=== PATIENT | male | born 1980 | race Two or more races ===

== ENCOUNTER 2023-10-31 14:11 | Outpatient (REF) | payer MEDICAID, SELFPAY ==
[2023-10-31 16:09] LABS: MANUAL DIFF FLAG NO
[2023-10-31 16:13] LABS: Basophils Percent Auto 0.5 % (0-2); Eosinophils Absolute Auto 0.1 X10*3/uL (0.0-0.4); Eosinophils Percent Auto 2.2 % (0-4); Hematocrit 44.3 % (42.0-52.0); Hemoglobin 15.1 g/dl (14.0-18.0); Imm Gran Abs Auto 0.02 X10*3/uL (0.00-0.03); Imm Gran Pct Auto 0.3 % (0.0-0.4); Lymphocytes Absolute Auto 2.4 X10*3/uL (1.2-4.9); Lymphocytes Percent Auto 36.7 % (20-40); Mean Corpuscular HGB Conc 34.1 g/dl (31.0-36.0); Mean Corpuscular Hemoglobin 31.7 pg (27.0-33.0); Mean Corpuscular Volume 92.9 fL (80.0-98.0); Mean Platelet Volume 10.8 fL (9.4-12.4); Monocytes Absolute Auto 0.4 X10*3/uL (0.1-1.2); Monocytes Percent Auto 6.4 % (2-11); Neutrophils Absolute Auto 3.5 x10*3/uL (2.0-8.3); Neutrophils Percent Auto 53.9 % (45-73); Platelet Count 203 X10*3/uL (160-400); Red Blood Count 4.77 X10*6/uL (4.60-5.80); Red Cell Distribution Width 12.2 % (11.0-16.0); White Blood Count 6.4 X10*3/uL (4.8-10.8)
[2023-10-31 16:49] LABS: Alanine Aminotransferase 18 U/L (0-40); Albumin Level 4.5 g/dL (3.5-5.0); Alkaline Phosphatase 64 U/L (39-117); Anion Gap 14 (12-20); Aspartate Amino Transferase 22 U/L (5-37); Bilirubin Total 1.3 mg/dL (0.0-1.0); Blood Urea Nitrogen 11 mg/dL (9-16); Calcium 9.9 mg/dL (8.4-10.2); Carbon Dioxide 24 mmol/L (22-29); Chloride 109 mmol/L (96-108); Estimated Glomerular Filt Rate > 60; Glucose Random 94 mg/dL (60-115); Potassium 4.3 mmol/L (3.3-5.1); Sodium 143 mmol/L (135-145); Total Protein 7.5 g/dL (6.5-8.0)
[2023-10-31 17:04] LABS: Vitamin D 25-OH Total 69.9 ng/mL (>30)
[2023-10-31 18:42] LABS: CT PCR NOT DETECTED (Not Detect.); NG PCR NOT DETECTED (Not Detect.)
[2023-11-01 04:22] LABS: Syphilis Screen Nonreactive (Nonreactive)
[2023-11-01 04:50] LABS: Hepatitis A Antibody IgG REACTIVE (Nonreactive); ~Hepatitis A Antibody IgG 4.16 S/CO (0.00-0.99)
[2023-11-01 04:58] LABS: HBS Num1 > 1000.00 mIU/mL (0-7.99); HBc Num1 0.15 S/CO (0.00-0.79); HBsAGNum1 0.44 S/CO (0.00-0.99); HIV AB/AG Nonreactive (Nonreactive); HIV Num 1 0.05 S/CO (0.00-0.99); Hepatitis B Core Antibody Nonreactive (Nonreactive); Hepatitis B Surface Antigen Negative (Negative); ~HepC Num1 0.09 S/CO (0.00-0.79); ~Hepatitis B Surface Antibody REACTIVE (Nonreactive); ~Hepatitis C Antibody Nonreactive (Nonreactive)
== END 2023-10-31 14:12 | disposition home or self-care (01) ==
LOC: HO.HHCL 14:11
PROVIDERS: Visit Provider Family Medicine
DX: Z11.3 Encounter for screening for infections with a predominantly sexual mode of transmission (principal); E55.9 Vitamin D deficiency, unspecified; T50.901A Poisoning by unspecified drugs, medicaments and biological substances, accidental (unintentional), initial encounter; Z01.84 Encounter for antibody response examination
CPT/HCPCS: 80053; 82306; 85025; 86704; 86706; 86708; 86780; 86803; 87340; 87389; 87491; 87591

== ENCOUNTER 2023-11-04 15:21 | Outpatient (REF) | payer MEDICAID, SELFPAY ==
[2023-11-04 17:00] LABS: Amphetamine Screen Urine NOT DETECTED (Not Detect); Barbiturates, Urine NOT DETECTED (Not Detect); Benzodiazepines Screen Urine Not Detected (Not Detect); Buprenorphine Scr Not Detected (Not Detect); Cannabinoid Screen Urine Not Detected (Not Detect); Cocaine Screen Urine Not Detected (Not Detect); Fentanyl, urine Not Detected (Not Detect); Methadone Screen, Urine Not Detected (Not Detect); Opiate Screen Urine NOT DETECTED (Not Detect); Oxycodone Screen Urine Not Detected (Not Detect); Phencyclidine Screen Urine NOT DETECTED (Not Detect)
== END 2023-11-04 15:22 | disposition home or self-care (01) ==
LOC: HO.HHCL 15:21
PROVIDERS: Visit Provider Family Medicine
DX: T50.901A Poisoning by unspecified drugs, medicaments and biological substances, accidental (unintentional), initial encounter (principal); X58.XXXA Exposure to other specified factors, initial encounter; Y93.9 Activity, unspecified; Y92.9 Unspecified place or not applicable; Y99.9 Unspecified external cause status
CPT/HCPCS: 80307

== ENCOUNTER 2023-12-02 11:47 | Outpatient (REF) | payer MEDICAID, SELFPAY ==
[2023-12-02 16:20] LABS: Amphetamine Screen Urine Not Detected (Not Detect); Barbiturates, Urine Not Detected (Not Detect); Benzodiazepines Screen Urine Not Detected (Not Detect); Buprenorphine Scr Not Detected (Not Detect); Cannabinoid Screen Urine Not Detected (Not Detect); Cocaine Screen Urine Not Detected (Not Detect); Fentanyl, urine Not Detected (Not Detect); Methadone Screen, Urine Not Detected (Not Detect); Opiate Screen Urine Not Detected (Not Detect); Oxycodone Screen Urine Not Detected (Not Detect); Phencyclidine Screen Urine Not Detected (Not Detect)
== END 2023-12-02 11:48 | disposition home or self-care (01) ==
LOC: HO.HHCL 11:47
PROVIDERS: Visit Provider Family Medicine
DX: F41.9 Anxiety disorder, unspecified (principal); M54.50 Low back pain, unspecified; G89.29 Other chronic pain
CPT/HCPCS: 80307

== ENCOUNTER 2023-12-13 14:44 | Outpatient (AMB) | payer MEDICAID, SELFPAY ==
--- NOTE | 2023-12-13 14:58 | A.OFFVIS_ITS ---
Intake Visit Reasons: erectile dysfunction Intake Note: New Patient presents for initial visit for erectile dysfunction Urology Medications: Tadalafil Blood Thinner: none Windows Software Developer Required: No Accompanied by: Self / Same As Patient Allergies No Known Allergies [No Known Allergies*] Allergy (Unverified 12/13/23 16:03) Medication List - Last Reconciled 12/13/23 by SU Champion albuterol sulfate 90 mcg/actuation (Ventolin HFA) 2 puffs inhalation Q4H PRN azelaic acid 15% topical DAILY benzoyl peroxide 10% topical cholecalciferol (vitamin D3) 25 mcg PO DAILY clindamycin phosphate 1% topical BID tadalafil 5 mg PO DAILY HPI Comments Details: Jay is a 43-year-old male patient of Dr. Almaguer. He has a past medical history of acne, bipolar disorder, depression, asthma, acid reflux, lumbar spinal stenosis, degenerative disc disease, and osteoporosis. He presents to the office today as a new patient for erectile dysfunction. In discussion with the patient today he reports noting issues obtaining and maintaining erections since initiation of Abilify that he has since stopped taking. He discusses his previous lumbar surgery with anterior approach. He reports having followed up with [facility] and has undergone scrotal ultrasound that noted microlithiasis otherwise was within normal limits. He reports having been started on low-dose Cialis and has not found this helpful. He does report being able to obtain an erection however does not feel as adequate for penetration however is not actively in a relationship. He denies any previous trauma in the area. He otherwise denies any bothersome urinary issues. We discussed at length potential causes of erectile dysfunction as well as further workup. He denies urinary urgency, urinary frequency, incontinence, nocturia, hematuria, dysuria, foul smelling urine, changes to urinary stream, flank pain, fever, and or chills. He is happy with his current voiding parameters. In office urinalysis results reviewed with the patient today. He otherwise offers no other issues or concerns at this time. [facility] Medical History Bipolar disorder Acne Depression Asthma Acid reflux Lumbar spinal stenosis Degenerative disc disease, lumbar Osteoporosis Review of Systems Const All systems reviewed & are unremarkable except as noted in HPI and below Reports as per HPI Eyes Reports no additional complaints ENT Reports no additional complaints Card Reports as per HPI Resp Reports no additional complaints GI Denies abdominal pain and Denies nausea Musc Denies no additional complaints Neuro Reports no additional complaints Physical Exam Const General: cooperative, healthy appearing, comfortable, no acute distress, well developed, alert and awake Nutritional Appearance: thin Orientation/consciousness: patient oriented x3 Limitations: no limitations HEENT Head: Yes normal to inspection, Yes normocephalic and Yes atraumatic Ears: hearing grossly normal bilaterally Eyes General: appearance normal, both eyes and all related structures Neck Neck: Yes normal visual inspection and Yes trachea midline Chest Chest palpation & inspection: normal inspection of the chest Resp Effort & Inspection: normal respiratory effort and able to speak in complete sentences Cardio Rate: regular rate GI Inspection: Yes normal to inspection General: Yes no CVA tenderness Back/Spine/Pelvis Back: no CVA tenderness Skin General skin exam: no rashes or lesions noted Neuro General: patient oriented x3 Extrem General: Yes normal to inspection Psych Appearance: grossly normal and well kempt Mental Status: mental status grossly normal Speech and movement: Normal speech and movement present and Clear speech present Affect: normal affect Attitude: cooperative Thought process: Normal thought process present Thought content: Normal thought content present Insight: Fair insight present (Psych) Judgement: Fair judgement present (Psych) Results AMB Urinalysis, Automated UA Leukoctes 0 Mushtaq/uL Last Edit by [employer] on 12/13/23 15:25 UA Nitrite Last Edit by [employer] on 12/13/23 15:25 UA Urobilinogen 0.2 mg/dL Last Edit by [employer] on 12/13/23 15:25 UA Protein 15 mg/dL Last Edit by [employer] on 12/13/23 15:25 UA pH 5.5 Last Edit by [employer] on 12/13/23 15:25 UA Blood 0 Arsh/uL Last Edit by [employer] on 12/13/23 15:25 UA Specific [place] 1.030 Last Edit by [employer] on 12/13/23 15:25 UA Ketone Last Edit by [employer] on 12/13/23 15:25 UA Bilirubin 0 mg/dL Last Edit by [employer] on 12/13/23 15:25 UA Glucose 0 mg/dL Last Edit by Raquel Ortega on 12/13/23 15:25 Results Reviewed Results Reviewed: Laboratory Last Values Urine pH (Auto) 5.5 12/13/23 15:21 Specific [place] (Auto) 1.030 12/13/23 15:21 Urine Protein (Auto) 15 mg/dL 12/13/23 15:21 Glucose (UA)(Auto) 0 mg/dL 12/13/23 15:21 Urine Blood (Auto) 0 Arsh/uL 12/13/23 15:21 Urine Bilirubin (Auto) 0 mg/dL 12/13/23 15:21 Urine Urobilinogen (Auto) 0.2 mg/dL 12/13/23 15:21 Leukocyte Esterase (Auto) 0 Mushtaq/uL 12/13/23 15:21 Assessment & Plan Assessment & Plan (1) Erectile dysfunction: Code(s): N52.9 - Male erectile dysfunction, unspecified Category: Medical Plan In office urinalysis results reviewed with the patient today; as noted above. Discussed at length potential causes as well as treatment options for erectile dysfunction. Will obtain testosterone free and total, LH, SHBG, FSH, estradiol, and prolactin for further assessment evaluation. Continue low-dose Cialis Patient otherwise denies any bothersome urinary issues or concerns. He reports be happy with current voiding parameters. Discussed possible near future penile Doppler for further assessment evaluation. Follow-up in 1-3 months with labs to be completed prior; or sooner with any issues, concerns, and or questions. Orders: Orders Follicle Stimulating Hormone Today N52.9 - Male erectile dysfunction, unspecified Testosterone, Free/Total Today N52.9 - Male erectile dysfunction, unspecified Lutenizing Hormone Today N52.9 - Male erectile dysfunction, unspecified Sex Hormone Binding Globulin Today E29.1 - Testicular hypofunction, N52.9 - Male erectile dysfunction, unspecified AMB Urinalysis Automated Today Z13.9 - Encounter for screening, unspecified Prolactin Today N52.9 - Male erectile dysfunction, unspecified Estradiol Ultra Sensitive Today E29.1 - Testicular hypofunction, N52.9 - Male erectile dysfunction, unspecified Patient Instructions: The patient had an opportunity to ask questions regarding the treatment plan. All questions were answered. Physical exam, labs, and imaging were discussed and reviewed in detail. As well as risks, benefits, and discussion of treatment choices. No major barriers to understanding were identified. The patient expressed understanding and agreement with the above treatment plan. The patient was made aware they should contact our office by phone for worsening of their current condition, the appearance of new symptoms, or with any q uestions or concerns. Compliance is encouraged with any medications and follow up testing that is ordered. It is a privilege to be allowed the opportunity to participate in? your urological care.? Again, if you have any questions or concerns If you have any questions or concerns please do not hesitate to contact me. The office is [phone]. This note is constructed using voice recognition software. While every effort has been made to ensure accuracy supervisor mirror fabrication errors may have been included. Yours sincerely, SU Champion Coding Level of Care Code New Pt Level 3 (30360) Diagnoses Erectile dysfunction N52.9
== END 2023-12-13 15:39 | disposition home or self-care (01) ==
PROVIDERS: PCP Family Medicine; Visit Provider Nurse Practitioner Family
DX: N52.9 Male erectile dysfunction, unspecified (principal); Z13.9 Encounter for screening, unspecified
CPT/HCPCS: 99203

== ENCOUNTER → 2023-12-13 14:44 | Outpatient (BNVA) | payer MEDICAID, SELFPAY | PROVIDERS: PCP Family Medicine; Visit Provider Nurse Practitioner Family | DX: N52.9 Male erectile dysfunction, unspecified (principal) | CPT/HCPCS: 81003; 99212 ==

== ENCOUNTER 2024-01-05 12:44 | Outpatient (AMB) | payer MEDICAID, SELFPAY ==
--- NOTE | 2024-01-05 12:53 | HO.SPINEOV ---
Intake Visit Reasons: chronic low back pain Intake Note: Mr. Spencer is here today c/o Low back pain. Injection Molding Machine Setter Required: No Allergies No Known Allergies [No Known Allergies*] Allergy (Verified 01/05/24 13:01) Assessment & Plan Assessment & Plan (1) Failed back syndrome: Code(s): M96.1 - Postlaminectomy syndrome, not elsewhere classified Category: Medical Plan Dear dr Almaguer Thank you for referring Mr Spencer to our office today. He is a 43-year-old gentleman presents to the office today for evaluation of back pain on the right side of his low back which radiates down his right leg. He had an anterior lumbar interbody fusion with Dr.Cowan bates in 2021, which unfortunately did not relieve the pain. He went through a series of postoperative workups and was told that all the imaging was okay but unfortunately despite all this he did not feel any better. He underwent an EMG nerve study which showed normal findings with no evidence of nerve damage. He came in today for 2nd opinion on the matter. PMH: He deals with some bipolar issues and other mental health issues but he is otherwise healthy Social hx: Patient is a nonsmoker Medications: Voltaren and a number of different vitamin complexes Allergies: None Physical exam: Awake alert oriented no acute distress, slow to stand up but his strength and reflexes are normal. Tenderness over the right SI joint. Imaging review: He is a lumbar MRI done at [facility] showing L5-S1 fusion with a construct that appears in appropriate position. There is no central or foraminal stenosis. There are some other very milder changes in the upper lumbar spine but nothing of any concern. Impression: 43-year-old male who underwent an L5-S1 anterior lumbar interbody fusion at [facility] with unfortunately unsuccessful results. In his well-known that spinal fusion success rates are approximately 60-70% even in the best of circumstances as the exact source of back pain can often be elusive and may not be discogenic. It looks like this is probably the case with this gentleman that the disc was not the source of his back pain. His EMG was normal, his neurological exam is normal. He reports erectile dysfunction because of the surgery, and this would be unusual to see in isolation without some other type of cauda equina syndrome associated with it which he does not have. That could be coming from another source and may require a workup. We do not have any surgery to offer him as the imaging looks like an appropriate surgery was done. We would be happy to see him back if something changes. Thank you for allowing us to care for your patient. The total time spent with this visit with this patient was 40 minutes reviewing history, physical exam, lumbar imaging review, and implementation of treatment plan or further diagnostic testing Alexy Downing MD,PhD [facility] Coding Level of Care Code New Pt Level 4 (05202) Diagnoses Failed back syndrome M96.1
== END 2024-01-05 13:26 | disposition home or self-care (01) ==
PROVIDERS: PCP Family Medicine; Referring Provider Family Medicine; Visit Provider Physician Assistant
DX: M96.1 Postlaminectomy syndrome, not elsewhere classified (principal)
CPT/HCPCS: 99204

== ENCOUNTER → 2024-01-05 12:44 | Outpatient (BNVA) | payer MEDICAID, SELFPAY | PROVIDERS: PCP Family Medicine; Visit Provider Physician Assistant | DX: M96.1 Postlaminectomy syndrome, not elsewhere classified (principal) | CPT/HCPCS: 99212 ==

== ENCOUNTER 2024-01-13 10:43 | Outpatient (REF) | payer MEDICAID, SELFPAY ==
[2024-01-14 09:48] LABS: Lutenizing Hormone 3.4 mIU/mL (1.5-9.3); Prolactin 9.6 ng/mL (2.0-18.0); Sex Hormone Binding Globulin 24 nmol/L (10-50)
[2024-01-18 19:27] LABS: Testosterone, Free 53.6 pg/mL (35.0-155.0); Testosterone, Total 288 ng/dL (250-1100)
[2024-01-21 23:43] LABS: Estradiol Ultra Sensitive 18 pg/mL (< OR = 29)
== END 2024-01-13 10:44 | disposition home or self-care (01) ==
LOC: HO.LAB 10:43
PROVIDERS: PCP Family Medicine; Visit Provider Nurse Practitioner Family
DX: N52.9 Male erectile dysfunction, unspecified (principal); E29.1 Testicular hypofunction
CPT/HCPCS: 36415; 82670; 83001; 83002; 84146; 84270; 84402; 84403

== ENCOUNTER 2024-01-23 13:44 | Outpatient (AMB) | payer MEDICAID, SELFPAY ==
--- NOTE | 2024-01-23 14:06 | A.OFFVIS_ITS ---
Intake Visit Reasons: 2m/labs Intake Note: Patient presents today for follow up visit on: erectile dysfunction Urology Medications: Tadalafil Blood Thinner: none Staffing Operations Manager Required: No Accompanied by: Self / Same As Patient Allergies No Known Allergies [No Known Allergies*] Allergy (Verified 01/23/24 17:52) Medication List - Last Reconciled 01/23/24 by SU Champion albuterol sulfate 90 mcg/actuation (Ventolin HFA) 2 puffs inhalation Q4H PRN azelaic acid 15% topical DAILY benzoyl peroxide 10% topical cholecalciferol (vitamin D3) 25 mcg PO DAILY clindamycin phosphate 1% topical BID clomiphene citrate 100 mg (2 x 50 mg) PO DAILY 7 days doxycycline hyclate 100 mg PO BID tadalafil 5 mg PO DAILY 90 days HPI Comments Details: Jay is a 43-year-old male patient of Dr. Almaguer. He has a past medical history of acne, bipolar disorder, depression, asthma, acid reflux, lumbar spinal stenosis, degenerative disc disease, and osteoporosis. He presents to the office today for follow-up of his erectile dysfunction. Of note, patient was seen approximately 6 weeks ago at which time labs were drawn for further assessment evaluation. These results were reviewed with the patient today. Estradiol: 01/09 18 FSH: 01/09 3.0 LH: 01/09 3.4 Prolactin: 01/09 9.6 Total testosterone: 01/09 288 Free testosterone: 01/09 53.6 SHB/24 24 He continues to discuss at length feeling a lot of his medical issues were initiated after taking Abilify. He reports feeling this has caused him his erectile dysfunction as well as acne he has been experiencing. He also feels his previous lumbar surgery with an anterior approach has also affected him with our medical issues. We discuss trial of clomiphene. He reports feeling low-dose Cialis has been helpful with obtaining erections. He discusses his longstanding history with his urological issues and following up with [facility] in the past however did not find this helpful. He otherwise denies any bothersome urinary issues or concerns. He denies urinary urgency, urinary frequency, incontinence, nocturia, hematuria, dysuria, foul smelling urine, changes to urinary stream, flank pain, fever, and or chills. He is happy with his current voiding parameters. In office urinalysis results reviewed with the patient today. He otherwise offers no other issues or concerns at this time. [facility] Medical History Bipolar disorder Acne Depression Asthma Acid reflux Lumbar spinal stenosis Degenerative disc disease, lumbar Osteoporosis Review of Systems Const All systems reviewed & are unremarkable except as noted in HPI and below Reports as per HPI Eyes Reports no additional complaints ENT Reports no additional complaints Card Reports as per HPI Resp Reports no additional complaints GI Denies abdominal pain and Denies nausea Musc Denies no additional complaints Neuro Reports no additional complaints Physical Exam Const General: cooperative, healthy appearing, comfortable, no acute distress, well developed, alert and awake Nutritional Appearance: thin Orientation/consciousness: patient oriented x3 Limitations: no limitations HEENT Head: Yes normal to inspection, Yes normocephalic and Yes atraumatic Ears: hearing grossly normal bilaterally Eyes General: appearance normal, both eyes and all related structures Neck Neck: Yes normal visual inspection and Yes trachea midline Chest Chest palpation & inspection: normal inspection of the chest Resp Effort & Inspection: normal respiratory effort and able to speak in complete sentences Cardio Rate: regular rate GI Inspection: Yes normal to inspection General: Yes no CVA tenderness Back/Spine/Pelvis Back: no CVA tenderness Skin General skin exam: no rashes or lesions noted Neuro General: patient oriented x3 Extrem General: Yes normal to inspection Psych Appearance: grossly normal and well kempt Mental Status: mental status grossly normal Speech and movement: Normal speech and movement present and Clear speech present Affect: normal affect Attitude: cooperative Thought process: Normal thought process present Thought content: Normal thought content present Insight: Fair insight present (Psych) Judgement: Fair judgement present (Psych) Results AMB Urinalysis, Automated UA Leukoctes 0 Mushtaq/uL Last Edit by Raquel Ortega on 01/23/24 14:38 UA Nitrite Last Edit by Raquel Ortega on 01/23/24 14:38 UA Urobilinogen 0.2 mg/dL Last Edit by Raquel Ortega on 01/23/24 14:38 UA Protein 0 mg/dL Last Edit by Raquel Ortega on 01/23/24 14:38 UA pH 6.0 Last Edit by Raquel Ortega on 01/23/24 14:38 UA Blood 0 Arsh/uL Last Edit by Raquel Ortega on 01/23/24 14:38 UA Specific [place] 1.010 Last Edit by Raquel Ortega on 01/23/24 14:38 UA Ketone Last Edit by Raquel Ortega on 01/23/24 14:38 UA Bilirubin 0 mg/dL Last Edit by Raquel Ortega on 01/23/24 14:38 UA Glucose 0 mg/dL Last Edit by Raquel Ortega on 01/23/24 14:38 Results Reviewed Results Reviewed: Laboratory Last Values Urine pH (Auto) 6.0 01/23/24 14:36 Specific [place] (Auto) 1.010 01/23/24 14:36 Urine Protein (Auto) 0 mg/dL 01/23/24 14:36 Glucose (UA)(Auto) 0 mg/dL 01/23/24 14:36 Urine Blood (Auto) 0 Arsh/uL 01/23/24 14:36 Urine Bilirubin (Auto) 0 mg/dL 01/23/24 14:36 Urine Urobilinogen (Auto) 0.2 mg/dL 01/23/24 14:36 Leukocyte Esterase (Auto) 0 Mushtaq/uL 01/23/24 14:36 Assessment & Plan Assessment & Plan (1) Erectile dysfunction: Code(s): N52.9 - Male erectile dysfunction, unspecified Category: Medical Plan In office urinalysis results reviewed with the patient today; as noted above. Previous urological labs reviewed with the patient today; as noted above. Discuss trial of clomiphene; we discussed risks and benefits of this i ntervention. Continue Cialis as discussed and prescribed. Start clomid 50 mg b.i.d. x7 days Will reassess LH, testosterone, and free testosterone 1 week status post completion of clomid. Follow-up in 1 month with labs to be completed prior; or sooner with any issues, concerns, and or questions. Orders: Orders Lutenizing Hormone 1 Week N52.9 - Male erectile dysfunction, unspecified Testosterone, Free/Total 1 Week N52.9 - Male erectile dysfunction, unspecified AMB Urinalysis Automated Today Z13.9 - Encounter for screening, unspecified Medications: New clomiphene citrate [facility] [address] [id number] 100 mg (2 x 50 mg) PO DAILY 7 days 14 tabs 0RF E29.1 - Testicular hypofunction, R79.89 - Other specified abnormal findings of blood chemistry Changed From tadalafil 5 mg PO DAILY To tadalafil BIN N Group [facility] [address] [id number] 5 mg PO DAILY 90 days 90 tabs 1RF Patient Instructions: The patient had an opportunity to ask questions regarding the treatment plan. All questions were answered. Physical exam, labs, and imaging were discussed and reviewed in detail. As well as risks, benefits, and discussion of treatment choices. No major barriers to understanding were identified. The patient expressed understanding and agreement with the above treatment plan. The patient was made aware they should contact our office by phone for worsening of their current condition, the appearance of new symptoms, or with any questions or concerns. Compliance is encouraged with any medications and follow up testing that is ordered. It is a privilege to be allowed the opportunity to participate in? your urological care.? Again, if you have any questions or concerns If you have any questions or concerns please do not hesitate to contact me. The office is [phone]. This note is constructed using voice recognition software. While every effort has been made to ensure accuracy childcare aide errors may have been included. Yours sincerely, SU Champion Coding Level of Care Code Est Pt Level 4 (46649) Diagnoses Erectile dysfunction N52.9
== END 2024-01-23 14:28 | disposition home or self-care (01) ==
PROVIDERS: PCP Family Medicine; Visit Provider Nurse Practitioner Family
DX: Z13.9 Encounter for screening, unspecified (principal); N52.9 Male erectile dysfunction, unspecified
CPT/HCPCS: 99214

== ENCOUNTER → 2024-01-23 13:44 | Outpatient (BNVA) | payer MEDICAID, SELFPAY | PROVIDERS: PCP Family Medicine; Visit Provider Nurse Practitioner Family | DX: N52.9 Male erectile dysfunction, unspecified (principal) | CPT/HCPCS: 81003; 99212 ==

== ENCOUNTER 2024-01-24 14:05 | Outpatient (REF) | payer MEDICAID, SELFPAY ==
[2024-01-24 16:19] LABS: MANUAL DIFF FLAG NO
[2024-01-24 16:30] LABS: Basophils Percent Auto 0.6 % (0-2); Eosinophils Absolute Auto 0.1 X10*3/uL (0.0-0.4); Eosinophils Percent Auto 1.7 % (0-4); Hemoglobin 15.8 g/dl (14.0-18.0); Imm Gran Abs Auto 0.02 X10*3/uL (0.00-0.03); Imm Gran Pct Auto 0.3 % (0.0-0.4); Lymphocytes Absolute Auto 2.3 X10*3/uL (1.2-4.9); Mean Corpuscular HGB Conc 34.3 g/dl (31.0-36.0); Mean Corpuscular Hemoglobin 32.1 pg (27.0-33.0); Mean Corpuscular Volume 93.5 fL (80.0-98.0); Mean Platelet Volume 10.7 fL (9.4-12.4); Monocytes Absolute Auto 0.4 X10*3/uL (0.1-1.2); Monocytes Percent Auto 5.9 % (2-11); Neutrophils Absolute Auto 4.1 x10*3/uL (2.0-8.3); Neutrophils Percent Auto 58.5 % (45-73); Platelet Count 212 X10*3/uL (160-400); Red Blood Count 4.92 X10*6/uL (4.60-5.80); Red Cell Distribution Width 11.9 % (11.0-16.0)
[2024-01-24 17:06] LABS: Alanine Aminotransferase 15 U/L (0-40); Albumin Level 4.5 g/dL (3.5-5.0); Alkaline Phosphatase 65 U/L (39-117); Anion Gap 10 (12-20); Aspartate Amino Transferase 19 U/L (5-37); Bilirubin Total 1.2 mg/dL (0.0-1.0); Blood Urea Nitrogen 11 mg/dL (9-16); Calcium 9.9 mg/dL (8.4-10.2); Carbon Dioxide 28 mmol/L (22-29); Chloride 107 mmol/L (96-108); Estimated Glomerular Filt Rate > 60; Glucose Random 88 mg/dL (60-115); Potassium 4.3 mmol/L (3.3-5.1); Sodium 141 mmol/L (135-145); Total Protein 7.9 g/dL (6.5-8.0)
[2024-01-24 17:31] LABS: Erythrocyte Sedimentation Rate 2 MM/HR (0-15)
[2024-01-30 13:49] LABS: Testosterone, Total 256 ng/dL (250-1100)
== END 2024-01-24 14:06 | disposition home or self-care (01) ==
LOC: HO.HHCL 14:05
PROVIDERS: Nurse Practitioner Family; Visit Provider Internal Medicine
DX: L70.0 Acne vulgaris (principal); N52.9 Male erectile dysfunction, unspecified
CPT/HCPCS: 36415; 80053; 83002; 84402; 84403; 85025; 85652

== ENCOUNTER 2024-02-01 08:56 | Outpatient (REF) | payer MEDICAID, SELFPAY ==
[2024-02-01 10:24] LABS: Alanine Aminotransferase 19 U/L (0-40); Albumin Level 4.4 g/dL (3.5-5.0); Alkaline Phosphatase 61 U/L (39-117); Anion Gap 9 (12-20); Aspartate Amino Transferase 27 U/L (5-37); Bilirubin Total 1.3 mg/dL (0.0-1.0); Blood Urea Nitrogen 10 mg/dL (9-16); Calcium 9.4 mg/dL (8.4-10.2); Carbon Dioxide 30 mmol/L (22-29); Chloride 108 mmol/L (96-108); Estimated Glomerular Filt Rate > 60; Glucose Random 89 mg/dL (60-115); Potassium 4.2 mmol/L (3.3-5.1); Sodium 143 mmol/L (135-145); Total Protein 7.5 g/dL (6.5-8.0)
[2024-02-02 20:03] LABS: Lutenizing Hormone 5.4 mIU/mL (1.5-9.3)
[2024-02-05 16:33] LABS: Testosterone, Free 137.4 pg/mL (35.0-155.0); Testosterone, Total 505 ng/dL (250-1100)
== END 2024-02-01 08:57 | disposition home or self-care (01) ==
LOC: HO.LAB 08:56
PROVIDERS: Absent Provider Nurse Practitioner Family; PCP Family Medicine; Visit Provider Family Medicine
DX: E87.8 Other disorders of electrolyte and fluid balance, not elsewhere classified (principal); N52.9 Male erectile dysfunction, unspecified
CPT/HCPCS: 36415; 80053; 83002; 84402; 84403

== ENCOUNTER 2024-02-23 10:02 | Outpatient (AMB) | payer MEDICAID, SELFPAY ==
--- NOTE | 2024-02-23 10:02 | A.OFFVIS_ITS ---
Intake Visit Reasons: 1m/labs(set) Intake Note: Patient presents today for tele visit follow up on: erectile dysfunction Testosterone: 505;Free testosterone: 137.4; LH: 5.4 Urology Medications: Tadalafil,Clomid Blood Thinner: none Managed Services Consultant Required: No Accompanied by: Self / Same As Patient Allergies No Known Allergies [No Known Allergies*] Allergy (Verified 02/23/24 10:11) Medication List - Last Reconciled 02/23/24 by SU Champion albuterol sulfate 90 mcg/actuation (Ventolin HFA) 2 puffs inhalation Q4H PRN benzoyl peroxide 10% topical cholecalciferol (vitamin D3) 25 mcg PO DAILY clindamycin phosphate 1% topical BID clomiphene citrate 50 mg PO .mon,wed,fri 90 days clomiphene citrate 100 mg (2 x 50 mg) PO DAILY 7 days diclofenac sodium 1% 1 g topical PRN fexofenadine 180 mg PO DAILY PRN gabapentin mg PO tadalafil 5 mg PO DAILY 90 days HPI Comments Details: Jay is a 43-year-old male patient of Dr. Almaguer. He has a past medical history of acne, bipolar disorder, depression, asthma, acid reflux, lumbar spinal stenosis, degenerative disc disease, and osteoporosis. He is being followed up on today via telehealth for his borderline hypogonadism as well as erectile dysfunction. Of note, patient was seen approximately 1 month ago at which time he was started on clomiphene. In discussion with the patient today reports to be doing and feeling well. Recent labs reviewed with the patient today as noted and trended below... Estradiol: 01/09 18 FSH: 01/09 3.0 LH: 01/09 3.4, 1024 5.4 Prolactin: 01/09 9.6 Total testosterone: 01/09 288, 02/08 505 Free testosterone: 01/09 53.6, 02/08 137.4 SHB01/10 24 He continues to discuss at length feeling a lot of his medical issues were initiated after taking Abilify. He reports feeling this has caused him his erectile dysfunction as well as acne he has been experiencing. He also feels his previous lumbar surgery with an anterior approach has also affected him with our medical issues. He reports feeling low-dose Cialis has been helpful with obtaining erections. He discusses his longstanding history with his urological issues and following up with [facility] in the past however did not find this helpful. He otherwise denies any bothersome urinary issues or concerns. He denies urinary urgency, urinary frequency, incontinence, nocturia, hematuria, dysuria, foul smelling urine, changes to urinary stream, flank pain, fever, and or chills. He is happy with his current voiding parameters. He otherwise offers no other issues or concerns at this time. [facility] Medical History Bipolar disorder Acne Depression Asthma Acid reflux Lumbar spinal stenosis Degenerative disc disease, lumbar Osteoporosis Review of Systems Const All systems reviewed & are unremarkable except as noted in HPI and below Reports as per HPI Eyes Reports no additional complaints ENT Reports no additional complaints Card Reports as per HPI Resp Reports no additional complaints GI Denies abdominal pain and Denies nausea Musc Denies no additional complaints Neuro Reports no additional complaints Physical Exam Const General: cooperative Orientation/consciousness: patient oriented x3 Resp Effort & Inspection: able to speak in complete sentences Neuro General: patient oriented x3 Psych Speech and movement: Clear speech present Attitude: cooperative Thought content: Normal thought content present Insight: Fair insight present (Psych) Judgement: Fair judgement present (Psych) Telehealth Telehealth Telehealth Platform: [facility] Location of provider rendering services: practice address Location of patient: address on file Patient Identification confirmed using: Name, : Yes Telehealth method: voice only Patient verbally consented to treatment: Yes Patient verbally consented to billing insurance company: Yes Patient informed of any privacy concerns related to visit: Yes Minutes spent on Phone/Video with Pt.: 15 Assessment & Plan Assessment & Plan (1) Erectile dysfunction: Code(s): N52.9 - Male erectile dysfunction, unspecified Category: Medical (2) Hypogonadism in male: Code(s): E29.1 - Testicular hypofunction Category: Medical Plan Recent testosterone, free testosterone, and LH results reviewed with the patient today; as noted above. 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 Will decrease clomiphene citrate to 50 mg every other day. He otherwise denies any bothersome urinary issues or concerns. He reports be happy with current voiding parameters. Will obtain testosterone, free testosterone, and LH in 3 months. Follow-up in 3 months with labs to be completed prior; or sooner with any issues, concerns, and or questions. Orders: Orders Testosterone, Free/Total Today E29.1 - Testicular hypofunction, N52.9 - Male erectile dysfunction, unspecified Lutenizing Hormone Today E29.1 - Testicular hypofunction, N52.9 - Male erectile dysfunction, unspecified Medications: New [facility] [id number] 50 mg PO .mon,wed,fri 40 tabs 0RF 90 days E29.1 - Testicular hypofunction Patient Instructions: The patient had an opportunity to ask questions regarding the treatment plan. All questions were answered. Physical exam, labs, and imaging were discussed and reviewed in detail. As well as risks, benefits, and discussion of treatment choices. No major barriers to understanding were identified. The patient expressed understanding and agreement with the above treatment plan. The patient was made aware they should contact our office by phone for worsening of their current condition, the appearance of new symptoms, or with any questions or concerns. Compliance is encouraged with any medications and follow up testing that is ordered. It is a privilege to be allowed the opportunity to participate in? your urological care.? Again, if you have any questions or concerns If you have any questions or concerns please do not hesitate to contact me. The office is [phone]. This note is constructed using voice recognition software. While every effort has been made to ensure accuracy paper cone drying machine operator errors may have been included. Yours sincerely, SU Champion Coding Level of Care Code Tele Est Pt Level 3 (06067) Diagnoses Erectile dysfunction N52.9 Hypogonadism in male E29.1
== END 2024-02-23 10:41 | disposition home or self-care (01) ==
LOC: HO.HUSH 10:02
PROVIDERS: PCP Family Medicine; Visit Provider Nurse Practitioner Family
DX: N52.9 Male erectile dysfunction, unspecified (principal); E29.1 Testicular hypofunction
CPT/HCPCS: 99213

== ENCOUNTER → 2024-02-23 10:02 | Outpatient (BNVA) | payer MEDICAID, SELFPAY | PROVIDERS: PCP Family Medicine; Visit Provider Nurse Practitioner Family ==

== ENCOUNTER 2024-04-02 12:10 | Outpatient (REF) | payer MEDICAID, SELFPAY ==
[2024-04-02 14:21] LABS: Alanine Aminotransferase 19 U/L (0-40); Albumin Level 4.3 g/dL (3.5-5.0); Alkaline Phosphatase 53 U/L (39-117); Anion Gap 8 (12-20); Aspartate Amino Transferase 24 U/L (5-37); Bilirubin Direct 0.2 mg/dL (0.0-0.5); Bilirubin Total 0.8 mg/dL (0.0-1.0); Blood Urea Nitrogen 11 mg/dL (9-16); Calcium 9.1 mg/dL (8.4-10.2); Carbon Dioxide 29 mmol/L (22-29); Chloride 108 mmol/L (96-108); Estimated Glomerular Filt Rate > 60; Glucose Random 83 mg/dL (60-115); Potassium 4.4 mmol/L (3.3-5.1); Sodium 141 mmol/L (135-145); Total Protein 7.6 g/dL (6.5-8.0)
[2024-04-03 10:28] LABS: Lutenizing Hormone 5.8 mIU/mL (1.5-9.3)
[2024-04-07 16:18] LABS: Testosterone, Free 113.2 pg/mL (35.0-155.0); Testosterone, Total 690 ng/dL (250-1100)
== END 2024-04-02 12:11 | disposition home or self-care (01) ==
LOC: HO.HHCL 12:10
PROVIDERS: Nurse Practitioner Family; Visit Provider Family Medicine
DX: N52.9 Male erectile dysfunction, unspecified (principal); R17 Unspecified jaundice; E87.8 Other disorders of electrolyte and fluid balance, not elsewhere classified; B35.1 Tinea unguium
CPT/HCPCS: 36415; 80048; 80076; 83002; 84402; 84403

== ENCOUNTER 2024-05-11 08:52 | Outpatient (REF) | payer MEDICAID, SELFPAY ==
[2024-05-11 10:39] LABS: Anion Gap 12 (12-20); Blood Urea Nitrogen 15 mg/dL (9-16); Calcium 9.3 mg/dL (8.4-10.2); Carbon Dioxide 25 mmol/L (22-29); Chloride 108 mmol/L (96-108); Estimated Glomerular Filt Rate > 60; Glucose Random 84 mg/dL (60-115); Sodium 141 mmol/L (135-145)
[2024-05-12 20:13] LABS: Lutenizing Hormone 8.1 mIU/mL (1.5-9.3)
[2024-05-17 17:08] LABS: Testosterone, Free 162.6 pg/mL (35.0-155.0); Testosterone, Total 821 ng/dL (250-1100)
== END 2024-05-11 08:53 | disposition home or self-care (01) ==
LOC: HO.LAB 08:52
PROVIDERS: PCP Family Medicine; Visit Provider Nurse Practitioner Family
DX: E29.1 Testicular hypofunction (principal); E87.8 Other disorders of electrolyte and fluid balance, not elsewhere classified
CPT/HCPCS: 36415; 80048; 83002; 84402; 84403

== ENCOUNTER 2024-05-22 14:26 | Outpatient (AMB) | payer MEDICAID, SELFPAY ==
--- OUTSIDE RECORDS SUMMARY | 2024-05-22 14:29 | XMS_ITS | Encounter Summary ---
Author Organization [employer] Address [address] [place] [address] Care Team Providers Care Interlocking Installer Name Role Phone Cyndi Almaguer MD Primary Care Provider [phone] Reason for Visit * Reason Comments Blister Encounter Details Date Type Department Care Team (Late st Contact Info) Description 05/21/2024 2:20 PM EST Office Visit [facility] [address] [place] [address] Meenakshi Lentz ANP [address] [place] [address] Herpes labialis (Primary Dx) Social History Tobacco Use Types Packs/Day Years Used Date Smoking Tobacco: Former Cigarettes Passive Smoke Exposure: Past Smokeless Tobacco: Never Comments:Pt quit cigarettes July 2018 Alcohol Answer Date Recorded Frequency of Alcohol Consumption Not on file 01/31/2024 Average Number of Drinks Not on file 024 Frequency of Binge Drinking Not on file 01/16 Score 0 01/31/2024 Depression Answer Date Recorded Patient Health Questionnaire-9 Score 2 01/31/2024 Patient Health Questionnaire-9 Score 2 01/31/2024 Last PHQ-9: Questionnaire Data Not on file 1 Housing Stability Answer Date Recorded What is your housing situation today? I have marilyn martinez 09/15/[address] you li ve. Do you have problems with any of the following? None of the above 09/15/2023 Food Insecurity Answer Date Recorded Within the past 12 months, y ou worried that your food would run out before you got money to buy more: Never True 09/15/2023 Within the past 12 months,th e food you bought just didn't last and you didn't have enough money to get more: Never True Transportation Answer Date Recorded In the past 12 months, has l ack of transportation kept you from medical appts, meetings, work or from getting things needed for daily living? No 09/15/2023 Utilities Answer Date Recorded In the past 12 months, has t he electric, gas, oil or water company threatened to shut off services in your home? No 09/15/2023 Depression Answer Date Recorded Patient Health Questionnaire-2 Score 0 01/31/2024 Sex and Gender Information Value Date Recorded Sex Assigned at Male 02/15/2022 10:17 AM EDT Legal Sex Male 10:17 AM EDT Gender Identity Male 08/29/2023 2:10 PM EDT Sexual Orientation Straight 08/29/2023 2: 20 PM EDT documented as of this encounter Last Filed Vital Signs Vital Sign Reading Time Taken Comments Blood Pressure 121/76 05/21/2024 3:00 PM EST Pulse 66 05/21/2024 3:00 PM EST Temperature 37 ??C (98.6 ??F) 05/21/2024 3:00 PM EST Respiratory Rate 18 05/21/2024 3:00 PM EST Oxygen Saturation 97% 05/21/2024 3:00 PM EST Inhaled Oxygen Concentration - - Weight 83.7 kg (184 lb 9.6 oz) 05/21/2024 3:00 P M EST Height - - Body Mass Index 25.75 04/13/2024 9:54 AM EST documented in this encounter Progress Notes * ZULLY Miranda - 05/21/2024 2:20 PM EST Jay Spencer is 44 y.o. patient here today for sick visit. HPI Here today for lesion on R lower lip for 2-3d. No h/o cold sore in past. No assoc sx. Started as a blister which poped spontaneously Tuesday AM while brushing teeth. Applying hydrogen peroxide to site which makes it turn white and foamy. Former smoker Review of Systems Constitutional: Negative for chills and fever. HENT: Negative for congestion, facial swelling, rhinorrhea, sneezing, sore throat and trouble swallowing. Eyes: Negative for visual disturbance. Neurological: Negative for numbness. Patient Active Problem List Diagnosis Asthma Bipolar disorder (CMS/HCC) Chronic low back pain GERD (gastroesophageal reflux disease) History of lumbosacral spine surgery Allergic rhinitis Housing insecurity Pustular acne Mood disorder (CMS/HCC) Postlaminectomy syndrome Onychomycosis Objective BP 121/76 (BP Location: Left arm, Patient Position: Sitting, BP Cuff Size: Adult) Pulse 66 Temp98.6 ??F (37 ??C) (Temporal) Resp 18 Wt 184 lb 9.6 oz (83.7 kg) SpO2 97% BMI 25.75 kg/m?? Physical Exam Vitals reviewed. Constitutional: Appearance: Normal appearance. HENT: Head: Normocephalic and atraumatic. Eyes: General: No scleral icterus. Extraocular Movements: Extraocular movements intact. Pupils: Pupils are equal, round, and reactive to light. Cardiovascular: Rate and Rhythm: Normal rate. Skin: Comments: Small healed lesion on R lower lip. Neurological: Mental Status: He is alert and oriented to person, place, and time. Psychiatric: Mood and Affect: Mood normal. Diagnoses and all orders for this visit: Herpes labialis Opted for topical over PO med d/t very mild severity w/ accompanying sx. No gingivostomatitis. Did not swab as lesion was almost entirely healed, likely would be low yield. Let us know if any new lesions occur. - acyclovir (Zovirax) 5 % cream; Apply topically 5 (five) times a day. For 4 days documented in this encounter Plan of Treatment Upcoming Encounters Date Type Department Care Team (Late st Contact Info) Description 06/12/2024 3:45 PM EST Office Visit [facility] [address] [place] [address] Cyndi Almaguer MD [address] [place] [address] documented as of this encounter Visit Diagnoses Diagnosis Herpes labialis- Primary Herpes simplex without mention of complication documented in this encounter Additional Health Concerns Assessment Noted Time PHQ-9 Depression Total Score: 2 01/31/20 24 9:13 AM EDT documented as of this encounter Care Teams Interlocking Installer Relationship Specialty Start Date End Date Cyndi Almaguer MD [address] [place] [address] PCP - General Family Medicine 09/23/23 Sherry Carranza Director Long Term CareNeon Glass Bender 07/28/23 documented as of this encounter
--- OUTSIDE RECORDS SUMMARY | 2024-05-22 14:29 | XMS_ITS | Encounter Summary ---
Author Organization [employer] Address [address] [place] [address] Care Team Providers Care Help Aid Name Role Phone Cyndi Almaguer MD Primary Care Provider [phone] Reason for Referral * Consultation (Routine) - Closed Specialty Diagnoses / Procedures Referred By Contac t Referred To Contact Physical Therapy Diagnoses Chronic back pain, unspecified back location, unspecified back pain laterality Cyndi Almaguer MD [address] [place] [address] Phone: tel: fax: [facility] [address] Phone: tel: fax: Referral ID Status Reason Start Date Expiration Date V isits Requested Visits Authorized [id number] Closed Specialty Services Required 09/30/2023 09/28/2024 20 20 * Consultation (Routine) - Closed Specialty Diagnoses / Procedures Referred By Contac t Referred To Contact Orthopaedic Surgery Diagnoses Chronic back pain, unspecified back location, unspecified back pain laterality Cyndi Almaguer MD [address] [place] [address] Phone: tel: fax: [facility] [address] [place] [address] [address] [place], [place] Phone: tel: fax: Referral ID Status Reason Start Date Expiration Date V isits Requested Visits Authorized [id number] Closed Specialty Services Required 08/08/2023 08/07/2024 12 12 Encounter Details Date Type Department Care Team (Late st Contact Info) Description 09/16/2023 Orders Only [facility] [address] [place], [place] [phone] Cyndi Almaguer MD [address] [place] [address] Chronic back pain, unspecified back location, unspecified back pain laterality (Primary Dx) Social History Tobacco Use Types Packs/Day Years Used Date Smoking Tobacco: Never Assessed Housing Stability Answer Date Recorded What is [...] off services in your home? No 09/15/2023 Sex and Gender Information Value Date Recorded Sex Assigned at Male 02/15/2022 10:17 AM EDT Legal Sex Male 10:17 AM EDT Gender Identity Male 08/29/2023 2:10 PM EDT Sexual Orientation Straight 08/29/2023 2: 20 PM EDT documented as of this encounter Plan of Treatment Upcoming Encounters Date Type Department Care Team (Late st Contact Info) Description 06/12/2024 3:45 PM EST Office Visit [facility] [address] [place] [address] Cyndi Almaguer MD [address] [place] [address] Scheduled Referrals Name Type Priority Associated Diagnoses Orde r Schedule Referral to Orthopaedic Surgery Outpatient Referral Routine Chronic back pain, unspecified back location, unspecified back pain laterality Expected: 09/16/2023 (Approximate), Expires: 09/15/2024 Referral to Physical Therapy Outpatient Referral Routine Chronic back pain, unspecified back location, unspecified back pain laterality Expected: 09/29/2023 (Approximate), Expires: 09/28/2024 documented as of this encounter Visit Diagnoses Diagnosis Chronic back pain, unspecified back location, unspecified back pain laterality- Primary documented in this encounter Care Teams Help Aid Relationship Specialty Start Date End Date Cyndi Almaguer MD [address] [place] [address] PCP - General Family Medicine 09/23/23 Sherry Carranza Suction RollerVideo Engineer 07/28/23 documented as of this encounter
--- OUTSIDE RECORDS SUMMARY | 2024-05-22 14:29 | XMS_ITS | Encounter Summary ---
Author Organization [employer] Address [address] [place] [address] Care Team Providers Care Consulting Practice Manager Name Role Phone Cyndi Almaguer MD Primary Care Provider [phone] Reason for Referral * Consultation (Routine) - Closed Specialty Diagnoses / Procedures Referred By Svetlana brewster Referred To Contact Urology Diagnoses Erectile dysfunction, unspecified erectile dysfunction type Cyndi Almaguer MD [address] [place] [address] Phone: tel: fax: [facility] [address] [place] [address] Drive [address] [place], [place] Phone: tel: fax: Referral ID Status Reason Start Date Expiration Date V isits Requested Visits Authorized [id number] Closed Specialty Services Required 10/10/2023 10/09/2024 6 6 Encounter Details Date Type Department Care Team (Late st Contact Info) Description 10/03/2023 Orders Only [facility] [address] [place] [address] Cyndi Almaguer MD [address] [place] [address] Erectile dysfunction, unspecified erectile dysfunction type (Primary Dx) Social History Tobacco Use Types Packs/Day Years Used Date Smoking Tobacco: Former Cigarettes Passive Smoke Exposure: Past Smokeless Tobacco: Never Comments:Pt quit cigarettes July 2018 Depression Answer Date Recorded Patient Health Questionnaire-9 Score 0 09/22/2023 Patient Health Questionnaire-9 Score 0 09/22/2023 Last PHQ-9: Questionnaire Data Not on file 0 09/22/2023 Housing Stability Answer Date Recorded What is [...] Date Recorded Patient Health Questionnaire-2 Score 0 09/22/2023 Sex and Gender Information Value Date Recorded Sex Assigned at Male 02/15/2022 10:17 AM EDT Legal Sex Male 10:17 AM EDT Gender Identity Male 08/29/2023 2:10 PM EDT Sexual Orientation Straight 08/29/2023 2: 20 PM EDT documented as of this encounter Plan of Treatment Upcoming Encounters Date Type Department Care Team (Late st Contact Info) Description 06/12/2024 3:45 PM EST Office Visit [facility] [address] [place] [address] Cyndi Almaguer MD [address] [place] [address] documented as of this encounter Procedures Procedure Name Priority Date/Time Associated Diagnosis Comments AMB REFERRAL TO UROLOGY Routine 10/12/2023 Erectile dysfunction, unspecified erectile dysfunction type documented in this encounter Results * Referral to Urology (10/12/2023) Cyndi Almaguer MD OUTPATIENT REFERRAL ORDERABLES F inal Result documented in this encounter Visit Diagnoses Diagnosis Erectile dysfunction, unspecified erectile dysfunction type- Primary documented in this encounter Additional Health Concerns Assessment Noted Time PHQ-9 Depression Total Score: 0 09/22/19 9:29 AM EDT documented as of this encounter Care Teams Consulting Practice Manager Relationship Specialty Start Date End Date Cyndi Almaguer MD [address] [place] [address] PCP - General Family Medicine 09/23/23 Sherry Carranza Band SplitterAgriculture Extension Specialist 07/28/23 documented as of this encounter
--- OUTSIDE RECORDS SUMMARY | 2024-05-22 14:29 | XMS_ITS | Encounter Summary ---
Author Organization [employer] Address [address] [place] [address] Care Team Providers Care Tapper Helper Name Role Phone Cyndi Almaguer MD Primary Care Provider [phone] Encounter Details Date Type Department Care Team (Late st Contact Info) Description 10/26/2023 Orders Only [facility] [address] [place] [address] Cyndi Almaguer MD [address] [place], [place] [phone] Immunity status testing (Primary Dx); Routine screening for STI (sexually transmitted infection); Vitamin D deficiency; Accidental poisoning by drug, initial encounter Social History Tobacco Use Types Packs/Day Years [...] Description 06/12/2024 3:45 PM EST Office Visit [facility] [address] [place] [phone] Cyndi Almaguer MD [address] [place] [address] Scheduled Orders Name Type Priority Associated Diagnoses Orde r Schedule Drug Monitoring, Panel 1, Screen, Urine Lab Routine Accidental poisoning by drug, initial encounter Expected: 10/26/2023 (Approximate), Expires: 10/25/2024 documented as of this encounter Procedures Procedure Name Priority Date/Time Associated Diagnosis Comments SYPHILIS SCREEN Routine 10/31/2023 2:14 PM EDT Routine screening for STI (sexually transmitted infection) VITAMIN D,25-OH,TOTAL,IA Routine 10/31/2023 2:14 PM EDT Vitamin D deficiency CBC WITH AUTO DIFFERENTIAL Routine 10/31/2023 2:14 PM EDT Accidental poisoning by drug, initial encounter HEPATITIS C AB W/REFL TO HCV RNA, QN, PCR Routine 10/31/2023 2:14 PM EDT Routine screening for STI (sexually transmitted infection) HEPATITIS A ANTIBODY, TOTAL Routine 10/31/2023 2:14 PM EDT Immunity status testing CHLAMYDIA/N. GONORRHOEAE RNA, TMA, UROGENITAL Routine 10/31/2023 2:14 PM EDT Routine screening for STI (sexually transmitted infection) HEPATITIS B SURFACE ANTIGEN, EIA Routine 10/31/2023 2:14 PM EDT Routine screening for STI (sexually transmitted infection) HEPATITIS B CORE AB TOTAL Routine 10/31/2023 2:14 PM EDT Routine screening for STI (sexually transmitted infection) HIV 1/2 ANTIGEN/ANTIBODY, FOURTH GENERATION W/RFL Routine 10/31/2023 2:14 PM EDT Routine screening for STI (sexually transmitted infection) HEPATITIS B SURFACE ANTIBODY, QUALITATIVE Routine 10/31/2023 2:14 PM EDT Routine screening for STI (sexually transmitted infection) COMPREHENSIVE METABOLIC PANEL Routine 10/31/2023 2:14 PM EDT Accidental poisoning by drug, initial encounter documented in this encounter Results * CBC auto differential (10/31/2023 2:14 PM EDT) White Blood Count 6.4 4.8 - 10.8 X10*3/uL [facility] Red Blood Count 4.77 4.60 - 5.80 X10*6/uL [facility] Hemoglobin 15.1 14.0 - 18.0 g/dl [facility] Hematocrit 44.3 42.0 - 52.0 % [facility] Mean Corpuscular Volume 92.9 80.0 - 98.0 fL [facility] Mean Corpuscular Hemoglobin 31.7 27.0 - 33.0 pg [facility] Mean Corpuscular HGB Conc 34.1 31.0 - 36.0 g/dl [facility] Red Cell Distribution Width 12.2 11.0 - 16.0 % [facility] Platelet Count 203 160 - 400 X10*3/uL [facility] Mean Platelet Volume 10.8 9.4 - 12.4 fL [facility] Neutrophils Percent Auto 53.9 45 - 73 % [facility] Imm Gran Pct Auto 0.3 0.0 - 0.4 % [facility] Lymphocytes Percent Auto 36.7 20 - 40 % [facility] Monocytes Percent Auto 6.4 2 - 11 % [facility] Eosinophils Percent Auto 2.2 0 - 4 % [facility] Basophils Percent Auto 0.5 0 - 2 % [facility] NRBC Pct Auto 0.0 0.0 - 0.2 /100WBC [facility] Neutrophils Absolute Auto 3.5 2.0 - 8.3 x10*3/uL [facility] Imm Gran Abs Auto 0.02 0.00 - 0.03 X10*3/uL [facility] Lymphocytes Absolute Auto 2.4 1.2 - 4.9 X10*3/uL [facility] Monocytes Absolute Auto 0.4 0.1 - 1.2 X10*3/uL [facility] Eosinophils Absolute Auto 0.1 0.0 - 0.4 X10*3/uL [facility] Basophils Absolute Auto 0.0 0.0 - 0.2 X10*3/uL [facility] NRBC Abs Auto 0.000 0.0 - 0.012 X10*3/uL [facility] Blood Venous blood specimen / Unknown 10/31/2023 2:14 PM EDT 10/31/2023 4:03 PM EDT us Cyndi Almaguer MD LAB BLOOD ORDERABLES Final Resul t [facility] [address] [place] [phone] * (ABNORMAL) Comprehensive Metabolic Panel (10/31/2023 2:14 PM EDT) Sodium 143 135 - 145 mmol/L [facility] Potassium 4.3 3.3 - 5.1 mmol/L [facility] Chloride 109(H) 96 - 108 mmol/L [facility] Carbon Dioxide 24 22 - 29 mmol/L [facility] Anion Gap 14 12 - 20 [facility] Urea Nitrogen (BUN) 11 9 - 16 mg/dL [facility] Creatinine, Serum 0.85 0.5 - 1.4 mg/dL [facility] Estimated Glomerular Filt Rate >60 [facility] Comment:NOTE: For -Am erican individuals, multiply the result by 1.210.Chronic Kidney Disease: Estimated GFR < 60 mL/min/1.00w3Uuwjvf Kidney Disease: Estimated GFR < 15 mL/min/1.73m2 Glucose 94 60 - 115 mg/dL [facility] Calcium 9.9 8.4 - 10.2 mg/dL [facility] Bilirubin, Total 1.3(H) 0.0 - 1.0 mg/dL [facility] Aspartate Amino Transferase 22 5 - 37 U/L [facility] Alanine Aminotransferase 18 0 - 40 U/L [facility] Total Protein 7.5 6.5 - 8.0 g/dL [facility] Albumin Level 4.5 3.5 - 5.0 g/dL [facility] Alkaline Phosphatase 64 39 - 117 U/L [facility] Blood Venous blood specimen / Unknown 10/31/2023 2:14 PM EDT 10/31/2023 4:14 PM EDT us Cyndi Almaguer MD LAB BLOOD ORDERABLES Final Resul t [facility] [address] [place] [phone] * Vitamin D, 25-Hydroxy, Total, Immunoassay (10/31/2023 2:14 PM EDT) Vitamin D 25-OH Total 69.9 >30 ng/mL [facility] Comment:Health Based Referen ce Values*< 20 ng/mL Ktjkndggr60-62 ng/mL Insufficient> 30 ng/mL Sufficient*Jackie LOMELI. N Engl J Med. 2007;357:266-280Care must be taken in interpreting Vitamin D results fromdifferent laboratories and methodologies. Published datademonstrated that results from patients undergoinghemodialysis may show a negative bias when tested withvarious automated 25-OH vitamin D assays when compared toLC-MS/MS.When testing samples from patients whose predominant form ofVitamin D is Vitamin D2, such as patients receiving VitaminD2 supplementation, results that are subtherapeutic shouldbe confirmed with another method such as LC-MS/MS. Blood Venous blood specimen / Unknown 10/31/2023 2:14 PM EDT 10/31/2023 4:14 PM EDT Cyndi Almaguer MD LAB BLOOD ORDERABLES Final Resul t Performing Organization Address [facility] Co de Phone Number [facility] [address] [place] [phone] * Hepatitis A Antibody, Total (10/31/2023 2:14 PM EDT) Hepatitis A Antibody IgG REACTIVE Nonreactive [facility] Comment:The presence of IgG anti-HAV implies past HAV infection(recent or distant) or vaccination against HAV. Blood Venous blood specimen / Unknown 10/31/2023 2:14 PM EDT 10/31/2023 4:14 PM EDT Cyndi Almaguer MD LAB BLOOD ORDERABLES Final Resul t Performing Organization Address [facility] Co de Phone Number [facility] [address] [place] [phone] * Hepatitis B surface antigen, EIA (10/31/2023 2:14 PM EDT) Hepatitis B Surface Ag Negative Negative [facility] Blood Venous blood specimen / Unknown 10/31/2023 2:14 PM EDT 10/31/2023 4:14 PM EDT Cyndi Almaguer MD LAB BLOOD ORDERABLES Final Resul t Performing Organization Address [facility] Co de Phone Number [facility] [address] [place] [phone] * HIV-1/2 Antigen and Antibodies, Fourth Generation, with Reflexes (10/31/2023 2:14 PM EDT) [facility] HIV AB/AG Nonreactive Nonreactive [facility] Comment:HIV-1 p24 Ag and/or HIV-1/HIV-2 Ab not detected.A test result that is nonreactive does not exclude thepossibility of exposure to or infection with HIV-1 and/orHIV-2. Nonreactive results in this assay for individualswith prior exposure to HIV-1 and/or HIV-2 may be due toantigen and antibody levels that are below the limit ofdetection of this assay.The [employer] HIV Ag/Ab Combo assay result andsupplemental assay results should be interpreted inconjunction with the patient's clinical presentation,history and other laboratory results. If the results areinconsistent with clinical evidence, additional testing issuggested to confirm the result. Blood Venous blood specimen / Unknown 10/31/2023 2:14 PM EDT 10/31/2023 4:14 PM EDT Cyndi Almaguer MD LAB BLOOD ORDERABLES Final Resul t Performing Organization Address City/[facility]/ZIP Co de Phone Number [facility] [address] [place] [phone] * Chlamydia/N. Gonorrhoeae RNA, TMA, Urogenitial (10/31/2023 2:14 PM EDT) [facility] CT PCR NOT DETECTED Not Detect. [facility] Comment:A not detected test result does not exclude the possibilityof infection because test results can be affected byimproper specimen collection, concurrent antibiotic therapy,or the number of organisms in the specimen which may bebelow the sensitivity of the test. As with many diagnostictests, results from the Xpert CT/NG assay should beinterpreted in conjunction with other laboratory andclinical data available to the clinician.Xpert CT/NG performance has not been evaluated in patientsless than 14 years of age. The assay should not be used forthe evaluationof suspected sexual abuse or for other medico-legalindications. Additional testing is recommended in anycircumstance when false positive or false negative resultscould lead to adverse medical, social or psychologicalconsequences. NG PCR NOT DETECTED Not Detect. [facility] Comment:A not detected test result does not exclude the possibilityof infection because test results can be affected byimproper specimen collection, concurrent antibiotic therapy,or the number of organisms in the specimen which may bebelow the sensitivity of the test. As with many diagnostictests, results from the Xpert CT/NG assay should beinterpreted in conjunction with other laboratory andclinical data available to the clinician.Xpert CT/NG performance has not been evaluated in patientsless than 14 years of age. The assay should not be used forthe evaluationof suspected sexual abuse or for other medico-legalindications. Additional testing is recommended in anycircumstance when false positive or false negative resultscould lead to adverse medical, social or psychologicalconsequences. Urine, Random 10/31/2023 2:1 4 PM EDT 10/31/2023 4:03 PM EDT Narrative [facility] - 10/31/2023 6:42 PM EDT Urine us Cyndi Almaguer MD LAB MICROBIOLOGY - GENERAL ORDER [place] Final Result [facility] [address] [place] [phone] * Hepatitis B Core Antibody, Total (10/31/2023 2:14 PM EDT) Hepatitis B Core Antibody Nonreactive Nonreactive [facility] Blood Venous blood specimen / Unknown 10/31/2023 2:14 PM EDT 10/31/2023 4:14 PM EDT Cyndi Almaguer MD LAB BLOOD ORDERABLES Final Resul t Performing Organization Address [facility] de Phone Number [facility] [address] [place] [phone] * Hepatitis B Surface Antibody, Qualitative (10/31/2023 2:14 PM EDT) ~Hepatitis B Surface Antibody REACTIVE Nonreactive [facility] Comment:REACTIVE: > 11.99 mI U/mL Blood Venous blood specimen / Unknown 10/31/2023 2:14 PM EDT 10/31/2023 4:14 PM EDT Cyndi Almaguer MD LAB BLOOD ORDERABLES Final Resul t Performing Organization Address [facility] Number [facility] [address] [place] [phone] * Hepatitis C Antibody with Reflex to HCV, RNA, Quantitative, Real-Time PCR (10/31/2023 2:14 PM EDT) Hepatitis C Antibody Nonreactive Nonreactive [facility] Comment:Antibodies to HCV no t detected; does not exclude early acuteHCV infection. Blood Venous blood specimen / Unknown 10/31/2023 2:14 PM EDT 10/31/2023 4:14 PM EDT Cyndi Almaguer MD LAB BLOOD ORDERABLES Final Resul t Performing Organization Address [facility] Co de Phone Number [facility] [address] [place] [phone] * Syphilis Screen (10/31/2023 2:14 PM EDT) Syphilis Screen Nonreactive Nonreactive [facility] Blood 10/31/2023 2:14 PM EDT 10/31/2023 4:14 PM EDT us Cyndi Almaguer MD LAB BLOOD ORDERABLES Final Resul t [facility] [address] [place] [phone] documented in this encounter Visit Diagnoses Diagnosis Immunity status testing- Primary Antibody response examination Routine screening for STI (sexually transmitted infection) Screening examination for venereal disease Vitamin D deficiency Accidental poisoning by drug, initial encounter documented in this encounter Additional Health Concerns Assessment Noted Time PHQ-9 Depression Total Score: 0 09/22/19 24 9:29 AM EDT documented as of this encounter Care Teams Tapper Helper Relationship Specialty Start Date End Date Cyndi Almaguer MD [address] [place] [phone] PCP - General Family Medicine 09/23/23 Sherry Carranza Risk Control OfficerPhosphatic Fertilizer Supervisor 07/28/23 documented as of this encounter
--- OUTSIDE RECORDS SUMMARY | 2024-05-22 14:29 | XMS_ITS | Encounter Summary ---
Author Organization [employer] Address [address] [place] [address] Care Team Providers Care Checkering Machine Operator Name Role Phone Cyndi Almaguer MD Primary Care Provider [phone] Encounter Details Date Type Department Care Team (Latest Contact Info) Description 05/16/2018 Abstract [facility] CONVERSIONS Dental, Provider, DDS Social History Tobacco Use Types Packs/Day Years Used Date Smoking Tobacco: Never Assessed Sex and Gender Information Value Date Recorded Sex Assigned at Male 02/15/2022 10:17 AM EDT Legal Sex Male 10:17 AM EDT Gender Identity Male 08/29/2023 2:10 PM EDT Sexual Orientation Straight 08/29/2023 2: 20 PM EDT documented as of this encounter Plan of Treatment Upcoming Encounters Date Type Department Care Team (Late st Contact Info) Description 06/12/2024 3:45 PM EST Office Visit [facility] [address] [place] [address] Cyndi Almaguer MD [address] [place], [place] [phone] documented as of this encounter Visit Diagnoses Not on filedocumented in this encounter Care Teams Checkering Machine Operator Relationship Specialty Start Date End Date Cyndi Almaguer MD [address] [place], [place] [phone] PCP - General Family Medicine 09/23/23 Sherry Carranza Skoog Patching Machine OperatorElectrical Maintenance Worker 07/28/23 documented as of this encounter
--- OUTSIDE RECORDS SUMMARY | 2024-05-22 14:29 | XMS_ITS | Encounter Summary ---
Author Organization [employer] Address [address] [place] [address] Care Team Providers Care Marker Delivery Name Role Phone Cyndi Almaguer MD Primary Care Provider [phone] Encounter Details Date Type Department Care Team ([facility] st Contact Info) Description 10/01/2023 Orders Only [facility] MEDICINE [address] [place] [address] Cyndi Almaguer MD [address] [place], [place] [phone] Social History Tobacco Use Types Packs/Day Years [...] Description 06/12/2024 3:45 PM EST Office Visit [facility] MEDICINE [address] [place] [phone] Cyndi Almaguer MD [address] [place] [phone] documented as of this encounter Visit Diagnoses Not on filedocumented in this encounter Additional Health Concerns Assessment Noted Time PHQ-9 Depression Total Score: 0 09/22/19 9:29 AM EDT documented as of this encounter Care Teams Marker Delivery Relationship Specialty Start Date End Date Cyndi Almaguer MD [address] [place] [phone] PCP - General Family Medicine 09/23/23 Sherry Carranza Applications Programmer AnalystPlant Scientist 07/28/23 documented as of this encounter
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
--- OUTSIDE RECORDS SUMMARY | 2024-05-22 14:29 | XMS_ITS | Encounter Summary ---
Author Organization [employer] Address [address] [place] [address] Care Team Providers Care Turnstile Attendant Name Role Phone Cyndi Almaguer MD Primary Care Provider Encounter Details Date Type Department Care Team (Late st Contact Info) Description 02/03/2024 Orders Only [facility] [address] [place] [address] Cyndi Almaguer MD [address] [place], [place] [phone] Narrow anion gap (Primary Dx); Serum total bilirubin elevated Social History Tobacco Use Types Packs/Day Years [...] Description 06/12/2024 3:45 PM EST Office Visit [facility] [address] [place] [address] Cyndi Almaguer MD [address] [place] [address] documented as of this encounter Procedures Procedure Name Priority Date/Time Associated Diagnosis Comments BASIC METABOLIC PANEL Routine 2024 9:08 AM EST Narrow anion gap HEPATIC FUNCTION PANEL Routine 04/02/2024 12:12 PM EST Serum total bilirubin elevated documented in this encounter Results * Basic Metabolic Panel (2024 9:08 AM EST) Sodium 141 135 - 145 mmol/L [facility] Potassium 4.0 3.3 - 5.1 mmol/L [facility] Chloride 108 96 - 108 mmol/L [facility] Carbon Dioxide 25 22 - 29 mmol/L [facility] Anion Gap 12 12 - 20 [facility] Urea Nitrogen (BUN) 15 9 - 16 mg/dL [facility] Creatinine, Serum 0.78 0.5 - 1.4 mg/dL [facility] Estimated Glomerular Filt Rate >60 [facility] Comment:Chronic Kidney Disea se: Estimated GFR < 60 mL/min/1.76f2Tqipad Kidney Disease: Estimated GFR < 15 mL/min/1.73m2 Glucose 84 60 - 115 mg/dL [facility] Calcium 9.3 8.4 - 10.2 mg/dL [facility] Blood Venous blood specimen / Unknown 2024 9:08 AM EST 2024 9:08 AM EST us Cyndi Almaguer MD LAB BLOOD ORDERABLES Final Resul t Performing Organization Address [facility] de Phone Number [facility] [address] [place] [phone] * Hepatic Function Panel (04/02/2024 12:12 PM EST) Bilirubin, Total 0.8 0.0 - 1.0 mg/dL [facility] Bilirubin, Direct 0.2 0.0 - 0.5 mg/dL [facility] Aspartate Amino Transferase 24 5 - 37 U/L [facility] Alanine Aminotransferase 19 0 - 40 U/L [facility] Total Protein 7.6 6.5 - 8.0 g/dL [facility] Albumin Level 4.3 3.5 - 5.0 g/dL [facility] Alkaline Phosphatase 53 39 - 117 U/L [facility] Blood Venous blood specimen / Unknown 04/02/2024 12:12 PM EST 04/02/2024 1:23 PM EST us Cyndi Almaguer MD LAB BLOOD ORDERABLES Final Resul t Performing Organization Address [facility] Co de Phone Number [facility] [address] [place] [phone] documented in this encounter Visit Diagnoses Diagnosis Narrow anion gap- Primary Serum total bilirubin elevated Disorders of bilirubin excretion documented in this encounter Additional Health Concerns Assessment Noted Time PHQ-9 Depression Total Score: 2 01/31/20 24 9:13 AM EDT documented as of this encounter Care Teams Turnstile Attendant Relationship Specialty Start Date End Date Cyndi Almaguer MD [address] [place] [address] PCP - General Family Medicine 09/23/23 Sherry Carranza Vascular Ultrasound TechnicianDispatcher Maintenance 07/28/23 documented as of this encounter
--- OUTSIDE RECORDS SUMMARY | 2024-05-22 14:29 | XMS_ITS | Encounter Summary ---
Author Organization [employer] Address [address] [place] [address] Care Team Providers Care Technical Support Technician Name Role Phone Cyndi Almaguer MD Primary Care Provider [phone] Encounter Details Date Type Department Care Team (Latest Contact Info) Description 05/21/2024 Travel Social History Tobacco Use Types Packs/Day Years [...] Description 06/12/2024 3:45 PM EST Office Visit [facility] [address] [place] [phone] Cyndi Almaguer MD [address] [place] [address] documented as of this encounter Visit Diagnoses Not on filedocumented in this encounter Additional Health Concerns Assessment Noted Time PHQ-9 Depression Total Score: 2 01/31/20 9:13 AM EDT documented as of this encounter Care Teams Technical Support Technician Relationship Specialty Start Date End Date Cyndi Almaguer MD [address] [place] [phone] PCP - General Family Medicine 09/23/23 Sherry Carranza Executive Officer Special Warfare TeamTear Down Man 07/28/23 documented as of this encounter
--- OUTSIDE RECORDS SUMMARY | 2024-05-22 14:29 | XMS_ITS | Encounter Summary ---
Author Organization [employer] Address [address] [place] [address] Care Team Providers Care Cold Storage Supervisor Name Role Phone Cyndi Almaguer MD Primary Care Provider [phone] Reason for Visit * Reason Onset Date Comments Lab Orders 10/26/2023 Encounter Details Date Type Department Care Team ([facility] st Contact Info) Description 10/26/2023 Telephone [facility] [address] [place], [place] [phone] Cyndi Almaguer MD [address] [place] [address] Lab Orders Social History Tobacco Use Types Packs/Day Years [...] PM EDT documented as of this encounter Miscellaneous Notes * Telephone Encounter - Rc Valenzuela - 10/26/2023 9:59 AM EDT Tc from patient requesting lab orders just to make sure everything is fine documented in this encounter Plan of Treatment Upcoming Encounters Date Type Department Care Team (Late st Contact Info) Description 06/12/2024 3:45 PM EST Office Visit [facility] [address] [place] [phone] Cyndi Almaguer MD [address] [place] [address] documented as of this encounter Visit Diagnoses Not on filedocumented in this encounter Additional Health Concerns Assessment Noted Time PHQ-9 Depression Total Score: 0 09/22/19 9:29 AM EDT documented as of this encounter Care Teams Cold Storage Supervisor Relationship Specialty Start Date End Date Cyndi Almaguer MD [address] [place] [phone] PCP - General Family Medicine 09/23/23 Sherry Carranza Neurological PhysiotherapistEngine Mechanic 07/28/23 documented as of this encounter
--- OUTSIDE RECORDS SUMMARY | 2024-05-22 14:29 | XMS_ITS | Clinical Summary ---
Author Organization [facility], Address [address] [place] [address] Phone Care Team Providers Care Equipment Operation Instructor Name Role Phone Cyndi Almaguer MD Primary Care Provider [phone] Allergies Active Allergy Reactions Criticality Noted Date Comments Dust Mite Extract Itching,Other (see comments) 04/18/2019 Medications pantoprazole (PROTONIX) 40 MG EC tablet Take 40 mg by mouth 1 (one) time each day before breakfast Do not crush, chew, or split. Active albuterol (2.5 MG/3ML) 0.083% nebulizer solution Take 2.5 mg by nebulization every 6 (six) hours if needed for wheezing Active D-1000 Extra Strength 25 MCG (1000 UT) tablet Take 1,000 Units by mouth 1 (one) time each day 2 Active Diclofenac Sodium 1 % gel 2 Active Nutritional Supplements (ENSURE COMPLETE PO) Take by mouth 2 Active naproxen (NAPROSYN) 500 MG tablet Take 1 tablet by mouth if needed 3 Active Cholecalciferol (Vitamin D3) 1000 units capsule Take 25 mcg by mouth 2 Active clindamycin (CLINDAGEL) 1 % gel APPLY TO TRUNK AND SHOULDERS TWICE A DAY 3 Active BENZAC AC WASH 10 % external wash APPLY TO TRUNK AND EXTREMITIES 1 TO 2 TIMES DAILY 3 Active fexofenadine (Mei Allergy) 180 MG tablet 1 tablet, By Mouth, Daily, # 30 tablet, 0 Refills, Maintenance, 01/14/22 17:17:00 EDT, Tablet, Partial fill upon patient request if the prescription is for a schedule II opioid drug. 2 Active Naloxone HCl (Narcan) 4 MG/0.1ML liquid Administer 4 mg into affected nostril(s) 3 Active tadalafil (CIALIS) 5 MG tablet Take 5 mg by mouth 1 (one) time each day 4 Active Active Problems Problem Noted Date Diagnosed Date Acne 11/26/2021 Pain of bilateral knee regions 11/26/2021 Bipolar disorder 11/26/2021 Chronic low back pain 11/26/2021 Insomnia 11/26/2021 Obese class I 11/26/2021 Social History Tobacco Use Types Packs/Day Years Used Date Smoking Tobacco: Former Cigarettes Q uit: 2019 Smokeless Tobacco: Never Tobacco Cessation:Counseling Given: Not Answered Alcohol Use Standard Drinks/Week Comments Yes 0 (1 standard drink = 0.6 oz pur e alcohol) occas Sex and Gender Information Value Date Recorded Sex Assigned at Male 04/29/2023 2:54 PM EST Legal Sex Male 10:47 AM EDT Gender Identity Male 04/29/2023 2:54 PM EST Sexual Orientation Straight 04/29/2023 2: 54 PM EST Last Filed Vital Signs Vital Sign Reading Time Taken Comments Blood Pressure 127/63 10/28/2023 11:20 AM EDT Pulse 65 10/28/2023 11:20 AM EDT Temperature 36.7 ??C (98.1 ??F) 10/28/2023 11:20 AM E DT Respiratory Rate 16 03/01/2023 10:42 AM EST Oxygen Saturation 98% 10/28/2023 11:20 AM EDT Inhaled Oxygen Concentration - - Weight 74.4 kg (164 lb) 10/28/2023 11:20 AM EDT Height 182.9 cm (6') 10/28/2023 11:20 AM EDT Body Mass Index 22.24 10/28/2023 11:20 AM EDT Plan of Treatment Health Maintenance Due Date Last Done Comments Hepatitis B Vaccine (1 of 3 - 19+ 3-dose series) 2001 Pneumococcal Vaccine: Pediat rics (0 to 5 Years) and At-Risk Patients (6 to 64 Years) Completed 09/22/2023 Influenza Vaccine Completed 01/13/2024, , 02/22/2018 Insurance [place]ICAID [place] Care Teams Equipment Operation Instructor Relationship Specialty Start Date End Date Cyndi Almaguer MD [address] [place] [phone] PCP - General Family Medicine 10/31/23
--- OUTSIDE RECORDS SUMMARY | 2024-05-22 14:29 | XMS_ITS | Encounter Summary ---
Author Organization [email or web address] Address [address] [place] [address] Care Team Providers Care Junior Loan Processor Name Role Phone Cyndi Almaguer MD Primary Care Provider Encounter Details Date Type Department Care Team ([facility] st Contact Info) Description 2024 Orders Only GENERIC EXTERNAL DATA DEPARTMENT Provider, Generic External Data Social History Tobacco Use Types Packs/Day Years [...] Description 06/12/2024 3:45 PM EST Office Visit [facility] [address] [place], [place] [phone] Cyndi Almaguer MD [address] [place] [address] documented as of this encounter Procedures Procedure Name Priority Date/Time Associated Diagnosis Comments TESTOSTERONE, FREE (DIALYSIS) AND TOTAL,MS Routine 2024 9:08 AM EST LH Routine 2024 9:08 AM EST documented in this encounter Results * (ABNORMAL) Testosterone, Free (Dialysis) And Total, MS (2024 9:08 AM EST) Testosterone, Total 821 250 - 1100 ng/dL [facility] Comment:For additional infor saad, please refer [email or web address]/faq/[email or web address](This link is being provided for informational/educational purposes only.)This test was developed and its analytical performancecharacteristics have been determined by [employer] [place], [place]. It hasnot been cleared or approved by the U.S. Food and DrugAdministration. This assay has been validated pursuantto the CLIA regulations and is used for clinicalpurposes. Testosterone, Free 162.6(A ) 35.0 - 155.0 pg/mL [facility] Comment:This test was develo ped and its analytical performancecharacteristics have been determined by [employer] [place], [place]. It hasnot been cleared or approved by the U.S. Food and DrugAdministration. This assay has been validated pursuantto the CLIA regulations and is used for clinicalpurposes.THIS TEST WAS PERFORMED AT:[facility] [place] [address]FSXEXCCISABELLE MADDOX MD,PHD 2024 9:08 AM EST 2024 9:08 AM EST Generic External Data Provider LAB BLOOD ORDERAB LES Final Result Performing Organization Address [facility] Co de Phone Number [facility] [address] [place] [phone] * LH (2024 9:08 AM EST) Lutenizing Hormone 8.1 1.5 - 9.3 mIU/mL [facility] Comment:THIS TEST WAS PERFOR MED AT:[facility] [address] [id number] CHRISTENSEN MD 2024 9:08 AM EST 2024 9:08 AM EST Generic External Data Provider LAB BLOOD ORDERAB LES Final Result Performing Organization Address [facility] Co de Phone Number [facility] [address] [place] [phone] documented in this encounter Visit Diagnoses Not on filedocumented in this encounter Additional Health Concerns Assessment Noted Time PHQ-9 Depression Total Score: 2 01/31/20 24 9:13 AM EDT documented as of this encounter Care Teams Junior Loan Processor Relationship Specialty Start Date End Date Cyndi Almaguer MD [address] [place] [address] PCP - General Family Medicine 09/23/23 Sherry Carranza Sleeve Bottom FellerGas Distribution Supervisor 07/28/23 documented as of this encounter
--- NOTE | 2024-05-22 14:30 | A.OFFVIS_ITS ---
Intake Visit Reasons: 3m/labs(pending) Intake Note: Patient presents today for follow up on: erectile dysfunction, hypogonadism, and lab results Testosterone: 821;Free testosterone: 162.6; LH:8.1 Urology Medications: Tadalafil Blood Thinner: none Lead Man Over All [employer] In [employer] Required: No Accompanied by: Self / Same As Patient Allergies No Known Allergies [No Known Allergies*] Allergy (Verified 05/22/24 17:37) Medication List - Last Reconciled 05/22/24 by SU Champion albuterol sulfate 90 mcg/actuation (Ventolin HFA) 2 puffs inhalation Q4H PRN benzoyl peroxide 10% topical cholecalciferol (vitamin D3) 25 mcg PO DAILY clindamycin phosphate 1% topical BID diclofenac sodium 1% 1 g topical PRN fexofenadine 180 mg PO DAILY PRN gabapentin mg PO tadalafil 5 mg PO DAILY 90 days HPI Comments Details: Jay is a 44-year-old male patient of Dr. Almaguer. He has a past medical history of acne, bipolar disorder, depression, asthma, acid reflux, lumbar spinal stenosis, degenerative disc disease, and osteoporosis. He presents to the office today for follow-up of his hypogonadism. Of note patient has underwent stimulation testing with Clomid. He has recently completed treatment as prescribed. In discussion with the patient today he reports to be doing and feeling well. He denies having had any bothersome urinary issues or concerns since his last office visit. Recent labs were reviewed with the patient today as noted and trended below... Estradiol: 01/09 18 FSH: 01/09 3.0 LH: 01/09 3.4, 02/08 5.4, 05/12 8.1 Prolactin: 01/09 9.6 Total testosterone: 01/09 288, 02/08 505, 05/12 821 Free testosterone: 01/09 53.6, 02/08 137.4, 05/12 162.6 SHB01/10 24 He does report feeling issues he had been experiencing with libido, erections, and overall well-being have significantly improved. He does continue with low- dose Cialis and feels this has been helpful with maintaining his erections. He does discuss feeling a lot of his medical issues were initiated after taking Abilify. He also feels his previous lumbar surgery with an anterior approach has also affected him with other medical issues. He discusses his longstanding history with his urological issues and following up with [facility] in the past however did not find this helpful. He otherwise denies any bothersome urinary issues or concerns. He denies urinary urgency, urinary frequency, incontinence, nocturia, hematuria, dysuria, foul smelling urine, changes to urinary stream, flank pain, fever, and or chills. He is happy with his current voiding parameters. He otherwise offers no other issues or concerns at this time. [facility] Medical History Bipolar disorder Acne Depression Asthma Acid reflux Lumbar spinal stenosis Degenerative disc disease, lumbar Osteoporosis Review of Systems Const All systems reviewed & are unremarkable except as noted in HPI and below Reports as per HPI Eyes Reports no additional complaints ENT Reports no additional complaints Card Reports as per HPI Resp Reports no additional complaints GI Denies abdominal pain and Denies nausea Musc Denies no additional complaints Neuro Reports no additional complaints Physical Exam Const General: cooperative, healthy appearing, comfortable, no acute distress, well developed, alert and awake Nutritional Appearance: thin Orientation/consciousness: patient oriented x3 Limitations: no limitations HEENT Head: Yes normal to inspection, Yes normocephalic and Yes atraumatic Ears: hearing grossly normal bilaterally Eyes General: appearance normal, both eyes and all related structures Neck Neck: Yes normal visual inspection and Yes trachea midline Chest Chest palpation & inspection: normal inspection of the chest Resp Effort & Inspection: normal respiratory effort and able to speak in complete sentences Cardio Rate: regular rate GI Inspection: Yes normal to inspection General: Yes no CVA tenderness Back/Spine/Pelvis Back: no CVA tenderness Skin General skin exam: no rashes or lesions noted Neuro General: patient oriented x3 Extrem General: Yes normal to inspection Psych Appearance: grossly normal and well kempt Mental Status: mental status grossly normal Speech and movement: Normal speech and movement present and Clear speech present Affect: normal affect Attitude: cooperative Thought process: Normal thought process present Thought content: Normal thought content present Insight: Fair insight present (Psych) Judgement: Fair judgement present (Psych) Results AMB Urinalysis, Automated UA Leukoctes 0 Mushtaq/uL Last Edit by Raquel Ortega on 05/22/24 15:30 UA Nitrite Last Edit by Raquel Ortega on 05/22/24 15:30 UA Urobilinogen 0.2 mg/dL Last Edit by Raquel Ortega on 05/22/24 15:30 UA Protein 15 mg/dL Last Edit by Raquel Ortega on 05/22/24 15:30 UA pH 6.0 Last Edit by NutraMedmanuel Ortega on 05/22/24 15:30 UA Blood 0 Arsh/uL Last Edit by Raquel Ortega on 05/22/24 15:30 UA Specific Eccles 1.020 Last Edit by Raquel Ortega on 05/22/24 15:30 UA Ketone Last Edit by Raquel Ortega on 05/22/24 15:30 UA Bilirubin 0 mg/dL Last Edit by Raquel Ortega on 05/22/24 15:30 UA Glucose 0 mg/dL Last Edit by NutraMedmanuel Ortega on 05/22/24 15:30 Results Reviewed Results Reviewed: Laboratory Last Values Urine pH (Auto) 6.0 05/22/24 15:29 Specific Eccles (Auto) 1.020 05/22/24 15:29 Urine Protein (Auto) 15 mg/dL 05/22/24 15:29 Glucose (UA)(Auto) 0 mg/dL 05/22/24 15:29 Urine Blood (Auto) 0 Arsh/uL 05/22/24 15:29 Urine Bilirubin (Auto) 0 mg/dL 05/22/24 15:29 Urine Urobilinogen (Auto) 0.2 mg/dL 05/22/24 15:29 Leukocyte Esterase (Auto) 0 Mushtaq/uL 05/22/24 15:29 Assessment & Plan Assessment & Plan (1) Erectile dysfunction: Code(s): N52.9 - Male erectile dysfunction, unspecified Category: Medical (2) Hypogonadism in male: Code(s): E29.1 - Testicular hypofunction Category: Medical Plan In office urinalysis results reviewed with the patient today; as noted above. Recent testosterone, free testosterone, and LH results reviewed with the patient today; as noted above. Continue 5 mg of Cialis daily as discussed and prescribed. Currently denies any bothersome urinary issues or concerns. He reports be happy with current voiding parameters. Will obtain testosterone, free testosterone, and LH in 3 months for further assessment evaluation. Follow-up in 3 months with labs to be completed prior; or sooner with any issues, concerns, and or questions. Orders: Orders Testosterone, Free/Total 3 Months E29.1 - Testicular hypofunction, N52.9 - Male erectile dysfunction, unspecified AMB Urinalysis Automated Today Z13.9 - Encounter for screening, unspecified Lutenizing Hormone 3 Months E29.1 - Testicular hypofunction, N52.9 - Male erectile dysfunction, unspecified Medications: Discontinued clomiphene citrate [facility] [id number] Discontinued Reason: Doctor's Order 50 mg PO .mon,wed,fri 90 days 40 tabs 0RF E29.1 - Testicular hypofunction clomiphene citrate [facility]IN [facility] DR33 [id number] Discontinued Reason: Doctor's Order 100 mg (2 x 50 mg) PO DAILY 7 days 14 tabs 0RF E29.1 - Testicular hypofunction, R79.89 - Other specified abnormal findings of blood chemistry Patient Instructions: The patient had an opportunity to ask questions regarding the treatment plan. All questions were answered. Physical exam, labs, and imaging were discussed and reviewed in detail. As well as risks, benefits, and discussion of treatment choices. No major barriers to understanding were identified. The patient expressed understanding and agreement with the above treatment plan. The patient was made aware they should contact our office by phone for worsening of their current condition, the appearance of new symptoms, or with any questions or concerns. Compliance is encouraged with any medications and follow up testing that is ordered. It is a privilege to be allowed the opportunity to participate in? your urological care.? Again, if you have any questions or concerns If you have any questions or concerns please do not hesitate to contact me. The office is [phone]. This note is constructed using voice recognition software. While every effort has been made to ensure accuracy field care manager errors may have been included. Yours sincerely, Catie Argueta, UNIT TENDER-BC Coding Level of Care Code Est Pt Level 3 (52710) Diagnoses Erectile dysfunction N52.9 Hypogonadism in male E29.1
--- OUTSIDE RECORDS SUMMARY | 2024-05-22 14:30 | XMS_ITS | Encounter Summary ---
Author Organization [employer] Address [address] [place] [address] Care Team Providers Care Outsole Skiver Name Role Phone Cyndi Almaguer MD Primary Care Provider [phone] Reason for Visit * Reason Onset Date Comments Med Refill 01/01/2024 Encounter Details Date Type Department Care Team (Late st Contact Info) Description 01/01/2024 Refill [facility] [address] [place], [place] [phone] Cyndi Almaguer MD [address] [place] [address] Social History Tobacco Use Types Packs/Day Years [...] Description 06/12/2024 3:45 PM EST Office Visit [facility] [address] [place] [address] Cyndi Almaguer MD [address] [place] [address] documented as of this encounter Visit Diagnoses Not on filedocumented in this encounter Additional Health Concerns Assessment Noted Time PHQ-9 Depression Total Score: 0 09/22/19 9:29 AM EDT documented as of this encounter Care Teams Outsole Skiver Relationship Specialty Start Date End Date Cyndi Almaguer MD [address] [place] [address] PCP - General Family Medicine 09/23/23 Sherry Carranza Java Enterprise ArchitectPin Drafter Operator 07/28/23 documented as of this encounter
--- OUTSIDE RECORDS SUMMARY | 2024-05-22 14:30 | XMS_ITS | Encounter Summary ---
Author Organization [email or web address] Address [address] [place] [address] Care Team Providers Care Predictive Maintenance Specialist Name Role Phone Cyndi Almaguer MD Primary Care Provider [phone] Encounter Details Date Type Department Care Team (Late st Contact Info) Description 11/30/2023 Orders Only [facility] [address] [place], [place] [phone] Cyndi Almaguer MD [address] [place], [place] [phone] Anxiety (Primary Dx); Chronic low back pain, unspecified back pain laterality, unspecified whether sciatica present Social History Tobacco Use Types Packs/Day Years [...] Description 06/12/2024 3:45 PM EST Office Visit [facility] [address] [place] [address] Cyndi Almaguer MD [address] [place] [address] documented as of this encounter Procedures Procedure Name Priority Date/Time Associated Diagnosis Comments DRUG MONITOR, PANEL 1, SCREEN, URINE Routine 12/02/2023 12:00 AM EDT Anxiety Chronic low back pain, unspecified back pain laterality, unspecified whether sciatica present documented in this encounter Results * Drug Monitoring, Panel 1, Screen, Urine (12/02/2023 12:00 AM EDT) Opiate Screen Urine Not Detected Not Detect [facility] Comment:Opiate cut-off is 30 0 ng/mL.Positive results are unconfirmed and should not be used fornon-medical purposes. Barbiturates, Urine Not Detected Not Detect [facility] Comment:Barbiturate cut-off is 200 ng/mL.Positive results are unconfirmed and should not be used fornon-medical purposes. Phencyclidine Screen Urine Not Detected Not Detect [facility] Comment:Phencyclidine cut-of f is 25 ng/mL.Positive results are unconfirmed and should not be used fornon-medical purposes. Amphetamine Screen Urine Not Detected Not Detect [facility] Comment:Amphetamine cut-off is 1000 ng/mL.Positive results are unconfirmed and should not be used fornon-medical purposes. Benzodiazepines Screen Urine Not Detected Not Detect [facility] Comment:Benzodiazepine cut-o ff is 200 ng/mL.Positive results are unconfirmed and should not be used fornon-medical purposes. Cocaine Screen Urine Not Detected Not Detect [facility] Comment:Cocaine cut-off is 3 00 ng/mL.Positive results are unconfirmed and should not be used fornon-medical purposes. Cannabinoid Screen Urine Not Detected Not Detect [facility] Comment:Cannabinoid cut-off is 50 ng/mL.Positive results are unconfirmed and should not be used fornon-medical purposes. Methadone Screen, Urine Not Detected Not Detect ng/mL [facility] Comment:Methadone cut-off is 300 ng/mL.Positive results are unconfirmed and should not be used fornon-medical purposes. FENTANYL URINE Not Detected Not Detect [facility] Comment:Fentanyl cut-off is 1 ng/mL.Positive results are unconfirmed and should not be used fornon-medical purposes. Oxycodone Urine Screen Not Detected Not Detect ng/mL [facility] Comment:Oxycodone cut-off is 100 ng/mL.Positive results are unconfirmed and should not be used fornon-medical purposes. Buprenorphine Screen Not Detected Not Detect ng/mL [facility] Comment:Buprenorphine cut-of f is 5 ng/mL.Positive results are unconfirmed and should not be used fornon-medical purposes. Urine (Urine, Random) 12/02/2023 12/02/2023 us Cyndi Almaguer MD LAB URINE ORDERABLES Final Resul t [facility] [address] [place] [address] [phone] documented in this encounter Visit Diagnoses Diagnosis Anxiety- Primary Anxiety state, unspecified Chronic low back pain, unspecified back pain laterality, unspecified whether sciatica present documented in this encounter Additional Health Concerns Assessment Noted Time PHQ-9 Depression Total Score: 0 09/22/19 24 9:29 AM EDT documented as of this encounter Care Teams Predictive Maintenance Specialist Relationship Specialty Start Date End Date Cyndi Almaguer MD [address] [place] [phone] PCP - General Family Medicine 09/23/23 Sherry Carranza Garnett MechanicTunnel Form Placing Supervisor 07/28/23 documented as of this encounter
--- OUTSIDE RECORDS SUMMARY | 2024-05-22 14:30 | XMS_ITS | Encounter Summary ---
Author Organization [id number] Address [address] [place] [address] Care Team Providers Care Port Traffic Manager Name Role Phone Cyndi Almaguer MD Primary Care Provider [phone] Encounter Details Date Type Department Care Team ([facility] st Contact Info) Description 01/19/2024 Orders Only [facility] [address] [place] [address] Cyndi Almaguer MD [address] [place], [place] [phone] Social History Tobacco Use Types Packs/Day Years [...] Description 06/12/2024 3:45 PM EST Office Visit [facility] [address] [place] [address] Cyndi Almaguer MD [address] [place] [address] documented as of this encounter Visit Diagnoses Not on filedocumented in this encounter Additional Health Concerns Assessment Noted Time PHQ-9 Depression Total Score: 0 09/22/19 9:29 AM EDT documented as of this encounter Care Teams Port Traffic Manager Relationship Specialty Start Date End Date Cyndi Almaguer MD [address] [place] [id number] PCP - General Family Medicine 09/23/23 Sherry Carranza ChefBrace Maker 07/28/23 documented as of this encounter
--- OUTSIDE RECORDS SUMMARY | 2024-05-22 14:30 | XMS_ITS | Encounter Summary ---
Author Organization [employer] Address [address] [place] [address] [address] [place] [address] Care Team Providers Care Home Teaching Grades 7 And 8 Teacher Name Role Phone Cyndi Almaguer MD Primary Care Provider [phone] Reason for Referral * Consultation (Routine) - Closed Specialty Diagnoses / Procedures Referred By Svetlana brewster Referred To Contact Orthopaedic Surgery Diagnoses History of lumbosacral spine surgery Chronic low back pain, unspecified back pain laterality, unspecified whether sciatica present Cyndi Almaguer MD [address] [place] [address] Phone: tel: fax: [facility] [address] [place] [address] Phone: tel: fax: Referral ID Status Reason Start Date Expiration Date V isits Requested Visits Authorized [id number] Closed Specialty Services Required 12/20/2023 12/19/2024 6 6 Encounter Details Date Type Department Care Team (Late st Contact Info) Description 12/15/2023 Orders Only [facility] [address] [place] [address] Cyndi Almaguer MD [address] [place], [place] [phone] History of lumbosacral spine surgery (Primary Dx); Chronic low back pain, unspecified [...] Description 06/12/2024 3:45 PM EST Office Visit [facility] [address] [place] [address] Cyndi Almaguer MD [address] [place] [address] Scheduled Referrals Name Type Priority Associated Diagnoses Orde r Schedule Referral to Orthopaedic Surgery Outpatient Referral Routine History of lumbosacral spine surgery Chronic low back pain, unspecified back pain laterality, unspecified whether sciatica present Expected: 12/15/2023 (Approximate), Expires: 12/14/2024 documented as of this encounter Visit Diagnoses Diagnosis History of lumbosacral spine surgery- Primary Chronic low back pain, unspecified back pain laterality, unspecified whether sciatica present documented in this encounter Additional Health Concerns Assessment Noted Time PHQ-9 Depression Total Score: 0 09/22/19 24 9:29 AM EDT documented as of this encounter Care Teams Home Teaching Grades 7 And 8 Teacher Relationship Specialty Start Date End Date Cyndi Almaguer MD [address] [place] [id number] PCP - General Family Medicine 09/23/23 Sherry Carranza Carpet InspectorLease Out Worker 07/28/23 documented as of this encounter
== END 2024-05-22 14:52 | disposition home or self-care (01) ==
PROVIDERS: PCP Family Medicine; Visit Provider Nurse Practitioner Family
DX: N52.9 Male erectile dysfunction, unspecified (principal); E29.1 Testicular hypofunction; Z13.9 Encounter for screening, unspecified
CPT/HCPCS: 99213

== ENCOUNTER → 2024-05-22 14:26 | Outpatient (BNVA) | payer MEDICAID, SELFPAY | PROVIDERS: PCP Family Medicine; Visit Provider Nurse Practitioner Family | DX: N52.9 Male erectile dysfunction, unspecified (principal); E29.1 Testicular hypofunction | CPT/HCPCS: 81003; 99212 ==

== ENCOUNTER 2024-06-12 16:38 | Outpatient (REF) | payer MEDICAID, SELFPAY ==
[2024-06-12 18:25] LABS: Alanine Aminotransferase 21 U/L (0-40); Albumin Level 4.2 g/dL (3.5-5.0); Alkaline Phosphatase 62 U/L (39-117); Aspartate Amino Transferase 30 U/L (5-37); Bilirubin Direct 0.2 mg/dL (0.0-0.5); Bilirubin Total 0.5 mg/dL (0.0-1.0); Total Protein 7.8 g/dL (6.5-8.0)
--- OUTSIDE RECORDS SUMMARY | 2024-06-12 19:49 | XMS_ITS | Encounter Summary ---
Author Organization [employer] Address [address] [place] [address] Care Team Providers Care Discotheque Dancer Name Role Phone Cyndi Almaguer MD Primary Care Provider [phone] Encounter Details Date Type Department Care Team (Latest Contact Info) Description 06/05/2024 Travel Social History Tobacco Use Types Packs/Day [...] as of this encounter Plan of Treatment Not on file documented as of this encounter Visit Diagnoses Not on filedocumented in this encounter Additional Health Concerns Assessment Noted Time PHQ-9 Depression Total Score: 2 01/31/20 9:13 AM EDT documented as of this encounter Care Teams Discotheque Dancer Relationship Specialty Start Date End Date Cyndi Almaguer MD [address] [place] [id number] PCP - General Family Medicine 09/23/23 Sherry Carranza [place] Machine OperatorHead Of Art 07/28/23 documented as of this encounter
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
--- OUTSIDE RECORDS SUMMARY | 2024-06-12 19:49 | XMS_ITS | Encounter Summary ---
Author Organization [employer] Address [address] [facility] [facility] [place] [address] Care Team Providers Care Home Health Occupational Therapist Name Role Phone Cyndi Almaguer MD Primary Care Provider [phone] Encounter Details Date Type Department Care Team (Latest Contact Info) Description 05/16/2018 Abstract [facility] CONVERSION[facility] Dental, Provider, DDS Social History Tobacco [...] on filedocumented in this encounter Care Teams Home Health Occupational Therapist Relationship Specialty Start Date End Date Cyndi Almaguer MD [address] [place] [address] PCP - General Family Medicine 09/23/23 Sherry Carranza Personal Lines Insurance AgentShip'S Electronic Warfare Officer 07/28/23 documented as of this encounter
--- OUTSIDE RECORDS SUMMARY | 2024-06-12 19:49 | XMS_ITS | Encounter Summary ---
Author Organization [employer] Address [address] [place] [address] Care Team Providers Care Weight Reducing Technician Name Role Phone Cyndi Almaguer MD Primary Care Provider [phone] Encounter Details Date Type Department Care Team (Late st Contact Info) Description 11/30/2023 Orders Only [facility] [address] [place], [place] [phone] Cyndi Almaguer MD [address] [place], [place] [phone] Anxiety (Primary Dx); Chronic low back pain, [...] on file documented as of this encounter Procedures Procedure Name Priority Date/Time Associated Diagnosis Comments DRUG MONITOR, PANEL 1, SCREEN, URINE Routine 12/02/2023 12:00 AM EDT Anxiety Chronic low back pain, unspecified back pain laterality, unspecified whether sciatica present documented in this encounter Results * Drug Monitoring, Panel 1, Screen, Urine (12/02/2023 12:00 AM EDT) Opiate Screen Urine Not Detected Not Detect [facility] Comment:Opiate cut-off is 30 0 ng/mL.Positive results are unconfirmed and should not be used fornon-medical purposes. Barbiturates, Urine Not Detected Not Detect [facility] Comment:Barbiturate cut-off is 200 ng/mL.Positive results are unconfirmed and should not be used fornon-medical purposes. Phencyclidine Screen Urine Not Detected Not Detect [facility] Comment:Phencyclidine cut-of f is 25 ng/mL.Positive results are unconfirmed and should not be used fornon-medical purposes. Amphetamine Screen Urine Not Detected Not Detect [facility] Comment:Amphetamine cut-off is 1000 ng/mL.Positive results are unconfirmed and should not be used fornon-medical purposes. Benzodiazepines Screen Urine Not Detected Not Detect [facility] Comment:Benzodiazepine cut-o ff is 200 ng/mL.Positive results are unconfirmed and should not be used fornon-medical purposes. Cocaine Screen Urine Not Detected Not Detect [facility] Comment:Cocaine cut-off is 3 00 ng/mL.Positive results are unconfirmed and should not be used fornon-medical purposes. Cannabinoid Screen Urine Not Detected Not Detect [facility] Comment:Cannabinoid cut-off is 50 ng/mL.Positive results are unconfirmed and should not be used fornon-medical purposes. Methadone Screen, Urine Not Detected Not Detect ng/mL [facility] Comment:Methadone cut-off is 300 ng/mL.Positive results are unconfirmed and should not be used fornon-medical purposes. FENTANYL URINE Not Detected Not Detect [facility] Comment:Fentanyl cut-off is 1 ng/mL.Positive results are unconfirmed and should not be used fornon-medical purposes. Oxycodone Urine Screen Not Detected Not Detect ng/mL [facility] Comment:Oxycodone cut-off is 100 ng/mL.Positive results are unconfirmed and should not be used fornon-medical purposes. Buprenorphine Screen Not Detected Not Detect ng/mL [facility] Comment:Buprenorphine cut-of f is 5 ng/mL.Positive results are unconfirmed and should not be used fornon-medical purposes. Urine (Urine, Random) 12/02/2023 12/02/2023 Cyndi Almaguer MD LAB URINE ORDERABLES Final Resul t [facility] [address] [place] [address] [phone] documented in this encounter Visit Diagnoses Diagnosis Anxiety- Primary Anxiety state, unspecified Chronic low back pain, unspecified back pain laterality, unspecified whether sciatica present documented in this encounter Additional Health Concerns Assessment Noted Time PHQ-9 Depression Total Score: 0 09/22/19 24 9:29 AM EDT documented as of this encounter Care Teams Weight Reducing Technician Relationship Specialty Start Date End Date Cyndi Almaguer MD [address] [place] [address] [place] [address] PCP - General Family Medicine 09/23/23 Sherry Carranza Health And Safety SpecialistCo Teacher 07/28/23 documented as of this encounter
--- OUTSIDE RECORDS SUMMARY | 2024-06-12 19:49 | XMS_ITS | Encounter Summary ---
Author Organization [employer] Address [address] [place] [address] Care Team Providers Care Privacy Manager Name Role Phone Cyndi Almaguer MD Primary Care Provider [phone] Reason for Visit * Reason Comments Blister Encounter Details Date Type Department Care Team (Late st Contact Info) Description 05/21/2024 2:20 PM EST Office Visit [facility] [address] [place] [address] Meenakshi Lentz ANP [address] [place] [address] Herpes labialis (Primary Dx) Social History Tobacco [...] Active Problem List Diagnosis Asthma Bipolar disorder ([facility]) Chronic low back pain GERD (gastroesophageal reflux disease) History of lumbosacral spine surgery Allergic rhinitis Housing insecurity Pustular acne Mood disorder ([facility]) Postlaminectomy syndrome Onychomycosis Objective BP 121/76 (BP [...] documented in this encounter Plan of Treatment Not on file documented as of this encounter Visit Diagnoses Diagnosis Herpes labialis- Primary Herpes simplex without mention of complication documented in this encounter Additional Health Concerns Assessment Noted Time PHQ-9 Depression Total Score: 2 01/31/20 24 9:13 AM EDT documented as of this encounter Care Teams Privacy Manager Relationship Specialty Start Date End Date Cyndi Almaguer MD [address] [place] [address] PCP - General Family Medicine 09/23/23 Sherry Carranza Brusher OperatorAfrican History Professor 07/28/23 documented as of this encounter
--- OUTSIDE RECORDS SUMMARY | 2024-06-12 19:49 | XMS_ITS | Encounter Summary ---
Author Organization [employer] Address [address] [facility] [address] [place] [address] Care Team Providers Care Supervising Broker Name Role Phone Cyndi Almaguer MD Primary Care Provider [phone] Reason for Referral * Consultation (Routine) - Closed Specialty Diagnoses / Procedures Referred By Svetlana brewster Referred To Contact Urology Diagnoses Erectile dysfunction, unspecified erectile dysfunction type Cyndi Almaguer MD [address] [place] [address] Phone: tel: fax: [facility] [address] [place] [address] Drive [address] [place], [place] Phone: tel: fax: Referral ID Status Reason Start Date Expiration Date V isits Requested Visits Authorized [id number] Closed Specialty Services Required 10/10/2023 10/09/2024 6 6 Encounter Details Date Type Department Care Team (Late st Contact Info) Description 10/03/2023 Orders Only [facility] [address] [place] [address] Cyndi Almaguer MD [address] [place] [address] Erectile dysfunction, unspecified erectile dysfunction type (Primary [...] encounter Results * Referral to Urology (10/12/2023) us Cyndi Almaguer MD OUTPATIENT REFERRAL ORDERABLES F inal Result documented in this encounter Visit Diagnoses Diagnosis Erectile dysfunction, unspecified erectile dysfunction type- Primary documented in this encounter Additional Health Concerns Assessment Noted Time PHQ-9 Depression Total Score: 0 09/22/19 9:29 AM EDT documented as of this encounter Care Teams Supervising Broker Relationship Specialty Start Date End Date Cyndi Almaguer MD [address] [place] [address] PCP - General Family Medicine 09/23/23 Sherry Carranza Public Aid Eligibility AssistantTeam Physician 07/28/23 documented as of this encounter
--- OUTSIDE RECORDS SUMMARY | 2024-06-12 19:49 | XMS_ITS | Encounter Summary ---
Author Organization [employer] Address [address] [facility] [address] [place] [address] Care Team Providers Care Director Of Development And Marketing Name Role Phone Cyndi Almaguer MD Primary Care Provider [phone] Reason for Visit * Reason Onset Date Comments Med Refill 01/01/2024 Encounter Details Date Type Department Care Team (Late st Contact Info) Description 01/01/2024 Refill [facility] [address] [place], [place] [phone] Cyndi lAmaguer MD [address] [place] [address] Social History Tobacco Use Types Packs/Day Years [...] documented as of this encounter Care Teams Director Of Development And Marketing Relationship Specialty Start Date End Date Cyndi Almaguer MD [address] [place] [phone] PCP - General Family Medicine 09/23/23 Sherry Carranza Air Force PilotThread Reeler 07/28/23 documented as of this encounter
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
--- OUTSIDE RECORDS SUMMARY | 2024-06-12 19:49 | XMS_ITS | Encounter Summary ---
Author Organization [email or web address] Address [address] [address] [facility] [address] [place] [address] Care Team Providers Care Manager Valuation Name Role Phone Cyndi Almaguer MD Primary Care Provider [phone] Encounter Details Date Type Department Care Team (Late st Contact Info) Description 02/03/2024 Orders Only [facility] [address] [place] [address] Cyndi Almaguer MD [address] [place], [place] [phone] Narrow anion gap (Primary Dx); Serum total [...] EST) Sodium 141 135 - 145 mmol/L [facility] Potassium 4.0 3.3 - 5.1 mmol/L [facility] Chloride 108 96 - 108 mmol/L [facility] Carbon Dioxide 25 22 - 29 mmol/L [facility] Anion Gap 12 12 - 20 [facility] Urea Nitrogen (BUN) 15 9 - 16 mg/dL [facility] Creatinine, Serum 0.78 0.5 - 1.4 mg/dL [facility] Estimated Glomerular Filt Rate >60 [facility] Comment:Chronic Kidney Disea se: Estimated GFR < 60 mL/min/1.97i9Gddjmn Kidney Disease: Estimated GFR < 15 mL/min/1.73m2 Glucose 84 60 - 115 mg/dL [facility] Calcium 9.3 8.4 - 10.2 mg/dL [facility] Blood Venous blood specimen / Unknown 2024 9:08 AM EST 2024 9:08 AM EST us Cyndi Almaguer MD LAB BLOOD ORDERABLES Final Resul t Performing Organization Address City/[facility] Co de Phone Number [facility] [address] [place] [phone] * Hepatic Function Panel (04/02/2024 12:12 PM EST) Bilirubin, Total 0.8 0.0 - 1.0 mg/dL [facility] Bilirubin, Direct 0.2 0.0 - 0.5 mg/dL [facility] Aspartate Amino Transferase 24 5 - 37 U/L [facility] Alanine Aminotransferase 19 0 - 40 U/L [facility] Total Protein 7.6 6.5 - 8.0 g/dL [facility] Albumin Level 4.3 3.5 - 5.0 g/dL [facility] Alkaline Phosphatase 53 39 - 117 U/L [facility] Blood Venous blood specimen / Unknown 04/02/2024 12:12 PM EST 04/02/2024 1:23 PM EST us Cyndi Almaguer MD LAB BLOOD ORDERABLES Final Resul t Performing Organization Address [facility] Co de Phone Number [facility] [address] [place] [phone] documented in this encounter Visit Diagnoses Diagnosis Narrow anion gap- Primary Serum total bilirubin elevated Disorders of bilirubin excretion documented in this encounter Additional Health Concerns Assessment Noted Time PHQ-9 Depression Total Score: 2 01/31/20 24 9:13 AM EDT documented as of this encounter Care Teams Manager Valuation Relationship Specialty Start Date End Date Cyndi Almaguer MD [address] [place] [address] PCP - General Family Medicine 09/23/23 Sherry Carranza Reach Lift Truck DriverParker 07/28/23 documented as of this encounter
--- OUTSIDE RECORDS SUMMARY | 2024-06-12 19:49 | XMS_ITS | Encounter Summary ---
Author Organization [employer] Address [address] [place] [address] Care Team Providers Care Consulting Sme Name Role Phone Cyndi Almaguer MD Primary Care Provider [phone] Encounter Details Date Type Department Care Team ([facility] st Contact Info) Description 2024 Orders Only [...] Testosterone, Total 821 250 - 1100 ng/dL [facility] Comment:For additional infor saad, please refer [email or web address](This link is being provided for informational/educational purposes only.)This test was developed and its analytical performancecharacteristics have been determined by [employer] [place], [place]. It hasnot been cleared or approved by the U.S. Food and DrugAdministration. This assay has been validated pursuantto the CLIA regulations and is used for clinicalpurposes. Testosterone, Free 162.6(A ) 35.0 - 155.0 pg/mL [facility] Comment:This test was develo ped and its analytical performancecharacteristics have been determined by [employer] [place], [place]. It hasnot been cleared or approved by the U.S. Food and DrugAdministration. This assay has been validated pursuantto the CLIA regulations and is used for clinicalpurposes.THIS TEST WAS PERFORMED AT:[employer]/[facility] [place] [address]RAMWBHSISABELLE MADDOX MD,PHD 2024 9:08 AM EST 2024 9:08 AM EST us Generic External Data Provider LAB BLOOD ORDERAB LES Final Result Performing Organization Address [facility]/ZIP Co de Phone Number [facility] [address] [place] [phone] * LH (2024 9:08 AM EST) Lutenizing Hormone 8.1 1.5 - 9.3 mIU/mL [facility] Comment:THIS TEST WAS PERFOR MED AT:[employer] [address] [address]TCUHUARNALDO CHRISTENSEN MD 2024 9:08 AM EST 2024 9:08 AM EST Generic External Data Provider LAB BLOOD ORDERAB LES Final Result Performing Organization Address City/[facility] Co de Phone Number [facility] [address] [place] [phone] documented in this encounter Visit Diagnoses Not on filedocumented in this encounter Additional Health Concerns Assessment Noted Time PHQ-9 Depression Total Score: 2 01/31/20 24 9:13 AM EDT documented as of this encounter Care Teams Consulting Sme Relationship Specialty Start Date End Date Cyndi Almaguer MD [address] [place] [address] PCP - General Family Medicine 09/23/23 Sherry Carranza Softball PlayerHearing Aid Mechanic 07/28/23 documented as of this encounter
--- OUTSIDE RECORDS SUMMARY | 2024-06-12 19:49 | XMS_ITS | Encounter Summary ---
Author Organization [employer] Address [address] [facility] 7t [place] [address] Care Team Providers Care Infantry Indirect Fire Crewmember Name Role Phone Cyndi Almaguer MD Primary Care Provider [phone] Reason for Referral * Consultation (Routine) - Closed Specialty Diagnoses / Procedures Referred By Contac t Referred To Contact Physical Therapy Diagnoses Chronic back pain, unspecified back location, unspecified back pain laterality Cyndi Almaguer MD [address] [place] [address] Phone: tel: fax: [facility] [address] Phone: tel: fax: Referral ID Status Reason Start Date Expiration Date V isits Requested Visits Authorized [id number] Closed Specialty Services Required 09/30/2023 09/28/2024 20 20 * Consultation (Routine) - Closed Specialty Diagnoses / Procedures Referred By Contac t Referred To Contact Orthopaedic Surgery Diagnoses Chronic back pain, unspecified back location, unspecified back pain laterality Cyndi Almaguer MD [address] [place] [address] Phone: tel: fax: [facility] [address] [place] [address] [address] [place], [place] Phone: tel: fax: Referral ID Status Reason Start Date Expiration Date V isits Requested Visits Authorized [id number] Closed Specialty Services Required 08/08/2023 08/07/2024 12 12 Encounter Details Date Type Department Care Team (Late st Contact Info) Description 09/16/2023 Orders Only [facility] [address] [place], [place] [phone] Cyndi Almaguer MD [address] [place] [address] Chronic back pain, unspecified back [...] as of this encounter Plan of Treatment Scheduled Referrals Name Type Priority Associated Diagnoses [...] Primary documented in this encounter Care Teams Infantry Indirect Fire Crewmember Relationship Specialty Start Date End Date Cyndi Almaguer MD [address] [place] [phone] PCP - General Family Medicine 09/23/23 Sherry Carranza StonehandPremium Service Representative 07/28/23 documented as of this encounter
--- OUTSIDE RECORDS SUMMARY | 2024-06-12 19:49 | XMS_ITS | Clinical Summary ---
Author Organization [facility], Address [address] [place] [address] Phone Care Team Providers Care Electroplating Technician Name Role Phone Cyndi Almaguer MD Primary Care Provider [phone] Allergies Active Allergy Reactions Criticality Noted Date [...] Vaccine Completed 01/13/2024, , 02/22/2018 Insurance MEDICAID [place] Care Teams Electroplating Technician Relationship Specialty Start Date End Date Cyndi Almaguer MD [address] [place] [phone] PCP - General Family Medicine 10/31/23
--- OUTSIDE RECORDS SUMMARY | 2024-06-12 19:49 | XMS_ITS | Encounter Summary ---
Author Organization [employer] Address [address] [place] [address] Care Team Providers Care Operations And Intelligence Assistant Name Role Phone Cyndi Almaguer MD Primary Care Provider [phone] Reason for Visit * Reason Onset Date Comments Lab Orders 10/26/2023 Encounter Details Date Type Department Care Team ([facility] st Contact Info) Description 10/26/2023 Telephone [facility] [address] [place], [place] [phone] Cyndi Almaguer MD [address] [place] [address] Lab Orders Social History Tobacco Use Types [...] documented as of this encounter Care Teams Operations And Intelligence Assistant Relationship Specialty Start Date End Date Cyndi Almaguer MD [address] [place] [phone] PCP - General Family Medicine 09/23/23 Sherry Carranza Expanded Duty Dental AssistantQa Software Tester 07/28/23 documented as of this encounter
--- OUTSIDE RECORDS SUMMARY | 2024-06-12 19:49 | XMS_ITS | Encounter Summary ---
Author Organization [employer] Address [address] [place] [address] 7t [place] [address] Care Team Providers Care Director Of Corporate Real Estate Name Role Phone Cyndi Almaguer MD Primary Care Provider [phone] Reason for Referral * Consultation (Routine) - Closed Specialty Diagnoses / Procedures Referred By Svetlana brewster Referred To Contact Orthopaedic Surgery Diagnoses History of lumbosacral spine surgery Chronic low back pain, unspecified back pain laterality, unspecified whether sciatica present Cyndi Almaguer MD [address] [place] [address] Phone: tel: fax: [facility] [address] [place] [address] Phone: tel: fax: Referral ID Status Reason Start Date Expiration Date V isits Requested Visits Authorized [id number] Closed Specialty Services Required 12/20/2023 12/19/2024 6 6 Encounter Details Date Type Department Care Team (Late st Contact Info) Description 12/15/2023 Orders Only [facility] [address] [place] [address] Cyndi Almaguer MD [address] [place], [place] [phone] History of lumbosacral spine surgery (Primary Dx); [...] of this encounter Care Teams Director Of Corporate Real Estate Relationship Specialty Start Date End Date Cyndi Almaguer MD [address] [place] [address] PCP - General Family Medicine 09/23/23 Sherry Carranza Audio Recording EngineerCertified Scrub Tech 07/28/23 documented as of this encounter
--- OUTSIDE RECORDS SUMMARY | 2024-06-12 19:49 | XMS_ITS | Encounter Summary ---
Author Organization [employer] Address [address] [place] [address] Care Team Providers Care Shoulder Boner Name Role Phone Cyndi Almaguer MD Primary Care Provider [phone] Encounter Details Date Type Department Care Team (Latest Contact Info) Description 06/12/2024 Travel Social History Tobacco Use Types Packs/Day [...] documented as of this encounter Care Teams Shoulder Boner Relationship Specialty Start Date End Date Cyndi Almaguer MD [address] [place] [address] PCP - General Family Medicine 09/23/23 Sherry Carranza Papeterie Table AssemblerPrecision Aircraft Structure Assembler 07/28/23 documented as of this encounter
--- OUTSIDE RECORDS SUMMARY | 2024-06-12 19:49 | XMS_ITS | Encounter Summary ---
Author Organization [employer] Address [address] [facility] [address] [place] [address] Care Team Providers Care Manager Forensic Name Role Phone Cyndi Almaguer MD Primary Care Provider [phone] Encounter Details Date Type Department Care Team [...] as of this encounter Care Teams Manager Forensic Relationship Specialty Start Date End Date Cyndi Almaguer MD [address] [place] [phone] PCP - General Family Medicine 09/23/23 Sherry Carranza Cotton FeederLitigation Support Analyst 07/28/23 documented as of this encounter
--- OUTSIDE RECORDS SUMMARY | 2024-06-12 19:49 | XMS_ITS | Encounter Summary ---
Author Organization [employer] Address [address] [place] [address] Care Team Providers Care Retail Service Technician Name Role Phone Cyndi Almaguer MD Primary Care Provider [phone] Encounter Details Date Type Department Care Team ([facility] st Contact Info) Description 10/01/2023 Orders Only [facility] [address] [place] [address] Cyndi Almaguer MD [address] [place], [place] [phone] Social History Tobacco Use Types Packs/Day Years [...] documented as of this encounter Care Teams Retail Service Technician Relationship Specialty Start Date End Date Cyndi Almaguer MD [address] [place] [address] PCP - General Family Medicine 09/23/23 Sherry Carranza Financial Aid CoordinatorPattern Stamper 07/28/23 documented as of this encounter
--- OUTSIDE RECORDS SUMMARY | 2024-06-12 19:49 | XMS_ITS | Encounter Summary ---
Author Organization [employer] Address [address] [facility] [address]t [place] [address] Care Team Providers Care Chief Fundraising Officer Name Role Phone Cyndi Almaguer MD Primary Care Provider [phone] Reason for Visit * Reason Onset Date Comments Chart Prep 06/06/2024 Encounter Details Date Type Department Care Team ([facility] st Contact Info) Description 06/06/2024 Telephone [facility] [address] [place], [place] [phone] Cyndi Almaguer MD [address] [place] [address] Chart Prep Social History Tobacco Use Types Packs/Day Years [...] encounter Miscellaneous Notes * Telephone Encounter - Marylou Pugh MA - 06/06/2024 2:12 PM EST Chart Prep Labs: not applicable Images: not applicable Vaccines due: Updated Referrals: Not Applicable Screenings: Not Applicable Overdue care gaps: Oral Health documented in this encounter Plan of Treatment Not on file documented as of this encounter Visit Diagnoses Not on filedocumented in this encounter Additional Health Concerns Assessment Noted Time PHQ-9 Depression Total Score: 2 01/31/20 9:13 AM EDT documented as of this encounter Care Teams Chief Fundraising Officer Relationship Specialty Start Date End Date Cyndi Almaguer MD [address] [place] [address] PCP - General Family Medicine 09/23/23 Sherry Carranza Bone GrinderSprinkler Fitter Helper 07/28/23 documented as of this encounter
--- OUTSIDE RECORDS SUMMARY | 2024-06-12 19:49 | XMS_ITS | Encounter Summary ---
Author Organization [employer] Address [address] [facility] [facility] [address] [place] [address] Care Team Providers Care Slate Cutter Name Role Phone Cyndi Almaguer MD Primary Care Provider [phone] Encounter Details Date Type Department Care Team ([facility] st Contact Info) Description 01/19/2024 Orders Only [facility] [address] [place] [address] Cyndi Almaguer MD [address] [place], [place] [phone] Social History Tobacco Use Types Packs/Day Years [...] documented as of this encounter Care Teams Slate Cutter Relationship Specialty Start Date End Date Cyndi Almaguer MD [address] [place] [address] PCP - General Family Medicine 09/23/23 Sherry Carranza Lean Manufacturing CoordinatorRoentgenology Teacher 07/28/23 documented as of this encounter
--- OUTSIDE RECORDS SUMMARY | 2024-06-12 19:49 | XMS_ITS | Encounter Summary ---
Author Organization [employer] Address [address] [facility] [address] [place] [address] Care Team Providers Care Spooler Operator Name Role Phone Cyndi Almaguer MD Primary Care Provider [phone] Encounter Details Date Type Department Care Team (Late st Contact Info) Description 10/26/2023 Orders Only [facility] [address] [place] [address] Cyndi Almaguer MD [address] [place], [place] [phone] Immunity status testing (Primary Dx); Routine screening [...] of this encounter Plan of Treatment Scheduled Orders Name Type Priority Associated Diagnoses [...] Blood Count 6.4 4.8 - 10.8 X10*3/uL [facility] Red Blood Count 4.77 4.60 - 5.80 X10*6/uL [facility] Hemoglobin 15.1 14.0 - 18.0 g/dl [facility] Hematocrit 44.3 42.0 - 52.0 % [facility] Mean Corpuscular Volume 92.9 80.0 - 98.0 fL [facility] Mean Corpuscular Hemoglobin 31.7 27.0 - 33.0 pg [facility] Mean Corpuscular HGB Conc 34.1 31.0 - 36.0 g/dl [facility] Red Cell Distribution Width 12.2 11.0 - 16.0 % [facility] Platelet Count 203 160 - 400 X10*3/uL [facility] Mean Platelet Volume 10.8 9.4 - 12.4 fL [facility] Neutrophils Percent Auto 53.9 45 - 73 % [facility] Imm Gran Pct Auto 0.3 0.0 - 0.4 % [facility] Lymphocytes Percent Auto 36.7 20 - 40 % [facility] Monocytes Percent Auto 6.4 2 - 11 % [facility] Eosinophils Percent Auto 2.2 0 - 4 % [facility] Basophils Percent Auto 0.5 0 - 2 % [facility] NRBC Pct Auto 0.0 0.0 - 0.2 /100WBC [facility] Neutrophils Absolute Auto 3.5 2.0 - 8.3 x10*3/uL [facility] Imm Gran Abs Auto 0.02 0.00 - 0.03 X10*3/uL [facility] Lymphocytes Absolute Auto 2.4 1.2 - 4.9 X10*3/uL [facility] Monocytes Absolute Auto 0.4 0.1 - 1.2 X10*3/uL [facility] Eosinophils Absolute Auto 0.1 0.0 - 0.4 X10*3/uL [facility] Basophils Absolute Auto 0.0 0.0 - 0.2 X10*3/uL [facility] NRBC Abs Auto 0.000 0.0 - 0.012 X10*3/uL [facility] Blood Venous blood specimen / Unknown 10/31/2023 2:14 PM EDT 10/31/2023 4:03 PM EDT us Cyndi Almaguer MD LAB BLOOD ORDERABLES Final Resul t [facility] [address] [place] [phone] * (ABNORMAL) Comprehensive Metabolic Panel (10/31/2023 2:14 PM EDT) Sodium 143 135 - 145 mmol/L [facility] Potassium 4.3 3.3 - 5.1 mmol/L [facility] Chloride 109(H) 96 - 108 mmol/L [facility] Carbon Dioxide 24 22 - 29 mmol/L [facility] Anion Gap 14 12 - 20 [facility] Urea Nitrogen (BUN) 11 9 - 16 mg/dL [facility] Creatinine, Serum 0.85 0.5 - 1.4 mg/dL [facility] Estimated Glomerular Filt Rate >60 [facility] Comment:NOTE: For -Am erican individuals, multiply the result by 1.210.Chronic Kidney Disease: Estimated GFR < 60 mL/min/1.49k0Smbutg Kidney Disease: Estimated GFR < 15 mL/min/1.73m2 Glucose 94 60 - 115 mg/dL [facility] Calcium 9.9 8.4 - 10.2 mg/dL [facility] Bilirubin, Total 1.3(H) 0.0 - 1.0 mg/dL [facility] Aspartate Amino Transferase 22 5 - 37 U/L [facility] Alanine Aminotransferase 18 0 - 40 U/L [facility] Total Protein 7.5 6.5 - 8.0 g/dL [facility] Albumin Level 4.5 3.5 - 5.0 g/dL [facility] Alkaline Phosphatase 64 39 - 117 U/L [facility] Blood Venous blood specimen / Unknown 10/31/2023 2:14 PM EDT 10/31/2023 4:14 PM EDT us Cyndi Almaguer MD LAB BLOOD ORDERABLES Final Resul t [facility] [address] [place] [phone] * Vitamin D, 25-Hydroxy, Total, Immunoassay (10/31/2023 2:14 PM EDT) Vitamin D 25-OH Total 69.9 >30 ng/mL [facility] Comment:Health Based Referen ce Values*< 20 ng/mL Ucicpttks04-15 ng/mL Insufficient> 30 ng/mL Sufficient*Jackie LOMELI. N [...] ORDERABLES Final Resul t Performing Organization Address [facility]/ZIP Co de Phone Number [facility] [address] [place] [phone] * Hepatitis A Antibody, Total (10/31/2023 2:14 PM EDT) Hepatitis A Antibody IgG REACTIVE Nonreactive [facility] Comment:The presence of IgG anti-HAV implies past HAV infection(recent or distant) or vaccination against HAV. Blood Venous blood specimen / Unknown 10/31/2023 2:14 PM EDT 10/31/2023 4:14 PM EDT Cyndi Almaguer MD LAB BLOOD ORDERABLES Final Resul t Performing Organization Address [facility] Co de Phone Number [facility] [address] [place] [phone] * Hepatitis B surface antigen, EIA (10/31/2023 2:14 PM EDT) Hepatitis B Surface Ag Negative Negative [facility] Blood Venous blood specimen / Unknown 10/31/2023 2:14 PM EDT 10/31/2023 4:14 PM EDT Cyndi Almaguer MD LAB BLOOD ORDERABLES Final Resul t Performing Organization Address [facility] Co de Phone Number [facility] [address] [place] [phone] * HIV-1/2 Antigen and Antibodies, Fourth Generation, with Reflexes (10/31/2023 2:14 PM EDT) Pathologist [facility] HIV AB/AG Nonreactive Nonreactive [facility] Comment:HIV-1 p24 Ag and/or HIV-1/HIV-2 Ab not detected.A test result that is nonreactive does not exclude thepossibility of exposure to or infection with HIV-1 and/orHIV-2. Nonreactive results in this assay for individualswith prior exposure to HIV-1 and/or HIV-2 may be due toantigen and antibody levels that are below the limit ofdetection of this assay.The UB Access HIV Ag/Ab Combo assay result andsupplemental assay results should be interpreted inconjunction with the patient's clinical presentation,history and other laboratory results. If the results areinconsistent with clinical evidence, additional testing issuggested to confirm the result. Blood Venous blood specimen / Unknown 10/31/2023 2:14 PM EDT 10/31/2023 4:14 PM EDT us Cyndi Almaguer MD LAB BLOOD ORDERABLES Final Resul t [facility] [address] [place] [phone] * Chlamydia/N. Gonorrhoeae RNA, TMA, Urogenitial (10/31/2023 2:14 PM EDT) [facility] CT PCR NOT DETECTED Not Detect. [facility] Comment:A not detected test result does [...] psychologicalconsequences. NG PCR NOT DETECTED Not Detect. [facility] Comment:A not detected test result does [...] PM EDT 10/31/2023 4:03 PM EDT Narrative [facility] - 10/31/2023 6:42 PM EDT Urine Cyndi Almaguer MD LAB MICROBIOLOGY - GENERAL ORDER KAROLINA Final Result Performing Organization Address City/[facility]/ZIP Co de Phone Number [facility] [address] [place] [phone] * Hepatitis B Core Antibody, Total (10/31/2023 2:14 PM EDT) Hepatitis B Core Antibody Nonreactive Nonreactive [facility] Blood Venous blood specimen / Unknown 10/31/2023 2:14 PM EDT 10/31/2023 4:14 PM EDT Cyndi Almaguer MD LAB BLOOD ORDERABLES Final Resul t Performing Organization Address City/[facility]/ZIP Co de Phone Number [facility] [address] [place] [phone] * Hepatitis B Surface Antibody, Qualitative (10/31/2023 2:14 PM EDT) ~Hepatitis B Surface Antibody REACTIVE Nonreactive [facility] Comment:REACTIVE: > 11.99 mI U/mL Blood Venous blood specimen / Unknown 10/31/2023 2:14 PM EDT 10/31/2023 4:14 PM EDT us Cyndi Almaguer MD LAB BLOOD ORDERABLES Final Resul t Performing Organization Address [facility] Co de Phone Number [facility] [address] [place] [phone] * Hepatitis C Antibody with Reflex to HCV, RNA, Quantitative, Real-Time PCR (10/31/2023 2:14 PM EDT) [facility] Hepatitis C Antibody Nonreactive Nonreactive [facility] Comment:Antibodies to HCV no t detected; does not exclude early acuteHCV infection. Blood Venous blood specimen / Unknown 10/31/2023 2:14 PM EDT 10/31/2023 4:14 PM EDT us Cyndi Almaguer MD LAB BLOOD ORDERABLES Final Resul t Performing Organization Address [facility] Co de Phone Number [facility] [address] [place] [phone] * Syphilis Screen (10/31/2023 2:14 PM EDT) [facility] Syphilis Screen Nonreactive Nonreactive [facility] Blood 10/31/2023 2:14 PM EDT 10/31/2023 4:14 PM EDT Cyndi Almaguer MD LAB BLOOD ORDERABLES Final Resul t Performing Organization Address [facility] de Phone Number [facility] [address] [place] [phone] documented in this encounter Visit Diagnoses Diagnosis Immunity status testing- Primary Antibody response examination Routine screening for STI (sexually transmitted infection) Screening examination for venereal disease Vitamin D deficiency Accidental poisoning by drug, initial encounter documented in this encounter Additional Health Concerns Assessment Noted Time PHQ-9 Depression Total Score: 0 09/22/19 24 9:29 AM EDT documented as of this encounter Care Teams Spooler Operator Relationship Specialty Start Date End Date Cyndi Almaguer MD [address] [place] [address] PCP - General Family Medicine 09/23/23 Sherry Carranza [employer] PerformerUnix Systems Administrator 07/28/23 documented as of this encounter
== END 2024-06-12 16:39 | disposition home or self-care (01) ==
LOC: HO.HHCL 16:38
PROVIDERS: Visit Provider Family Medicine
DX: J45.20 Mild intermittent asthma, uncomplicated (principal)
CPT/HCPCS: 36415; 80076

== ENCOUNTER 2024-08-07 07:38 | Outpatient (REF) | payer MEDICAID, SELFPAY ==
--- OUTSIDE RECORDS SUMMARY | 2024-08-07 07:41 | XMS_ITS | Clinical Summary ---
Author Organization [facility] Address [address] [place] [phone] Phone Care Team Providers Care Mental Health Therapist Name Role Phone Shay Carranza MD Primary Care Provider [phone] Allergies No known active allergies Medications zolpidem (AMBIEN) 10 mg tablet Take 1 Tab by mouth at bedtime as needed for Insomnia. 03/23/2013 Active Active Problems Problem Noted Date Diagnosed Date Depression 04/13/2024 Immunizations Name Administration Dates Next Due Tdap Tetanus diptheria acell ular pertussis (Boostrix; Adacel) 7yo and older 03/23/2013 Surgical History Surgery Date Site/Laterality Comments HAND SURGERY PROCEDURE: HISTORICAL HAND SURGERY; COMMENT: right index tendon repair after punching a window Medical History Medical History Date Comments Depression DX:Depression Family History Medical History Relation Name Comments Bipolar disorder Brother 1 Heart attack Father x 2, age 40s wi th first Breast cancer Maternal Grandmother Diabetes Maternal Grandmother dialysi s Hypertension Mother Heart attack Paternal Grandfather d 70s Bipolar disorder Sister 1 Relation Name Status Comments Brother 1 Brother 2 Father Maternal Grandmother Mother Paternal Grandfather Sister 1 Sister 2 Social History Tobacco Use Types Packs/Day Years Used Date Smoking Tobacco: Every Day Cigarettes Alcohol Use Standard Drinks/Week Comments Yes 0 (1 standard drink = 0.6 oz pur e alcohol) Sex and Gender Information Value Date Recorded Sex Assigned at Not on file Legal Sex Male 11:24 PM EST Gender Identity Not on file Sexual Orientation Not on file Obstetrics History Plan of Treatment Upcoming Encounters Date Type Department Care Team ([facility] st Contact Info) Description 09/24/2024 9:15 AM EDT Consult Orthopedic Surgery - [place] [address] [phone] Rafael Mcnally, DPM [address] [place] [address] Health Maintenance Due Date Last Done Comments Hepatitis B Vaccines (1 of 3 - 19+ 3-dose series) 2001 Pneumococcal Vaccine: Pediat rics (0 to 5 Years) and At-Risk Patients (6 to 64 Years) (1 of 2 - PCV) 2001 DTaP,Tdap,and Td Vaccines (2 - Td or Tdap) 03/23/2023 03/23/2013 COVID-19 Vaccine (1 - 2023-2 5 season) 2023 Cholesterol Screening (Lipid Panel) 04/14/2024 03/23/2013 Depression Screening 04/14/2024 Social Influencers of Health Screening 04/14/2024 Influenza Vaccine (Season Ended) 2024 HIV Screening Completed 08/31/2013 Hepatitis C Screening Completed 08/31/2013 HIB Vaccines Aged Out No longer eligi ble based on patient's age to complete this topic HPV Vaccines Aged Out No longer eligi ble based on patient's age to complete this topic Hepatitis A Vaccines Aged Out No long er eligible based on patient's age to complete this topic IPV Vaccines Aged Out No longer eligi ble based on patient's age to complete this topic MMR Vaccines Aged Out No longer eligi ble based on patient's age to complete this topic Meningococcal ACWY Vaccine Aged Out N o longer eligible based on patient's age to complete this topic Meningococcal B Vaccine Aged Out No l onger eligible based on patient's age to complete this topic RSV Immunization Patients Un asha 20 months Aged Out No longer eligible b ased on patient's age to complete this topic Varicella Vaccines Aged Out No longer eligible based on patient's age to complete this topic Procedures Procedure Name Priority Date/Time Associated Diagnosis Comments HEPATITIS C SCREENING Routine 08/31/2013 HIV SCREENING Routine 08/31/2013 LIPID PANEL Routine 03/23/2013 from Last 3 Months or Most Recently Relevant to Health Maintenance Results * HIV Screening (08/31/2013) Pathologist [facility] HIV Screening abstracted us Historical Provider HEALTH MAINTENANCE Final Result * Hepatitis C Screening (08/31/2013) Hepatitis C Screening abstracted Historical Provider HEALTH MAINTENANCE Final Result * Lipid panel (03/23/2013) LDL/HDL Ratio 2 0 - 4 Triglycerides 54 0 - 150 mg/dL Cholesterol 151 0 - 200 mg/dL HDL 72 >=40 mg/dL LDL Cholesterol 69 0 - 100 mg/dL Blood Venous blood specimen / Unknown Historical Provider LAB BLOOD ORDERABLES Sayra l Result from Last 3 Months or Most Recently Relevant to Health Maintenance Insurance MEDICAID - [place] Care Teams Mental Health Therapist Relationship Specialty Start Date End Date Shay Carranza MD PCP - General 06/26/10
--- OUTSIDE RECORDS SUMMARY | 2024-08-07 07:41 | XMS_ITS | Encounter Summary ---
Author Organization [employer] Address [address] [facility] 7t [place] [address] Care Team Providers Care Jet Inspector Name Role Phone Cyndi Almaguer MD Primary Care Provider Encounter Details Date Type Department Care Team (Latest Contact Info) Description 05/16/2018 Abstract [facility] CONVERSIONS Dental, Provider, DDS Social History [...] on filedocumented in this encounter Care Teams Jet Inspector Relationship Specialty Start Date End Date Cyndi Almaguer MD [address] [place] [address] PCP - General Family Medicine 09/23/23 Sherry Carranza [employer] Sales AdvisorFleet Driver 07/28/23 documented as of this encounter
--- OUTSIDE RECORDS SUMMARY | 2024-08-07 07:41 | XMS_ITS | Clinical Summary ---
Author Organization [facility], Address [address] [place] [address] Phone Care Team Providers Care Emergency Room Physician Name Role Phone Cyndi Almaguer MD Primary Care Provider [phone] Allergies Active Allergy Reactions Criticality Noted Date [...] - 19+ 3-dose series) 2001 Pneumococcal Vaccine: Peds ( 0 to 5 Years) and At-Risk Patients (6 to 49 Years) Completed 09/22/2023 Influenza Vaccine Completed 01/13/2024, , 02/22/2018 [place] Care Teams Emergency Room Physician Relationship Specialty Start Date End Date Cyndi Almaguer MD [address] [place] [phone] PCP - General Family Medicine 10/31/23
--- OUTSIDE RECORDS SUMMARY | 2024-08-07 07:42 | XMS_ITS | Encounter Summary ---
Author Organization [employer] Address [address] [place] [address] 7[address] [place] [address] Care Team Providers Care Biomedical Equipment Technician Name Role Phone Cyndi Almaguer MD Primary Care Provider Reason for Referral * Consultation (Routine) - Closed Specialty Diagnoses / Procedures Referred By Svetlana brewster Referred To Contact Orthopaedic Surgery Diagnoses History of lumbosacral spine surgery Chronic low back pain, unspecified back pain laterality, unspecified whether sciatica present Cyndi Almaguer MD [address] [place] [address] Phone: tel: fax: [facility] [address] [place] [address] Phone: tel: fax: Referral ID Status Reason Start Date Expiration Date V isits Requested Visits Authorized [id number] Closed Specialty Services Required 12/20/2023 12/19/2024 6 6 Encounter Details Date Type Department Care Team (Late st Contact Info) Description 12/15/2023 Orders Only [facility] MEDICINE [address] [place] [address] Cyndi Almaguer MD [address] [place], [place] [phone] History of lumbosacral spine surgery (Primary Dx); [...] documented as of this encounter Care Teams Biomedical Equipment Technician Relationship Specialty Start Date End Date Cyndi Almaguer MD [address] [place] [address] PCP - General Family Medicine 09/23/23 Sherry Carranza Motor WinderManager Drilling 07/28/23 documented as of this encounter
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
--- OUTSIDE RECORDS SUMMARY | 2024-08-07 07:42 | XMS_ITS | Encounter Summary ---
Author Organization [employer] Address [address] [place] [address] Care Team Providers Care Mixing House Operator Name Role Phone Cyndi Almaguer MD Primary Care Provider [phone] Reason for Referral * Consultation (Routine) - Closed Specialty Diagnoses / Procedures Referred By Svetlana brewster Referred To Contact Urology Diagnoses Erectile dysfunction, unspecified erectile dysfunction type Cyndi Almaguer MD [address] [place] [address] Phone: tel: fax: [facility] [address] [place] [address] Drive [address] [place], [place] Phone: tel: fax: Referral ID Status Reason Start Date Expiration Date V isits Requested Visits Authorized [id number] Closed Specialty Services Required 10/10/2023 10/09/2024 6 6 Encounter Details Date Type Department Care Team (Late st Contact Info) Description 10/03/2023 Orders Only [facility] MED[facility] [address] [place] [address] Cyndi Almaguer MD [address] [place] [address] Erectile dysfunction, unspecified erectile dysfunction type (Primary [...] documented as of this encounter Care Teams Mixing House Operator Relationship Specialty Start Date End Date Cyndi Almaguer MD [address] [place] [address] PCP - General Family Medicine 09/23/23 Sherry Carranza Director Strategic Account ManagementCorporate Physical Security Supervisor 07/28/23 documented as of this encounter
--- OUTSIDE RECORDS SUMMARY | 2024-08-07 07:42 | XMS_ITS | Encounter Summary ---
Author Organization [employer] Address [address] [place] [address] Care Team Providers Care Document Control Assistant Name Role Phone Cyndi Almaguer MD Primary Care Provider [phone] Encounter Details Date Type Department Care Team ([facility] st Contact Info) Description 10/01/2023 Orders Only [facility] MEDIC[facility] [address] [place] [address] Cyndi Almaguer MD [address] [place], [place] [phone] Social History Tobacco Use Types Packs/Day Years [...] documented as of this encounter Care Teams Document Control Assistant Relationship Specialty Start Date End Date Cyndi Almaguer MD [address] [place] [address] PCP - General Family Medicine 09/23/23 Sherry Carranza High Pressure FirerIc Design Engineer 07/28/23 documented as of this encounter
--- OUTSIDE RECORDS SUMMARY | 2024-08-07 07:42 | XMS_ITS | Encounter Summary ---
Author Organization [employer] Address [address] [place] [address] Care Team Providers Care Investigation Division Captain Name Role Phone Cyndi Almaguer MD Primary Care Provider [phone] Reason for Visit * Reason Comments Med Refill Encounter Details Date Type Department Care Team (Late st Contact Info) Description 07/29/2024 Refill [facility] MED[facility]INE [address] [place] [address] Cindy Denney MD [address] [place] [address] Folliculitis Social History Tobacco Use Types Packs/Day Years [...] your housing situation today? I have marilyn maritnez 09/15/[address] you li [...] as of this encounter Visit Diagnoses Diagnosis Folliculitis Other specified disease of hair and hair follicles documented in this encounter Additional Health Concerns Assessment Noted Time PHQ-9 Depression Total Score: 2 01/31/20 9:13 AM EDT documented as of this encounter Care Teams Investigation Division Captain Relationship Specialty Start Date End Date Cyndi Almaguer MD [address] [place] [address] PCP - General Family Medicine 09/23/23 Sherry Carranza Project Control ManagerWafer Polishing Worker 07/28/23 documented as of this encounter
--- OUTSIDE RECORDS SUMMARY | 2024-08-07 07:42 | XMS_ITS | Encounter Summary ---
Author Organization [employer] Address [address] [facility] 7[address] [place] [address] Care Team Providers Care Plastic Shaper Name Role Phone Cyndi Almaguer MD Primary Care Provider [phone] Encounter Details Date Type Department Care Team (Late st Contact Info) Description 10/26/2023 Orders Only [facility] MEDICINE [address] [place] [address] Cyndi Almaguer MD [address], [place] [phone] Immunity status testing (Primary Dx); Routine screening [...] Blood Count 6.4 4.8 - 10.8 X10*3/uL [facility] Red Blood Count 4.77 4.60 - 5.80 X10*6/uL [facility] Hemoglobin 15.1 14.0 - 18.0 g/dl [facility] Hematocrit 44.3 42.0 - 52.0 % [facility] Mean Corpuscular Volume 92.9 80.0 - 98.0 fL [facility] Mean Corpuscular Hemoglobin 31.7 27.0 - 33.0 pg [facility] Mean Corpuscular HGB Conc 34.1 31.0 - 36.0 g/dl [facility] Red Cell Distribution Width 12.2 11.0 - 16.0 % [facility] Platelet Count 203 160 - 400 X10*3/uL [facility] Mean Platelet Volume 10.8 9.4 - 12.4 fL [facility] Neutrophils Percent Auto 53.9 45 - 73 % [facility] Imm Gran Pct Auto 0.3 0.0 - 0.4 % [facility] Lymphocytes Percent Auto 36.7 20 - 40 % [facility] Monocytes Percent Auto 6.4 2 - 11 % [facility] Eosinophils Percent Auto 2.2 0 - 4 % [facility] Basophils Percent Auto 0.5 0 - 2 % [facility] NRBC Pct Auto 0.0 0.0 - 0.2 /100WBC [facility] Neutrophils Absolute Auto 3.5 2.0 - 8.3 x10*3/uL [facility] Imm Gran Abs Auto 0.02 0.00 - 0.03 X10*3/uL [facility] Lymphocytes Absolute Auto 2.4 1.2 - 4.9 X10*3/uL [facility] Monocytes Absolute Auto 0.4 0.1 - 1.2 X10*3/uL [facility] Eosinophils Absolute Auto 0.1 0.0 - 0.4 X10*3/uL [facility] Basophils Absolute Auto 0.0 0.0 - 0.2 X10*3/uL [facility] NRBC Abs Auto 0.000 0.0 - 0.012 X10*3/uL [facility] Blood Venous blood specimen / Unknown 10/31/2023 2:14 PM EDT 10/31/2023 4:03 PM EDT us Cyndi Almaguer MD LAB BLOOD ORDERABLES Final Resul t [facility] [address] [place] [phone] * (ABNORMAL) Comprehensive Metabolic Panel (10/31/2023 2:14 PM EDT) Sodium 143 135 - 145 mmol/L [facility] Potassium 4.3 3.3 - 5.1 mmol/L [facility] Chloride 109(H) 96 - 108 mmol/L [facility] Carbon Dioxide 24 22 - 29 mmol/L [facility] Anion Gap 14 12 - 20 [facility] Urea Nitrogen (BUN) 11 9 - 16 mg/dL [facility] Creatinine, Serum 0.85 0.5 - 1.4 mg/dL [facility] Estimated Glomerular Filt Rate >60 [facility] Comment:NOTE: For -Am erican individuals, multiply the result by 1.210.Chronic Kidney Disease: Estimated GFR < 60 mL/min/1.71w5Ojzyrp Kidney Disease: Estimated GFR < 15 mL/min/1.73m2 Glucose 94 60 - 115 mg/dL [facility] Calcium 9.9 8.4 - 10.2 mg/dL [facility] Bilirubin, Total 1.3(H) 0.0 - 1.0 mg/dL [facility] Aspartate Amino Transferase 22 5 - 37 U/L [facility] Alanine Aminotransferase 18 0 - 40 U/L [facility] Total Protein 7.5 6.5 - 8.0 g/dL [facility] Albumin Level 4.5 3.5 - 5.0 g/dL [facility] Alkaline Phosphatase 64 39 - 117 U/L [facility] Blood Venous blood specimen / Unknown 10/31/2023 2:14 PM EDT 10/31/2023 4:14 PM EDT us Cyndi Almaguer MD LAB BLOOD ORDERABLES Final Resul t [facility] [address] [place] [phone] * Vitamin D, 25-Hydroxy, Total, Immunoassay (10/31/2023 2:14 PM EDT) Vitamin D 25-OH Total 69.9 >30 ng/mL [facility] Comment:Health Based Referen ce Values*< 20 ng/mL Bbehpavor81-31 ng/mL Insufficient> 30 ng/mL Sufficient*Jackie LOMELI. N [...] ORDERABLES Final Resul t Performing Organization Address [facility]/ZIP Co de Phone Number [facility] [address] [place] [phone] * Hepatitis A Antibody, Total (10/31/2023 2:14 PM EDT) Hepatitis A Antibody IgG REACTIVE Nonreactive [facility] Comment:The presence of IgG anti-HAV implies past HAV infection(recent or distant) or vaccination against HAV. Blood Venous blood specimen / Unknown 10/31/2023 2:14 PM EDT 10/31/2023 4:14 PM EDT Cyndi Almaguer MD LAB BLOOD ORDERABLES Final Resul t Performing Organization Address [facility] Co de Phone Number [facility] [address] [place] [phone] * Hepatitis B surface antigen, EIA (10/31/2023 2:14 PM EDT) Hepatitis B Surface Ag Negative Negative [facility] Blood Venous blood specimen / Unknown 10/31/2023 2:14 PM EDT 10/31/2023 4:14 PM EDT Cyndi Almaguer MD LAB BLOOD ORDERABLES Final Resul t Performing Organization Address [facility] Co de Phone Number [facility] [address] [place] [phone] * HIV-1/2 Antigen and Antibodies, Fourth Generation, with Reflexes (10/31/2023 2:14 PM EDT) Pathologist [facility] HIV AB/AG Nonreactive Nonreactive [facility] Comment:HIV-1 p24 Ag and/or HIV-1/HIV-2 Ab not detected.A test result that is nonreactive does not exclude thepossibility of exposure to or infection with HIV-1 and/orHIV-2. Nonreactive results in this assay for individualswith prior exposure to HIV-1 and/or HIV-2 may be due toantigen and antibody levels that are below the limit ofdetection of this assay.The [employer] HIV Ag/Ab Combo assay result andsupplemental assay results should be interpreted inconjunction with the patient's clinical presentation,history and other laboratory results. If the results areinconsistent with clinical evidence, additional testing issuggested to confirm the result. Blood Venous blood specimen / Unknown 10/31/2023 2:14 PM EDT 10/31/2023 4:14 PM EDT us Cyndi Almaguer MD LAB BLOOD ORDERABLES Final Resul t [facility] [address] [place] [phone] * Chlamydia/N. Gonorrhoeae RNA, TMA, Urogenitial (10/31/2023 2:14 PM EDT) [facility] CT PCR NOT DETECTED Not Detect. [facility] Comment:A not detected test result [...] psychologicalconsequences. NG PCR NOT DETECTED Not Detect. [facility] Comment:A not detected test result [...] PM EDT 10/31/2023 4:03 PM EDT Narrative [facility] - 10/31/2023 6:42 PM EDT Urine Cyndi Almaguer MD LAB MICROBIOLOGY - GENERAL ORDER [place] Final Result Performing Organization Address City/[facility]/ZIP Co de Phone Number [facility] [address] [place] [phone] * Hepatitis B Core Antibody, Total (10/31/2023 2:14 PM EDT) Hepatitis B Core Antibody Nonreactive Nonreactive [facility] Blood Venous blood specimen / Unknown 10/31/2023 2:14 PM EDT 10/31/2023 4:14 PM EDT Cyndi Almaguer MD LAB BLOOD ORDERABLES Final Resul t Performing Organization Address City/[facility]/ZIP Co de Phone Number [facility] [address] [place] [phone] * Hepatitis B Surface Antibody, Qualitative (10/31/2023 2:14 PM EDT) ~Hepatitis B Surface Antibody REACTIVE Nonreactive [facility] Comment:REACTIVE: > 11.99 mI U/mL Blood Venous blood specimen / Unknown 10/31/2023 2:14 PM EDT 10/31/2023 4:14 PM EDT us Cyndi Almaguer MD LAB BLOOD ORDERABLES Final Resul t Performing Organization Address [facility] Co de Phone Number [facility] [address] [place] [address] [phone] * Hepatitis C Antibody with Reflex to HCV, RNA, Quantitative, Real-Time PCR (10/31/2023 2:14 PM EDT) [facility] Hepatitis C Antibody Nonreactive Nonreactive [facility] Comment:Antibodies to HCV no t detected; does not exclude early acuteHCV infection. Blood Venous blood specimen / Unknown 10/31/2023 2:14 PM EDT 10/31/2023 4:14 PM EDT us Cyndi Almaguer MD LAB BLOOD ORDERABLES Final Resul t Performing Organization Address [facility] Co de Phone Number [facility] [address] [place] [phone] * Syphilis Screen (10/31/2023 2:14 PM EDT) [facility] Syphilis Screen Nonreactive Nonreactive [facility] Blood 10/31/2023 2:14 PM EDT 10/31/2023 4:14 PM EDT Cyndi Almaguer MD LAB BLOOD ORDERABLES Final Resul t Performing Organization Address [facility] de Phone Number [facility] [address] [place] [address] [phone] documented in this encounter Visit Diagnoses Diagnosis Immunity status testing- Primary Antibody response examination Routine screening for STI (sexually transmitted infection) Screening examination for venereal disease Vitamin D deficiency Accidental poisoning by drug, initial encounter documented in this encounter Additional Health Concerns Assessment Noted Time PHQ-9 Depression Total Score: 0 09/22/19 24 9:29 AM EDT documented as of this encounter Care Teams Plastic Shaper Relationship Specialty Start Date End Date Cyndi Almaguer MD [address] [place] [address] PCP - General Family Medicine 09/23/23 Sherry Carranza Registered NursesMotion Picture Projectionist Apprentice 07/28/23 documented as of this encounter
--- OUTSIDE RECORDS SUMMARY | 2024-08-07 07:42 | XMS_ITS | Encounter Summary ---
Author Organization [employer] Address [address] [place] [address] Care Team Providers Care Revenue Cycle Analyst Name Role Phone Cyndi Almaguer MD Primary Care Provider [phone] Reason for Visit * Reason Onset Date Comments Med Refill 01/01/2024 Encounter Details Date Type Department Care Team (Late st Contact Info) Description 01/01/2024 Refill [facility] MEDICINE [address] [place], [place] [phone] Cyndi Almaguer MD [address] [place] [address] Social History Tobacco Use Types Packs/Day Years [...] documented as of this encounter Care Teams Revenue Cycle Analyst Relationship Specialty Start Date End Date Cyndi Almaguer MD [address] [place] [phone] PCP - General Family Medicine 09/23/23 Sherry Carranza Senior Quality EngineerMixing Technician 07/28/23 documented as of this encounter
--- OUTSIDE RECORDS SUMMARY | 2024-08-07 07:42 | XMS_ITS | Encounter Summary ---
Author Organization [employer] Address [address] [facility] 7t [place] [address] Care Team Providers Care Marine Water Tender Name Role Phone Cyndi Almaguer MD Primary Care Provider [phone] Reason for Referral * Consultation (Routine) - Closed Specialty Diagnoses / Procedures Referred By Contac t Referred To Contact Physical Therapy Diagnoses Chronic back pain, unspecified back location, unspecified back pain laterality Cyndi Almaguer MD [address] [place] [address] Phone: tel: fax: [facility] [address] Phone: tel: fax: Referral ID Status Reason Start Date Expiration Date V isits Requested Visits Authorized [id number] Closed Specialty Services Required 09/30/2023 09/28/2024 20 20 * Consultation (Routine) - Closed Specialty Diagnoses / Procedures Referred By Contac t Referred To Contact Orthopaedic Surgery Diagnoses Chronic back pain, unspecified back location, unspecified back pain laterality Cyndi Amlaguer MD [address] [place] [address] Phone: tel: fax: [facility] [address] [place] [address] [address] [place], [place] Phone: tel: fax: Referral ID Status Reason Start Date Expiration Date V isits Requested Visits Authorized [id number] Closed Specialty Services Required 08/08/2023 08/07/2024 12 12 Encounter Details Date Type Department Care Team (Late st Contact Info) Description 09/16/2023 Orders Only [facility] MEDICINE [address] [place], [place] [phone] Cyndi Almaguer MD [address] [place] [address] Chronic back pain, unspecified back [...] Primary documented in this encounter Care Teams Marine Water Tender Relationship Specialty Start Date End Date Cyndi Almaguer MD [address] [place] [phone] PCP - General Family Medicine 09/23/23 Sherry Carranza Supervising Airplane PilotService Bar Cashier 07/28/23 documented as of this encounter
--- OUTSIDE RECORDS SUMMARY | 2024-08-07 07:42 | XMS_ITS | Encounter Summary ---
Author Organization [employer] Address [address] 7[address] [place] [address] Care Team Providers Care Fbi Investigator Name Role Phone Cyndi Almaguer MD Primary Care Provider [phone] Encounter Details Date Type Department Care Team (Late st Contact Info) Description 02/03/2024 Orders Only [facility] MEDICINE [address] [place] [address] Cyndi Almaguer MD [address] [place], [place] [phone] Narrow anion gap (Primary Dx); Serum total [...] EST) Sodium 141 135 - 145 mmol/L [facility] Potassium 4.0 3.3 - 5.1 mmol/L [facility] Chloride 108 96 - 108 mmol/L [facility] Carbon Dioxide 25 22 - 29 mmol/L [facility] Anion Gap 12 12 - 20 [facility] Urea Nitrogen (BUN) 15 9 - 16 mg/dL [facility] Creatinine, Serum 0.78 0.5 - 1.4 mg/dL [facility] Estimated Glomerular Filt Rate >60 [facility] Comment:Chronic Kidney Disea se: Estimated GFR < 60 mL/min/1.77l6Mhjtnf Kidney Disease: Estimated GFR < 15 mL/min/1.73m2 Glucose 84 60 - 115 mg/dL [facility] Calcium 9.3 8.4 - 10.2 mg/dL [facility] Blood Venous blood specimen / Unknown 2024 9:08 AM EST 2024 9:08 AM EST us Cyndi Almaguer MD LAB BLOOD ORDERABLES Final Resul t Performing Organization Address City/[facility] Co de Phone Number [facility] [address] [place] [phone] * Hepatic Function Panel (04/02/2024 12:12 PM EST) Bilirubin, Total 0.8 0.0 - 1.0 mg/dL [facility] Bilirubin, Direct 0.2 0.0 - 0.5 mg/dL [facility] Aspartate Amino Transferase 24 5 - 37 U/L [facility] Alanine Aminotransferase 19 0 - 40 U/L [facility] Total Protein 7.6 6.5 - 8.0 g/dL [facility] Albumin Level 4.3 3.5 - 5.0 g/dL [facility] Alkaline Phosphatase 53 39 - 117 U/L [facility] Blood Venous blood specimen / Unknown 04/02/2024 12:12 PM EST 04/02/2024 1:23 PM EST us Cyndi Almaguer MD LAB BLOOD ORDERABLES Final Resul t Performing Organization Address [facility] Co de Phone Number [facility] [address] [place] [phone] documented in this encounter Visit Diagnoses Diagnosis Narrow anion gap- Primary Serum total bilirubin elevated Disorders of bilirubin excretion documented in this encounter Additional Health Concerns Assessment Noted Time PHQ-9 Depression Total Score: 2 01/31/20 24 9:13 AM EDT documented as of this encounter Care Teams Fbi Investigator Relationship Specialty Start Date End Date Cyndi Almaguer MD [address] [place] [address] PCP - General Family Medicine 09/23/23 Sherry Carranza Dress CutterProduct Promoter Retail Pet 07/28/23 documented as of this encounter
--- OUTSIDE RECORDS SUMMARY | 2024-08-07 07:42 | XMS_ITS | Encounter Summary ---
Author Organization [employer] Address [address] [facility] [facility] [address] [address] [place] [address] Care Team Providers Care Belting Inspector Name Role Phone Cyndi Almaguer MD Primary Care Provider [phone] Reason for Visit * Reason Onset Date Comments Lab Orders 10/26/2023 Encounter Details Date Type Department Care Team ([facility] st Contact Info) Description 10/26/2023 Telephone [facility] MEDICINE [address] [place], [place] [phone] Cyndi Almaguer MD [address] [place] [address] Lab Orders Social History Tobacco Use Types [...] documented as of this encounter Care Teams Belting Inspector Relationship Specialty Start Date End Date Cyndi Almaguer MD [address] [place] [phone] PCP - General Family Medicine 09/23/23 Sherry Carranza Legal Document AssistantEndocrinology Physician 07/28/23 documented as of this encounter
--- OUTSIDE RECORDS SUMMARY | 2024-08-07 07:42 | XMS_ITS | Encounter Summary ---
Author Organization [employer] Address [address] [facility] [place] [address] Care Team Providers Care Business Info Consultant Name Role Phone Cyndi Almaguer MD Primary Care Provider [phone] Encounter Details Date Type Department Care Team ([facility] st Contact Info) Description 01/19/2024 Orders Only [facility] MEDICINE [address] [place] [address] Cyndi Almaguer MD [address] [place], [place] [phone] Social History Tobacco Use Types Packs/Day Years [...] documented as of this encounter Care Teams Business Info Consultant Relationship Specialty Start Date End Date Cyndi Almaguer MD [address] [place] [address] PCP - General Family Medicine 09/23/23 Sherry Carranza International Guest CoordinatorRobotic Toy Inventor 07/28/23 documented as of this encounter
--- OUTSIDE RECORDS SUMMARY | 2024-08-07 07:42 | XMS_ITS | Encounter Summary ---
Author Organization [employer] Address [address] [place] [address] Care Team Providers Care Oral And Maxillofacial Surgery Name Role Phone Cyndi Almaguer MD Primary Care Provider [phone] Encounter Details Date Type Department Care Team (Late st Contact Info) Description 11/30/2023 Orders Only [facility] MEDICINE [address] [place], [place] [phone] Cyndi Almaguer MD [address] [place], [place] [phone] Anxiety (Primary Dx); Chronic low back pain, [...] Opiate Screen Urine Not Detected Not Detect [facility] Comment:Opiate cut-off is 30 0 ng/mL.Positive results are unconfirmed and should not be used fornon-medical purposes. Barbiturates, Urine Not Detected Not Detect [facility] Comment:Barbiturate cut-off is 200 ng/mL.Positive results are unconfirmed and should not be used fornon-medical purposes. Phencyclidine Screen Urine Not Detected Not Detect [facility] Comment:Phencyclidine cut-of f is 25 ng/mL.Positive results are unconfirmed and should not be used fornon-medical purposes. Amphetamine Screen Urine Not Detected Not Detect [facility] Comment:Amphetamine cut-off is 1000 ng/mL.Positive results are unconfirmed and should not be used fornon-medical purposes. Benzodiazepines Screen Urine Not Detected Not Detect [facility] Comment:Benzodiazepine cut-o ff is 200 ng/mL.Positive results are unconfirmed and should not be used fornon-medical purposes. Cocaine Screen Urine Not Detected Not Detect [facility] Comment:Cocaine cut-off is 3 00 ng/mL.Positive results are unconfirmed and should not be used fornon-medical purposes. Cannabinoid Screen Urine Not Detected Not Detect [facility] Comment:Cannabinoid cut-off is 50 ng/mL.Positive results are unconfirmed and should not be used fornon-medical purposes. Methadone Screen, Urine Not Detected Not Detect ng/mL [facility] Comment:Methadone cut-off is 300 ng/mL.Positive results are unconfirmed and should not be used fornon-medical purposes. FENTANYL URINE Not Detected Not Detect [facility] Comment:Fentanyl cut-off is 1 ng/mL.Positive results are unconfirmed and should not be used fornon-medical purposes. Oxycodone Urine Screen Not Detected Not Detect ng/mL [facility] Comment:Oxycodone cut-off is 100 ng/mL.Positive results are unconfirmed and should not be used fornon-medical purposes. Buprenorphine Screen Not Detected Not Detect ng/mL [facility] Comment:Buprenorphine cut-of f is 5 ng/mL.Positive results are unconfirmed and should not be used fornon-medical purposes. Urine (Urine, Random) 12/02/2023 12/02/2023 Cyndi Almaguer MD LAB URINE ORDERABLES Final Resul t [facility] [address] [place] [address] [phone] documented in this encounter Visit Diagnoses Diagnosis Anxiety- Primary Anxiety state, unspecified Chronic low back pain, unspecified back pain laterality, unspecified whether sciatica present documented in this encounter Additional Health Concerns Assessment Noted Time PHQ-9 Depression Total Score: 0 09/22/19 24 9:29 AM EDT documented as of this encounter Care Teams Oral And Maxillofacial Surgery Relationship Specialty Start Date End Date Cyndi Almaguer MD [address] [place] [address] [place] [address] PCP - General Family Medicine 09/23/23 Sherry Carranza Scouring Pads SupervisorStereoptic Projection Topographer 07/28/23 documented as of this encounter
[2024-08-08 04:29] LABS: Lutenizing Hormone 2.6 mIU/mL (1.5-9.3)
[2024-08-15 13:04] LABS: Testosterone, Free 67.6 pg/mL (35.0-155.0); Testosterone, Total 364 ng/dL (250-1100)
== END 2024-08-07 07:39 | disposition home or self-care (01) ==
LOC: HO.LAB 07:38
PROVIDERS: PCP Family Medicine; Visit Provider Nurse Practitioner Family
DX: E29.1 Testicular hypofunction (principal); N52.9 Male erectile dysfunction, unspecified
CPT/HCPCS: 36415; 83002; 84402; 84403

== ENCOUNTER 2024-08-22 14:41 | Outpatient (AMB) | payer MEDICAID, SELFPAY ==
--- NOTE | 2024-08-22 14:46 | A.OFFVIS_ITS ---
Intake Visit Reasons: 3m/labs(set) Intake Note: Patient presents today for follow up on: erectile dysfunction, hypogonadism, and lab results Testosterone: 364;Free testosterone: 67.6; LH: 2.6 Urology Medications: Tadalafil Blood Thinner: none Blast Hole Driller Required: No Accompanied by: Self / Same As Patient Allergies No Known Allergies [No Known Allergies*] Allergy (Verified 08/22/24 15:27) Medication List - Last Reconciled 08/22/24 by SU Champion albuterol sulfate 90 mcg/actuation (Ventolin HFA) 2 puffs inhalation Q4H PRN cholecalciferol (vitamin D3) 25 mcg PO DAILY clomiphene citrate 25 mg (1/2 x 50 mg) PO .mon,wed,tue 90 days diclofenac sodium 1% 1 g topical PRN fexofenadine 180 mg PO DAILY PRN isotretinoin 40 mg PO DAILY tadalafil 5 mg PO DAILY 90 days HPI Comments Details: Jay is a 44-year-old male patient of Dr. Almaguer. He has a past medical history of acne, bipolar disorder, depression, asthma, acid reflux, lumbar spinal stenosis, degenerative disc disease, and osteoporosis. He presents to the office today for follow-up of his hypogonadism. Of note patient has underwent stimulation testing with Clomid followed by a short course every other day for 3 months. During last office visit approximately 3 months ago we had discontinued low-dose Clomid and labs were ordered for further assessment evaluation. These labs were reviewed in detail with the patient today as noted and trended below... Estradiol: 01/09 18 FSH: 01/09 3.0 LH: 01/09 3.4, 02/08 5.4, 05/12 8.1, 08/09 2.6 Prolactin: 01/09 9.6 Total testosterone: 01/09 288, 02/08 505, 05/12 821, 08/10 364 Free testosterone: 01/09 53.6, 02/08 137.4, 05/12 162.6, 08/10 67.6 SHB01/10 24 He does report noting decrease in energy and overall mildly fatigued. We discussed decrease in testosterone over the last 3 months however still remains on the low end of normal. We discussed further treatment options and risks and benefits of these treatment options. All questions were answered. He does continue with low-dose Cialis daily. He would like to restart Clomid at low- dose. He does discuss feeling a lot of his medical issues were initiated after taking Abilify. He also feels his previous lumbar surgery with an anterior approach has also affected him with other medical issues. He discusses his longstanding history with his urological issues and following up with [facility] in the past however did not find this helpful. He otherwise denies any bothersome urinary issues or concerns. He denies urinary urgency, urinary frequency, incontinence, nocturia, hematuria, dysuria, foul smelling urine, changes to urinary stream, flank pain, fever, and or chills. He is happy with his current voiding parameters. In office urinalysis results reviewed with the patient today. He otherwise offers no other issues or concerns at this time. ON LICENSE OF [facility] Medical History Bipolar disorder Acne Depression Asthma Acid reflux Lumbar spinal stenosis Degenerative disc disease, lumbar Osteoporosis Review of Systems Const All systems reviewed & are unremarkable except as noted in HPI and below Reports as per HPI Eyes Reports no additional complaints ENT Reports no additional complaints Card Reports as per HPI Resp Reports no additional complaints GI Denies abdominal pain and Denies nausea Musc Denies no additional complaints Neuro Reports no additional complaints Physical Exam Const General: cooperative, healthy appearing, comfortable, no acute distress, well developed, alert and awake Nutritional Appearance: thin Orientation/consciousness: patient oriented x3 Limitations: no limitations HEENT Head: Yes normal to inspection, Yes normocephalic and Yes atraumatic Ears: hearing grossly normal bilaterally Eyes General: appearance normal, both eyes and all related structures Neck Neck: Yes normal visual inspection and Yes trachea midline Chest Chest palpation & inspection: normal inspection of the chest Resp Effort & Inspection: normal respiratory effort and able to speak in complete sentences Cardio Rate: regular rate GI Inspection: Yes normal to inspection General: Yes no CVA tenderness Back/Spine/Pelvis Back: no CVA tenderness Skin General skin exam: no rashes or lesions noted Neuro General: patient oriented x3 Extrem General: Yes normal to inspection Psych Appearance: grossly normal and well kempt Mental Status: mental status grossly normal Speech and movement: Normal speech and movement present and Clear speech present Affect: normal affect Attitude: cooperative Thought process: Normal thought process present Thought content: Normal thought content present Insight: Fair insight present (Psych) Judgement: Fair judgement present (Psych) Results AMB Urinalysis, Automated UA Leukoctes 0 Mushtaq/uL Last Edit by [facility] on 08/22/24 15:12 UA Nitrite Last Edit by [facility] on 08/22/24 15:12 UA Urobilinogen 0.2 mg/dL Last Edit by [facility] on 08/22/24 15:12 UA Protein 0 mg/dL Last Edit by [facility] on 08/22/24 15:12 UA pH 6.0 Last Edit by [facility] on 08/22/24 15:12 UA Blood 0 Arsh/uL Last Edit by [facility] on 08/22/24 15:12 UA Specific [place] 1.020 Last Edit by [facility] on 08/22/24 15:12 UA Ketone Last Edit by [facility] on 08/22/24 15:12 UA Bilirubin 0 mg/dL Last Edit by [facility] on 08/22/24 15:12 UA Glucose 0 mg/dL Last Edit by [facility] on 08/22/24 15:12 Results Reviewed Results Reviewed: Laboratory Last Values Urine pH (Auto) 6.0 08/22/24 14:59 Specific [place] (Auto) 1.020 08/22/24 14:59 Urine Protein (Auto) 0 mg/dL 08/22/24 14:59 Glucose (UA)(Auto) 0 mg/dL 08/22/24 14:59 Urine Blood (Auto) 0 Arsh/uL 08/22/24 14:59 Urine Bilirubin (Auto) 0 mg/dL 08/22/24 14:59 Urine Urobilinogen (Auto) 0.2 mg/dL 08/22/24 14:59 Leukocyte Esterase (Auto) 0 Mushtaq/uL 08/22/24 14:59 Assessment & Plan Assessment & Plan (1) Hypogonadism in male: Code(s): E29.1 - Testicular hypofunction Category: Medical (2) Erectile dysfunction: Code(s): N52.9 - Male erectile dysfunction, unspecified Category: Medical Plan In office urinalysis results reviewed with the patient today; as noted above. Recent testosterone, free testosterone, and LH results reviewed with the patient today; as noted above. Continue 5 mg of Cialis daily as discussed and prescribed. Currently denies any bothersome urinary issues or concerns. He reports be happy with current voiding parameters. Restart Clomid 25 mg every other day Will obtain testosterone, free testosterone, and LH in 6 months for further assessment evaluation. Follow-up in 6 months with labs to be completed prior; or sooner with any issues, concerns, and or questions. Orders: Orders AMB Urinalysis Automated Today Z13.9 - Encounter for screening, unspecified Testosterone, Free/Total 6 Months E29.1 - Testicular hypofunction Lutenizing Hormone 6 Months E29.1 - Testicular hypofunction Medications: New clomiphene citrate 25 mg (1/2 x 50 mg) PO .mon,wed,fri 36 tabs 2RF 90 days E29.1 - Testicular hypofunction Patient Instructions: The patient had an opportunity to ask questions regarding the treatment plan. All questions were answered. Physical exam, labs, and imaging were discussed and reviewed in detail. As well as risks, benefits, and discussion of treatment choices. No major barriers to understanding were identified. The patient expressed understanding and agreement with the above treatment plan. The patient was made aware they should contact our office by phone for worsening of their current condition, the appearance of new symptoms, or with any questions or concerns. Compliance is encouraged with any medications and follow up testing that is ordered. It is a privilege to be allowed the opportunity to participate in? your urological care.? Again, if you have any questions or concerns If you have any questions or concerns please do not hesitate to contact me. The office is [phone]. This note is constructed using voice recognition software. While every effort has been made to ensure accuracy compression molding machine operator errors may have been included. Yours sincerely, SU Champion Coding Level of Care Code Est Pt Level 3 (70858) Diagnoses Hypogonadism in male E29.1 Erectile dysfunction N52.9
--- OUTSIDE RECORDS SUMMARY | 2024-08-22 15:48 | XMS_ITS | Encounter Summary ---
Author Organization [employer] Address [address] [place] [address] [address] [place] [address] Care Team Providers Care Weight Loss Consultant Name Role Phone Cyndi Almaguer MD Primary Care Provider [phone] Reason for Referral * Consultation (Routine) - Closed Specialty Diagnoses / Procedures Referred By Svetlana brewster Referred To Contact Urology Diagnoses Erectile dysfunction, unspecified erectile dysfunction type Cyndi Almaguer MD [address] [place] [address] Phone: tel: fax: [facility] [address] [place], [place] Phone: tel: fax: Referral ID Status Reason Start Date Expiration Date V isits Requested Visits Authorized [id number] Closed Specialty Services Required 10/10/2023 10/09/2024 6 6 Encounter Details Date Type Department Care Team (Late st Contact Info) Description 10/03/2023 Orders Only [facility] [address] [place] [address] Cyndi Almaguer MD [address] [place] [address] Erectile dysfunction, unspecified erectile dysfunction type (Primary [...] as of this encounter Care Teams Weight Loss Consultant Relationship Specialty Start Date End Date Cyndi Almaguer MD [address] [place] [address] PCP - General Family Medicine 09/23/23 Sherry Carranza Unit Control WorkerMechanical Energy Engineer 07/28/23 documented as of this encounter
--- OUTSIDE RECORDS SUMMARY | 2024-08-22 15:48 | XMS_ITS | Encounter Summary ---
Author Organization [employer] Address [address] [facility] [address]t [place] [address] Care Team Providers Care Information Services Consultant Name Role Phone Cyndi Almaguer MD Primary Care Provider [phone] Encounter Details Date Type Department Care Team (Late st Contact Info) Description 01/19/2024 Orders Only [facility] [address] [place] [address] Cyndi Almaguer MD [address] [place] [address] Social History Tobacco Use Types Packs/Day Years [...] documented as of this encounter Care Teams Information Services Consultant Relationship Specialty Start Date End Date Cyndi Almaguer MD [address] [place] [address] PCP - General Family Medicine 09/23/23 Sherry Carranza Ladle WatcherPhysiology Teacher 07/28/23 documented as of this encounter
--- OUTSIDE RECORDS SUMMARY | 2024-08-22 15:48 | XMS_ITS | Encounter Summary ---
Author Organization [employer] Address [address] [facility] [address]t [place] [address] Care Team Providers Care Coppersmith Apprentice Name Role Phone Cyndi Almaguer MD Primary Care Provider [phone] Encounter Details Date Type Department Care Team (Late st Contact Info) Description 11/30/2023 Orders Only [facility] [address] [place] [address] Cyndi Almaguer MD [address] [place], [place] [phone] Anxiety (Primary Dx); Chronic low back pain, [...] Opiate Screen Urine Not Detected Not Detect [facility] Comment:Opiate cut-off is 30 0 ng/mL.Positive results are unconfirmed and should not be used fornon-medical purposes. Barbiturates, Urine Not Detected Not Detect [facility] Comment:Barbiturate cut-off is 200 ng/mL.Positive results are unconfirmed and should not be used fornon-medical purposes. Phencyclidine Screen Urine Not Detected Not Detect [facility] Comment:Phencyclidine cut-of f is 25 ng/mL.Positive results are unconfirmed and should not be used fornon-medical purposes. Amphetamine Screen Urine Not Detected Not Detect [facility] Comment:Amphetamine cut-off is 1000 ng/mL.Positive results are unconfirmed and should not be used fornon-medical purposes. Benzodiazepines Screen Urine Not Detected Not Detect [facility] Comment:Benzodiazepine cut-o ff is 200 ng/mL.Positive results are unconfirmed and should not be used fornon-medical purposes. Cocaine Screen Urine Not Detected Not Detect [facility] Comment:Cocaine cut-off is 3 00 ng/mL.Positive results are unconfirmed and should not be used fornon-medical purposes. Cannabinoid Screen Urine Not Detected Not Detect [facility] Comment:Cannabinoid cut-off is 50 ng/mL.Positive results are unconfirmed and should not be used fornon-medical purposes. Methadone Screen, Urine Not Detected Not Detect ng/mL [facility] Comment:Methadone cut-off is 300 ng/mL.Positive results are unconfirmed and should not be used fornon-medical purposes. FENTANYL URINE Not Detected Not Detect [facility] Comment:Fentanyl cut-off is 1 ng/mL.Positive results are unconfirmed and should not be used fornon-medical purposes. Oxycodone Urine Screen Not Detected Not Detect ng/mL [facility] Comment:Oxycodone cut-off is 100 ng/mL.Positive results are unconfirmed and should not be used fornon-medical purposes. Buprenorphine Screen Not Detected Not Detect ng/mL [facility] Comment:Buprenorphine cut-of f is 5 ng/mL.Positive results are unconfirmed and should not be used fornon-medical purposes. Urine (Urine, Random) 12/02/2023 12/02/2023 Cyndi Almaguer MD LAB URINE ORDERABLES Final Resul t [facility] [address] [place] [address] [phone] documented in this encounter Visit Diagnoses Diagnosis Anxiety- Primary Anxiety state, unspecified Chronic low back pain, unspecified back pain laterality, unspecified whether sciatica present documented in this encounter Additional Health Concerns Assessment Noted Time PHQ-9 Depression Total Score: 0 09/22/19 24 9:29 AM EDT documented as of this encounter Care Teams Coppersmith Apprentice Relationship Specialty Start Date End Date Cyndi Almaguer MD [address] [place] [id number] PCP - General Family Medicine 09/23/23 Sherry Carranza Power Saw OperatorCook Dessert 07/28/23 documented as of this encounter
--- OUTSIDE RECORDS SUMMARY | 2024-08-22 15:48 | XMS_ITS | Encounter Summary ---
Author Organization [email or web address] Address [address] [place] [address] [address] [place] [address] Care Team Providers Care Mobile Practice Lead Name Role Phone Cyndi Almaguer MD Primary Care Provider [phone] Reason for Referral * Consultation (Routine) - Closed Specialty Diagnoses / Procedures Referred By Svetlana brewster Referred To Contact Orthopaedic Surgery Diagnoses History of lumbosacral spine surgery Chronic low back pain, unspecified back pain laterality, unspecified whether sciatica present Cyndi Almaguer MD [address] [place] [address] Phone: tel: fax: [facility] [address] [place] [address] Phone: tel: fax: Referral ID Status Reason Start Date Expiration Date V isits Requested Visits Authorized [id number] Closed Specialty Services Required 12/20/2023 12/19/2024 6 6 Encounter Details Date Type Department Care Team (Late st Contact Info) Description 12/15/[address] [facility] [address] [place] [address] Cyndi Almaguer MD [address] [place], [place] [phone] History of lumbosacral spine surgery (Primary Dx); [...] documented as of this encounter Care Teams Mobile Practice Lead Relationship Specialty Start Date End Date Cyndi Almaguer MD [address] [place] [address] PCP - General Family Medicine 09/23/23 Sherry Carranza Traveling ElectricianOperator Automated Process 07/28/23 documented as of this encounter
--- OUTSIDE RECORDS SUMMARY | 2024-08-22 15:48 | XMS_ITS | Encounter Summary ---
Author Organization [employer] Address [address] [facility] [address]t [place] [address] Care Team Providers Care Hoof And Shoe Inspector Name Role Phone Cyndi Almaguer MD Primary Care Provider [phone] Encounter Details Date Type Department Care Team (Late st Contact Info) Description 10/01/2023 Orders Only [facility] [address] [place] [address] Cyndi Almaguer MD [address] [place], [place] [phone] Social History Tobacco Use Types Packs/Day Years [...] documented as of this encounter Care Teams Hoof And Shoe Inspector Relationship Specialty Start Date End Date Cyndi Almaguer MD [address] [place] [address] PCP - General Family Medicine 09/23/23 Sherry Carranza Power Shear OperatorBroadcast Operations Director 07/28/23 documented as of this encounter
--- OUTSIDE RECORDS SUMMARY | 2024-08-22 15:48 | XMS_ITS | Encounter Summary ---
Author Organization [employer] Address [address] [facility] [address] [place] [address] Care Team Providers Care Animal Therapist Name Role Phone Cyndi Almaguer MD Primary Care Provider [phone] Reason for Visit * Reason Onset Date Comments Med Refill 01/01/2024 Encounter Details Date Type Department Care Team (Late st Contact Info) Description 01/01/2024 Refill [facility] [address] [place], [place] [phone] Cyndi Almaguer MD [address] [place] [address] Social History Tobacco Use Types Packs/Day Years [...] documented as of this encounter Care Teams Animal Therapist Relationship Specialty Start Date End Date Cyndi Almaguer MD [address] [place] [address] PCP - General Family Medicine 09/23/23 Sherry Carranza Air Brake OperatorPowder Compounder 07/28/23 documented as of this encounter
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
--- OUTSIDE RECORDS SUMMARY | 2024-08-22 15:48 | XMS_ITS | Encounter Summary ---
Author Organization [employer] Address [address] [facility] [address] [address] Care Team Providers Care Computer Installer Name Role Phone Cyndi Almaguer MD Primary Care Provider [phone] Reason for Referral * Consultation (Routine) - Closed Specialty Diagnoses / Procedures Referred By Contac t Referred To Contact Physical Therapy Diagnoses Chronic back pain, unspecified back location, unspecified back pain laterality Cyndi Almaguer MD [address] [place] [address] Phone: tel: fax: [facility] [address] Phone: tel: fax: Referral ID Status Reason Start Date Expiration Date V isits Requested Visits Authorized [id number] Closed Specialty Services Required 09/30/2023 09/28/2024 20 20 * Consultation (Routine) - Closed Specialty Diagnoses / Procedures Referred By Contac t Referred To Contact Orthopaedic Surgery Diagnoses Chronic back pain, unspecified back location, unspecified back pain laterality Cyndi Almaguer MD [address] [place] [address] Phone: tel: fax: [facility] [address] [place] [address] [address] [place], [place] Phone: tel: fax: Referral ID Status Reason Start Date Expiration Date V isits Requested Visits Authorized [id number] Closed Specialty Services Required 08/08/2023 08/07/2024 12 12 Encounter Details Date Type Department Care Team (Late st Contact Info) Description 09/16/2023 Orders Only [facility] MEDICINE [address] [place], [place] [phone] Cyndi Almaguer MD [address] [place], [place] [phone] Chronic back pain, unspecified back location, unspecified [...] Primary documented in this encounter Care Teams Computer Installer Relationship Specialty Start Date End Date Cyndi Almaguer MD [address] [place] [phone] PCP - General Family Medicine 09/23/23 Sherry Carranza Awning AssemblerRecord Clerk Salesperson 07/28/23 documented as of this encounter
--- OUTSIDE RECORDS SUMMARY | 2024-08-22 15:48 | XMS_ITS | Clinical Summary ---
Author Organization [facility], Address [address] [place] [address] Phone Care Team Providers Care Water Quality Control Engineer Name Role Phone Cyndi Almaguer MD Primary Care Provider [phone] Allergies Active Allergy Reactions Criticality Noted Date [...] Vaccine Completed 01/13/2024, , 02/22/2018 Insurance Medicaid [place] Care Teams Water Quality Control Engineer Relationship Specialty Start Date End Date Cyndi Almaguer MD [address] [place] [phone] PCP - General Family Medicine 10/31/23
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
--- OUTSIDE RECORDS SUMMARY | 2024-08-22 15:48 | XMS_ITS | Clinical Summary ---
Author Organization [facility] Address [address] [place] [phone] Phone Care Team Providers Care Revenue Settlements Administrator Name Role Phone Shay Carranza MD Primary Care Provider [phone] Allergies No known active allergies Medications zolpidem [...] Upcoming Encounters Date Type Department Care Team ([facility] st Contact Info) Description 09/24/2024 9:15 AM EDT Consult Orthopedic Surgery - [place] [address] [phone] Rafael Mcnally, DPM [address] [place] [address] Health Maintenance Due Date Last Done Comments [...] Maintenance Results * HIV Screening (08/31/2013) Pathologist [facility] HIV Screening abstracted us Historical Provider HEALTH [...] Maintenance Insurance MEDICAID - [place] Care Teams Revenue Settlements Administrator Relationship Specialty Start Date End Date Shay Carranza MD PCP - General 06/26/10
--- OUTSIDE RECORDS SUMMARY | 2024-08-22 15:48 | XMS_ITS | Encounter Summary ---
Author Organization [employer] Address [address] [facility] [address]t [place] [address] Care Team Providers Care Grinding Wheel Operator Name Role Phone Cyndi Almaguer MD Primary Care Provider [phone] Reason for Visit * Reason Comments Med Refill Encounter Details Date Type Department Care Team (Late st Contact Info) Description 07/29/2024 Refill [facility] MEDICINE [address] [place] [address] Cindy Denney MD [address] [place] [address] Folliculitis Social History Tobacco Use Types Packs/Day [...] documented as of this encounter Care Teams Grinding Wheel Operator Relationship Specialty Start Date End Date Cyndi Almaguer MD [address] [place] [phone] PCP - General Family Medicine 09/23/23 Sherry Carranza Acetone Recovery WorkerBelt Machine Operator 07/28/23 documented as of this encounter
--- OUTSIDE RECORDS SUMMARY | 2024-08-22 15:48 | XMS_ITS | Encounter Summary ---
Author Organization [employer] Address [address] [facility] [address] [place] [address] Care Team Providers Care General Accountant Name Role Phone Cyndi Almaguer MD Primary Care Provider [phone] Encounter Details Date Type Department Care Team (Late st Contact Info) Description 02/03/2024 Orders Only [facility] MEDICINE [address] [place] [address] Cyndi Almaguer MD [address] [place] [address] Narrow anion gap (Primary Dx); Serum total [...] EST) Sodium 141 135 - 145 mmol/L [facility] Potassium 4.0 3.3 - 5.1 mmol/L [facility] Chloride 108 96 - 108 mmol/L [facility] Carbon Dioxide 25 22 - 29 mmol/L [facility] Anion Gap 12 12 - 20 [facility] Urea Nitrogen (BUN) 15 9 - 16 mg/dL [facility] Creatinine, Serum 0.78 0.5 - 1.4 mg/dL [facility] Estimated Glomerular Filt Rate >60 [facility] Comment:Chronic Kidney Disea se: Estimated GFR < 60 mL/min/1.29y3Hwsbas Kidney Disease: Estimated GFR < 15 mL/min/1.73m2 Glucose 84 60 - 115 mg/dL [facility] Calcium 9.3 8.4 - 10.2 mg/dL [facility] Blood Venous blood specimen / Unknown 2024 9:08 AM EST 2024 9:08 AM EST Cyndi Almaguer MD LAB BLOOD ORDERABLES Final Resul t Performing Organization Address [facility] Co de Phone Number [facility] [address] [place] [phone] * Hepatic Function Panel (04/02/2024 12:12 PM EST) Bilirubin, Total 0.8 0.0 - 1.0 mg/dL [facility] Bilirubin, Direct 0.2 0.0 - 0.5 mg/dL [facility] Aspartate Amino Transferase 24 5 - 37 U/L [facility] Alanine Aminotransferase 19 0 - 40 U/L [facility] Total Protein 7.6 6.5 - 8.0 g/dL [facility] Albumin Level 4.3 3.5 - 5.0 g/dL [facility] Alkaline Phosphatase 53 39 - 117 U/L [facility] Blood Venous blood specimen / Unknown 04/02/2024 12:12 PM EST 04/02/2024 1:23 PM EST us Cyndi Almaguer MD LAB BLOOD ORDERABLES Final Resul t Performing Organization Address [facility] Co de Phone Number [facility] [address] [place] [phone] documented in this encounter Visit Diagnoses Diagnosis Narrow anion gap- Primary Serum total bilirubin elevated Disorders of bilirubin excretion documented in this encounter Additional Health Concerns Assessment Noted Time PHQ-9 Depression Total Score: 2 01/31/20 24 9:13 AM EDT documented as of this encounter Care Teams General Accountant Relationship Specialty Start Date End Date Cyndi Almaguer MD [address] [place] [address] PCP - General Family Medicine 09/23/23 Sherry Carranza Cotton DispatcherInventory Worker 07/28/23 documented as of this encounter
--- OUTSIDE RECORDS SUMMARY | 2024-08-22 15:48 | XMS_ITS | Encounter Summary ---
Author Organization [employer] Address 75 [facility] 7t [place] [address] Care Team Providers Care Buncher Hand Name Role Phone Cyndi Almaguer MD Primary Care Provider [phone] Encounter Details Date Type Department Care Team (Latest Contact Info) Description 05/16/2018 Abstract [facility] CONVERSIONS Dental, Provider, DDS Social History [...] on filedocumented in this encounter Care Teams Buncher Hand Relationship Specialty Start Date End Date Cyndi Almaguer MD [address] [place] [address] PCP - General Family Medicine 09/23/23 Sherry Carranza Adhesive Bandage Machine OperatorWarehouse Stock Clerk 07/28/23 documented as of this encounter
--- OUTSIDE RECORDS SUMMARY | 2024-08-22 15:48 | XMS_ITS | Encounter Summary ---
Author Organization [employer] Address [address] [facility] [address]t [place] [address] Care Team Providers Care Knitting Inspector Name Role Phone Cyndi Almaguer MD Primary Care Provider [phone] Reason for Visit * Reason Onset Date Comments Lab Orders 10/26/2023 Encounter Details Date Type Department Care Team (Late st Contact Info) Description 10/26/2023 Telephone [facility] MEDICINE [address] [place] [address] Cyndi Almaguer MD [address] [place] [address] Lab Orders Social History Tobacco Use Types [...] documented as of this encounter Care Teams Knitting Inspector Relationship Specialty Start Date End Date Cyndi Almaguer MD [address] [place] [phone] PCP - General Family Medicine 09/23/23 Sherry Carranza Drop Hammer Setter UpDigital Data Analyst 07/28/23 documented as of this encounter
== END 2024-08-22 15:29 | disposition home or self-care (01) ==
LOC: HO.HUSH 14:42
PROVIDERS: PCP Family Medicine; Visit Provider Nurse Practitioner Family
DX: E29.1 Testicular hypofunction (principal); N52.9 Male erectile dysfunction, unspecified; Z13.9 Encounter for screening, unspecified
CPT/HCPCS: 99213

== ENCOUNTER → 2024-08-22 14:41 | Outpatient (BNVA) | payer MEDICAID, SELFPAY | PROVIDERS: PCP Family Medicine; Visit Provider Nurse Practitioner Family | DX: E29.1 Testicular hypofunction (principal); N52.9 Male erectile dysfunction, unspecified | CPT/HCPCS: 81003; 99212 ==

== ENCOUNTER 2024-09-21 15:39 | Outpatient (REF) | payer MEDICAID, SELFPAY ==
--- OUTSIDE RECORDS SUMMARY | 2024-09-21 15:41 | XMS_ITS | Encounter Summary ---
Author Organization [employer] Address [address] [facility] [address]t [place] [address] Care Team Providers Care Icing Mixer Name Role Phone Cyndi Almaguer MD Primary Care Provider [phone] Encounter Details Date Type Department Care Team (Latest Contact Info) Description 05/16/2018 Abstract [facility] CONVERSIONS Dental, Provider, DDS Social History [...] on filedocumented in this encounter Care Teams Icing Mixer Relationship Specialty Start Date End Date Cyndi Almaguer MD [address] [facility] [place] [address] PCP - General Family Medicine 09/23/23 Sherry Carranza Deckhand Fishing VesselCigarette Stamper 07/28/23 documented as of this encounter
== END 2024-09-21 15:40 | disposition home or self-care (01) ==
LOC: HO.HHCL 15:39
PROVIDERS: Visit Provider Family Medicine
DX: Z13.89 Encounter for screening for other disorder (principal)

== ENCOUNTER 2024-09-21 16:21 | Outpatient (REF) | payer MEDICAID, SELFPAY ==
[2024-09-21 16:41] LABS: MANUAL DIFF FLAG NO
[2024-09-21 17:11] LABS: Basophils Percent Auto 0.4 % (0-2); Eosinophils Absolute Auto 0.1 X10*3/uL (0.0-0.4); Eosinophils Percent Auto 1.6 % (0-4); Hematocrit 41.5 % (42.0-52.0); Hemoglobin 14.1 g/dl (14.0-18.0); Imm Gran Abs Auto 0.03 X10*3/uL (0.00-0.03); Imm Gran Pct Auto 0.4 % (0.0-0.4); Lymphocytes Absolute Auto 2.6 X10*3/uL (1.2-4.9); Lymphocytes Percent Auto 34.8 % (20-40); Mean Corpuscular Hemoglobin 31.5 pg (27.0-33.0); Mean Corpuscular Volume 92.6 fL (80.0-98.0); Mean Platelet Volume 10.3 fL (9.4-12.4); Monocytes Absolute Auto 0.6 X10*3/uL (0.1-1.2); Monocytes Percent Auto 8.5 % (2-11); Neutrophils Absolute Auto 4.1 x10*3/uL (2.0-8.3); Neutrophils Percent Auto 54.3 % (45-73); Platelet Count 188 X10*3/uL (160-400); Red Blood Count 4.48 X10*6/uL (4.60-5.80); Red Cell Distribution Width 12.3 % (11.0-16.0); White Blood Count 7.5 X10*3/uL (4.8-10.8)
[2024-09-21 17:26] LABS: Amphetamine Screen Urine Not Detected (Not Detect); Barbiturates, Urine Not Detected (Not Detect); Benzodiazepines Screen Urine Not Detected (Not Detect); Buprenorphine Scr Not Detected (Not Detect); Cannabinoid Screen Urine Not Detected (Not Detect); Cocaine Screen Urine Not Detected (Not Detect); Fentanyl, urine Not Detected (Not Detect); Methadone Screen, Urine Not Detected (Not Detect); Opiate Screen Urine Not Detected (Not Detect); Oxycodone Screen Urine Not Detected (Not Detect); Phencyclidine Screen Urine Not Detected (Not Detect)
[2024-09-21 17:48] LABS: Erythrocyte Sedimentation Rate 2 MM/HR (0-15)
[2024-09-21 18:06] LABS: Folate 13.6 ng/mL (> or = 4.0); Vitamin B12 796 pg/mL (200-900)
[2024-09-21 19:10] LABS: Alkaline Phosphatase 59 U/L (39-117)
[2024-09-21 19:55] LABS: Anion Gap 10 (12-20)
[2024-09-21 19:59] LABS: Alanine Aminotransferase 23 U/L (0-40); Albumin Level 4.1 g/dL (3.5-5.0); Aspartate Amino Transferase 28 U/L (5-37); Bilirubin Total 0.7 mg/dL (0.0-1.0); Blood Urea Nitrogen 13 mg/dL (9-16); Calcium 9.2 mg/dL (8.4-10.2); Carbon Dioxide 24 mmol/L (22-29); Chloride 109 mmol/L (96-108); Estimated Glomerular Filt Rate > 60; Glucose Random 99 mg/dL (60-115); Potassium 3.9 mmol/L (3.3-5.1); Sodium 139 mmol/L (135-145); Total Protein 7.1 g/dL (6.5-8.0)
[2024-09-21 20:20] LABS: TSH reflex Free T4 1.01 uIU/mL (0.32-4.0); Vitamin D 25-OH Total 46.4 ng/mL (>30)
[2024-09-22 03:58] LABS: Syphilis Screen Nonreactive (Nonreactive)
[2024-09-22 04:20] LABS: HBsAGNum1 0.34 S/CO (0.00-0.99); HIV AB/AG Nonreactive (Nonreactive); HIV Num 1 0.08 S/CO (0.00-0.99); Hepatitis B Surface Antigen Negative (Negative); ~HepC Num1 0.12 S/CO (0.00-0.79); ~Hepatitis C Antibody Nonreactive (Nonreactive)
[2024-09-22 07:02] LABS: CT PCR NOT DETECTED (Not Detect.); NG PCR NOT DETECTED (Not Detect.)
[2024-09-24 10:04] LABS: Trichomonas vag. RNA Ur Male NOT DETECTED (NOT DETECTED)
[2024-09-25 13:03] LABS: Zinc 48 mcg/dL (60-130)
[2024-09-27 08:33] LABS: Antibody to SS-A Antigen <1.0 NEG AI (<1.0 NEG); Antibody to SS-B Antigen <1.0 NEG AI (<1.0 NEG)
[2024-10-01 10:39] LABS: Anti Nuclear Antibody Screen NEGATIVE (NEGATIVE)
== END 2024-09-21 16:22 | disposition home or self-care (01) ==
LOC: HO.LAB 16:21
PROVIDERS: PCP Family Medicine; Visit Provider Family Medicine
DX: R43.2 Parageusia (principal); E56.9 Vitamin deficiency, unspecified; Z11.3 Encounter for screening for infections with a predominantly sexual mode of transmission; M25.50 Pain in unspecified joint; M79.10 Myalgia, unspecified site
CPT/HCPCS: 80053; 80307; 82306; 82607; 82746; 84443; 84630; 85025; 85652; 86038; 86140; 86235; 86780; 86803; 87340; 87389; 87491; 87591; 87661

== ENCOUNTER 2024-12-04 15:57 | Outpatient (REF) | payer MEDICAID, SELFPAY | END 2024-12-04 15:58 | disposition home or self-care (01) | LOC: HO.HHCL 15:57 | PROVIDERS: PCP Family Medicine; Visit Provider Family Medicine | DX: Z13.89 Encounter for screening for other disorder (principal) ==

== ENCOUNTER 2024-12-04 16:51 | Outpatient (REF) | payer MEDICAID, SELFPAY ==
[2024-12-04 17:23] LABS: MANUAL DIFF FLAG NO
[2024-12-04 17:36] LABS: Hematocrit 44.2 % (42.0-52.0); Hemoglobin 15.1 g/dl (14.0-18.0); Imm Gran Abs Auto 0.03 X10*3/uL (0.00-0.03); Imm Gran Pct Auto 0.3 % (0.0-0.4); Lymphocytes Absolute Auto 2.7 X10*3/uL (1.2-4.9); Mean Corpuscular HGB Conc 34.2 g/dl (31.0-36.0); Mean Corpuscular Hemoglobin 31.8 pg (27.0-33.0); Mean Corpuscular Volume 93.1 fL (80.0-98.0); NRBC Abs Auto 0.000 X10*3/uL (0.0-0.012); NRBC Pct Auto 0.0 /100WBC (0.0-0.2); Platelet Count 181 X10*3/uL (160-400); Red Blood Count 4.75 X10*6/uL (4.60-5.80); White Blood Count 9.1 X10*3/uL (4.8-10.8)
--- OUTSIDE RECORDS SUMMARY | 2024-12-04 17:51 | XMS_ITS | Clinical Summary ---
Author Organization [facility], Address [address] [place] [address] Phone Care Team Providers Care Railroad Inspector Name Role Phone Cyndi Almaguer MD Primary Care Provider [phone] Allergies Active Allergy Reactions Criticality Noted Date [...] 65 10/28/2023 11:20 AM EDT Temperature 36.7 C (98.1 F) 10/28/2023 11:20 AM EDT Respiratory Rate 16 03/01/2023 10:42 AM EST [...] of 3 - 19+ 3-dose series) 2001 Influenza Vaccine (#1) 2024 4, 02/11/2019, 02/22/2018 Pneumococcal Vaccine: Peds ( 0 to 5 Years) and At-Risk Patients (6 to 49 Years) Completed 09/22/2023 Insurance Medicaid [place] Care Teams Railroad Inspector Relationship Specialty Start Date End Date Cyndi Almaguer MD [address] [place] [phone] PCP - General Family Medicine 10/31/23
--- OUTSIDE RECORDS SUMMARY | 2024-12-04 17:51 | XMS_ITS | Clinical Summary ---
Author Organization [facility] Address [address] [place] [phone] Phone Care Team Providers Care Marine Superintendent Name Role Phone Shay Carranza MD Primary Care Provider [phone] Allergies Active Allergy Reactions Criticality Noted Date Comments Mite Extract Itching,Runny nose 04/18/2019 Pollen Extracts 09/24/2024 Medications zolpidem (AMBIEN) 10 mg tablet Take 1 Tab by mouth at bedtime as needed for Insomnia. 3 Active Ventolin HFA 90 mcg/actuation inhaler INHALE 2 PUFFS BY MOUTH EVERY 4 HOURS NEEDED FOR WHEEZING OR SHORTNESS OF BREATH. max 8 PUFFS EVERY DAY 5 Active betamethasone dipropionate (DIPROSONE) 0.05 % cream APPLY TO ARMS TWICE DAILY taper OFF as symptoms improve 5 Active cholecalciferol (VITAMIN D-3) 25 mcg (1,000 unit) tablet Take 1 tablet (1,000 Units total) by mouth daily. 5 Active clindamycin (CLEOCIN T) 1 % gel Apply 1 Application topically 2 (two) times a day. 5 Active fexofenadine (DEVYN) 180 mg tablet Take 1 tablet (180 mg total) by mouth. 4 Active lidocaine (LIDODERM) 5 % patch Apply 1 patch topically daily. 5 Active tadalafiL (CIALIS) 5 mg tablet Take 1 tablet (5 mg total) by mouth 1 (one) time each day. Active UNABLE TO FIND Med Name: Acutane Active Active Problems Problem Noted Date Diagnosed Date Depression 04/13/2024 Encounters Date Type Department Care Team Description 11/05/2024 1:00 PM EDT Office Visit Orthopedic Surgery [place] [phone] [phone] Rafael Mcnally DPM Tinea unguium (Primary Dx); Nevus 09/24/2024 9:15 AM EDT Consult Orthopedic [facility] [address] [phone] Rafael Mcnally DPM Nevus (Primary Dx); Tinea unguium from Last 3 Months Immunizations Name Administration Dates Next Due Tdap [...] Upcoming Encounters Date Type Department Care Team ([facility] Contact Info) Description 05/08/2025 1:00 PM EST Office Visit Orthopedic Surgery [facility] [address] [phone] Rafael Mcnally DPM [address] [address] Health Maintenance Due Date Last Done Comments Hepatitis B Vaccines (1 of 3 - 19+ 3-dose series) 2001 Cholesterol Screening (Lipid Panel) 04/14/2024 03/23/2013 Social Influencers of Health Screening 04/14/2024 Depression Screening 04/18/2024 Influenza Vaccine (#1) 2024 , 01/10/2023, 02/10/2022, Additional history exists DTaP,Tdap,and Td Vaccines (3 - Td or Tdap) 01/26/2026 01/27/2016, 03/23/2013 MMR Vaccines Aged Out 04/29/2023 No longer eligi ble based on patient's age to complete this topic Pneumococcal Vaccine: Pediatrics (0 to 5 Years) and At-Risk Patients (6 to 49 Years) Completed 09/22/2023 COVID-19 Vaccine Completed 01/13/2024, 09/2023, 04/02/2021, Additional history exists HIV Screening Completed 09/21/2024, 08/31/2013 Hepatitis C Screening Completed 09/21/2024, 014 HIB Vaccines Aged Out No longer eligi [...] to complete this topic RSV Immunization Patients Under 20 months Aged Out No longer eligible based on [...] Maintenance Results * HIV Screening (08/31/2013) Pathologist [facility] HIV Screening abstracted us Historical Provider MD HEALTH MAINTENANCE Final Result * Hepatitis C Screening (08/31/2013) Pathologist [facility] Hepatitis C Screening abstracted Historical Provider HEALTH [...] Maintenance Insurance MEDICAID - [place] Care Teams Marine Superintendent Relationship Specialty Start Date End Date Shay Carranza MD [address] [place] [phone] PCP - General 06/26/10
--- OUTSIDE RECORDS SUMMARY | 2024-12-04 17:51 | XMS_ITS | Encounter Summary ---
Author Organization [employer] [facility] Address [address] [place] [address] [place] [address] Care Team Providers Care Repair Cameraman Name Role Phone Cyndi Almaguer MD Primary Care Provider [phone] Encounter Details Date Type Department Care Team (Latest Contact Info) Description 05/16/2018 Abstract [facility] CONVERSIONS Dental, Provider, DDS Social History [...] on filedocumented in this encounter Care Teams Repair Cameraman Relationship Specialty Start Date End Date Cyndi Almaguer MD [address] [place] [phone] PCP - General Family Medicine 09/23/23 Sherry Carranza Gravel Machine OperatorAuditing Specialist 07/28/23 documented as of this encounter
[2024-12-04 18:11] LABS: Appearance Urine Clear; Glucose Urine UA Negative (Negative); PH 5.0 (5.0-9.0); Specific Gravity - Urine 1.015 (1.005-1.025); UMIC TRIGGER UACC YES
[2024-12-04 18:20] LABS: Alanine Aminotransferase 34 U/L (0-40); Albumin Level 4.6 g/dL (3.5-5.0); Alkaline Phosphatase 74 U/L (39-117); Anion Gap 12 (12-20); Aspartate Amino Transferase 41 U/L (5-37); Blood Urea Nitrogen 11 mg/dL (9-16); Calcium 9.4 mg/dL (8.4-10.2); Carbon Dioxide 26 mmol/L (22-29); Chloride 106 mmol/L (96-108); Cholesterol 194 mg/dL (<200); Estimated Glomerular Filt Rate > 60; HDL Cholesterol 53 mg/dL (>40); Potassium 4.3 mmol/L (3.3-5.1); Sodium 140 mmol/L (135-145); Total Protein 7.6 g/dL (6.5-8.0); Triglycerides 60 mg/dL (<150)
[2024-12-04 18:53] LABS: Reflex LDLD? No
[2024-12-05 15:08] LABS: Antibody to SS-A Antigen <1.0 NEG AI (<1.0 NEG); Antibody to SS-B Antigen <1.0 NEG AI (<1.0 NEG)
== END 2024-12-04 16:52 | disposition home or self-care (01) ==
LOC: HO.LAB 16:51
PROVIDERS: PCP Family Medicine; Visit Provider Family Medicine
DX: R43.2 Parageusia (principal); E56.9 Vitamin deficiency, unspecified; E78.5 Hyperlipidemia, unspecified; M25.50 Pain in unspecified joint; M79.10 Myalgia, unspecified site; E60 Dietary zinc deficiency; R30.0 Dysuria
CPT/HCPCS: 36415; 80053; 80061; 81001; 82306; 84630; 85025; 86235

== ENCOUNTER 2024-12-19 12:54 | Outpatient (REF) | payer MEDICAID, SELFPAY ==
--- OUTSIDE RECORDS SUMMARY | 2024-12-19 15:17 | XMS_ITS | Encounter Summary ---
Author Organization [employer] Address [address] [place] [address] [place] [address] Care Team Providers Care Scouring Machine Tender Name Role Phone Cyndi Almaguer MD Primary Care Provider [phone] Reason for Referral * Consultation (Routine) - Closed Specialty Diagnoses / Procedures Referred By Svetlana brewster Referred To Contact Physical Therapy Diagnoses Chronic back pain, unspecified back location, unspecified back pain laterality Cyndi Almaguer MD [address] [place] [address] Phone: tel: fax: [facility] [address] Phone: tel: fax: Referral ID Status Reason Start Date Expiration Date V isits Requested Visits Authorized [id number] Closed Specialty Services Required 09/30/2023 09/28/2024 20 20 * Consultation (Routine) - Closed Specialty Diagnoses / Procedures Referred By Svetlana t Referred To Contact Orthopaedic Surgery Diagnoses Chronic back pain, unspecified back location, unspecified back pain laterality Cyndi Almaguer MD [address] [place] [address] Phone: tel: fax: [facility] [address] [place] [address] Phone: tel: fax: Referral ID Status Reason Start Date Expiration Date V isits Requested Visits Authorized [id number] Closed Specialty Services Required 08/08/2023 08/07/2024 12 12 Encounter Details Date Type Department Care Team (Late Contact Info) Description 09/16/2023 Orders Only [facility] [address] [place] [phone] Cyndi Almaguer MD [address] [place] [phone] Chronic back pain, unspecified back location, unspecified back pain laterality (Primary Dx) Social History Tobacco Use Types Packs/Day Years Used Date Smoking Tobacco: Never Assessed Housing Stability Answer Date Recorded What is your housing situation today? I have marilynluis martinez 09/15/[address] you [...] Encounters Date Type Department Care Team (Late Contact Info) Description 12/31/2024 11:00 AM EDT Office Visit [facility] [address] [place] [phone] Scheduled Referrals Name Type Priority Associated Diagnoses [...] Primary documented in this encounter Care Teams Scouring Machine Tender Relationship Specialty Start Date End Date Cyndi Almaguer MD [address] [place] [phone] PCP - General Family Medicine 09/23/23 Sherry Carranza Upper Extremity SurgeonManager Roofing 07/28/23 documented as of this encounter
--- OUTSIDE RECORDS SUMMARY | 2024-12-19 15:17 | XMS_ITS | Encounter Summary ---
Author Organization [employer] Address [address] [facility] 7 [place] [address] Care Team Providers Care Aerodynamics Teacher Name Role Phone Cyndi Almaguer MD Primary Care Provider [phone] Encounter Details Date Type Department Care Team ([facility] st Contact Info) Description 10/26/2023 Orders Only [facility] [address] [place], [place] [phone] Cyndi Almaguer MD 230 [place], [place] [phone] Immunity status testing (Primary Dx); Routine screening [...] Care Team (Late st Contact Info) Description 12/31/2024 11:00 AM EDT Office Visit [facility] [address] [place] [phone] documented as of this encounter Procedures Procedure [...] Blood Count 6.4 4.8 - 10.8 X10*3/uL [facility] Red Blood Count 4.77 4.60 - 5.80 X10*6/uL [facility] Hemoglobin 15.1 14.0 - 18.0 g/dl [facility] Hematocrit 44.3 42.0 - 52.0 % [facility] Mean Corpuscular Volume 92.9 80.0 - 98.0 fL [facility] Mean Corpuscular Hemoglobin 31.7 27.0 - 33.0 pg [facility] Mean Corpuscular HGB Conc 34.1 31.0 - 36.0 g/dl [facility] Red Cell Distribution Width 12.2 11.0 - 16.0 % [facility] Platelet Count 203 160 - 400 X10*3/uL [facility] Mean Platelet Volume 10.8 9.4 - 12.4 fL [facility] Neutrophils Percent Auto 53.9 45 - 73 % [facility] Imm Gran Pct Auto 0.3 0.0 - 0.4 % [facility] Lymphocytes Percent Auto 36.7 20 - 40 % [facility] Monocytes Percent Auto 6.4 2 - 11 % [facility] Eosinophils Percent Auto 2.2 0 - 4 % [facility] Basophils Percent Auto 0.5 0 - 2 % [facility] NRBC Pct Auto 0.0 0.0 - 0.2 /100WBC [facility] Neutrophils Absolute Auto 3.5 2.0 - 8.3 x10*3/uL [facility] Imm Gran Abs Auto 0.02 0.00 - 0.03 X10*3/uL [facility] Lymphocytes Absolute Auto 2.4 1.2 - 4.9 X10*3/uL [facility] Monocytes Absolute Auto 0.4 0.1 - 1.2 X10*3/uL [facility] Eosinophils Absolute Auto 0.1 0.0 - 0.4 X10*3/uL [facility] Basophils Absolute Auto 0.0 0.0 - 0.2 X10*3/uL [facility] NRBC Abs Auto 0.000 0.0 - 0.012 X10*3/uL [facility] Blood Venous blood specimen / Unknown 10/31/2023 2:14 PM EDT 10/31/2023 4:03 PM EDT us Cyndi Almaguer MD LAB BLOOD ORDERABLES Final Resul t [facility] [address] [place] [phone] * (ABNORMAL) Comprehensive Metabolic Panel (10/31/2023 2:14 PM EDT) Sodium 143 135 - 145 mmol/L [facility] Potassium 4.3 3.3 - 5.1 mmol/L [facility] Chloride 109(H) 96 - 108 mmol/L [facility] Carbon Dioxide 24 22 - 29 mmol/L [facility] Anion Gap 14 12 - 20 [facility] Urea Nitrogen (BUN) 11 9 - 16 mg/dL [facility] Creatinine, Serum 0.85 0.5 - 1.4 mg/dL [facility] Estimated Glomerular Filt Rate >60 [facility] Comment:NOTE: For -Am erican individuals, multiply the result by 1.210.Chronic Kidney Disease: Estimated GFR < 60 mL/min/1.20l7Wovzro Kidney Disease: Estimated GFR < 15 mL/min/1.73m2 Glucose 94 60 - 115 mg/dL [facility] Calcium 9.9 8.4 - 10.2 mg/dL [facility] Bilirubin, Total 1.3(H) 0.0 - 1.0 mg/dL [facility] Aspartate Amino Transferase 22 5 - 37 U/L [facility] Alanine Aminotransferase 18 0 - 40 U/L [facility] Total Protein 7.5 6.5 - 8.0 g/dL [facility] Albumin Level 4.5 3.5 - 5.0 g/dL [facility] Alkaline Phosphatase 64 39 - 117 U/L [facility] Blood Venous blood specimen / Unknown 10/31/2023 2:14 PM EDT 10/31/2023 4:14 PM EDT us Cyndi Almaguer MD LAB BLOOD ORDERABLES Final Resul t [facility] [address] [place] [phone] * Vitamin D, 25-Hydroxy, Total, Immunoassay (10/31/2023 2:14 PM EDT) Vitamin D 25-OH Total 69.9 >30 ng/mL [facility] Comment:Health Based Referen ce Values*< 20 ng/mL Flefhcutc17-23 ng/mL Insufficient> 30 ng/mL Sufficient*Jackie LOMELI. N [...] ORDERABLES Final Resul t Performing Organization Address [facility] Co de Phone Number [facility] [address] [place] [phone] * Hepatitis A Antibody, Total (10/31/2023 2:14 PM EDT) Hepatitis A Antibody IgG REACTIVE Nonreactive [facility] Comment:The presence of IgG anti-HAV implies past HAV infection(recent or distant) or vaccination against HAV. Blood Venous blood specimen / Unknown 10/31/2023 2:14 PM EDT 10/31/2023 4:14 PM EDT Cyndi Almaguer MD LAB BLOOD ORDERABLES Final Resul t Performing Organization Address [facility] Co de Phone Number [facility] [address] [place] [phone] * Hepatitis B surface antigen, EIA (10/31/2023 2:14 PM EDT) Hepatitis B Surface Ag Negative Negative [facility] Blood Venous blood specimen / Unknown 10/31/2023 2:14 PM EDT 10/31/2023 4:14 PM EDT Cyndi Almaguer MD LAB BLOOD ORDERABLES Final Resul t Performing Organization Address [facility] Co de Phone Number [facility] [address] [place] [phone] * HIV-1/2 Antigen and Antibodies, Fourth Generation, with Reflexes (10/31/2023 2:14 PM EDT) HIV AB/AG Nonreactive Nonreactive [facility] Comment:HIV-1 p24 Ag and/or HIV-1/HIV-2 Ab not detected.A test result that is nonreactive does not exclude thepossibility of exposure to or infection with HIV-1 and/orHIV-2. Nonreactive results in this assay for individualswith prior exposure to HIV-1 and/or HIV-2 may be due toantigen and antibody levels that are below the limit ofdetection of this assay.The [employer] HIV Ag/Ab Combo assay result andsupplemental assay results should be interpreted inconjunction with the patient's clinical presentation,history and other laboratory results. If the results areinconsistent with clinical evidence, additional testing issuggested to confirm the result. Blood Venous blood specimen / Unknown 10/31/2023 2:14 PM EDT 10/31/2023 4:14 PM EDT us Cyndi Almaguer MD LAB BLOOD ORDERABLES Final Resul t [facility] [address] [place] [phone] * Chlamydia/N. Gonorrhoeae RNA, TMA, Urogenitial (10/31/2023 2:14 PM EDT) [facility] CT PCR NOT DETECTED Not Detect. [facility] Comment:A not detected test result [...] psychologicalconsequences. NG PCR NOT DETECTED Not Detect. [facility] Comment:A not detected test result [...] PM EDT 10/31/2023 4:03 PM EDT Narrative [facility] - 10/31/2023 6:42 PM EDT Urine Cyndi Almaguer MD LAB MICROBIOLOGY - GENERAL ORDER KAROLINA Final Result Performing Organization Address [facility] Co de Phone Number [facility] [address] [place] [phone] * Hepatitis B Core Antibody, Total (10/31/2023 2:14 PM EDT) Pathologist [facility] Hepatitis B Core Antibody Nonreactive Nonreactive [facility] Blood Venous blood specimen / Unknown 10/31/2023 2:14 PM EDT 10/31/2023 4:14 PM EDT Cyndi Almaguer MD LAB BLOOD ORDERABLES Final Resul t Performing Organization Address [facility] Co de Phone Number [facility] [address] [place] [phone] * Hepatitis B Surface Antibody, Qualitative (10/31/2023 2:14 PM EDT) ~Hepatitis B Surface Antibody REACTIVE Nonreactive [facility] Comment:REACTIVE: > 11.99 mI U/mL Blood Venous blood specimen / Unknown 10/31/2023 2:14 PM EDT 10/31/2023 4:14 PM EDT Cyndi Almaguer MD LAB BLOOD ORDERABLES Final Resul t Performing Organization Address [facility] de Phone Number [facility] [address] [place] [phone] * Hepatitis C Antibody with Reflex to HCV, RNA, Quantitative, Real-Time PCR (10/31/2023 2:14 PM EDT) Hepatitis C Antibody Nonreactive Nonreactive [facility] Comment:Antibodies to HCV no t detected; does not exclude early acuteHCV infection. Blood Venous blood specimen / Unknown 10/31/2023 2:14 PM EDT 10/31/2023 4:14 PM EDT Cyndi Almaguer MD LAB BLOOD ORDERABLES Final Resul t Performing Organization Address [facility] de Phone Number [facility] [address] [place] [phone] * Syphilis Screen (10/31/2023 2:14 PM EDT) Syphilis Screen Nonreactive Nonreactive [facility] Blood 10/31/2023 2:14 PM EDT 10/31/2023 4:14 PM EDT Cyndi Almaguer MD LAB BLOOD ORDERABLES Final Resul t Performing Organization Address [facility] de Phone Number [facility] [address] [place] [phone] documented in this encounter Visit Diagnoses Diagnosis Immunity status testing- Primary Antibody response examination Routine screening for STI (sexually transmitted infection) Screening examination for venereal disease Vitamin D deficiency Accidental poisoning by drug, initial encounter documented in this encounter Additional Health Concerns Assessment Noted Time PHQ-9 Depression Total Score: 0 09/22/19 24 9:29 AM EDT documented as of this encounter Care Teams Aerodynamics Teacher Relationship Specialty Start Date End Date Cyndi Almaguer MD [address] [facility] [place] [address] PCP - General Family Medicine 09/23/23 Sherry Carranza Keno DealerTransportation Consultant 07/28/23 documented as of this encounter
--- OUTSIDE RECORDS SUMMARY | 2024-12-19 15:17 | XMS_ITS | Encounter Summary ---
Author Organization [employer] Address [address] [facility] 7 [place] [address] Care Team Providers Care Managing Manager Name Role Phone Cyndi Almaguer MD Primary Care Provider [phone] Encounter Details Date Type Department Care Team ([facility] st Contact Info) Description 01/19/2024 Orders Only [facility] [address] [place], [place] [phone] Cyndi Almaguer MD [address] [place], [place] [phone] Social History Tobacco Use Types Packs/Day Years [...] Description 12/31/2024 11:00 AM EDT Office Visit [facility] [address] [place] [address] documented as of this encounter Visit Diagnoses Not on filedocumented in this encounter Additional Health Concerns Assessment Noted Time PHQ-9 Depression Total Score: 0 09/22/19 24 9:29 AM EDT documented as of this encounter Care Teams Managing Manager Relationship Specialty Start Date End Date Cyndi Almaguer MD [address] [place] [address] PCP - General Family Medicine 09/23/23 Sherry Carranza Manager TransferInternational Controller 07/28/23 documented as of this encounter
--- OUTSIDE RECORDS SUMMARY | 2024-12-19 15:17 | XMS_ITS | Encounter Summary ---
Author Organization [employer] Address [address] [facility] 7 [place] [address] Care Team Providers Care Roustabout Name Role Phone Cyndi Almaguer MD Primary Care Provider [phone] Encounter Details Date Type Department Care Team ([facility] st Contact Info) Description 02/03/2024 Orders Only [facility] [address] [place], [place] [phone] Cyndi Amlaguer MD [address] [place], [place] [phone] Narrow anion gap (Primary Dx); Serum total [...] Description 12/31/2024 11:00 AM EDT Office Visit [facility] [address] [place] [phone] documented as of this encounter Procedures Procedure Name Priority Date/Time Associated Diagnosis Comments BASIC METABOLIC PANEL Routine 2024 9:08 AM EST Narrow anion gap HEPATIC FUNCTION PANEL Routine 04/02/2024 12:12 PM EST Serum total bilirubin elevated documented in this encounter Results * Basic Metabolic Panel (2024 9:08 AM EST) Sodium 141 135 - 145 mmol/L [facility] Potassium 4.0 3.3 - 5.1 mmol/L [facility] Chloride 108 96 - 108 mmol/L [facility] Carbon Dioxide 25 22 - 29 mmol/L [facility] Anion Gap 12 12 - 20 [facility] Urea Nitrogen (BUN) 15 9 - 16 mg/dL [facility] Creatinine, Serum 0.78 0.5 - 1.4 mg/dL [facility] Estimated Glomerular Filt Rate >60 [facility] Comment:Chronic Kidney Disea se: Estimated GFR < 60 mL/min/1.28u1Tyrjar Kidney Disease: Estimated GFR < 15 mL/min/1.73m2 Glucose 84 60 - 115 mg/dL [facility] Calcium 9.3 8.4 - 10.2 mg/dL [facility] Blood Venous blood specimen / Unknown 2024 9:08 AM EST 2024 9:08 AM EST us Cyndi Almaguer MD LAB BLOOD ORDERABLES Final Resul t Performing Organization Address [facility] Co de Phone Number [facility] [address] [place] [phone] * Hepatic Function Panel (04/02/2024 12:12 PM EST) Bilirubin, Total 0.8 0.0 - 1.0 mg/dL [facility] Bilirubin, Direct 0.2 0.0 - 0.5 mg/dL [facility] Aspartate Amino Transferase 24 5 - 37 U/L [facility] Alanine Aminotransferase 19 0 - 40 U/L [facility] Total Protein 7.6 6.5 - 8.0 g/dL [facility] Albumin Level 4.3 3.5 - 5.0 g/dL [facility] Alkaline Phosphatase 53 39 - 117 U/L [facility] Blood Venous blood specimen / Unknown 04/02/2024 12:12 PM EST 04/02/2024 1:23 PM EST us Cyndi Almaguer MD LAB BLOOD ORDERABLES Final Resul t Performing Organization Address [facility] Co de Phone Number [facility] [address] [place] [phone] documented in this encounter Visit Diagnoses Diagnosis Narrow anion gap- Primary Serum total bilirubin elevated Disorders of bilirubin excretion documented in this encounter Additional Health Concerns Assessment Noted Time PHQ-9 Depression Total Score: 2 01/31/20 24 9:13 AM EDT documented as of this encounter Care Teams Roustabout Relationship Specialty Start Date End Date Cyndi Almaguer MD [address] [place] [phone] PCP - General Family Medicine 09/23/23 Sherry Carranza Elevator PilotSkip Hoist Operator 07/28/23 documented as of this encounter
--- OUTSIDE RECORDS SUMMARY | 2024-12-19 15:17 | XMS_ITS | Encounter Summary ---
Author Organization [employer] Address [address] [place] [address] [address], [place] [address] Care Team Providers Care Dough Puncher Name Role Phone Cyndi Almaguer MD Primary Care Provider [phone] Reason for Visit * Reason Onset Date Comments Lab Orders 10/26/2023 Encounter Details Date Type Department Care Team ([facility] st Contact Info) Description 10/26/2023 Telephone [facility] [address] [place] [address] Cyndi Almaguer MD [address] [place], [place] [phone] Lab Orders Social History Tobacco Use Types [...] Description 12/31/2024 11:00 AM EDT Office Visit [facility] [address] [place] [address] documented as of this encounter Visit Diagnoses Not on filedocumented in this encounter Additional Health Concerns Assessment Noted Time PHQ-9 Depression Total Score: 0 09/22/19 9:29 AM EDT documented as of this encounter Care Teams Dough Puncher Relationship Specialty Start Date End Date Cyndi Almaguer MD [address] [place] [address] PCP - General Family Medicine 09/23/23 Sherry Carranza Bridge Club ManagerLibrary Clerical Assistant 07/28/23 documented as of this encounter
--- OUTSIDE RECORDS SUMMARY | 2024-12-19 15:17 | XMS_ITS | Encounter Summary ---
Author Organization [employer] Address [address] [facility] 7 [place] [address] Care Team Providers Care Clinical Massage Therapist Name Role Phone Cyndi Almaguer MD Primary Care Provider [phone] Encounter Details Date Type Department Care Team ([facility] st Contact Info) Description 10/01/2023 Orders Only [facility] [address] [place], [place] [phone] Cyndi Almaguer MD [address] [place], [place] [phone] Social History Tobacco Use Types Packs/Day Years [...] Description 12/31/2024 11:00 AM EDT Office Visit [facility] [address] [place] [address] documented as of this encounter Visit Diagnoses Not on filedocumented in this encounter Additional Health Concerns Assessment Noted Time PHQ-9 Depression Total Score: 0 09/22/19 24 9:29 AM EDT documented as of this encounter Care Teams Clinical Massage Therapist Relationship Specialty Start Date End Date Cyndi Almaguer MD [address] [place] [address] PCP - General Family Medicine 09/23/23 Sherry Carranza Social Media Marketing AnalystStraddle Buggy Operator 07/28/23 documented as of this encounter
--- OUTSIDE RECORDS SUMMARY | 2024-12-19 15:17 | XMS_ITS | Encounter Summary ---
Author Organization [employer] Address [address] [place] [address] Care Team Providers Care Research Methodologist Name Role Phone Cyndi Almaguer MD Primary Care Provider [phone] Reason for Referral * Consultation (Routine) - Closed Specialty Diagnoses / Procedures Referred By Contkaylin t Referred To Contact Urology Diagnoses Erectile dysfunction, unspecified erectile dysfunction type Cyndi Almaguer MD [address] [place] [address] Phone: tel: fax: [facility] [address] [place], [place] Phone: tel: fax: Referral ID Status Reason Start Date Expiration Date V isits Requested Visits Authorized [id number] Closed Specialty Services Required 10/10/2023 10/09/2024 6 6 Encounter Details Date Type Department Care Team (Late st Contact Info) Description 10/03/2023 Orders Only [facility] [address] [place], [place] [phone] Cyndi Almaguer MD [address] [place], [place] [phone] Erectile dysfunction, unspecified erectile dysfunction type (Primary [...] Description 12/31/2024 11:00 AM EDT Office Visit [facility] [address] [place] [address] documented as of this encounter Procedures Procedure [...] documented as of this encounter Care Teams Research Methodologist Relationship Specialty Start Date End Date Cyndi Almaguer MD [address] [place] [address] PCP - General Family Medicine 09/23/23 Sherry Carranza GeologistDishwasher 07/28/23 documented as of this encounter
--- OUTSIDE RECORDS SUMMARY | 2024-12-19 15:17 | XMS_ITS | Encounter Summary ---
Author Organization [employer] [facility] Address [address] [place] [address], [place] [address] Care Team Providers Care Underwriting Operations Manager Name Role Phone Cyndi Almaguer MD Primary Care Provider [phone] Encounter Details Date Type Department Care Team (Latest Contact Info) Description 05/16/2018 Abstract [facility] CONVERSIONS Dental, Provider, DDS Social History [...] Upcoming Encounters Date Type Department Care Team ( st Contact Info) Description 12/31/2024 11:00 AM EDT Office Visit [facility]INE [address] [place] [address] documented as of this encounter Visit Diagnoses Not on filedocumented in this encounter Care Teams Underwriting Operations Manager Relationship Specialty Start Date End Date Cyndi Almaguer MD [address] [place] [address] PCP - General Family Medicine 09/23/23 Sherry Carranza Edge SawyerAutomation Controls Engineer 07/28/23 documented as of this encounter
--- OUTSIDE RECORDS SUMMARY | 2024-12-19 15:17 | XMS_ITS | Encounter Summary ---
Author Organization [employer] Address [address] [facility] 7 [place] [address] Care Team Providers Care Double End Trimmer Name Role Phone Cyndi Almaguer MD Primary Care Provider [phone] Encounter Details Date Type Department Care Team ([facility] st Contact Info) Description 09/26/2024 Orders Only [facility] [address] [place], [place] [phone] Cyndi Almaguer MD [address] [place], [place] [phone] Zinc deficiency (Primary Dx) Social History Tobacco Use Types [...] as of this encounter Miscellaneous Notes * Assessment & Plan Note - Cyndi Almaguer MD - 09/26/2024 3:44 PM EDTAssociated Problem(s): Zinc deficiency - mild - will start supplement (09/26/24) documented in this encounter Plan of Treatment Upcoming Encounters Date Type Department Care Team (Late st Contact Info) Description 12/31/2024 11:00 AM EDT Office Visit [facility] [address] [place] [address] documented as of this encounter Visit Diagnoses Diagnosis Zinc deficiency- Primary Mineral deficiency, not elsewhere classified documented in this encounter Additional Health Concerns Assessment Noted Time PHQ-9 Depression Total Score: 2 01/31/20 9:13 AM EDT documented as of this encounter Care Teams Double End Trimmer Relationship Specialty Start Date End Date Cyndi Almaguer MD [address] [place] [address] PCP - General Family Medicine 09/23/23 Sherry Carranza Door HangerSewage Disposal Engineer 07/28/23 documented as of this encounter
--- OUTSIDE RECORDS SUMMARY | 2024-12-19 15:18 | XMS_ITS | Encounter Summary ---
Author Organization [employer] Address [address] [place] [address] [place] [address] Care Team Providers Care Printer Apprentice Name Role Phone Cyndi Almaguer MD Primary Care Provider [phone] Reason for Visit * Reason Onset Date Comments Med Refill 01/01/2024 Encounter Details Date Type Department Care Team (Late st Contact Info) Description 01/01/2024 Refill [facility] [address] [place], [place] [phone] Cyndi Almaguer MD [address] [place], [place] [phone] Social History Tobacco Use Types Packs/Day Years [...] Description 12/31/2024 11:00 AM EDT Office Visit [facility] [address] [place] [address] documented as of this encounter Visit Diagnoses Not on filedocumented in this encounter Additional Health Concerns Assessment Noted Time PHQ-9 Depression Total Score: 0 09/22/19 9:29 AM EDT documented as of this encounter Care Teams Printer Apprentice Relationship Specialty Start Date End Date Cyndi Almaguer MD [address] [place] [address] PCP - General Family Medicine 09/23/23 Sherry Carranza Locomotive Repairer DieselEngineering Production Worker 07/28/23 documented as of this encounter
--- OUTSIDE RECORDS SUMMARY | 2024-12-19 15:18 | XMS_ITS | Clinical Summary ---
Author Organization [facility], Address [address] [place] [address] Phone Care Team Providers Care Pulp Screen Operator Name Role Phone Cyndi Almaguer MD Primary Care Provider [phone] Allergies Active Allergy Reactions Criticality Noted Date [...] to 49 Years) Completed 09/22/2023 Insurance Medicaid [place] Care Teams Pulp Screen Operator Relationship Specialty Start Date End Date Cyndi Almaguer MD [address] [place] [address] PCP - General Family Medicine 10/31/23
--- OUTSIDE RECORDS SUMMARY | 2024-12-19 15:18 | XMS_ITS | Encounter Summary ---
Author Organization [employer] Address [address] [place] [address] [address] [place] [address] Care Team Providers Care Pipe Organ Technician Name Role Phone Cyndi Almaguer MD Primary Care Provider [phone] Reason for Visit * Reason Comments Med Refill Encounter Details Date Type Department Care Team ([facility] st Contact Info) Description 07/29/2024 Refill [facility] MED[facility]INE [address] [place] [address] Cindy Denney MD [address] [place] [address] Folliculitis Social History Tobacco Use Types Packs/Day [...] Description 12/31/2024 11:00 AM EDT Office Visit [facility] [address] [place] [address] documented as of this encounter Visit Diagnoses Diagnosis Folliculitis Other specified disease of hair and hair follicles documented in this encounter Additional Health Concerns Assessment Noted Time PHQ-9 Depression Total Score: 2 01/31/20 9:13 AM EDT documented as of this encounter Care Teams Pipe Organ Technician Relationship Specialty Start Date End Date Cyndi Almaguer MD [address] [place] [address] PCP - General Family Medicine 09/23/23 Sherry Carranza Pouncing Machine OperatorMiddle School Resource Teacher 07/28/23 documented as of this encounter
--- OUTSIDE RECORDS SUMMARY | 2024-12-19 15:18 | XMS_ITS | Clinical Summary ---
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 34 0 - 40 U/L [facility] Total Protein 7.6 6.5 - 8.0 g/dL [facility] Albumin Level 4.6 3.5 - 5.0 g/dL [facility] Alkaline Phosphatase 74 39 - 117 U/L [facility] Blood Venous blood specimen / Unknown 12/04/2024 5:20 PM EDT 12/04/2024 5:20 PM EDT us Cyndi Almaguer MD LAB BLOOD ORDERABLES Final Resul t [facility] [address] [place] [address] [phone] * (ABNORMAL) Urinalysis, Complete, with Reflex to Culture (12/04/2024 5:15 PM EDT) Color Urine Yellow [facility] Appearance Urine Clear [facility] PH 5.0 5.0 - 9.0 [facility] Glucose Urine UA Negative Negative mg/dL [facility] Urine Blood Negative Negative [facility] Specific Draper - Urine 1.015 1.005 - 1.025 [facility] Urine Protein Negative Neg-Trace mg/dL [facility] Urine Ketones Negative Negative mg/dL [facility] Nitrite Urine Negative Negative [facility] Leukocyte Esterase Urine Trace(A) Negative [facility] RBC Urine 0-2 0 - 2 /HPF [facility] Urine WBC 0-5 0 - 5 /HPF [facility] Urine Squamous Epithelial Cell 0-2 0 - 2 /HPF [facility] Urine Bacteria None Seen None Seen [facility] Hyaline Casts, Urine 0-2 0 - 2 /LPF [facility] Urine 12/04/2024 5:15 PM EDT 12/04/2024 5:33 PM EDT Narrative [facility] - 12/04/2024 6:20 PM EDT [id number], Clean Catch Cyndi Almaguer MD LAB URINE ORDERABLES Final Resul t Performing Organization Address [facility] de Phone Number [facility] [address] [place] [phone] * Syphilis Screen (09/21/2024 4:38 PM EDT) Syphilis Screen Nonreactive Nonreactive [facility] Blood 09/21/2024 4:38 PM EDT 09/21/2024 4:38 PM EDT Cyndi Almaguer MD LAB BLOOD ORDERABLES Final Resul t Performing Organization Address [facility] de Phone Number [facility] [address] [place] [phone] * Vitamin B12 (Cobalamin) and Folate Panel, Serum (09/21/2024 4:38 PM EDT) Vitamin B12 796 200 - 900 pg/mL [facility] Comment:NORMAL 200-900 PG/ML INDETERMINATE 160-199 PG/ML DEFICIENT < 160 PG/ML Folate 13.6 > or = 4.0 ng/mL [facility] Comment:Reference Values:> o r = 4.0 ng/mL< 4.0 ng/mL suggests folate deficiency Methotrexate, aminopterin and folinic acid(leucovorin) are chemotherapeutic agents whose molecularstructures are similar to folate; therefore, the Architectfolate assay cannot be used for patients using these drugs. Blood 09/21/2024 4:38 PM EDT 09/21/2024 4:38 PM EDT Cyndi Almaguer MD LAB BLOOD ORDERABLES Final Resul t Performing Organization Address [facility] de Phone Number [facility] [address] [place] [phone] * TSH with Reflex to Free T4 (09/21/2024 4:38 PM EDT) TSH reflex Free T4 1.01 0.32 - 4.0 uIU/mL [facility] Blood 09/21/2024 4:38 PM EDT 09/21/2024 4:38 PM EDT us Cyndi Almaguer MD LAB BLOOD ORDERABLES Final Resul t Performing Organization Address [facility] Number [facility] [address] [place] [phone] * Hepatitis C Antibody with Reflex to HCV, RNA, Quantitative, Real-Time PCR (09/21/2024 4:38 PM EDT) Hepatitis C Antibody Nonreactive Nonreactive [facility] Comment:Antibodies to HCV no t detected; does not exclude early acuteHCV infection. Blood Venous blood specimen / Unknown 09/21/2024 4:38 PM EDT 09/21/2024 4:38 PM EDT us Cyndi Almaguer MD LAB BLOOD ORDERABLES Final Resul t Performing Organization Address [facility] Phone Number [facility] [address] [place] [phone] * Hepatitis B surface antigen, EIA (09/21/2024 4:38 PM EDT) Hepatitis B Surface Ag Negative Negative [facility] Blood Venous blood specimen / Unknown 09/21/2024 4:38 PM EDT 09/21/2024 4:38 PM EDT us Cyndi Almaguer MD LAB BLOOD ORDERABLES Final Resul t Performing Organization Address [facility]/ZIP Co de Phone Number [facility] [address] [place] [phone] [phone] * HIV-1/2 Antigen and Antibodies, Fourth Generation, with Reflexes (09/21/2024 4:38 PM EDT) HIV AB/AG Nonreactive Nonreactive [facility] Comment:HIV-1 p24 Ag and/or HIV-1/HIV-2 Ab not detected.A test result that is nonreactive does not exclude thepossibility of exposure to or infection with HIV-1 and/orHIV-2. Nonreactive results in this assay for individualswith prior exposure to HIV-1 and/or HIV-2 may be due toantigen and antibody levels that are below the limit ofdetection of this assay.The [employer] HIV Ag/Ab Combo assay result andsupplemental assay results should be interpreted inconjunction with the patient's clinical presentation,history and other laboratory results. If the results areinconsistent with clinical evidence, additional testing issuggested to confirm the result. Blood Venous blood specimen / Unknown 09/21/2024 4:38 PM EDT 09/21/2024 4:38 PM EDT Cyndi Almaguer MD LAB BLOOD ORDERABLES Final Resul t Performing Organization Address City/[facility] Co de Phone Number [facility] [address] [place] [phone] * Sed Rate by Modified Westergren (09/21/2024 4:38 PM EDT) Erythrocyte Sedimentation Rate 2 0 - 15 MM/HR [facility] Comment:Patients with polycy themia and many hemoglobin abnormalitiesmay have depressed sed rates whereas patients with anemiamay have elevated sed rates. Blood Venous blood specimen / Unknown 09/21/2024 4:38 PM EDT 09/21/2024 4:38 PM EDT Cyndi Almaguer MD LAB BLOOD ORDERABLES Final Resul t Performing Organization Address City/[facility]/ZIP Co de Phone Number [facility] [address] [place] [phone] * C-reactive Protein (09/21/2024 4:38 PM EDT) C Reactive Protein 0.10 < or = 0.50 mg/dL [facility] Blood Venous blood specimen / Unknown 09/21/2024 4:38 PM EDT 09/21/2024 4:38 PM EDT us Cyndi Almaguer MD LAB BLOOD ORDERABLES Final Resul t Performing Organization Address [facility] Co de Phone Number [facility] [address] [place] [phone] * GA Screen,IFA, with Reflex to Titer and Pattern (09/21/2024 4:38 PM EDT) Pathologist [facility] Anti Nuclear Antibody Screen NEGATIVE NEGATIVE [facility] Comment:GA IFA is a first l ine screen for detecting thepresence of up to approximately 150 autoantibodies invarious autoimmune diseases. A negative GA IFA resultsuggests an GA-associated autoimmune disease is notpresent at this time, but is not definitive. If thereis high clinical suspicion for Sjogren's syndrome,testing for anti-SS-A/Ro antibody should be considered.Anti-Cathie-1 antibody should be considered for clinicallysuspected inflammatory myopathies.AC-0: NegativeInternational Consensus on GA Patterns(https://doi.org/10.1515/kaff-5095-5234)For additional information, please refer tohttp://education.[employer]/faq/QEN184(This link is being provided for informational/educational purposes only.)THIS TEST WAS PERFORMED AT:[facility] [place] [id number] CHRISTENSEN MD GA Titer TNP [facility] GA Pattern TNP [facility] GA TITER 2 (REF LAB) TNP [facility] GA Pattern [facility] TITER 3 TNP [facility] GA PATTERN 3 TNP [facility] Blood Venous blood specimen / Unknown 09/21/2024 4:38 PM EDT 09/21/2024 4:38 PM EDT Cyndi Almaguer MD LAB BLOOD ORDERABLES Final Resul t Performing Organization Address [facility] Co de Phone Number [facility] [address] [place] [phone] * Trichomonas vaginalis RNA, Qualitative, TMA, Males (09/21/2024 4:32 PM EDT) Trichomonas vaginalis RNA Qualitative TMA, Males NOT DETECTED NOT DETECTED [facility] Comment:The analytical perfo rmance characteristics of thisassay have been determined by [employer]. Themodifications have not been cleared or approved bythe FDA. This assay has been validated pursuant to theIA regulations and is used for clinical purposes.For additional information, please refer tohttp://education.[employer]/faq/Trichomonastma(This link is being provided for informational/educational purposes only.)THIS TEST WAS PERFORMED AT:[facility] [place] [id number] CHRISTENSEN MD 09/21/2024 4:32 PM EDT 09/21/2024 5:07 PM EDT Cyndi Almaguer MD LAB URINE ORDERABLES Final Resul t Performing Organization Address [facility] Co de Phone Number [facility] [address] [place] [phone] * Drug Monitoring, Panel 1, Screen, Urine (09/21/2024 4:32 PM EDT) Opiate Screen Urine Not Detected Not Detect [facility] Comment:Opiate cut-off is 30 0 ng/mL.Positive results are unconfirmed and should not be used fornon-medical purposes. Barbiturates, Urine Not Detected Not Detect [facility] Comment:Barbiturate cut-off is 200 ng/mL.Positive results are unconfirmed and should not be used fornon-medical purposes. Phencyclidine Screen Urine Not Detected Not Detect [facility] Comment:Phencyclidine cut-of f is 25 ng/mL.Positive results are unconfirmed and should not be used fornon-medical purposes. Amphetamine Screen Urine Not Detected Not Detect [facility] Comment:Amphetamine cut-off is 1000 ng/mL.Positive results are unconfirmed and should not be used fornon-medical purposes. Benzodiazepines Screen Urine Not Detected Not Detect [facility] Comment:Benzodiazepine cut-o ff is 200 ng/mL.Positive results are unconfirmed and should not be used fornon-medical purposes. Cocaine Screen Urine Not Detected Not Detect [facility] Comment:Cocaine cut-off is 3 00 ng/mL.Positive results are unconfirmed and should not be used fornon-medical purposes. Cannabinoid Screen Urine Not Detected Not Detect [facility] Comment:Cannabinoid cut-off is 50 ng/mL.Positive results are unconfirmed and should not be used fornon-medical purposes. Methadone Screen, Urine Not Detected Not Detect ng/mL [facility] Comment:Methadone cut-off is 300 ng/mL.Positive results are unconfirmed and should not be used fornon-medical purposes. FENTANYL URINE Not Detected Not Detect [facility] Comment:Fentanyl cut-off is 1 ng/mL.Positive results are unconfirmed and should not be used fornon-medical purposes. Oxycodone Urine Screen Not Detected Not Detect ng/mL [facility] Comment:Oxycodone cut-off is 100 ng/mL.Positive results are unconfirmed and should not be used fornon-medical purposes. Buprenorphine Screen Not Detected Not Detect ng/mL [facility] Comment:Buprenorphine cut-of f is 5 ng/mL.Positive results are unconfirmed and should not be used fornon-medical purposes. Urine (Urine, Random) 09/21/2024 4:32 PM EDT 09/21/2024 5:07 PM EDT us Cyndi Almaguer MD LAB URINE ORDERABLES Final Resul t [facility] [address] [place] [phone] * Chlamydia/N. Gonorrhoeae RNA, TMA, Urogenitial (09/21/2024 4:32 PM EDT) CT PCR NOT DETECTED Not Detect. [facility] Comment:A not detected test [...] psychologicalconsequences. NG PCR NOT DETECTED Not Detect. [facility] Comment:A not detected test [...] lead to adverse medical, social or psychologicalconsequences. Urine (Urine, Random) 09/21/2024 4:32 PM EDT 09/21/2024 5:07 PM EDT Narrative [facility] - 09/22/2024 7:02 AM EDT Urine Cyndi Almaguer MD LAB MICROBIOLOGY - GENERAL ORDER KAROLINA Final Result [facility] [address] [place] [phone] from Last 3 Months Insurance [facility] C3 Care Teams Roller Inspector And Mender Relationship Specialty Start Date End Date Cyndi Almaguer MD [address] [place] [phone] PCP - General Family Medicine 09/23/23 Sherry Carranza Backend Python DeveloperBrushing Machine Operator 07/28/23
--- OUTSIDE RECORDS SUMMARY | 2024-12-19 15:18 | XMS_ITS | Clinical Summary ---
Author Organization [facility] Address [address] [place] [phone] Phone Care Team Providers Care Electric Screw Driver Operator Name Role Phone Shay Carranza MD Primary Care Provider [phone] Allergies Active Allergy Reactions Criticality Noted Date [...] 1:00 PM EDT Office Visit Orthopedic Surgery [place] [address] [phone] Rafael Mcnally DPM Tinea unguium (Primary Dx); Nevus 09/24/2024 9:15 AM EDT Consult Orthopedic [facility] [address] [phone] Rafael Mcnally DPM Nevus (Primary Dx); Tinea [...] 1:00 PM EST Office Visit Orthopedic Surgery [facility] [address] [phone] Rafael Mcnally DPM [address] [phone] Health Maintenance Due Date Last Done Comments Hepatitis B Vaccines (1 of 3 - 19+ 3-dose series) 2001 Cholesterol Screening (Lipid Panel) 04/14/2024 03/23/2013 Social Influencers of Health Screening 04/14/2024 Depression Screening 04/18/2024 Influenza Vaccine (#1) 2024 4, 01/10/2023, 02/10/2022, Additional history exists DTaP,Tdap,and Td [...] Health Maintenance Results * HIV Screening (08/31/2013) HIV Screening abstracted us Historical Provider HEALTH [...] Maintenance Insurance MEDICAID - [place] Care Teams Electric Screw Driver Operator Relationship Specialty Start Date End Date Shay Carranza MD [address] [place] [phone] PCP - General 06/26/10
--- OUTSIDE RECORDS SUMMARY | 2024-12-19 15:18 | XMS_ITS | Encounter Summary ---
Author Organization [email or web address] Address [address] [place] [address] Care Team Providers Care Bird Sitter Name Role Phone Cyndi Almaguer MD Primary Care Provider [phone] Reason for Referral * Consultation (Routine) - Closed Specialty Diagnoses / Procedures Referred By Svetlana brewster Referred To Contact Orthopaedic Surgery Diagnoses History of lumbosacral spine surgery Chronic low back pain, unspecified back pain laterality, unspecified whether sciatica present Cyndi Almaguer MD [address] [place] [address] Phone: tel: fax: [address] Phone: tel: fax: Referral ID Status Reason Start Date Expiration Date V isits Requested Visits Authorized [id number] Closed Specialty Services Required 12/20/2023 12/19/2024 6 6 Encounter Details Date Type Department Care Team (Late st Contact Info) Description 12/15/2023 Orders Only [facility] [address] [place] [address] Cyndi Almaguer MD [address] [place], [place] [phone] History of lumbosacral spine surgery (Primary Dx); [...] Description 12/31/2024 11:00 AM EDT Office Visit [facility] [address] [place] [phone] Scheduled Referrals Name Type Priority Associated Diagnoses [...] documented as of this encounter Care Teams Bird Sitter Relationship Specialty Start Date End Date Cyndi Almaguer MD [address] [place] [phone] PCP - General Family Medicine 09/23/23 Sherry Carranza Marzipan MolderLoading Inspector 07/28/23 documented as of this encounter
--- OUTSIDE RECORDS SUMMARY | 2024-12-19 15:18 | XMS_ITS | Encounter Summary ---
Author Organization [employer] Address [address] [place] [address] [address] [place] [address] Care Team Providers Care Deputy Bailiff Name Role Phone Cyndi Almaguer MD Primary Care Provider [phone] Encounter Details Date Type Department Care Team ([facility] st Contact Info) Description 11/30/2023 Orders Only [facility] [address] [place], [place] [phone] Cyndi Almaguer MD [address] [place], [place] [phone] Anxiety (Primary Dx); Chronic low back pain, [...] 12/31/2024 11:00 AM EDT Office Visit [facility] [address] [place] [address] documented as of this encounter Procedures Procedure Name Priority Date/Time Associated Diagnosis Comments DRUG MONITOR, PANEL 1, SCREEN, URINE Routine 12/02/2023 12:00 AM EDT Anxiety Chronic low back pain, unspecified back pain laterality, unspecified whether sciatica present documented in this encounter Results * Drug Monitoring, Panel 1, Screen, Urine (12/02/2023 12:00 AM EDT) Opiate Screen Urine Not Detected Not Detect [facility] Comment:Opiate cut-off is 30 0 ng/mL.Positive results are unconfirmed and should not be used fornon-medical purposes. Barbiturates, Urine Not Detected Not Detect [facility] Comment:Barbiturate cut-off is 200 ng/mL.Positive results are unconfirmed and should not be used fornon-medical purposes. Phencyclidine Screen Urine Not Detected Not Detect [facility] Comment:Phencyclidine cut-of f is 25 ng/mL.Positive results are unconfirmed and should not be used fornon-medical purposes. Amphetamine Screen Urine Not Detected Not Detect [facility] Comment:Amphetamine cut-off is 1000 ng/mL.Positive results are unconfirmed and should not be used fornon-medical purposes. Benzodiazepines Screen Urine Not Detected Not Detect [facility] Comment:Benzodiazepine cut-o ff is 200 ng/mL.Positive results are unconfirmed and should not be used fornon-medical purposes. Cocaine Screen Urine Not Detected Not Detect [facility] Comment:Cocaine cut-off is 3 00 ng/mL.Positive results are unconfirmed and should not be used fornon-medical purposes. Cannabinoid Screen Urine Not Detected Not Detect [facility] Comment:Cannabinoid cut-off is 50 ng/mL.Positive results are unconfirmed and should not be used fornon-medical purposes. Methadone Screen, Urine Not Detected Not Detect ng/mL [facility] Comment:Methadone cut-off is 300 ng/mL.Positive results are unconfirmed and should not be used fornon-medical purposes. FENTANYL URINE Not Detected Not Detect [facility] Comment:Fentanyl cut-off is 1 ng/mL.Positive results are unconfirmed and should not be used fornon-medical purposes. Oxycodone Urine Screen Not Detected Not Detect ng/mL [facility] Comment:Oxycodone cut-off is 100 ng/mL.Positive results are unconfirmed and should not be used fornon-medical purposes. Buprenorphine Screen Not Detected Not Detect ng/mL [facility] Comment:Buprenorphine cut-of f is 5 ng/mL.Positive results are unconfirmed and should not be used fornon-medical purposes. Urine (Urine, Random) 12/02/2023 12/02/2023 Cyndi Almaguer MD LAB URINE ORDERABLES Final Resul t [facility] [address] [place] [phone] [phone] documented in this encounter Visit Diagnoses Diagnosis Anxiety- Primary Anxiety state, unspecified Chronic low back pain, unspecified back pain laterality, unspecified whether sciatica present documented in this encounter Additional Health Concerns Assessment Noted Time PHQ-9 Depression Total Score: 0 09/22/19 24 9:29 AM EDT documented as of this encounter Care Teams Deputy Bailiff Relationship Specialty Start Date End Date Cyndi Almaguer MD [address] [place] [phone] PCP - General Family Medicine 09/23/23 Sherry Carranza Import/Export ClerkEnterprise Cloud Architect 07/28/23 documented as of this encounter
== END 2024-12-19 12:55 | disposition home or self-care (01) ==
LOC: HO.HHCLNP 12:54
PROVIDERS: Visit Provider Family Medicine
DX: R12 Heartburn (principal)
CPT/HCPCS: 87338

== ENCOUNTER 2024-12-26 10:19 | Outpatient (AMB) | payer MEDICAID, SELFPAY ==
--- NOTE | 2024-12-26 10:21 | A.OFFVIS_ITS ---
Vital Signs 12/26/24 10:28 Height 6 ft Weight 184 lb BMI 25.0 BP 110/60 Blood Pressure Location Rt brachial Position Sitting Pulse 62 Pulse Source Pulse Oximeter Pulse Oximetry (%) 98 Oxygen Delivery Method Room Air Intake Visit Reasons: GERD mgmt. Prev PPI therapy Intake Note: New pt for initial eval of chronic GERD mgmt. Prev PPI therapy trialed CC: C.O. epigastric pain, GERD, increased mucus production + gagging. Pt states that he has had sx for years but has not taken PPI for a few years. Pt denies any difficulties with BMs at this time. Pt denies any colo screening previously but has had EGD ~4 years ago. Wheelage Clerk Required: No Accompanied by: Self / Same As Patient Allergies No Known Allergies (No Known Allergies*) Allergy (Verified 08/22/24 15:27) HPI HPI GERD mgmt. Prev PPI therapy: Details: 44-year-old male with past medical history of GERD, depression, bipolar disorder, spinal stenosisis here today for initial consultation. Patient was seen in the past by GI at [facility]. Patient last seen in May of 2020. Patient was sent for CT scan that showed no acute intra- abdominal or intrapelvic abnormality. CBC and CMP was normal. Patient had normal EGD in August of 2020. In the past few months patient has started suffering with epigastric pain postprandially. Patient reports that he has dyspepsia without dysphagia or odynophagia patient also reports significant reflux at night time. PCP send patient for stool H pylori that came back negative. Currently patient is not on any PPIs or H2 blockers. Patient denies melena, hematochezia, unintentional weight loss or ribbon like stools. [facility] Medical History (Updated 12/26/24 @ 10:55 by Katja Godfrey [facility]) Normal esophagogastroduodenoscopy (EGD) Bipolar disorder Acne Depression Asthma Acid reflux Lumbar spinal stenosis Degenerative disc disease, lumbar Osteoporosis Surgical History (Updated 12/26/24 @ 10:26 by CHEMA Hadley) Hx of hand surgery H/O Spinal surgery Family History (Updated 12/26/24 @ 10:27 by CHEMA Hadley) Father Colon cancer Social History (Updated 12/26/24 @ 10:27 by CHEMA Hadley) Alcohol intake: never Patient Tobacco Use Status: Former Tobacco user Review of Systems Const Denies weight gain and Denies weight loss ENT Reports no additional complaints, Denies dysphagia and Denies odynophagia Card Reports no additional complaints Resp Reports no additional complaints GI Reports abdominal pain (Epigastric), Denies belching, Denies melena, Denies bloating, Denies change in bowel habits, Denies dysphagia, Denies excessive flatus, Reports dyspepsia, Reports heartburn, Denies diarrhea, Denies loose stools, Denies nausea, Denies odynophagia and Denies vomiting Reports no additional complaints Musc Reports no additional complaints Neuro Reports no additional complaints Psych Reports no additional complaints Endo Reports no additional complaints Physical Exam Vital Signs: Last Vital Signs Pulse 62 12/26/24 10:28 BP 110/60 12/26/24 10:28 Pulse Ox 98 12/26/24 10:28 Oxygen Delivery Method Room Air 12/26/24 10:28 BMI result Body Mass Index 25.0 Const General: healthy appearing, no acute distress and well developed Nutritional Appearance: well nourished Orientation/consciousness: patient oriented x3 Resp Effort & Inspection: normal respiratory effort, able to speak in complete sentences, no tracheal deviation and symmetric chest movement Auscultation: clear to auscultation bilaterally Cardio Rate: regular rate GI Inspection: Yes normal to inspection and No distended Palpation (GI): Soft to palpation, not firm, nontender and No hepatosplenomegaly present Auscultation: normal bowel sounds General: Yes no CVA tenderness Back/Spine/Pelvis Back: no CVA tenderness Skin General skin exam: elasticity normal, turgor normal and dry skin Neuro General: patient oriented x3 Psych Appearance: grossly normal Mental Status: mental status grossly normal Assessment & Plan Assessment & Plan (1) Postprandial epigastric pain: Code(s): R10.13 - Epigastric pain (2) Dyspepsia: Code(s): R10.13 - Epigastric pain (3) Acid reflux: Code(s): K21.9 - Gastro-esophageal reflux disease without esophagitis Category: Medical Qualifiers: Esophagitis presence: esophagitis presence not specified Qualified Code(s): K21.9 - Gastro-esophageal reflux disease without esophagitis Plan Will repeat H pylori breath test. Check transglutaminase, lipase, vitamin B12, folate, vitamin-D and thyroid study. Patient will be sent for upper GI series with barium swallow. He will start omeprazole after his H pylori breath test that was scheduled for tomorrow. Continue avoiding dietary triggers and late night snacking. Staying upright for minimum 3 hours after meals discussed with patient. Patient will follow-up in 3 months. Patient was encouraged to call the office if he will have worsening GI symptoms. Patient is agreeable to current plan of care and verbalizes understanding of instructions. He was given the opportunity to ask questions and all questions answered. Thank you for allowing me to participate in his care Orders: Orders H Pylori Breath Test Today K21.9 - Gastro-esophageal reflux disease without esophagitis Transglutaminase IgA Today R10.9 - Unspecified abdominal pain TSH reflex Free T4 Today K59.00 - Constipation, unspecified Vitamin B12 and Folate Today R19.7 - Diarrhea, unspecified Lipase Today R10.9 - Unspecified abdominal pain Vitamin D 25-OH (D2 and D3) Today E55.9 - Vitamin D deficiency, unspecified [place] upper GI w air w Ba Swallow Today K21.9 - Gastro-esophageal reflux disease without esophagitis Medications: New omeprazole 20 mg PO DAILY 30 caps 3RF K21.9 - Gastro-esophageal reflux disease without esophagitis Coding Level of Care Code New Pt Level 4 (50478) Diagnoses Postprandial epigastric pain R10.13 Dyspepsia R10.13 Gastroesophageal reflux disease, unspecified whether esophagitis present K21.9 Esophagitis presence: esophagitis presence not specified Time Spent (min) 45 Comment 35 minutes spent with patient and additional 10 minutes spent reviewing his records
[2024-12-26 10:28] VITALS: BP 110/60; PULSE 62; O2SAT 98; BMI 25.0
--- OUTSIDE RECORDS SUMMARY | 2024-12-26 12:32 | XMS_ITS | Encounter Summary ---
Author Organization [employer] Address [address] [facility] 7 [place] [address] Care Team Providers Care Malter Operator Name Role Phone Cyndi Almaguer MD Primary Care Provider [phone] Encounter Details Date Type Department Care Team ([facility] st Contact Info) Description 10/26/2023 Orders Only [facility] [address] [place], [place] [phone] Cyndi Almaguer MD [address] [place], [place] [phone] Immunity status testing (Primary Dx); Routine screening [...] Description 12/31/2024 11:00 AM EDT Office Visit [facility] [address] [place] [phone] documented as of this encounter Procedures Procedure [...] Blood Count 6.4 4.8 - 10.8 X10*3/uL [facility] Red Blood Count 4.77 4.60 - 5.80 X10*6/uL [facility] Hemoglobin 15.1 14.0 - 18.0 g/dl [facility] Hematocrit 44.3 42.0 - 52.0 % [facility] Mean Corpuscular Volume 92.9 80.0 - 98.0 fL [facility] Mean Corpuscular Hemoglobin 31.7 27.0 - 33.0 pg [facility] Mean Corpuscular HGB Conc 34.1 31.0 - 36.0 g/dl [facility] Red Cell Distribution Width 12.2 11.0 - 16.0 % [facility] Platelet Count 203 160 - 400 X10*3/uL [facility] Mean Platelet Volume 10.8 9.4 - 12.4 fL [facility] Neutrophils Percent Auto 53.9 45 - 73 % [facility] Imm Gran Pct Auto 0.3 0.0 - 0.4 % [facility] Lymphocytes Percent Auto 36.7 20 - 40 % [facility] Monocytes Percent Auto 6.4 2 - 11 % [facility] Eosinophils Percent Auto 2.2 0 - 4 % [facility] Basophils Percent Auto 0.5 0 - 2 % [facility] NRBC Pct Auto 0.0 0.0 - 0.2 /100WBC [facility] Neutrophils Absolute Auto 3.5 2.0 - 8.3 x10*3/uL [facility] Imm Gran Abs Auto 0.02 0.00 - 0.03 X10*3/uL [facility] Lymphocytes Absolute Auto 2.4 1.2 - 4.9 X10*3/uL [facility] Monocytes Absolute Auto 0.4 0.1 - 1.2 X10*3/uL [facility] Eosinophils Absolute Auto 0.1 0.0 - 0.4 X10*3/uL [facility] Basophils Absolute Auto 0.0 0.0 - 0.2 X10*3/uL [facility] NRBC Abs Auto 0.000 0.0 - 0.012 X10*3/uL [facility] Blood Venous blood specimen / Unknown 10/31/2023 2:14 PM EDT 10/31/2023 4:03 PM EDT us Cyndi Almaguer MD LAB BLOOD ORDERABLES Final Resul t [facility] [address] [place] [phone] * (ABNORMAL) Comprehensive Metabolic Panel (10/31/2023 2:14 PM EDT) Sodium 143 135 - 145 mmol/L [facility] Potassium 4.3 3.3 - 5.1 mmol/L [facility] Chloride 109(H) 96 - 108 mmol/L [facility] Carbon Dioxide 24 22 - 29 mmol/L [facility] Anion Gap 14 12 - 20 [facility] Urea Nitrogen (BUN) 11 9 - 16 mg/dL [facility] Creatinine, Serum 0.85 0.5 - 1.4 mg/dL [facility] Estimated Glomerular Filt Rate >60 [facility] Comment:NOTE: For -Am erican individuals, multiply the result by 1.210.Chronic Kidney Disease: Estimated GFR < 60 mL/min/1.04e3Dlrvwh Kidney Disease: Estimated GFR < 15 mL/min/1.73m2 Glucose 94 60 - 115 mg/dL [facility] Calcium 9.9 8.4 - 10.2 mg/dL [facility] Bilirubin, Total 1.3(H) 0.0 - 1.0 mg/dL [facility] Aspartate Amino Transferase 22 5 - 37 U/L [facility] Alanine Aminotransferase 18 0 - 40 U/L [facility] Total Protein 7.5 6.5 - 8.0 g/dL [facility] Albumin Level 4.5 3.5 - 5.0 g/dL [facility] Alkaline Phosphatase 64 39 - 117 U/L [facility] Blood Venous blood specimen / Unknown 10/31/2023 2:14 PM EDT 10/31/2023 4:14 PM EDT us Cyndi Almaguer MD LAB BLOOD ORDERABLES Final Resul t [facility] [address] [place] [phone] * Vitamin D, 25-Hydroxy, Total, Immunoassay (10/31/2023 2:14 PM EDT) Vitamin D 25-OH Total 69.9 >30 ng/mL [facility] Comment:Health Based Referen ce Values*< 20 ng/mL [id number] ng/mL Insufficient> 30 ng/mL Sufficient*Jackie LOMELI. N [...] ORDERABLES Final Resul t Performing Organization Address [facility] Co de Phone Number [facility] [address] [place] [phone] * Hepatitis A Antibody, Total (10/31/2023 2:14 PM EDT) Hepatitis A Antibody IgG REACTIVE Nonreactive [facility] Comment:The presence of IgG anti-HAV implies past HAV infection(recent or distant) or vaccination against HAV. Blood Venous blood specimen / Unknown 10/31/2023 2:14 PM EDT 10/31/2023 4:14 PM EDT Cyndi Almaguer MD LAB BLOOD ORDERABLES Final Resul t Performing Organization Address [facility] Co de Phone Number [facility] [address] [place] [phone] * Hepatitis B surface antigen, EIA (10/31/2023 2:14 PM EDT) Hepatitis B Surface Ag Negative Negative [facility] Blood Venous blood specimen / Unknown 10/31/2023 2:14 PM EDT 10/31/2023 4:14 PM EDT Cyndi Almaguer MD LAB BLOOD ORDERABLES Final Resul t Performing Organization Address [facility] Co de Phone Number [facility] [address] [place] [phone] * HIV-1/2 Antigen and Antibodies, Fourth Generation, with Reflexes (10/31/2023 2:14 PM EDT) HIV AB/AG Nonreactive Nonreactive [facility] Comment:HIV-1 p24 Ag and/or HIV-1/HIV-2 Ab not detected.A test result that is nonreactive does not exclude thepossibility of exposure to or infection with HIV-1 and/orHIV-2. Nonreactive results in this assay for individualswith prior exposure to HIV-1 and/or HIV-2 may be due toantigen and antibody levels that are below the limit ofdetection of this assay.The [employer] HIV Ag/Ab Combo assay result andsupplemental assay results should be interpreted inconjunction with the patient's clinical presentation,history and other laboratory results. If the results areinconsistent with clinical evidence, additional testing issuggested to confirm the result. Blood Venous blood specimen / Unknown 10/31/2023 2:14 PM EDT 10/31/2023 4:14 PM EDT us Cyndi Almaguer MD LAB BLOOD ORDERABLES Final Resul t [facility] [address] [place] [phone] * Chlamydia/N. Gonorrhoeae RNA, TMA, Urogenitial (10/31/2023 2:14 PM EDT) [facility] CT PCR NOT DETECTED Not Detect. [facility] Comment:A not detected test result does [...] psychologicalconsequences. NG PCR NOT DETECTED Not Detect. [facility] Comment:A not detected test result does [...] PM EDT 10/31/2023 4:03 PM EDT Narrative [facility] - 10/31/2023 6:42 PM EDT Urine Cyndi Almaguer MD LAB MICROBIOLOGY - GENERAL ORDER [place] Final Result Performing Organization Address [facility] Co de Phone Number [facility] [address] [place] [phone] * Hepatitis B Core Antibody, Total (10/31/2023 2:14 PM EDT) Pathologist [facility] Hepatitis B Core Antibody Nonreactive Nonreactive [facility] Blood Venous blood specimen / Unknown 10/31/2023 2:14 PM EDT 10/31/2023 4:14 PM EDT Cyndi Almaguer MD LAB BLOOD ORDERABLES Final Resul t Performing Organization Address [facility] Co de Phone Number [facility] [address] [place] [phone] * Hepatitis B Surface Antibody, Qualitative (10/31/2023 2:14 PM EDT) ~Hepatitis B Surface Antibody REACTIVE Nonreactive [facility] Comment:REACTIVE: > 11.99 mI U/mL Blood Venous blood specimen / Unknown 10/31/2023 2:14 PM EDT 10/31/2023 4:14 PM EDT Cyndi Almaguer MD LAB BLOOD ORDERABLES Final Resul t Performing Organization Address [facility] de Phone Number [facility] [address] [place] [phone] * Hepatitis C Antibody with Reflex to HCV, RNA, Quantitative, Real-Time PCR (10/31/2023 2:14 PM EDT) Hepatitis C Antibody Nonreactive Nonreactive [facility] Comment:Antibodies to HCV no t detected; does not exclude early acuteHCV infection. Blood Venous blood specimen / Unknown 10/31/2023 2:14 PM EDT 10/31/2023 4:14 PM EDT Cyndi Almaguer MD LAB BLOOD ORDERABLES Final Resul t Performing Organization Address [facility] de Phone Number [facility] [address] [place] [phone] * Syphilis Screen (10/31/2023 2:14 PM EDT) Syphilis Screen Nonreactive Nonreactive [facility] Blood 10/31/2023 2:14 PM EDT 10/31/2023 4:14 PM EDT Cyndi Almaguer MD LAB BLOOD ORDERABLES Final Resul t Performing Organization Address [facility] de Phone Number [facility] [address] [place] [phone] documented in this encounter Visit Diagnoses Diagnosis Immunity status testing- Primary Antibody response examination Routine screening for STI (sexually transmitted infection) Screening examination for venereal disease Vitamin D deficiency Accidental poisoning by drug, initial encounter documented in this encounter Additional Health Concerns Assessment Noted Time PHQ-9 Depression Total Score: 0 09/22/19 24 9:29 AM EDT documented as of this encounter Care Teams Malter Operator Relationship Specialty Start Date End Date Cyndi Almaguer MD [address] [facility] [place] [address] PCP - General Family Medicine 09/23/23 Sherry Carranza Office EmployeeBurial Vault Setter 07/28/23 documented as of this encounter
--- OUTSIDE RECORDS SUMMARY | 2024-12-26 12:32 | XMS_ITS | Encounter Summary ---
Author Organization [employer] [facility] Address [address] [place] [address] [address] [address] Care Team Providers Care Asphalt Roller Person Name Role Phone Cyndi Almaguer MD Primary Care Provider [phone] Encounter Details Date Type Department Care Team (Latest Contact Info) Description 05/16/2018 Abstract [facility] CONVERSIONS Dental, Provider, DDS Social [...] Description 12/31/2024 11:00 AM EDT Office Visit [facility] [address] [place] [address] documented as of this encounter Visit Diagnoses Not on filedocumented in this encounter Care Teams Asphalt Roller Person Relationship Specialty Start Date End Date Cyndi Almaguer MD [address] [place] [address] PCP - General Family Medicine 09/23/23 Sherry Carranza Crew PersonSales Data Analyst 07/28/23 documented as of this encounter
--- OUTSIDE RECORDS SUMMARY | 2024-12-26 12:32 | XMS_ITS | Encounter Summary ---
Author Organization [employer] Address [address] [facility] 7 [place] [address] Care Team Providers Care Commercial Light Fixture Assembler Name Role Phone Cyndi Almaguer MD Primary Care Provider [phone] Encounter Details Date Type Department Care Team ([facility] st Contact Info) Description 09/26/[address] [facility] [address] [place], [place] [phone] Cyndi Almaguer MD [address] [place], [place] [phone] Zinc deficiency (Primary Dx) Social History Tobacco [...] Description 12/31/2024 11:00 AM EDT Office Visit [facility] [address] [place] [address] documented as of this encounter Visit Diagnoses Diagnosis Zinc deficiency- Primary Mineral deficiency, not elsewhere classified documented in this encounter Additional Health Concerns Assessment Noted Time PHQ-9 Depression Total Score: 2 01/31/20 9:13 AM EDT documented as of this encounter Care Teams Commercial Light Fixture Assembler Relationship Specialty Start Date End Date Cyndi Almaguer MD [address] [place] [address] PCP - General Family Medicine 09/23/23 Sherry Carranza ArchaeologistGlass Washer And Carrier 07/28/23 documented as of this encounter
--- OUTSIDE RECORDS SUMMARY | 2024-12-26 12:33 | XMS_ITS | Encounter Summary ---
Author Organization [employer] Address [address] [facility] 7t [place] [address] Care Team Providers Care Prompt Care Rn Name Role Phone Cyndi Almaguer MD Primary Care Provider [phone] Encounter Details Date Type Department Care Team ([facility] st Contact Info) Description 02/03/2024 Orders Only [facility] [address] [place], [place] [phone] Cyndi Almaguer MD [address] [place], [place] [phone] Narrow anion gap (Primary Dx); Serum total [...] Description 12/31/2024 11:00 AM EDT Office Visit [facility] [address] [place] [phone] documented as of this encounter Procedures Procedure Name Priority Date/Time Associated Diagnosis Comments BASIC METABOLIC PANEL Routine 2024 9:08 AM EST Narrow anion gap HEPATIC FUNCTION PANEL Routine 04/02/2024 12:12 PM EST Serum total bilirubin elevated documented in this encounter Results * Basic Metabolic Panel (2024 9:08 AM EST) Sodium 141 135 - 145 mmol/L [facility] Potassium 4.0 3.3 - 5.1 mmol/L [facility] Chloride 108 96 - 108 mmol/L [facility] Carbon Dioxide 25 22 - 29 mmol/L [facility] Anion Gap 12 12 - 20 [facility] Urea Nitrogen (BUN) 15 9 - 16 mg/dL [facility] Creatinine, Serum 0.78 0.5 - 1.4 mg/dL [facility] Estimated Glomerular Filt Rate >60 [facility] Comment:Chronic Kidney Disea se: Estimated GFR < 60 mL/min/[id number] Kidney Disease: Estimated GFR < 15 mL/min/1.73m2 Glucose 84 60 - 115 mg/dL [facility] Calcium 9.3 8.4 - 10.2 mg/dL [facility] Blood Venous blood specimen / Unknown 2024 9:08 AM EST 2024 9:08 AM EST us Cyndi Almaguer MD LAB BLOOD ORDERABLES Final Resul t Performing Organization Address [facility] Co de Phone Number [facility] [address] [place] [phone] * Hepatic Function Panel (04/02/2024 12:12 PM EST) Bilirubin, Total 0.8 0.0 - 1.0 mg/dL [facility] Bilirubin, Direct 0.2 0.0 - 0.5 mg/dL [facility] Aspartate Amino Transferase 24 5 - 37 U/L [facility] Alanine Aminotransferase 19 0 - 40 U/L [facility] Total Protein 7.6 6.5 - 8.0 g/dL [facility] Albumin Level 4.3 3.5 - 5.0 g/dL [facility] Alkaline Phosphatase 53 39 - 117 U/L [facility] Blood Venous blood specimen / Unknown 04/02/2024 12:12 PM EST 04/02/2024 1:23 PM EST us Cyndi Almaguer MD LAB BLOOD ORDERABLES Final Resul t Performing Organization Address [facility] Co de Phone Number [facility] [address] [place] [phone] documented in this encounter Visit Diagnoses Diagnosis Narrow anion gap- Primary Serum total bilirubin elevated Disorders of bilirubin excretion documented in this encounter Additional Health Concerns Assessment Noted Time PHQ-9 Depression Total Score: 2 01/31/20 24 9:13 AM EDT documented as of this encounter Care Teams Prompt Care Rn Relationship Specialty Start Date End Date Cyndi Almaguer MD [address] [place] [phone] PCP - General Family Medicine 09/23/23 Sherry Carranza Support StaffToolmaker Helper 07/28/23 documented as of this encounter
--- OUTSIDE RECORDS SUMMARY | 2024-12-26 12:33 | XMS_ITS | Encounter Summary ---
Author Organization [employer] Address [address] [place] [address] Care Team Providers Care Water Mechanic Name Role Phone Cyndi Almaguer MD Primary Care Provider [phone] Reason for Referral * Consultation (Routine) - Closed Specialty Diagnoses / Procedures Referred By Contkaylin t Referred To Contact Urology Diagnoses Erectile dysfunction, unspecified erectile dysfunction type Cyndi Almaguer MD [address] [place] [address] Phone: tel: fax: [facility] [address] [place], [place] Phone: tel: fax: Referral ID Status Reason Start Date Expiration Date V isits Requested Visits Authorized [id number] Closed Specialty Services Required 10/10/2023 10/09/2024 6 6 Encounter Details Date Type Department Care Team (Late st Contact Info) Description 10/03/2023 Orders Only [facility] [address] [place], [place] [phone] Cyndi Almaguer MD [address] [place], [place] [phone] Erectile dysfunction, unspecified erectile dysfunction type (Primary [...] Office Visit [facility] [address] [place] [phone] documented as of this encounter Procedures Procedure [...] documented as of this encounter Care Teams Water Mechanic Relationship Specialty Start Date End Date Cyndi Almaguer MD [address] [place] [address] PCP - General Family Medicine 09/23/23 Sherry Carranza Plastic Frame InserterElectric Meter Tester Helper 07/28/23 documented as of this encounter
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
--- OUTSIDE RECORDS SUMMARY | 2024-12-26 12:33 | XMS_ITS | Encounter Summary ---
Author Organization [employer] Address [address] [place] [address] [address] [address] Care Team Providers Care Commissary Helper Name Role Phone Cyndi Almaguer MD Primary Care Provider [phone] Reason for Referral * Consultation (Routine) - Closed Specialty Diagnoses / Procedures Referred By Svetlana brewster Referred To Contact Physical Therapy Diagnoses Chronic back pain, unspecified back location, unspecified back pain laterality Cyndi Almaguer MD [address] [place] [address] Phone: tel: fax: [facility] [address] Phone: tel: fax: Referral ID Status Reason Start Date Expiration Date V isits Requested Visits Authorized [id number] Closed Specialty Services Required 09/30/2023 09/28/2024 20 20 * Consultation (Routine) - Closed Specialty Diagnoses / Procedures Referred By Svetlana t Referred To Contact Orthopaedic Surgery Diagnoses Chronic back pain, unspecified back location, unspecified back pain laterality Cyndi Almaguer MD [address] [place] [address] Phone: tel: fax: [facility] [address] [place] [address] Phone: tel: fax: Referral ID Status Reason Start Date Expiration Date V isits Requested Visits Authorized [id number] Closed Specialty Services Required 08/08/2023 08/07/2024 12 12 Encounter Details Date Type Department Care Team (Late Contact Info) Description 09/16/2023 Orders Only [facility] MEDICINE [address] [place] [phone] Cyndi Almaguer MD [address] [place] [phone] Chronic back pain, unspecified back location, unspecified [...] 11:00 AM EDT Office Visit [facility] MEDICINE [address] [place] [phone] Scheduled Referrals Name Type Priority Associated Diagnoses [...] Primary documented in this encounter Care Teams Commissary Helper Relationship Specialty Start Date End Date Cyndi Almaguer MD [address] [place] [address] PCP - General Family Medicine 09/23/23 Sherry Carranza Textile ConverterField Artillery Radar Operator 07/28/23 documented as of this encounter
--- OUTSIDE RECORDS SUMMARY | 2024-12-26 12:33 | XMS_ITS | Encounter Summary ---
Author Organization [employer] Address [address] [place] [address] [facility] [place] [address] Care Team Providers Care Graphics Coordinator Name Role Phone Cyndi Almaguer MD Primary Care Provider [phone] Reason for Visit * Reason Onset Date Comments Med Refill 01/01/2024 Encounter Details Date Type Department Care Team (Late st Contact Info) Description 01/01/[address] [facility] MEDICINE [address] [place], [place] [phone] Cyndi Almaguer MD [address] [place], [place] [phone] Social History Tobacco Use Types Packs/Day Years [...] Description 12/31/2024 11:00 AM EDT Office Visit [facility] MEDICINE [address] [place] [address] documented as of this encounter Visit Diagnoses Not on filedocumented in this encounter Additional Health Concerns Assessment Noted Time PHQ-9 Depression Total Score: 0 09/22/19 9:29 AM EDT documented as of this encounter Care Teams Graphics Coordinator Relationship Specialty Start Date End Date Cyndi Almaguer MD [address] [place] [address] PCP - General Family Medicine 09/23/23 Sherry Carranza Senior Game DeveloperFill Manager 07/28/23 documented as of this encounter
--- OUTSIDE RECORDS SUMMARY | 2024-12-26 12:33 | XMS_ITS | Encounter Summary ---
Author Organization [employer] Address [address] [place] [address] Care Team Providers Care Cake Froster Name Role Phone Cyndi Almaguer MD Primary Care Provider [phone] Reason for Referral * Consultation (Routine) - Closed Specialty Diagnoses / Procedures Referred By Svetlana brewster Referred To Contact Orthopaedic Surgery Diagnoses History of lumbosacral spine surgery Chronic low back pain, unspecified back pain laterality, unspecified whether sciatica present Cyndi Almaguer MD [address] [place] [address] Phone: tel: fax: [address] Phone: tel: fax: Referral ID Status Reason Start Date Expiration Date V isits Requested Visits Authorized [id number] Closed Specialty Services Required 12/20/2023 12/19/2024 6 6 Encounter Details Date Type Department Care Team (Late st Contact Info) Description 12/15/2023 Orders Only [facility] MEDICINE [address] [place] [address] Cyndi Almaguer MD [address] [place], [place] [phone] History of lumbosacral spine surgery (Primary Dx); [...] Description 12/31/2024 11:00 AM EDT Office Visit [facility] MEDICINE [address] [place] [address] Scheduled Referrals Name Type Priority Associated Diagnoses [...] documented as of this encounter Care Teams Cake Froster Relationship Specialty Start Date End Date Cyndi Almaguer MD [address] [place] [address] PCP - General Family Medicine 09/23/23 Sherry Carranza Roller Structural MillBuilding Performance Consultant 07/28/23 documented as of this encounter
--- OUTSIDE RECORDS SUMMARY | 2024-12-26 12:33 | XMS_ITS | Encounter Summary ---
Author Organization [employer] Address [address] [facility] 7 [place] [address] Care Team Providers Care Cutter Machine Tender Name Role Phone Cyndi Almaguer MD Primary Care Provider [phone] Encounter Details Date Type Department Care Team ([facility] st Contact Info) Description 10/01/2023 Orders Only [facility] MEDICINE [address] [place], [place] [phone] Cyndi Almaguer MD [address] [place], [place] [phone] Social History Tobacco Use Types Packs/Day Years [...] Description 12/31/2024 11:00 AM EDT Office Visit [facility] MEDICINE 230 [place] [address] documented as of this encounter Visit Diagnoses Not on filedocumented in this encounter Additional Health Concerns Assessment Noted Time PHQ-9 Depression Total Score: 0 09/22/19 24 9:29 AM EDT documented as of this encounter Care Teams Cutter Machine Tender Relationship Specialty Start Date End Date Cyndi Almaguer MD [address] [place] [address] PCP - General Family Medicine 09/23/23 Sherry Carranza Ice Bag AssemblerEarly Childhood Services Coordinator 07/28/23 documented as of this encounter
--- OUTSIDE RECORDS SUMMARY | 2024-12-26 12:33 | XMS_ITS | Encounter Summary ---
Author Organization [employer] Address [address] [place] [address] 7 [place] [address] Care Team Providers Care Imaging Account Manager Name Role Phone Cyndi Almaguer MD Primary Care Provider [phone] Reason for Visit * Reason Comments Med Refill Encounter Details Date Type Department Care Team ([facility] st Contact Info) Description 07/29/2024 Refill [facility] MEDICINE [address] [place] [address] Cindy Denney MD [address] [place] [address] Folliculitis Social History Tobacco Use Types Packs/Day [...] 2:10 PM EDT Sexual Orientation Straight 08/29/2023 2 :20 PM EDT documented as of this encounter Plan of Treatment Upcoming Encounters Date Type Department Care Team (Late st Contact Info) Description 12/31/2024 11:00 AM EDT Office Visit [facility] MEDICINE [address] [place] [address] documented as of this encounter Visit Diagnoses Diagnosis Folliculitis Other specified disease of hair and hair follicles documented in this encounter Additional Health Concerns Assessment Noted Time PHQ-9 Depression Total Score: 2 01/31/20 9:13 AM EDT documented as of this encounter Care Teams Imaging Account Manager Relationship Specialty Start Date End Date Cyndi Almaguer MD [address] [place] [address] PCP - General Family Medicine 09/23/23 Sherry Carranza Rougher Machine OperatorEngineering Technical Analyst 07/28/23 documented as of this encounter
--- OUTSIDE RECORDS SUMMARY | 2024-12-26 12:33 | XMS_ITS | Encounter Summary ---
Author Organization [employer] Address [address] [place] [address] 7 [place] [address] Care Team Providers Care Administration Manager Name Role Phone Cyndi Almaguer MD Primary Care Provider [phone] Encounter Details Date Type Department Care Team ([facility] st Contact Info) Description 11/30/2023 Orders Only [facility] MEDICINE [address] [place], [place] [phone] Cyndi Almaguer MD [address] [place], [place] [phone] Anxiety (Primary Dx); Chronic low back pain, [...] Description 12/31/2024 11:00 AM EDT Office Visit [facility] MEDICINE [address] [place] [address] documented as of this encounter Procedures Procedure Name Priority Date/Time Associated Diagnosis Comments DRUG MONITOR, PANEL 1, SCREEN, URINE Routine 12/02/2023 12:00 AM EDT Anxiety Chronic low back pain, unspecified back pain laterality, unspecified whether sciatica present documented in this encounter Results * Drug Monitoring, Panel 1, Screen, Urine (12/02/2023 12:00 AM EDT) Opiate Screen Urine Not Detected Not Detect [facility] Comment:Opiate cut-off is 30 0 ng/mL.Positive results are unconfirmed and should not be used fornon-medical purposes. Barbiturates, Urine Not Detected Not Detect [facility] Comment:Barbiturate cut-off is 200 ng/mL.Positive results are unconfirmed and should not be used fornon-medical purposes. Phencyclidine Screen Urine Not Detected Not Detect [facility] Comment:Phencyclidine cut-of f is 25 ng/mL.Positive results are unconfirmed and should not be used fornon-medical purposes. Amphetamine Screen Urine Not Detected Not Detect [facility] Comment:Amphetamine cut-off is 1000 ng/mL.Positive results are unconfirmed and should not be used fornon-medical purposes. Benzodiazepines Screen Urine Not Detected Not Detect [facility] Comment:Benzodiazepine cut-o ff is 200 ng/mL.Positive results are unconfirmed and should not be used fornon-medical purposes. Cocaine Screen Urine Not Detected Not Detect [facility] Comment:Cocaine cut-off is 3 00 ng/mL.Positive results are unconfirmed and should not be used fornon-medical purposes. Cannabinoid Screen Urine Not Detected Not Detect [facility] Comment:Cannabinoid cut-off is 50 ng/mL.Positive results are unconfirmed and should not be used fornon-medical purposes. Methadone Screen, Urine Not Detected Not Detect ng/mL [facility] Comment:Methadone cut-off is 300 ng/mL.Positive results are unconfirmed and should not be used fornon-medical purposes. FENTANYL URINE Not Detected Not Detect [facility] Comment:Fentanyl cut-off is 1 ng/mL.Positive results are unconfirmed and should not be used fornon-medical purposes. Oxycodone Urine Screen Not Detected Not Detect ng/mL [facility] Comment:Oxycodone cut-off is 100 ng/mL.Positive results are unconfirmed and should not be used fornon-medical purposes. Buprenorphine Screen Not Detected Not Detect ng/mL [facility] Comment:Buprenorphine cut-of f is 5 ng/mL.Positive results are unconfirmed and should not be used fornon-medical purposes. Urine (Urine, Random) 12/02/2023 12/02/2023 Cyndi Almaguer MD LAB URINE ORDERABLES Final Resul t [facility] [address] [place] [address] [phone] documented in this encounter Visit Diagnoses Diagnosis Anxiety- Primary Anxiety state, unspecified Chronic low back pain, unspecified back pain laterality, unspecified whether sciatica present documented in this encounter Additional Health Concerns Assessment Noted Time PHQ-9 Depression Total Score: 0 09/22/19 24 9:29 AM EDT documented as of this encounter Care Teams Administration Manager Relationship Specialty Start Date End Date Cyndi Almaguer MD [address] [place] [address] PCP - General Family Medicine 09/23/23 Sherry Carranza Chief Wheelage ClerkDry Folder Cloth 07/28/23 documented as of this encounter
--- OUTSIDE RECORDS SUMMARY | 2024-12-26 12:33 | XMS_ITS | Encounter Summary ---
Author Organization [employer] Address [address] [facility] 7 [place] [address] Care Team Providers Care Ct Scan Technologist Name Role Phone Cyndi Almaguer MD Primary Care Provider [phone] Encounter Details Date Type Department Care Team ([facility] st Contact Info) Description 01/19/2024 Orders Only [facility] MEDICINE [address] [place], [place] [phone] Cyndi Almaguer MD [address] [place], [place] [phone] Social History Tobacco Use Types Packs/Day Years [...] 11:00 AM EDT Office Visit [facility] MEDICINE [address] [place] [address] documented as of this encounter Visit Diagnoses Not on filedocumented in this encounter Additional Health Concerns Assessment Noted Time PHQ-9 Depression Total Score: 0 09/22/19 24 9:29 AM EDT documented as of this encounter Care Teams Ct Scan Technologist Relationship Specialty Start Date End Date Cyndi Almaguer MD [address] [place] [address] PCP - General Family Medicine 09/23/23 Sherry Carranza Motion Picture CriticBuckle Stringer 07/28/23 documented as of this encounter
--- OUTSIDE RECORDS SUMMARY | 2024-12-26 12:33 | XMS_ITS | Encounter Summary ---
Author Organization [employer] Address [address] [place] [address] 7[place] [address] Care Team Providers Care Small Business Banking Officer Name Role Phone Cyndi Almaguer MD Primary Care Provider [phone] Reason for Visit * Reason Onset Date Comments Lab Orders 10/26/2023 Encounter Details Date Type Department Care Team ([facility] st Contact Info) Description 10/26/2023 Telephone [facility] MEDICINE [address] [place] [address] Cyndi Almaguer MD [address] [place], [place] [phone] Lab Orders Social History Tobacco Use Types [...] Description 12/31/2024 11:00 AM EDT Office Visit [facility] MEDICINE [address] [place] [address] documented as of this encounter Visit Diagnoses Not on filedocumented in this encounter Additional Health Concerns Assessment Noted Time PHQ-9 Depression Total Score: 0 09/22/19 9:29 AM EDT documented as of this encounter Care Teams Small Business Banking Officer Relationship Specialty Start Date End Date Cyndi Almaguer MD [address] [place] [address] PCP - General Family Medicine 09/23/23 Sherry Carranza Bankruptcy Legal AssistantPig Farmer 07/28/23 documented as of this encounter
--- OUTSIDE RECORDS SUMMARY | 2024-12-26 12:33 | XMS_ITS | Clinical Summary ---
Author Organization [facility] Address [address] [place] [address] Phone Care Team Providers Care Snapper On Name Role Phone Cyndi Almaguer MD Primary Care Provider [phone] Allergies Active Allergy Reactions Criticality Noted [...] to 49 Years) Completed 09/22/2023 Insurance Medicaid [place] Care Teams Snapper On Relationship Specialty Start Date End Date Cyndi Almaguer MD [address] [place] [phone] PCP - General Family Medicine 10/31/23
--- OUTSIDE RECORDS SUMMARY | 2024-12-26 12:33 | XMS_ITS | Encounter Summary ---
Author Organization [employer] Address [address] [facility] 7 [place] [address] Care Team Providers Care [place] Actor Name Role Phone Cyndi Almaguer MD Primary Care Provider [phone] Encounter Details Date Type Department Care Team (Latest Contact Info) Description 12/24/2024 Travel Social History Tobacco Use Types Packs/Day [...] Description 12/31/2024 11:00 AM EDT Office Visit [facility] MEDICINE 230 [place] [address] documented as of this encounter Visit Diagnoses Not on filedocumented in this encounter Additional Health Concerns Assessment Noted Time PHQ-9 Depression Total Score: 2 01/31/20 9:13 AM EDT documented as of this encounter Care Teams [place] Actor Relationship Specialty Start Date End Date Cyndi Almaguer MD [address] [place] [address] PCP - General Family Medicine 09/23/23 Sherry Carranza Casino ManagerDirector Of Physical Security 07/28/23 documented as of this encounter
== END 2024-12-26 10:46 | disposition home or self-care (01) ==
LOC: HO.HGI 10:20
PROVIDERS: PCP Family Medicine; Visit Provider Nurse Practitioner Family
DX: R10.13 Epigastric pain (principal); K21.9 Gastro-esophageal reflux disease without esophagitis
CPT/HCPCS: 99204

== ENCOUNTER 2024-12-26 10:19 | Outpatient (REF) | payer MEDICAID, SELFPAY ==
[2024-12-26 13:09] LABS: Lipase 22 U/L (8-78)
[2024-12-26 13:36] LABS: Folate 11.7 ng/mL (> or = 4.0); Vitamin B12 673 pg/mL (200-900)
[2024-12-30 15:08] LABS: Vitamin D 25-OH, D2 <4 ng/mL; Vitamin D 25-OH, D3 40 ng/mL; Vitamin D 25-OH, Total 40 ng/mL (30-100)
== END 2024-12-26 10:20 | disposition home or self-care (01) ==
LOC: HO.LAB 10:19
PROVIDERS: PCP Family Medicine; Visit Provider Nurse Practitioner Family
DX: K21.9 Gastro-esophageal reflux disease without esophagitis (principal); R19.7 Diarrhea, unspecified; K59.00 Constipation, unspecified; E55.9 Vitamin D deficiency, unspecified
CPT/HCPCS: 36415; 82306; 82607; 82746; 83690; 84443; 86364; 99212

== ENCOUNTER 2024-12-27 10:22 | Outpatient (AMB) | payer MEDICAID, SELFPAY ==
--- NOTE | 2024-12-27 11:16 | AM.OFFVISNUR ---
Intake Visit Reasons: h pylori Intake Note: Patient presents for collection of?H Pylori?breath test. Patient has been fasting for 1 hour (nothing to eat, drink, no chewing gum or smoking) has not taken any antacid medication for at least 2 weeks and has no allergies to artificial sweeteners.?? Allergies No Known Allergies (No Known Allergies*) Allergy (Verified 08/22/24 15:27) Assessment & Plan Assessment & Plan (1) Acid reflux: Code(s): K21.9 - Gastro-esophageal reflux disease without esophagitis Category: Medical Qualifiers: Esophagitis presence: esophagitis presence not specified Qualified Code(s): K21.9 - Gastro-esophageal reflux disease without esophagitis Plan Patient presents for collection of?H Pylori?breath test. Patient has been fasting for 1 hour (nothing to eat, drink, no chewing gum or smoking) has not taken any antacid medication for at least 2 weeks and has no allergies to artificial sweeteners.???This test checks for an overgrowth of bacteria in your stomach. We all have bacteria but some may have more than others. It is treatable. if the test comes back negative there is nothing else to do. If the test result is positive we will treat you with 2 antibiotics and a medication to decrease the acid in your stomach (PPI) for 2 weeks. Two weeks after you have completed the treatment we will retest you to make sure the overgrowth has resolved. Patient Instructions: Process for specimen collection and reason for testing was explained to the patient. Specimen collection. Patient instructed to take a deep breath and then exhale into the blue bag, filling it up as much as possible. Patient instructed to drink a mixture of water and the artificial sweetener with a straw. A 15 minute wait period was observed. Patient instructed to take a deep breath and then exhale into the pink bag, filling it up as much as possible.?? Coding Level of Care Code Est Pt Level 1 (03654) Diagnoses Gastroesophageal reflux disease, unspecified whether esophagitis present K21.9 Esophagitis presence: esophagitis presence not specified
--- OUTSIDE RECORDS SUMMARY | 2024-12-27 13:10 | XMS_ITS | Clinical Summary ---
Author Organization [facility] Address [address] [place] [phone] Phone Care Team Providers Care Fruit Culler Name Role Phone Shay Carranza MD Primary Care Provider [phone] Allergies Active Allergy Reactions Criticality Noted Date [...] 1:00 PM EDT Office Visit [facility] [place] [address] [phone] Rafael Mcnally DPM Tinea unguium (Primary Dx); Nevus from Last 3 Months Immunizations Name Administration [...] Upcoming Encounters Date Type Department Care Team ([facility] Contact Info) Description 05/08/2025 1:00 PM EST Office Visit Orthopedic [facility] [address] [phone] Rafael Mcnally DPM [address] [phone] Health Maintenance Due Date Last Done Comments [...] Hepatitis C Screening (08/31/2013) Pathologist [facility] Hepatitis C Screening abstracted us Historical Provider HEALTH MAINTENANCE Final Result * Lipid panel (03/23/2013) Pathologist [facility] LDL/HDL Ratio 2 0 - 4 Triglycerides 54 0 - 150 mg/dL Cholesterol 151 0 - 200 mg/dL HDL 72 >=40 mg/dL LDL Cholesterol 69 0 - 100 mg/dL Blood Venous blood specimen / Unknown us Historical Provider LAB BLOOD ORDERABLES Sayra l Result from Last 3 Months or Most Recently Relevant to Health Maintenance Insurance MEDICAID - [place] Care Teams Fruit Culler Relationship Specialty Start Date End Date Shay Carranza MD [address] [place] [phone] PCP - General 06/26/10
--- OUTSIDE RECORDS SUMMARY | 2024-12-27 13:10 | XMS_ITS | Clinical Summary ---
Author Organization [facility], Address [address] [place] [address] Phone Care Team Providers Care Office Clerk Routine Name Role Phone Cyndi Almaguer MD Primary Care Provider [phone] Allergies Active Allergy Reactions Criticality Noted Date [...] to 49 Years) Completed 09/22/2023 Insurance Medicaid [place] Care Teams Office Clerk Routine Relationship Specialty Start Date End Date Cyndi Almaguer MD [address] [place] [address] PCP - General Family Medicine 10/31/23
== END 2024-12-27 11:16 | disposition home or self-care (01) ==
LOC: HO.HGI 10:23
PROVIDERS: PCP Family Medicine; Visit Provider Nurse Practitioner Family
DX: K21.9 Gastro-esophageal reflux disease without esophagitis (principal)

== ENCOUNTER 2024-12-27 10:22 | Outpatient (REF) | payer MEDICAID, SELFPAY ==
--- OUTSIDE RECORDS SUMMARY | 2024-12-28 18:00 | XMS_ITS | Encounter Summary ---
Author Organization [employer] Address [address] [place] [address] 7 [place] [address] Care Team Providers Care Claims Director Name Role Phone Cyndi Almaguer MD Primary Care Provider [phone] Encounter Details Date Type Department Care Team (Late st Contact Info) Description 12/26/2024 Orders Only GENERIC EXTERNAL DATA DEPARTMENT Provider, [...] [facility]ALTH [facility] MEDICINE [address] [place] [address] documented as of this encounter Procedures Procedure Name Priority Date/Time Associated Diagnosis Comments VITAMIN B12/FOLATE, SERUM PANEL Routine 12/26/2024 11:18 AM EDT TSH W/REFLEX TO FT4 Routine 12/26/2024 1 1:18 AM EDT TISSUE TRANSGLUTAMINASE AB, IGA Routine 12/26/2024 11:18 AM EDT LIPASE Routine 12/26/2024 11:18 AM EDT documented in this encounter Results * Tissue Transglutaminase Antibody, IgA (12/26/2024 11:18 AM EDT) Transglutaminase IgA <1.0 U/mL [facility] Comment:Value Interpretation ----- <15.0 Antibody not detected> or = 15.0 Antibody detectedTHIS TEST WAS PERFORMED AT:[email or web address] [place] [phone] CHRISTENSEN MD 12/26/2024 11:1 8 AM EDT 12/26/2024 11:18 AM EDT us Generic External Data Provider LAB BLOOD ORDERAB LES Final Result Performing Organization Address City/[facility]/ZIP Co de Phone Number [facility] [address] [place] [phone] * Vitamin B12 (Cobalamin) and Folate Panel, Serum (12/26/2024 11:18 AM EDT) Vitamin B12 673 200 - 900 pg/mL [facility] Comment:NORMAL 200-900 PG/ML INDETERMINATE 160-199 PG/ML DEFICIENT < 160 PG/ML Folate 11.7 > or = 4.0 ng/mL [facility] Comment:Reference Values:> o r = 4.0 ng/mL< 4.0 ng/mL suggests folate deficiency Methotrexate, aminopterin and folinic acid(leucovorin) are chemotherapeutic agents whose molecularstructures are similar to folate; therefore, the Architectfolate assay cannot be used for patients using these drugs. 12/26/2024 11:1 8 AM EDT 12/26/2024 11:18 AM EDT us Generic External Data Provider LAB BLOOD ORDERAB LES Final Result Performing Organization Address [facility] Co de Phone Number [facility] [address] [place] [phone] * TSH with Reflex to Free T4 (12/26/2024 11:18 AM EDT) TSH reflex Free T4 0.88 0.32 - 4.0 uIU/mL [facility] 12/26/2024 11:1 8 AM EDT 12/26/2024 11:18 AM EDT us Generic External Data Provider LAB BLOOD ORDERAB LES Final Result Performing Organization Address City/[facility]/ZIP Co de Phone Number [facility] [address] [place] [phone] * Lipase (12/26/2024 11:18 AM EDT) Lipase 22 8 - 78 U/L [facility] 12/26/2024 11:1 8 AM EDT 12/26/2024 11:18 AM EDT us Generic External Data Provider LAB BLOOD ORDERAB LES Final Result [facility] [address] [place] [address] [phone] documented in this encounter Visit Diagnoses Not on filedocumented in this encounter Additional Health Concerns Assessment Noted Time PHQ-9 Depression Total Score: 2 01/31/20 24 9:13 AM EDT documented as of this encounter Care Teams Claims Director Relationship Specialty Start Date End Date Cyndi Almaguer MD [address] [place] [phone] PCP - General Family Medicine 09/23/23 Sherry Carranza Sheet Metal HelperFreight Conductor 07/28/23 documented as of this encounter
--- OUTSIDE RECORDS SUMMARY | 2024-12-28 18:00 | XMS_ITS | Encounter Summary ---
Author Organization [employer] [facility] Address [address] [place] [address] [address] Care Team Providers Care Pump House Operator Name Role Phone Cyndi Almaguer MD Primary Care Provider [phone] Encounter Details Date Type Department Care Team (Latest Contact Info) Description 05/16/2018 Abstract [facility] CONVERSIONS Dental, Provider, DDS Social History Tobacco [...] 11:00 AM EDT Office Visit [facility] MEDICINE [address] [place] [address] documented as of this encounter Visit Diagnoses Not on filedocumented in this encounter Care Teams Pump House Operator Relationship Specialty Start Date End Date Cyndi Almaguer MD [address] [place] [address] PCP - General Family Medicine 09/23/23 Sherry Carranza Cargo Operations AgentRoll Sheeting Cutter 07/28/23 documented as of this encounter
--- OUTSIDE RECORDS SUMMARY | 2024-12-28 18:00 | XMS_ITS | Encounter Summary ---
Author Organization [employer] Address [address] [place] [address] 7[place] [address] Care Team Providers Care Cnc Maintenance Technician Name Role Phone Cyndi Almaguer MD Primary Care Provider [phone] Reason for Visit * Reason Onset Date Comments Lab Orders 10/26/2023 Encounter Details Date Type Department Care Team ([facility] st Contact Info) Description 10/26/2023 Telephone [facility] MEDICINE [address] [place] [address] Cyndi Almaguer MD [address] [place], [place] [phone] Lab Orders Social History Tobacco Use Types [...] Description 12/31/2024 11:00 AM EDT Office Visit [facility] MEDICINE [address] [place] [address] documented as of this encounter Visit Diagnoses Not on filedocumented in this encounter Additional Health Concerns Assessment Noted Time PHQ-9 Depression Total Score: 0 09/22/19 9:29 AM EDT documented as of this encounter Care Teams Cnc Maintenance Technician Relationship Specialty Start Date End Date Cyndi Almaguer MD [address] [place] [address] PCP - General Family Medicine 09/23/23 Sherry Carranza Clinical Rehabilitation AideFence Setter 07/28/23 documented as of this encounter
--- OUTSIDE RECORDS SUMMARY | 2024-12-28 18:00 | XMS_ITS | Encounter Summary ---
Author Organization [employer] Address [address] [place] [address] Care Team Providers Care Business Continuity Global Director Name Role Phone Cyndi Almaguer MD Primary Care Provider [phone] Reason for Referral * Consultation (Routine) - Closed Specialty Diagnoses / Procedures Referred By Contkaylin t Referred To Contact Urology Diagnoses Erectile dysfunction, unspecified erectile dysfunction type Cyndi Almaguer MD [address] [place] [address] Phone: tel: fax: [facility] [address] [place], [place] Phone: tel: fax: Referral ID Status Reason Start Date Expiration Date V isits Requested Visits Authorized [id number] Closed Specialty Services Required 10/10/2023 10/09/2024 6 6 Encounter Details Date Type Department Care Team (Late st Contact Info) Description 10/03/2023 Orders Only [facility] MEDICINE [address] [place], [place] [phone] Cyndi Almaguer MD [address] [place], [place] [phone] Erectile dysfunction, unspecified erectile dysfunction type (Primary [...] Description 12/31/2024 11:00 AM EDT Office Visit [facility] MEDICINE [address] [place] [address] documented as of this encounter Procedures Procedure [...] as of this encounter Care Teams Business Continuity Global Director Relationship Specialty Start Date End Date Cyndi Almaguer MD [address] [place] [address] PCP - General Family Medicine 09/23/23 Sherry Carranza Shingle CutterTitle Closer 07/28/23 documented as of this encounter
--- OUTSIDE RECORDS SUMMARY | 2024-12-28 18:00 | XMS_ITS | Encounter Summary ---
Author Organization [employer] Address [address] [facility] 7 [place] [address] Care Team Providers Care Bottom Precipitator Operator Name Role Phone Cyndi Almaguer MD Primary Care Provider Encounter Details Date Type Department Care Team ([facility] st Contact Info) Description 10/26/2023 Orders Only [facility] MEDICINE [address] [place], [place] [phone] Cyndi Almaguer MD [address] [place], [place] [phone] Immunity status testing (Primary Dx); Routine screening [...] Description 12/31/2024 11:00 AM EDT Office Visit [facility] MEDICINE [address] [place] [address] documented as of this encounter Procedures Procedure [...] Blood Count 6.4 4.8 - 10.8 X10*3/uL [facility] Red Blood Count 4.77 4.60 - 5.80 X10*6/uL [facility] Hemoglobin 15.1 14.0 - 18.0 g/dl [facility] Hematocrit 44.3 42.0 - 52.0 % [facility] Mean Corpuscular Volume 92.9 80.0 - 98.0 fL [facility] Mean Corpuscular Hemoglobin 31.7 27.0 - 33.0 pg [facility] Mean Corpuscular HGB Conc 34.1 31.0 - 36.0 g/dl [facility] Red Cell Distribution Width 12.2 11.0 - 16.0 % [facility] Platelet Count 203 160 - 400 X10*3/uL [facility] Mean Platelet Volume 10.8 9.4 - 12.4 fL [facility] Neutrophils Percent Auto 53.9 45 - 73 % [facility] Imm Gran Pct Auto 0.3 0.0 - 0.4 % [facility] Lymphocytes Percent Auto 36.7 20 - 40 % [facility] Monocytes Percent Auto 6.4 2 - 11 % [facility] Eosinophils Percent Auto 2.2 0 - 4 % [facility] Basophils Percent Auto 0.5 0 - 2 % [facility] NRBC Pct Auto 0.0 0.0 - 0.2 /100WBC [facility] Neutrophils Absolute Auto 3.5 2.0 - 8.3 x10*3/uL [facility] Imm Gran Abs Auto 0.02 0.00 - 0.03 X10*3/uL [facility] Lymphocytes Absolute Auto 2.4 1.2 - 4.9 X10*3/uL [facility] Monocytes Absolute Auto 0.4 0.1 - 1.2 X10*3/uL [facility] Eosinophils Absolute Auto 0.1 0.0 - 0.4 X10*3/uL [facility] Basophils Absolute Auto 0.0 0.0 - 0.2 X10*3/uL [facility] NRBC Abs Auto 0.000 0.0 - 0.012 X10*3/uL [facility] Blood Venous blood specimen / Unknown 10/31/2023 2:14 PM EDT 10/31/2023 4:03 PM EDT us Cyndi Almaguer MD LAB BLOOD ORDERABLES Final Resul t [facility] [address] [place] [phone] * (ABNORMAL) Comprehensive Metabolic Panel (10/31/2023 2:14 PM EDT) Sodium 143 135 - 145 mmol/L [facility] Potassium 4.3 3.3 - 5.1 mmol/L [facility] Chloride 109(H) 96 - 108 mmol/L [facility] Carbon Dioxide 24 22 - 29 mmol/L [facility] Anion Gap 14 12 - 20 [facility] Urea Nitrogen (BUN) 11 9 - 16 mg/dL [facility] Creatinine, Serum 0.85 0.5 - 1.4 mg/dL [facility] Estimated Glomerular Filt Rate >60 [facility] Comment:NOTE: For -Am erican individuals, multiply the result by 1.210.Chronic Kidney Disease: Estimated GFR < 60 mL/min/[id number] Kidney Disease: Estimated GFR < 15 mL/min/1.73m2 Glucose 94 60 - 115 mg/dL [facility] Calcium 9.9 8.4 - 10.2 mg/dL [facility] Bilirubin, Total 1.3(H) 0.0 - 1.0 mg/dL [facility] Aspartate Amino Transferase 22 5 - 37 U/L [facility] Alanine Aminotransferase 18 0 - 40 U/L [facility] Total Protein 7.5 6.5 - 8.0 g/dL [facility] Albumin Level 4.5 3.5 - 5.0 g/dL [facility] Alkaline Phosphatase 64 39 - 117 U/L [facility] Blood Venous blood specimen / Unknown 10/31/2023 2:14 PM EDT 10/31/2023 4:14 PM EDT us Cyndi Almaguer MD LAB BLOOD ORDERABLES Final Resul t [facility] [address] [place] [phone] * Vitamin D, 25-Hydroxy, Total, Immunoassay (10/31/2023 2:14 PM EDT) Vitamin D 25-OH Total 69.9 >30 ng/mL [facility] Comment:Health Based Referen ce Values*< 20 ng/mL Yygdfhyyy67-48 ng/mL Insufficient> 30 ng/mL Sufficient*Jackie LOMELI. N [...] Final Resul t Performing Organization Address [facility] Co de Phone Number [facility] [address] [place] [phone] * Hepatitis A Antibody, Total (10/31/2023 2:14 PM EDT) Hepatitis A Antibody IgG REACTIVE Nonreactive [facility] Comment:The presence of IgG anti-HAV implies past HAV infection(recent or distant) or vaccination against HAV. Blood Venous blood specimen / Unknown 10/31/2023 2:14 PM EDT 10/31/2023 4:14 PM EDT Cyndi Almaguer MD LAB BLOOD ORDERABLES Final Resul t Performing Organization Address [facility] Co de Phone Number [facility] [address] [place] [phone] * Hepatitis B surface antigen, EIA (10/31/2023 2:14 PM EDT) Hepatitis B Surface Ag Negative Negative [facility] Blood Venous blood specimen / Unknown 10/31/2023 2:14 PM EDT 10/31/2023 4:14 PM EDT Cyndi Almaguer MD LAB BLOOD ORDERABLES Final Resul t Performing Organization Address [facility] Co de Phone Number [facility] [address] [place] [phone] * HIV-1/2 Antigen and Antibodies, Fourth Generation, with Reflexes (10/31/2023 2:14 PM EDT) HIV AB/AG Nonreactive Nonreactive [facility] Comment:HIV-1 p24 Ag and/or HIV-1/HIV-2 Ab not detected.A test result that is nonreactive does not exclude thepossibility of exposure to or infection with HIV-1 and/orHIV-2. Nonreactive results in this assay for individualswith prior exposure to HIV-1 and/or HIV-2 may be due toantigen and antibody levels that are below the limit ofdetection of this assay.The [employer]ware[employer] HIV Ag/Ab Combo assay result andsupplemental assay results should be interpreted inconjunction with the patient's clinical presentation,history and other laboratory results. If the results areinconsistent with clinical evidence, additional testing issuggested to confirm the result. Blood Venous blood specimen / Unknown 10/31/2023 2:14 PM EDT 10/31/2023 4:14 PM EDT us Cyndi Almaguer MD LAB BLOOD ORDERABLES Final Resul t [facility] [address] [place] [phone] * Chlamydia/N. Gonorrhoeae RNA, TMA, Urogenitial (10/31/2023 2:14 PM EDT) [facility] CT PCR NOT DETECTED Not Detect. [facility] Comment:A not detected test result [...] psychologicalconsequences. NG PCR NOT DETECTED Not Detect. [facility] Comment:A not detected test result [...] PM EDT 10/31/2023 4:03 PM EDT Narrative [facility] - 10/31/2023 6:42 PM EDT Urine Cyndi Almaguer MD LAB MICROBIOLOGY - GENERAL ORDER KAROLINA Final Result Performing Organization Address [facility] Co de Phone Number [facility] [address] [place] [phone] * Hepatitis B Core Antibody, Total (10/31/2023 2:14 PM EDT) Pathologist [facility] Hepatitis B Core Antibody Nonreactive Nonreactive [facility] Blood Venous blood specimen / Unknown 10/31/2023 2:14 PM EDT 10/31/2023 4:14 PM EDT Cyndi Almaguer MD LAB BLOOD ORDERABLES Final Resul t Performing Organization Address [facility] Co de Phone Number [facility] [address] [place] [phone] * Hepatitis B Surface Antibody, Qualitative (10/31/2023 2:14 PM EDT) ~Hepatitis B Surface Antibody REACTIVE Nonreactive [facility] Comment:REACTIVE: > 11.99 mI U/mL Blood Venous blood specimen / Unknown 10/31/2023 2:14 PM EDT 10/31/2023 4:14 PM EDT Cyndi Almaguer MD LAB BLOOD ORDERABLES Final Resul t Performing Organization Address [facility] de Phone Number [facility] [address] [place] [phone] * Hepatitis C Antibody with Reflex to HCV, RNA, Quantitative, Real-Time PCR (10/31/2023 2:14 PM EDT) Hepatitis C Antibody Nonreactive Nonreactive [facility] Comment:Antibodies to HCV no t detected; does not exclude early acuteHCV infection. Blood Venous blood specimen / Unknown 10/31/2023 2:14 PM EDT 10/31/2023 4:14 PM EDT Cyndi Almaguer MD LAB BLOOD ORDERABLES Final Resul t Performing Organization Address [facility] de Phone Number [facility] [address] [place] [phone] * Syphilis Screen (10/31/2023 2:14 PM EDT) Syphilis Screen Nonreactive Nonreactive [facility] Blood 10/31/2023 2:14 PM EDT 10/31/2023 4:14 PM EDT Cyndi Almaguer MD LAB BLOOD ORDERABLES Final Resul t Performing Organization Address [facility] de Phone Number [facility] [address] [place] [phone] documented in this encounter Visit Diagnoses Diagnosis Immunity status testing- Primary Antibody response examination Routine screening for STI (sexually transmitted infection) Screening examination for venereal disease Vitamin D deficiency Accidental poisoning by drug, initial encounter documented in this encounter Additional Health Concerns Assessment Noted Time PHQ-9 Depression Total Score: 0 09/22/19 24 9:29 AM EDT documented as of this encounter Care Teams Bottom Precipitator Operator Relationship Specialty Start Date End Date Cyndi Almaguer MD [address] [place] [address] PCP - General Family Medicine 09/23/23 Sherry Carranza Distillery SupervisorCoroner'S Juror 07/28/23 documented as of this encounter
--- OUTSIDE RECORDS SUMMARY | 2024-12-28 18:00 | XMS_ITS | Encounter Summary ---
Author Organization [employer] Address [address] [facility] 7 [place] [address] Care Team Providers Care Play Back Operator Name Role Phone Cyndi Almaguer MD Primary Care Provider [phone] Encounter Details Date Type Department Care Team ([facility] st Contact Info) Description 09/26/2024 Orders Only [facility] MEDICINE [address] [place], [place] [phone] Cyndi Almaguer MD [address] [place], [place] [phone] Zinc deficiency (Primary Dx) Social History Tobacco [...] 12/31/2024 11:00 AM EDT Office Visit [facility] MEDICINE [address] [place] [address] documented as of this encounter Visit Diagnoses Diagnosis Zinc deficiency- Primary Mineral deficiency, not elsewhere classified documented in this encounter Additional Health Concerns Assessment Noted Time PHQ-9 Depression Total Score: 2 01/31/20 9:13 AM EDT documented as of this encounter Care Teams Play Back Operator Relationship Specialty Start Date End Date Cyndi Almaguer MD [address] [place] [address] PCP - General Family Medicine 09/23/23 Sherry Carranza Hydrotel OperatorOffice Coordinator Receptionist 07/28/23 documented as of this encounter
--- OUTSIDE RECORDS SUMMARY | 2024-12-28 18:01 | XMS_ITS | Encounter Summary ---
Author Organization [employer] Address [address] [facility] 7t [place] [address] Care Team Providers Care Hot Air Furnace Installer Repairer Name Role Phone Cyndi Almaguer MD Primary Care Provider [phone] Encounter Details Date Type Department Care Team ([facility] st Contact Info) Description 02/03/[address] [facility] MEDICINE [address] [place], [place] [phone] Cyndi Almaguer MD [address] [place], [place] [phone] Narrow anion gap (Primary Dx); Serum total [...] 12/31/2024 11:00 AM EDT Office Visit [facility] MEDICINE [address] [place] [phone] documented as of this encounter Procedures Procedure Name Priority Date/Time Associated Diagnosis Comments BASIC METABOLIC PANEL Routine 2024 9:08 AM EST Narrow anion gap HEPATIC FUNCTION PANEL Routine 04/02/2024 12:12 PM EST Serum total bilirubin elevated documented in this encounter Results * Basic Metabolic Panel (2024 9:08 AM EST) Sodium 141 135 - 145 mmol/L [facility] Potassium 4.0 3.3 - 5.1 mmol/L [facility] Chloride 108 96 - 108 mmol/L [facility] Carbon Dioxide 25 22 - 29 mmol/L [facility] Anion Gap 12 12 - 20 [facility] Urea Nitrogen (BUN) 15 9 - 16 mg/dL [facility] Creatinine, Serum 0.78 0.5 - 1.4 mg/dL [facility] Estimated Glomerular Filt Rate >60 [facility] Comment:Chronic Kidney Disea se: Estimated GFR < 60 mL/min/1.22n0Pnyrcs Kidney Disease: Estimated GFR < 15 mL/min/1.73m2 Glucose 84 60 - 115 mg/dL [facility] Calcium 9.3 8.4 - 10.2 mg/dL [facility] Blood Venous blood specimen / Unknown 2024 9:08 AM EST 2024 9:08 AM EST us Cyndi Almaguer MD LAB BLOOD ORDERABLES Final Resul t Performing Organization Address [facility] Co de Phone Number [facility] [address] [place] [phone] * Hepatic Function Panel (04/02/2024 12:12 PM EST) Bilirubin, Total 0.8 0.0 - 1.0 mg/dL [facility] Bilirubin, Direct 0.2 0.0 - 0.5 mg/dL [facility] Aspartate Amino Transferase 24 5 - 37 U/L [facility] Alanine Aminotransferase 19 0 - 40 U/L [facility] Total Protein 7.6 6.5 - 8.0 g/dL [facility] Albumin Level 4.3 3.5 - 5.0 g/dL [facility] Alkaline Phosphatase 53 39 - 117 U/L [facility] Blood Venous blood specimen / Unknown 04/02/2024 12:12 PM EST 04/02/2024 1:23 PM EST us Cyndi Almaguer MD LAB BLOOD ORDERABLES Final Resul t Performing Organization Address [facility] Co de Phone Number [facility] [address] [place] [phone] documented in this encounter Visit Diagnoses Diagnosis Narrow anion gap- Primary Serum total bilirubin elevated Disorders of bilirubin excretion documented in this encounter Additional Health Concerns Assessment Noted Time PHQ-9 Depression Total Score: 2 01/31/20 24 9:13 AM EDT documented as of this encounter Care Teams Hot Air Furnace Installer Repairer Relationship Specialty Start Date End Date Cyndi Almaguer MD [address] [place] [phone] PCP - General Family Medicine 09/23/23 Sherry Carranza Scallop DredgerProduction Team Member 07/28/23 documented as of this encounter
--- OUTSIDE RECORDS SUMMARY | 2024-12-28 18:01 | XMS_ITS | Encounter Summary ---
Author Organization [employer] Address [address] [place] [address] 7 [place] [address] Care Team Providers Care Blue Line Operator Name Role Phone Cyndi Almaguer MD Primary Care Provider [phone] Reason for Visit * Reason Comments Med Refill Encounter Details Date Type Department Care Team ([facility] st Contact Info) Description 07/29/2024 Refill [facility] MEDICINE [address] [place] [address] Cindy Denney MD [address] [place] [address] Folliculitis Social History Tobacco Use Types Packs/Day [...] Description 12/31/2024 11:00 AM EDT Office Visit [facility] MEDICINE [address] [place] [address] documented as of this encounter Visit Diagnoses Diagnosis Folliculitis Other specified disease of hair and hair follicles documented in this encounter Additional Health Concerns Assessment Noted Time PHQ-9 Depression Total Score: 2 01/31/20 9:13 AM EDT documented as of this encounter Care Teams Blue Line Operator Relationship Specialty Start Date End Date Cyndi Almaguer MD [address] [place] [address] PCP - General Family Medicine 09/23/23 Sherry Carranza Home SupervisorGlove Cuffer 07/28/23 documented as of this encounter
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
--- OUTSIDE RECORDS SUMMARY | 2024-12-28 18:01 | XMS_ITS | Encounter Summary ---
Author Organization [employer] Address 75 [facility] 7 [place] [address] Care Team Providers Care Line Manager Name Role Phone Cyndi Almaguer MD Primary Care Provider [phone] Encounter Details Date Type Department Care Team [...] Description 12/31/2024 11:00 AM EDT Office Visit [facility] [address] [place] [address] documented as of this encounter Visit Diagnoses Not on filedocumented in this encounter Additional Health Concerns Assessment Noted Time PHQ-9 Depression Total Score: 2 01/31/20 9:13 AM EDT documented as of this encounter Care Teams Line Manager Relationship Specialty Start Date End Date Cyndi Almaguer MD 230 [place] [address] PCP - General Family Medicine 09/23/23 Sherry Carranza Broker Agricultural ProduceSenior Partner 07/28/23 documented as of this encounter
--- OUTSIDE RECORDS SUMMARY | 2024-12-28 18:01 | XMS_ITS | Encounter Summary ---
Author Organization [employer] Address [address] [place] [address] [place] [address] Care Team Providers Care Mix Crusher Operator Name Role Phone Cyndi Almaguer MD Primary Care Provider [phone] Reason for Referral * Consultation (Routine) - Closed Specialty Diagnoses / Procedures Referred By Svetlana brewster Referred To Contact Physical Therapy Diagnoses Chronic back pain, unspecified back location, unspecified back pain laterality Cyndi Almaguer MD [address] [place] [address] Phone: tel: fax: [facility] [address] Phone: tel: fax: Referral ID Status Reason Start Date Expiration Date V isits Requested Visits Authorized [id number] Closed Specialty Services Required 09/30/2023 09/28/2024 20 20 * Consultation (Routine) - Closed Specialty Diagnoses / Procedures Referred By Svetlana t Referred To Contact Orthopaedic Surgery Diagnoses Chronic back pain, unspecified back location, unspecified back pain laterality Cyndi Almaguer MD [address] [place] [address] Phone: tel: fax: [facility] [address] [place] [address] Phone: tel: fax: Referral ID Status Reason Start Date Expiration Date V isits Requested Visits Authorized [id number] Closed Specialty Services Required 08/08/2023 08/07/2024 12 12 Encounter Details Date Type Department Care Team (Late Contact Info) Description 09/16/2023 Orders Only [facility] MEDICINE [address] [place] [address] Cyndi Almaguer MD [address] [place] [address] Chronic back pain, unspecified back location, unspecified [...] Description 12/31/2024 11:00 AM EDT Office Visit [facility]INE [address] [place] [address] Scheduled Referrals Name Type Priority Associated Diagnoses [...] Primary documented in this encounter Care Teams Mix Crusher Operator Relationship Specialty Start Date End Date Cyndi Almaguer MD [address] [place] [address] PCP - General Family Medicine 09/23/23 Sherry Carranza Entry Level Installation TechnicianManager Hydraulic 07/28/23 documented as of this encounter
--- OUTSIDE RECORDS SUMMARY | 2024-12-28 18:01 | XMS_ITS | Encounter Summary ---
Author Organization [employer] Address [address] [place] [address] Care Team Providers Care Best Worker Name Role Phone Cyndi Almaguer MD Primary Care Provider [phone] Reason for Referral * Consultation (Routine) - Closed Specialty Diagnoses / Procedures Referred By Svetlana brewster Referred To Contact Orthopaedic Surgery Diagnoses History of lumbosacral spine surgery Chronic low back pain, unspecified back pain laterality, unspecified whether sciatica present Cyndi Almaguer MD [address] [place] [address] Phone: tel: fax: [address] Phone: tel: fax: Referral ID Status Reason Start Date Expiration Date V isits Requested Visits Authorized [id number] Closed Specialty Services Required 12/20/2023 12/19/2024 6 6 Encounter Details Date Type Department Care Team (Late st Contact Info) Description 12/15/2023 Orders Only [facility] MEDICINE [address] [place] [address] Cyndi Almaguer MD [address] [place], [place] [phone] History of lumbosacral spine surgery (Primary Dx); [...] Description 12/31/2024 11:00 AM EDT Office Visit [facility]INE [address] [place] [address] Scheduled Referrals Name Type Priority Associated Diagnoses [...] documented as of this encounter Care Teams Best Worker Relationship Specialty Start Date End Date Cyndi Almaguer MD [address] [place] [address] PCP - General Family Medicine 09/23/23 Sherry Carranza Executive Compensation AnalystFurnace Mason 07/28/23 documented as of this encounter
--- OUTSIDE RECORDS SUMMARY | 2024-12-28 18:01 | XMS_ITS | Clinical Summary ---
Author Organization [facility], Address [address] [place] [address] Phone Care Team Providers Care Oleomargarine Maker Name Role Phone Cyndi Almaguer MD Primary Care Provider [phone] Allergies Active Allergy Reactions Criticality Noted Date [...] to 49 Years) Completed 09/22/2023 Insurance Medicaid [place] Care Teams Oleomargarine Maker Relationship Specialty Start Date End Date Cyndi Almaguer MD [address] [place] [address] PCP - General Family Medicine 10/31/23
--- OUTSIDE RECORDS SUMMARY | 2024-12-28 18:01 | XMS_ITS | Encounter Summary ---
Author Organization [employer] Address 75 [facility] 7 [place] [address] Care Team Providers Care Conditioner Tumbler Name Role Phone Cyndi Almaguer MD Primary Care Provider [phone] Encounter Details Date Type Department Care Team ([facility] st Contact Info) Description 01/19/[address] [facility] MEDICINE [address] [place], [place] [phone] Cyndi Almaguer MD [address] [place], [place] [phone] Social History Tobacco Use Types Packs/Day Years [...] Office Visit [facility]INE [address] [place] [address] documented as of this encounter Visit Diagnoses Not on filedocumented in this encounter Additional Health Concerns Assessment Noted Time PHQ-9 Depression Total Score: 0 09/22/19 24 9:29 AM EDT documented as of this encounter Care Teams Conditioner Tumbler Relationship Specialty Start Date End Date Cyndi Almaguer MD [address] [place] [address] PCP - General Family Medicine 09/23/23 Sherry Carranza Cash Surrender CalculatorDepartment Chair 07/28/23 documented as of this encounter
--- OUTSIDE RECORDS SUMMARY | 2024-12-28 18:01 | XMS_ITS | Encounter Summary ---
Author Organization [employer] Address 75 [facility] 7 [place] [address] Care Team Providers Care Gliding Pilot Instructor Name Role Phone Cyndi Almaguer MD Primary Care Provider [phone] Encounter Details Date Type Department Care Team ([facility] st Contact Info) Description 10/01/2023 Orders Only [facility] MEDICINE [address] [place], [place] [phone] Cyndi Almaguer MD 230 [place], [place] [phone] Social History Tobacco Use Types Packs/Day Years [...] 11:00 AM EDT Office Visit [facility] [address] [place] [address] documented as of this encounter Visit Diagnoses Not on filedocumented in this encounter Additional Health Concerns Assessment Noted Time PHQ-9 Depression Total Score: 0 09/22/19 24 9:29 AM EDT documented as of this encounter Care Teams Gliding Pilot Instructor Relationship Specialty Start Date End Date Cyndi Almaguer MD 230 [place] [address] PCP - General Family Medicine 09/23/23 Sherry Carranza Regional ManagerCoater Hand 07/28/23 documented as of this encounter
--- OUTSIDE RECORDS SUMMARY | 2024-12-28 18:01 | XMS_ITS | Clinical Summary ---
Author Organization [facility] Address [address] [place] [phone] Phone Care Team Providers Care Blind Installer Name Role Phone Shay Carranza MD Primary Care Provider [phone] Allergies Active Allergy Reactions Criticality Noted Date [...] 1:00 PM EDT Office Visit [facility]opedic Surgery [place] [address] [phone] Rafael Mcnally DPM Tinea unguium (Primary Dx); [...] Upcoming Encounters Date Type Department Care Team ([facility] Contact Info) Description 05/08/2025 1:00 PM EST Office Visit Orthopedic [facility] [address] [phone] Rafael Mcnally DPM [address] [phone] Health Maintenance Due Date Last Done Comments [...] Result * Hepatitis C Screening (08/31/2013) Pathologist [facility] Hepatitis C Screening abstracted us Historical Provider HEALTH MAINTENANCE Final Result * Lipid panel (03/23/2013) Pathologist [facility] LDL/HDL Ratio 2 0 - 4 Triglycerides 54 0 - 150 mg/dL Cholesterol 151 0 - 200 mg/dL HDL 72 >=40 mg/dL LDL Cholesterol 69 0 - 100 mg/dL Blood Venous blood specimen / Unknown us Historical Provider LAB BLOOD ORDERABLES Sayra l Result from Last 3 Months or Most Recently Relevant to Health Maintenance Insurance MEDICAID - [place] Care Teams Blind Installer Relationship Specialty Start Date End Date Shay Carranza MD [address] [place] [phone] PCP - General 06/26/10
--- OUTSIDE RECORDS SUMMARY | 2024-12-28 18:01 | XMS_ITS | Encounter Summary ---
Author Organization [employer] Address [address] [place] [address] 7 [place] [address] Care Team Providers Care Cocoa Roaster Name Role Phone Cyndi Almaguer MD Primary Care Provider [phone] Encounter Details Date Type Department Care Team ([facility] st Contact Info) Description 11/30/2023 Orders Only [facility] MEDICINE 230 [place], [place] [phone] Cyndi Almaguer MD [address] [place], [place] [phone] Anxiety (Primary Dx); Chronic low back pain, [...] 11:00 AM EDT Office Visit [facility] MEDICINE [address] [place] [address] documented as of this encounter Procedures Procedure Name Priority Date/Time Associated Diagnosis Comments DRUG MONITOR, PANEL 1, SCREEN, URINE Routine 12/02/2023 12:00 AM EDT Anxiety Chronic low back pain, unspecified back pain laterality, unspecified whether sciatica present documented in this encounter Results * Drug Monitoring, Panel 1, Screen, Urine (12/02/2023 12:00 AM EDT) Opiate Screen Urine Not Detected Not Detect [facility] Comment:Opiate cut-off is 30 0 ng/mL.Positive results are unconfirmed and should not be used fornon-medical purposes. Barbiturates, Urine Not Detected Not Detect [facility] Comment:Barbiturate cut-off is 200 ng/mL.Positive results are unconfirmed and should not be used fornon-medical purposes. Phencyclidine Screen Urine Not Detected Not Detect [facility] Comment:Phencyclidine cut-of f is 25 ng/mL.Positive results are unconfirmed and should not be used fornon-medical purposes. Amphetamine Screen Urine Not Detected Not Detect [facility] Comment:Amphetamine cut-off is 1000 ng/mL.Positive results are unconfirmed and should not be used fornon-medical purposes. Benzodiazepines Screen Urine Not Detected Not Detect [facility] Comment:Benzodiazepine cut-o ff is 200 ng/mL.Positive results are unconfirmed and should not be used fornon-medical purposes. Cocaine Screen Urine Not Detected Not Detect [facility] Comment:Cocaine cut-off is 3 00 ng/mL.Positive results are unconfirmed and should not be used fornon-medical purposes. Cannabinoid Screen Urine Not Detected Not Detect [facility] Comment:Cannabinoid cut-off is 50 ng/mL.Positive results are unconfirmed and should not be used fornon-medical purposes. Methadone Screen, Urine Not Detected Not Detect ng/mL [facility] Comment:Methadone cut-off is 300 ng/mL.Positive results are unconfirmed and should not be used fornon-medical purposes. FENTANYL URINE Not Detected Not Detect [facility] Comment:Fentanyl cut-off is 1 ng/mL.Positive results are unconfirmed and should not be used fornon-medical purposes. Oxycodone Urine Screen Not Detected Not Detect ng/mL [facility] Comment:Oxycodone cut-off is 100 ng/mL.Positive results are unconfirmed and should not be used fornon-medical purposes. Buprenorphine Screen Not Detected Not Detect ng/mL [facility] Comment:Buprenorphine cut-of f is 5 ng/mL.Positive results are unconfirmed and should not be used fornon-medical purposes. Urine (Urine, Random) 12/02/2023 12/02/2023 Cyndi Almaguer MD LAB URINE ORDERABLES Final Resul t [facility] [address] [place] [address] [phone] documented in this encounter Visit Diagnoses Diagnosis Anxiety- Primary Anxiety state, unspecified Chronic low back pain, unspecified back pain laterality, unspecified whether sciatica present documented in this encounter Additional Health Concerns Assessment Noted Time PHQ-9 Depression Total Score: 0 09/22/19 24 9:29 AM EDT documented as of this encounter Care Teams Cocoa Roaster Relationship Specialty Start Date End Date Cyndi Almaguer MD [address] [place] [address] PCP - General Family Medicine 09/23/23 Sherry Carranza Physician Practice ConsultantCraft Artist 07/28/23 documented as of this encounter
--- OUTSIDE RECORDS SUMMARY | 2024-12-28 18:01 | XMS_ITS | Encounter Summary ---
Author Organization [employer] Address [address] [place] [address] 7[facility] [place] [address] Care Team Providers Care Computer Systems Technician Name Role Phone Cyndi Almaguer MD Primary Care Provider [phone] Reason for Visit * Reason Onset Date Comments Med Refill 01/01/2024 Encounter Details Date Type Department Care Team (Late st Contact Info) Description 01/01/2024 Refill [facility] MEDICINE [address] [place], [place] [phone] Cyndi Almaguer MD 230 [place], [place] [phone] Social History Tobacco Use Types Packs/Day Years [...] Description 12/31/2024 11:00 AM EDT Office Visit [facility] MEDICINE [address] [place] [address] documented as of this encounter Visit Diagnoses Not on filedocumented in this encounter Additional Health Concerns Assessment Noted Time PHQ-9 Depression Total Score: 0 09/22/19 9:29 AM EDT documented as of this encounter Care Teams Computer Systems Technician Relationship Specialty Start Date End Date Cyndi Almaguer MD [address] [place] [address] PCP - General Family Medicine 09/23/23 Sherry Carranza Piece DyerGlass Tube Bender 07/28/23 documented as of this encounter
== END 2024-12-27 10:23 | disposition home or self-care (01) ==
LOC: HO.LNP 10:22
PROVIDERS: PCP Family Medicine; Visit Provider Nurse Practitioner Family
DX: Z13.89 Encounter for screening for other disorder (principal)

== ENCOUNTER 2025-01-31 09:23 | Outpatient (REF) | payer MEDICAID, SELFPAY ==
--- OUTSIDE RECORDS SUMMARY | 2025-01-31 10:42 | XMS_ITS | Encounter Summary ---
Author Organization [employer] Address [address] [place] [address] [place] [address] Care Team Providers Care Fishing Hand Name Role Phone Cyndi Almaguer MD Primary Care Provider [phone] Reason for Visit * Reason Onset Date Comments Med Refill 01/01/2024 Encounter Details Date Type Department Care Team (Late st Contact Info) Description 01/01/2024 Refill [facility] MEDICINE 230 [place], [place] [phone] Cyndi Almaguer MD 230 [place], [place] [phone] Social History Tobacco Use Types Packs/Day Years [...] Care Team (Late st Contact Info) Description 03/05/2025 10:30 AM EST Office Visit [facility] MEDICINE [address] [place] [address] Cyndi Almaguer MD [address] [place] [address] documented as of this encounter Visit Diagnoses Not on filedocumented in this encounter Additional Health Concerns Assessment Noted Time PHQ-9 Depression Total Score: 0 09/22/19 9:29 AM EDT documented as of this encounter Care Teams Fishing Hand Relationship Specialty Start Date End Date Cyndi Almaguer MD [address] [place] [address] PCP - General Family Medicine 09/23/23 Sherry Carranza Loading Unit Operator Powder ChargingPackage Winder 07/28/23 documented as of this encounter
--- OUTSIDE RECORDS SUMMARY | 2025-01-31 10:42 | XMS_ITS | Encounter Summary ---
Author Organization [employer] Address 75 [facility] 7 [place] [address] Care Team Providers Care Flavor Tank Tender Name Role Phone Cyndi Almaguer MD Primary Care Provider [phone] Encounter Details Date Type Department Care Team ([facility] st Contact Info) Description 01/19/2024 Orders Only [facility] MEDICINE 230 [place], [place] [phone] Cyndi Almaguer MD [address] [place], [place] [phone] Social History Tobacco Use Types Packs/Day Years [...] Description 03/05/2025 10:30 AM EST Office Visit [facility] MEDICINE [address] [place] [address] Cyndi Almaguer MD [address] [place] [address] documented as of this encounter Visit Diagnoses Not on filedocumented in this encounter Additional Health Concerns Assessment Noted Time PHQ-9 Depression Total Score: 0 09/22/19 24 9:29 AM EDT documented as of this encounter Care Teams Flavor Tank Tender Relationship Specialty Start Date End Date Cyndi Almaguer MD [address] [place] [address] PCP - General Family Medicine 09/23/23 Sherry Carranza Packing CheckerPc Tech 07/28/23 documented as of this encounter
--- OUTSIDE RECORDS SUMMARY | 2025-01-31 10:42 | XMS_ITS | Encounter Summary ---
Author Organization [employer] [facility] Address [address] [place] [address] 7 [place] [address] Care Team Providers Care Medical Lab Tech Instructor Name Role Phone Cyndi Almaguer MD Primary Care Provider [phone] Encounter Details Date Type Department Care Team (Latest Contact Info) Description 05/16/2018 Abstract [facility] CONVERSIONS Dental, Provider, DDS Social History [...] Description 03/05/2025 10:30 AM EST Office Visit [facility] MEDICINE [address] [place] [address] Cyndi Almaguer MD [address] [place] [address] documented as of this encounter Visit Diagnoses Not on filedocumented in this encounter Care Teams Medical Lab Tech Instructor Relationship Specialty Start Date End Date Cyndi Almaguer MD 230 [place] [address] PCP - General Family Medicine 09/23/23 Sherry Carranza Commercial Collections SpecialistBusiness Planning Manager 07/28/23 documented as of this encounter
--- OUTSIDE RECORDS SUMMARY | 2025-01-31 10:42 | XMS_ITS | Encounter Summary ---
Author Organization [employer] Address 75 [facility] 7 [place] [address] Care Team Providers Care Computer Education Professor Name Role Phone Cyndi Almaguer MD Primary Care Provider [phone] Encounter Details Date Type Department Care Team ([facility] st Contact Info) Description 10/01/2023 Orders Only [facility] MEDICINE 230 [place], [place] [phone] Cyndi Almaguer MD 230 [place], [place] [phone] Social History Tobacco Use Types Packs/Day Years [...] Description 03/05/2025 10:30 AM EST Office Visit [facility] MEDICINE [address] [place] [address] Cyndi Almaguer MD 230 [place] [address] documented as of this encounter Visit Diagnoses Not on filedocumented in this encounter Additional Health Concerns Assessment Noted Time PHQ-9 Depression Total Score: 0 09/22/19 24 9:29 AM EDT documented as of this encounter Care Teams Computer Education Professor Relationship Specialty Start Date End Date Cyndi Almaguer MD [address] [place] [address] PCP - General Family Medicine 09/23/23 Sherry Carranza Tooling InspectorGarnett Fixer 07/28/23 documented as of this encounter
--- OUTSIDE RECORDS SUMMARY | 2025-01-31 10:42 | XMS_ITS | Encounter Summary ---
Author Organization [employer] Address 75 [facility] 7 [place] [address] Care Team Providers Care Car Dumper Operator Name Role Phone Cyndi Almaguer MD Primary Care Provider [phone] Encounter Details Date Type Department Care Team ([facility] st Contact Info) Description 09/26/2024 Orders Only [facility] MEDICINE 230 [place], [place] [phone] Cyndi Almaguer MD 230 [place], [place] [phone] Zinc deficiency (Primary Dx) Social History Tobacco [...] Description 03/05/2025 10:30 AM EST Office Visit [facility] MEDICINE [address] [place] [address] Cyndi Almaguer MD [address] [place] [address] documented as of this encounter Visit Diagnoses Diagnosis Zinc deficiency- Primary Mineral deficiency, not elsewhere classified documented in this encounter Additional Health Concerns Assessment Noted Time PHQ-9 Depression Total Score: 2 01/31/20 9:13 AM EDT documented as of this encounter Care Teams Car Dumper Operator Relationship Specialty Start Date End Date Cyndi Almaguer MD [address] [place] [address] PCP - General Family Medicine 09/23/23 Sherry Carranza A And P TechnicianBlacking Wheel Tender 07/28/23 documented as of this encounter
--- OUTSIDE RECORDS SUMMARY | 2025-01-31 10:42 | XMS_ITS | Encounter Summary ---
Author Organization [employer] Address [address] [place] [address] [place] [address] Care Team Providers Care Mobility Manager Name Role Phone Cyndi Almaguer MD Primary Care Provider [phone] Reason for Referral * Consultation (Routine) - Closed Specialty Diagnoses / Procedures Referred By Svetlana t Referred To Contact Physical Therapy Diagnoses Chronic back pain, unspecified back location, unspecified back pain laterality Cyndi Almaguer MD [address] [place] [address] Phone: tel: fax: [facility] [address] Phone: tel: fax: Referral ID Status Reason Start Date Expiration Date V isits Requested Visits Authorized [id number] Closed Specialty Services Required 09/30/2023 09/28/2024 20 20 * Consultation (Routine) - Closed Specialty Diagnoses / Procedures Referred By Svetlana t Referred To Contact Orthopaedic Surgery Diagnoses Chronic back pain, unspecified back location, unspecified back pain laterality Cyndi Almaguer MD [address] [place] [address] Phone: tel: fax: [facility] [address] [place] [address] Phone: tel: fax: Referral ID Status Reason Start Date Expiration Date V isits Requested Visits Authorized [id number] Closed Specialty Services Required 08/08/2023 08/07/2024 12 12 Encounter Details Date Type Department Care Team (Late Contact Info) Description 09/16/2023 Orders Only [facility] MEDICINE [address] [place] [phone] Cyndi Almaguer MD [address] [place] [address] [phone] Chronic back pain, unspecified back location, unspecified [...] Department Care Team (Late Contact Info) Description 03/05/2025 10:30 AM EST Office Visit [facility] MEDICINE [address] [place] [phone] Cyndi Almaguer MD [address] [place], [place] [phone] Scheduled Referrals Name Type Priority Associated Diagnoses [...] Primary documented in this encounter Care Teams Mobility Manager Relationship Specialty Start Date End Date Cyndi Almaguer MD [address] [place] [phone] PCP - General Family Medicine 09/23/23 Sherry Carranza Shoe PolisherOffice 365 Consultant 07/28/23 documented as of this encounter
--- OUTSIDE RECORDS SUMMARY | 2025-01-31 10:42 | XMS_ITS | Encounter Summary ---
Author Organization [employer] Address [address] [facility] 7t [place] [address] Care Team Providers Care Card Feeder Name Role Phone Cyndi Almaguer MD Primary Care Provider [phone] Encounter Details Date Type Department Care Team ([facility] st Contact Info) Description 02/03/2024 Orders Only [facility] [address] [place], [place] [phone] Cyndi Almaguer MD [address] [place], [place] [phone] Narrow anion gap (Primary Dx); Serum total [...] Description 03/05/2025 10:30 AM EST Office Visit [facility] [address] [place], [place] [phone] Cyndi Almaguer MD [address] [place] [address] documented as of this encounter Procedures Procedure Name Priority Date/Time Associated Diagnosis Comments BASIC METABOLIC PANEL Routine 2024 9:08 AM EST Narrow anion gap HEPATIC FUNCTION PANEL Routine 04/02/2024 12:12 PM EST Serum total bilirubin elevated documented in this encounter Results * Basic Metabolic Panel (2024 9:08 AM EST) Sodium 141 135 - 145 mmol/L [facility] Potassium 4.0 3.3 - 5.1 mmol/L [facility] Chloride 108 96 - 108 mmol/L [facility] Carbon Dioxide 25 22 - 29 mmol/L [facility] Anion Gap 12 12 - 20 [facility] Urea Nitrogen (BUN) 15 9 - 16 mg/dL [facility] Creatinine, Serum 0.78 0.5 - 1.4 mg/dL [facility] Estimated Glomerular Filt Rate >60 [facility] Comment:Chronic Kidney Disea se: Estimated GFR < 60 mL/min/1.37h2Uotovv Kidney Disease: Estimated GFR < 15 mL/min/1.73m2 Glucose 84 60 - 115 mg/dL [facility] Calcium 9.3 8.4 - 10.2 mg/dL [facility] Blood Venous blood specimen / Unknown 2024 9:08 AM EST 2024 9:08 AM EST Cyndi Almaguer MD LAB BLOOD ORDERABLES Final Resul t Performing Organization Address [facility] de Phone Number [facility] [address] [place] [phone] * Hepatic Function Panel (04/02/2024 12:12 PM EST) Bilirubin, Total 0.8 0.0 - 1.0 mg/dL [facility] Bilirubin, Direct 0.2 0.0 - 0.5 mg/dL [facility] Aspartate Amino Transferase 24 5 - 37 U/L [facility] Alanine Aminotransferase 19 0 - 40 U/L [facility] Total Protein 7.6 6.5 - 8.0 g/dL [facility] Albumin Level 4.3 3.5 - 5.0 g/dL [facility] Alkaline Phosphatase 53 39 - 117 U/L [facility] Blood Venous blood specimen / Unknown 04/02/2024 12:12 PM EST 04/02/2024 1:23 PM EST Cyndi Almaguer MD LAB BLOOD ORDERABLES Final Resul t Performing Organization Address [facility] de Phone Number [facility] [address] [place] [phone] documented in this encounter Visit Diagnoses Diagnosis Narrow anion gap- Primary Serum total bilirubin elevated Disorders of bilirubin excretion documented in this encounter Additional Health Concerns Assessment Noted Time PHQ-9 Depression Total Score: 2 01/31/20 24 9:13 AM EDT documented as of this encounter Care Teams Card Feeder Relationship Specialty Start Date End Date Cyndi Almaguer MD [address] [place] [address] PCP - General Family Medicine 09/23/23 Sherry Carranza Space BuyerElectrician Maintenance 07/28/23 documented as of this encounter
--- OUTSIDE RECORDS SUMMARY | 2025-01-31 10:42 | XMS_ITS | Encounter Summary ---
Author Organization [employer] Address [address] [place] [address] 7 [place] [address] Care Team Providers Care Squadron Worker Name Role Phone Cyndi Almaguer MD Primary Care Provider [phone] Encounter Details Date Type Department Care Team ([facility] st Contact Info) Description 11/30/2023 Orders Only [facility] [address] [place], [place] [phone] Cyndi Almaguer MD [address] [place], [place] [phone] Anxiety (Primary Dx); Chronic low back pain, [...] 10:30 AM EST Office Visit [facility] [address] [place] [address] Cyndi Almaguer MD [address] [place] [address] documented as of this encounter Procedures Procedure Name Priority Date/Time Associated Diagnosis Comments DRUG MONITOR, PANEL 1, SCREEN, URINE Routine 12/02/2023 12:00 AM EDT Anxiety Chronic low back pain, unspecified back pain laterality, unspecified whether sciatica present documented in this encounter Results * Drug Monitoring, Panel 1, Screen, Urine (12/02/2023 12:00 AM EDT) Opiate Screen Urine Not Detected Not Detect [facility] Comment:Opiate cut-off is 30 0 ng/mL.Positive results are unconfirmed and should not be used fornon-medical purposes. Barbiturates, Urine Not Detected Not Detect [facility] Comment:Barbiturate cut-off is 200 ng/mL.Positive results are unconfirmed and should not be used fornon-medical purposes. Phencyclidine Screen Urine Not Detected Not Detect [facility] Comment:Phencyclidine cut-of f is 25 ng/mL.Positive results are unconfirmed and should not be used fornon-medical purposes. Amphetamine Screen Urine Not Detected Not Detect [facility] Comment:Amphetamine cut-off is 1000 ng/mL.Positive results are unconfirmed and should not be used fornon-medical purposes. Benzodiazepines Screen Urine Not Detected Not Detect [facility] Comment:Benzodiazepine cut-o ff is 200 ng/mL.Positive results are unconfirmed and should not be used fornon-medical purposes. Cocaine Screen Urine Not Detected Not Detect [facility] Comment:Cocaine cut-off is 3 00 ng/mL.Positive results are unconfirmed and should not be used fornon-medical purposes. Cannabinoid Screen Urine Not Detected Not Detect [facility] Comment:Cannabinoid cut-off is 50 ng/mL.Positive results are unconfirmed and should not be used fornon-medical purposes. Methadone Screen, Urine Not Detected Not Detect ng/mL [facility] Comment:Methadone cut-off is 300 ng/mL.Positive results are unconfirmed and should not be used fornon-medical purposes. FENTANYL URINE Not Detected Not Detect [facility] Comment:Fentanyl cut-off is 1 ng/mL.Positive results are unconfirmed and should not be used fornon-medical purposes. Oxycodone Urine Screen Not Detected Not Detect ng/mL [facility] Comment:Oxycodone cut-off is 100 ng/mL.Positive results are unconfirmed and should not be used fornon-medical purposes. Buprenorphine Screen Not Detected Not Detect ng/mL [facility] Comment:Buprenorphine cut-of f is 5 ng/mL.Positive results are unconfirmed and should not be used fornon-medical purposes. Urine (Urine, Random) 12/02/2023 12/02/2023 Cyndi Almaguer MD LAB URINE ORDERABLES Final Resul t [facility] [address] [place] [phone] documented in this encounter Visit Diagnoses Diagnosis Anxiety- Primary Anxiety state, unspecified Chronic low back pain, unspecified back pain laterality, unspecified whether sciatica present documented in this encounter Additional Health Concerns Assessment Noted Time PHQ-9 Depression Total Score: 0 09/22/19 24 9:29 AM EDT documented as of this encounter Care Teams Squadron Worker Relationship Specialty Start Date End Date Cyndi Almaguer MD [address] [place] [address] PCP - General Family Medicine 09/23/23 Sherry Carranza Oxygen System TesterEngine Testing Supervisor 07/28/23 documented as of this encounter
--- OUTSIDE RECORDS SUMMARY | 2025-01-31 10:42 | XMS_ITS | Encounter Summary ---
Author Organization [employer] Address [address] [place] [address] 7[place] [address] Care Team Providers Care Body And Frame Technician Name Role Phone Cyndi Almaguer MD Primary Care Provider [phone] Reason for Visit * Reason Onset Date Comments Lab Orders 10/26/2023 Encounter Details Date Type Department Care Team ([facility] st Contact Info) Description 10/26/[address] [facility] [address] [place] [address] Cyndi Almaguer MD [address] [place], [place] [phone] Lab Orders Social History Tobacco Use Types [...] Description 03/05/2025 10:30 AM EST Office Visit [facility] [address] [place] [address] Cyndi Almaguer MD [address] [place] [address] documented as of this encounter Visit Diagnoses Not on filedocumented in this encounter Additional Health Concerns Assessment Noted Time PHQ-9 Depression Total Score: 0 09/22/19 9:29 AM EDT documented as of this encounter Care Teams Body And Frame Technician Relationship Specialty Start Date End Date Cyndi Almaguer MD [address] [place] [address] PCP - General Family Medicine 09/23/23 Sherry Carranza Land Leases And Rentals ManagerGrants Specialist 07/28/23 documented as of this encounter
--- OUTSIDE RECORDS SUMMARY | 2025-01-31 10:42 | XMS_ITS | Clinical Summary ---
Author Organization [facility] Address [address] [place] [phone] Phone Care Team Providers Care Stock Lifter Name Role Phone Shay Carranza MD Primary Care Provider Allergies Active Allergy Reactions Criticality Noted Date [...] 1:00 PM EDT Office Visit [facility]opedic [facility] [place] [phone] [phone] Rafael Mcnally DPM Tinea unguium (Primary Dx); Nevus from Last 3 Months Immunizations Immunization Administration Dates Next Due Tdap Tetanus diptheria [...] Upcoming Encounters Date Type Department Care Team ([facility] Contact Info) Description 05/08/2025 1:00 PM EST Office Visit [facility] [address] [phone] Rafael Mcnally DPM [address] [phone] Health Maintenance Due Date Last Done Comments Hepatitis B Vaccines (1 of 3 - 19+ 3-dose series) 2001 HPV Vaccines (1 - 3-dose SCDM series) 2009 Cholesterol Screening (Lipid Panel) 04/14/2024 03/23/2013 Social Influencers of Health Screening 04/14/2024 Depression Screening 04/18/2024 Influenza Vaccine (#1) 2024 , 01/10/2023, 02/10/2022, Additional history exists DTaP,Tdap,and Td Vaccines (3 - Td or Tdap) 01/26/2026 01/27/2016, 03/23/2013 RSV Immunization Adult Patients (1 - 1-dose 75+ series) 2057 MMR Vaccines Aged Out 04/29/2023 No longer [...] Maintenance Results * HIV Screening (08/31/2013) Pathologist [facility] HIV Screening abstracted us Historical Provider HEALTH MAINTENANCE Final Result * Hepatitis C Screening (08/31/2013) Pathologist [facility] Hepatitis C Screening abstracted us Historical Provider [...] Maintenance Insurance MEDICAID - [place] Care Teams Stock Lifter Relationship Specialty Start Date End Date Shay Carranza MD [address] [place] [phone] PCP - General 06/26/10
--- OUTSIDE RECORDS SUMMARY | 2025-01-31 10:42 | XMS_ITS | Encounter Summary ---
Author Organization [employer] Address [address] [place] [address] Care Team Providers Care Hydro Generation Manager Name Role Phone Cyndi Almaguer MD Primary Care Provider [phone] Reason for Referral * Consultation (Routine) - Closed Specialty Diagnoses / Procedures Referred By Contkaylin t Referred To Contact Urology Diagnoses Erectile dysfunction, unspecified erectile dysfunction type Cyndi Almaguer MD [address] [place] [address] Phone: tel: fax: [facility] [address] [place], [place] Phone: tel: fax: Referral ID Status Reason Start Date Expiration Date V isits Requested Visits Authorized [id number] Closed Specialty Services Required 10/10/2023 10/09/2024 6 6 Encounter Details Date Type Department Care Team (Late st Contact Info) Description 10/03/2023 Orders Only [facility] [address] [place], [place] [phone] Cyndi Almaguer MD [address] [place], [place] [phone] Erectile dysfunction, unspecified erectile dysfunction type (Primary [...] Description 03/05/2025 10:30 AM EST Office Visit [facility] [address] [place] [address] Cyndi Almaguer MD [address] [place] [address] documented as of this encounter Procedures Procedure [...] documented as of this encounter Care Teams Hydro Generation Manager Relationship Specialty Start Date End Date Cyndi Almaguer MD [address] [place] [phone] PCP - General Family Medicine 09/23/23 Sherry Carranza Moto Mix OperatorSquilgeer 07/28/23 documented as of this encounter
--- OUTSIDE RECORDS SUMMARY | 2025-01-31 10:42 | XMS_ITS | Encounter Summary ---
Author Organization [employer] Address [address] [place] [address] Care Team Providers Care Business Intelligence Developer Name Role Phone Cyndi Almaguer MD Primary Care Provider [phone] Reason for Referral * Consultation (Urgent) - Closed Specialty Diagnoses / Procedures Referred By Contac t Referred To Contact Dermatology Diagnoses Acne, unspecified acne type Pustular acne Tinea corporis Acne vulgaris Cyndi Almaguer MD [address] [place] [address] Phone: tel: fax: [facility] [address] [place] [address] [address] [place] [address] Phone: tel: fax: Referral ID Status Reason Start Date Expiration Date V isits Requested Visits Authorized [id number] Closed Specialty Services Required 01/08/2025 01/08/2026 1 1 Encounter Details Date Type Department Care Team (Late st Contact Info) Description 01/08/2025 Orders Only [facility] [address] [place] [phone] Cyndi Almaguer MD [address] [place], [place] [phone] Acne, unspecified acne type (Primary Dx); Pustular acne; Tinea corporis; Acne vulgaris Social History Tobacco Use Types Packs/Day Years [...] Description 03/05/2025 10:30 AM EST Office Visit [facility] [address] [place] [address] Cyndi Almaguer MD [address] [place] [address] Scheduled Referrals Name Type Priority Associated Diagnoses Orde r Schedule Referral to Dermatology Outpatient Referral Urgent Acne, unspecified acne type Pustular acne Tinea corporis Acne vulgaris Expected: 01/08/2025 (Approximate), Expires: 01/08/2026 documented as of this encounter Visit Diagnoses Diagnosis Acne, unspecified acne type- Primary Pustular acne Other acne Tinea corporis Dermatophytosis of the body Acne vulgaris Other acne documented in this encounter Additional Health Concerns Assessment Noted Time PHQ-9 Depression Total Score: 2 01/31/20 24 9:13 AM EDT documented as of this encounter Care Teams Business Intelligence Developer Relationship Specialty Start Date End Date Cyndi Almaguer MD [address] [place] [phone] PCP - General Family Medicine 09/23/23 Sherry Carranza MetalsmithAssistant Women'S Rowing Coach 07/28/23 documented as of this encounter
--- OUTSIDE RECORDS SUMMARY | 2025-01-31 10:42 | XMS_ITS | Clinical Summary ---
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 Relationship Specialty Start Date End Date Cyndi Almaguer MD [address] [place] [phone] PCP - General Family Medicine 09/23/23 Sherry Carranza Associate Professor PhysicianHydro Pneumatic Tester 07/28/23
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
--- OUTSIDE RECORDS SUMMARY | 2025-01-31 10:42 | XMS_ITS | Encounter Summary ---
Author Organization [employer] Address [address] [place] [address] Care Team Providers Care Senior Svp Name Role Phone Cyndi Almaguer MD Primary Care Provider [phone] Reason for Referral * Consultation (Routine) - Closed Specialty Diagnoses / Procedures Referred By Svetlana brewster Referred To Contact Orthopaedic Surgery Diagnoses History of lumbosacral spine surgery Chronic low back pain, unspecified back pain laterality, unspecified whether sciatica present Cyndi Almaguer MD [address] [place] [address] Phone: tel: fax: [address] Phone: tel: fax: Referral ID Status Reason Start Date Expiration Date V isits Requested Visits Authorized [id number] Closed Specialty Services Required 12/20/2023 12/19/2024 6 6 Encounter Details Date Type Department Care Team (Late st Contact Info) Description 12/15/2023 Orders Only [facility] [address] [place] [address] Cyndi Almaguer MD [address] [place], [place] [phone] History of lumbosacral spine surgery (Primary Dx); [...] Office Visit [facility] [address] [place] [address] Cyndi Almaguer MD [address] [place] [address] Scheduled Referrals Name Type Priority Associated Diagnoses [...] documented as of this encounter Care Teams Senior Svp Relationship Specialty Start Date End Date Cyndi Almaguer MD [address] [place] [phone] PCP - General Family Medicine 09/23/23 Sherry Carranza Band Saw RunnerRegrader 07/28/23 documented as of this encounter
--- OUTSIDE RECORDS SUMMARY | 2025-01-31 10:43 | XMS_ITS | Encounter Summary ---
Author Organization [employer] Address [address] [place] [address] 7 [place] [address] Care Team Providers Care Screen Printing Press Operator Name Role Phone Cyndi Almaguer MD Primary Care Provider [phone] Reason for Visit * Reason Comments Med Refill Encounter Details Date Type Department Care Team ([facility] st Contact Info) Description 07/29/2024 Refill [facility] [address] [place] [address] Cindy Denney MD [address] [place] [address] Folliculitis Social History Tobacco Use Types Packs/Day [...] Description 03/05/2025 10:30 AM EST Office Visit [facility] [address] [place] [phone] Cyndi Almaguer MD [address] [place] [address] documented as of this encounter Visit Diagnoses Diagnosis Folliculitis Other specified disease of hair and hair follicles documented in this encounter Additional Health Concerns Assessment Noted Time PHQ-9 Depression Total Score: 2 01/31/20 9:13 AM EDT documented as of this encounter Care Teams Screen Printing Press Operator Relationship Specialty Start Date End Date Cyndi Almaguer MD [address] [place] [phone] PCP - General Family Medicine 09/23/23 Sherry Carranza Cyber Intelligence AnalystBean Snapper 07/28/23 documented as of this encounter
[2025-02-07 13:08] LABS: Testosterone, Free 57.0 pg/mL (35.0-155.0)
== END 2025-01-31 09:24 | disposition home or self-care (01) ==
LOC: HO.LAB 09:23
PROVIDERS: PCP Family Medicine; Visit Provider Nurse Practitioner Family
DX: E29.1 Testicular hypofunction (principal)
CPT/HCPCS: 36415; 83002; 84402; 84403

== ENCOUNTER 2025-02-13 13:44 | Outpatient (REF) | payer MEDICAID, SELFPAY ==
--- OUTSIDE RECORDS SUMMARY | 2025-02-11 11:00 | XMS_ITS | Encounter Summary ---
Author Organization [employer] Address [address] [facility] 7 [place] [address] Care Team Providers Care Rhinestone Setter Name Role Phone Cyndi Almaguer MD Primary Care Provider [phone] Encounter Details Date Type Department Care Team (Latest Contact Info) Description 02/11/2025 11:00 AM EDT Office Visit [facility] [address] [place] [address] Nika Rider MD [address] [place], [place] [phone] Postlaminectomy syndrome (Primary Dx) Social History Tobacco [...] - 02/11/2025 11:00 AM EDT Subjective: Jay Spencer is a 44 y.o. male w/ PMH [...] ablation for his low back pain at [facility] Chronic Pain History: Has pain chronically [...] Description 03/05/2025 10:30 AM EST Office Visit [facility] [address] [place] [address] Cyndi Almaguer MD [address] [place] [address] documented as of this encounter Visit Diagnoses Diagnosis Postlaminectomy syndrome- Primary documented in this encounter Additional Health Concerns Assessment Noted Time PHQ-9 Depression Total Score: 2 01/31/20 24 9:13 AM EDT documented as of this encounter Care Teams Rhinestone Setter Relationship Specialty Start Date End Date Cyndi Almaguer MD [address] [place] [address] PCP - General Family Medicine 09/23/23 Sherry Carranza Aircraft Mechanic StructuresBunch Trimmer Mold 07/28/23 documented as of this encounter
[2025-02-13 17:07] LABS: Cannabinoid Screen Urine Not Detected (Not Detect)
--- OUTSIDE RECORDS SUMMARY | 2025-02-13 17:31 | XMS_ITS | Encounter Summary ---
Author Organization [employer] Address [address] [facility] 7 [place] [address] Care Team Providers Care Senior Backup Administrator Name Role Phone Cyndi Almaguer MD Primary Care Provider [phone] Encounter Details Date Type Department Care Team (Latest Contact Info) Description 02/11/2025 Travel Social History Tobacco Use Types Packs/Day [...] Description 03/05/2025 10:30 AM EST Office Visit [facility] MEDICINE [address] [place] [phone] Cyndi Almaguer MD [address] [place] [address] documented as of this encounter Visit Diagnoses Not on filedocumented in this encounter Additional Health Concerns Assessment Noted Time PHQ-9 Depression Total Score: 2 01/31/20 9:13 AM EDT documented as of this encounter Care Teams Senior Backup Administrator Relationship Specialty Start Date End Date Cyndi Almaguer MD [address] [place] [phone] PCP - General Family Medicine 09/23/23 Sherry Carranza Speedometer InspectorAccess Developer 07/28/23 documented as of this encounter
--- OUTSIDE RECORDS SUMMARY | 2025-02-13 17:31 | XMS_ITS | Encounter Summary ---
Author Organization [employer] Address [address] [facility] 7 [place] [address] Care Team Providers Care Glass Furnace Operator Name Role Phone Cyndi Almaguer MD Primary Care Provider [phone] Encounter Details Date Type Department Care Team ([facility] st Contact Info) Description 02/12/2025 Orders Only [facility] MEDICINE [address] [place], [place] [phone] Cyndi Almaguer MD [address] [place], [place] [phone] Chronic pain of both knees (Primary Dx) Social History Tobacco Use Types [...] 10:30 AM EST Office Visit [facility]INE [address] [place] [address] Cyndi Almaguer MD [address] [place] [address] documented as of this encounter Procedures Procedure Name Priority Date/Time Associated Diagnosis Comments DRUG MONITOR, PANEL 1, SCREEN, URINE Routine 02/13/2025 1:48 PM EDT Chronic pain of both knees documented in this encounter Results * Drug Monitoring, Panel 1, Screen, Urine (02/13/2025 1:48 PM EDT) Opiate Screen Urine Not Detected Not Detect [facility] Comment:Opiate cut-off is 30 0 ng/mL.Positive results are unconfirmed and should not be used fornon-medical purposes. Barbiturates, Urine Not Detected Not Detect [facility] Comment:Barbiturate cut-off is 200 ng/mL.Positive results are unconfirmed and should not be used fornon-medical purposes. Phencyclidine Screen Urine Not Detected Not Detect [facility] Comment:Phencyclidine cut-of f is 25 ng/mL.Positive results are unconfirmed and should not be used fornon-medical purposes. Amphetamine Screen Urine Not Detected Not Detect [facility] Comment:Amphetamine cut-off is 1000 ng/mL.Positive results are unconfirmed and should not be used fornon-medical purposes. Benzodiazepines Screen Urine Not Detected Not Detect [facility] Comment:Benzodiazepine cut-o ff is 200 ng/mL.Positive results are unconfirmed and should not be used fornon-medical purposes. Cocaine Screen Urine Not Detected Not Detect [facility] Comment:Cocaine cut-off is 3 00 ng/mL.Positive results are unconfirmed and should not be used fornon-medical purposes. Cannabinoid Screen Urine Not Detected Not Detect [facility] Comment:Cannabinoid cut-off is 50 ng/mL.Positive results are unconfirmed and should not be used fornon-medical purposes. Methadone Screen, Urine Not Detected Not Detect ng/mL [facility] Comment:Methadone cut-off is 300 ng/mL.Positive results are unconfirmed and should not be used fornon-medical purposes. FENTANYL URINE Not Detected Not Detect [facility] Comment:Fentanyl cut-off is 1 ng/mL.Positive results are unconfirmed and should not be used fornon-medical purposes. Oxycodone Urine Screen Not Detected Not Detect ng/mL [facility] Comment:Oxycodone cut-off is 100 ng/mL.Positive results are unconfirmed and should not be used fornon-medical purposes. Buprenorphine Screen Not Detected Not Detect ng/mL [facility] Comment:Buprenorphine cut-of f is 5 ng/mL.Positive results are unconfirmed and should not be used fornon-medical purposes. Urine (Urine, Random) 02/13/2025 1:48 PM EDT 02/13/2025 3:57 PM EDT us Cyndi Almaguer MD LAB URINE ORDERABLES Final Resul t [facility] [address] [place] [phone] [phone] documented in this encounter Visit Diagnoses Diagnosis Chronic pain of both knees- Primary documented in this encounter Additional Health Concerns Assessment Noted Time PHQ-9 Depression Total Score: 2 01/31/20 24 9:13 AM EDT documented as of this encounter Care Teams Glass Furnace Operator Relationship Specialty Start Date End Date Cyndi Almaguer MD [address] [place] [address] PCP - General Family Medicine 09/23/23 Sherry Carranza Acid Strength InspectorManager Global Communications 07/28/23 documented as of this encounter
--- OUTSIDE RECORDS SUMMARY | 2025-02-13 17:31 | XMS_ITS | Encounter Summary ---
Author Organization [employer] Address [address] [place] [address] Care Team Providers Care Casing Finisher And Stuffer Name Role Phone Cyndi Almaguer MD Primary Care Provider [phone] Reason for Referral * Consultation (Routine) - Closed Specialty Diagnoses / Procedures Referred By Contkaylin t Referred To Contact Urology Diagnoses Erectile dysfunction, unspecified erectile dysfunction type Cyndi Almaguer MD [address] [place] [address] Phone: tel: fax: [facility] [address] [place], [place] Phone: tel: fax: Referral ID Status Reason Start Date Expiration Date V isits Requested Visits Authorized [id number] Closed Specialty Services Required 10/10/2023 10/09/2024 6 6 Encounter Details Date Type Department Care Team (Late st Contact Info) Description 10/03/2023 Orders Only [facility] MEDICINE [address] [place], [place] [phone] Cyndi Almaguer MD [address] [place], [place] [phone] Erectile dysfunction, unspecified erectile dysfunction type (Primary [...] Description 03/05/2025 10:30 AM EST Office Visit [facility] MED[facility]INE [address] [place] [address] Cyndi Almaguer MD [address] [place] [address] documented as of this encounter Procedures Procedure [...] documented as of this encounter Care Teams Casing Finisher And Stuffer Relationship Specialty Start Date End Date Cyndi Almaguer MD [address] [place] [phone] PCP - General Family Medicine 09/23/23 Sherry Carranza Telemarketer SupervisorDepartment Head [employer] 07/28/23 documented as of this encounter
--- OUTSIDE RECORDS SUMMARY | 2025-02-13 17:31 | XMS_ITS | Encounter Summary ---
Author Organization [employer] Address [address] [place] [address] [address], [place] [address] Care Team Providers Care Employee Benefits Insurance Agent Name Role Phone Cyndi Almaguer MD Primary Care Provider [phone] Reason for Visit * Reason Onset Date Comments Lab Orders 10/26/2023 Encounter Details Date Type Department Care Team ([facility] st Contact Info) Description 10/26/2023 Telephone [facility] MEDICINE [address] [place] [address] Cyndi Almaguer MD [address] [place], [place] [phone] Lab Orders Social History Tobacco Use Types [...] Description 03/05/2025 10:30 AM EST Office Visit [facility] MED[facility]INE [address] [place] [address] Cyndi Almaguer MD 230 [place] [address] documented as of this encounter Visit Diagnoses Not on filedocumented in this encounter Additional Health Concerns Assessment Noted Time PHQ-9 Depression Total Score: 0 09/22/19 9:29 AM EDT documented as of this encounter Care Teams Employee Benefits Insurance Agent Relationship Specialty Start Date End Date Cyndi Almaguer MD 230 [place] [address] PCP - General Family Medicine 09/23/23 Sherry Carranza Panel Lay Up WorkerClerical Manager 07/28/23 documented as of this encounter
--- OUTSIDE RECORDS SUMMARY | 2025-02-13 17:31 | XMS_ITS | Encounter Summary ---
Author Organization [employer] Address [address] [facility] 7 [place] [address] Care Team Providers Care Oil Tester Name Role Phone Cyndi Almaguer MD Primary Care Provider [phone] Encounter Details Date Type Department Care Team ([facility] st Contact Info) Description 09/26/2024 Orders Only [facility] MEDICINE [address] [place], [place] [phone] Cyndi Almaguer MD [address] [place], [place] [phone] Zinc deficiency (Primary Dx) Social History Tobacco [...] Description 03/05/2025 10:30 AM EST Office Visit [facility] [address] [place] [phone] Cyndi Almaguer MD [address] [place] [address] documented as of this encounter Visit Diagnoses Diagnosis Zinc deficiency- Primary Mineral deficiency, not elsewhere classified documented in this encounter Additional Health Concerns Assessment Noted Time PHQ-9 Depression Total Score: 2 01/31/20 9:13 AM EDT documented as of this encounter Care Teams Oil Tester Relationship Specialty Start Date End Date Cyndi Almaguer MD [address] [place] [address] PCP - General Family Medicine 09/23/23 Sherry Carranza Director Of Instructional TechnologyProducer Assistant 07/28/23 documented as of this encounter
--- OUTSIDE RECORDS SUMMARY | 2025-02-13 17:31 | XMS_ITS | Encounter Summary ---
Author Organization [employer] [facility] Address [address] [place] [address] 7 [place] [address] Care Team Providers Care Wholesale Parts Salesperson Name Role Phone Cyndi Almaguer MD Primary Care Provider [phone] Encounter Details Date Type Department Care Team (Latest Contact Info) Description 05/16/2018 Abstract [facility] CONVERSIONS Dental, Provider, DDS Social History [...] Description 03/05/2025 10:30 AM EST Office Visit [facility] MEDICINE [address] [place] [address] Cyndi Almaguer MD [address] [place] [address] documented as of this encounter Visit Diagnoses Not on filedocumented in this encounter Care Teams Wholesale Parts Salesperson Relationship Specialty Start Date End Date Cyndi Almaguer MD [address] [place] [address] PCP - General Family Medicine 09/23/23 Sherry Carranza Production GraderGraduate Civil Engineer 07/28/23 documented as of this encounter
--- OUTSIDE RECORDS SUMMARY | 2025-02-13 17:31 | XMS_ITS | Encounter Summary ---
Author Organization [employer] Address [address] [facility] 7 [place] [address] Care Team Providers Care Vp Revenue Cycle Name Role Phone Cyndi Almaguer MD Primary Care Provider [phone] Encounter Details Date Type Department Care Team ([facility] st Contact Info) Description 10/26/2023 Orders Only [facility] MEDICINE 230 [place], [place] [phone] Cyndi Almaguer MD [address] [place], [place] [phone] Immunity status testing (Primary Dx); Routine screening [...] Description 03/05/2025 10:30 AM EST Office Visit [facility] MEDICINE [address] [place] [address] Cyndi Almaguer MD [address] [place] [address] documented as of this encounter [...] Blood Count 6.4 4.8 - 10.8 X10*3/uL [facility] Red Blood Count 4.77 4.60 - 5.80 X10*6/uL [facility] Hemoglobin 15.1 14.0 - 18.0 g/dl [facility] Hematocrit 44.3 42.0 - 52.0 % [facility] Mean Corpuscular Volume 92.9 80.0 - 98.0 fL [facility] Mean Corpuscular Hemoglobin 31.7 27.0 - 33.0 pg [facility] Mean Corpuscular HGB Conc 34.1 31.0 - 36.0 g/dl [facility] Red Cell Distribution Width 12.2 11.0 - 16.0 % [facility] Platelet Count 203 160 - 400 X10*3/uL [facility] Mean Platelet Volume 10.8 9.4 - 12.4 fL [facility] Neutrophils Percent Auto 53.9 45 - 73 % [facility] Imm Gran Pct Auto 0.3 0.0 - 0.4 % [facility] Lymphocytes Percent Auto 36.7 20 - 40 % [facility] Monocytes Percent Auto 6.4 2 - 11 % [facility] Eosinophils Percent Auto 2.2 0 - 4 % [facility] Basophils Percent Auto 0.5 0 - 2 % [facility] NRBC Pct Auto 0.0 0.0 - 0.2 /100WBC [facility] Neutrophils Absolute Auto 3.5 2.0 - 8.3 x10*3/uL [facility] Imm Gran Abs Auto 0.02 0.00 - 0.03 X10*3/uL [facility] Lymphocytes Absolute Auto 2.4 1.2 - 4.9 X10*3/uL [facility] Monocytes Absolute Auto 0.4 0.1 - 1.2 X10*3/uL [facility] Eosinophils Absolute Auto 0.1 0.0 - 0.4 X10*3/uL [facility] Basophils Absolute Auto 0.0 0.0 - 0.2 X10*3/uL [facility] NRBC Abs Auto 0.000 0.0 - 0.012 X10*3/uL [facility] Blood Venous blood specimen / Unknown 10/31/2023 2:14 PM EDT 10/31/2023 4:03 PM EDT us Cyndi Almaguer MD LAB BLOOD ORDERABLES Final Resul t [facility] [address] [place], [place] [phone] * (ABNORMAL) Comprehensive Metabolic Panel (10/31/2023 2:14 PM EDT) Sodium 143 135 - 145 mmol/L [facility] Potassium 4.3 3.3 - 5.1 mmol/L [facility] Chloride 109(H) 96 - 108 mmol/L [facility] Carbon Dioxide 24 22 - 29 mmol/L [facility] Anion Gap 14 12 - 20 [facility] Urea Nitrogen (BUN) 11 9 - 16 mg/dL [facility] Creatinine, Serum 0.85 0.5 - 1.4 mg/dL [facility] Estimated Glomerular Filt Rate >60 [facility] Comment:NOTE: For -Am erican individuals, multiply the result by 1.210.Chronic Kidney Disease: Estimated GFR < 60 mL/min/1.84b8Hjjrjo Kidney Disease: Estimated GFR < 15 mL/min/1.73m2 Glucose 94 60 - 115 mg/dL [facility] Calcium 9.9 8.4 - 10.2 mg/dL [facility] Bilirubin, Total 1.3(H) 0.0 - 1.0 mg/dL [facility] Aspartate Amino Transferase 22 5 - 37 U/L [facility] Alanine Aminotransferase 18 0 - 40 U/L [facility] Total Protein 7.5 6.5 - 8.0 g/dL [facility] Albumin Level 4.5 3.5 - 5.0 g/dL [facility] Alkaline Phosphatase 64 39 - 117 U/L [facility] Blood Venous blood specimen / Unknown 10/31/2023 2:14 PM EDT 10/31/2023 4:14 PM EDT us Cyndi Almaguer MD LAB BLOOD ORDERABLES Final Resul t [facility] [address] [place] [phone] * Vitamin D, 25-Hydroxy, Total, Immunoassay (10/31/2023 2:14 PM EDT) Vitamin D 25-OH Total 69.9 >30 ng/mL [facility] Comment:Health Based Referen ce Values*< 20 ng/mL [id number] ng/mL Insufficient> 30 ng/mL Sufficient*Jackie LOMELI. N [...] ORDERABLES Final Resul t Performing Organization Address [facility] Co de Phone Number [facility] [address] [place] [phone] * Hepatitis A Antibody, Total (10/31/2023 2:14 PM EDT) Hepatitis A Antibody IgG REACTIVE Nonreactive [facility] Comment:The presence of IgG anti-HAV implies past HAV infection(recent or distant) or vaccination against HAV. Blood Venous blood specimen / Unknown 10/31/2023 2:14 PM EDT 10/31/2023 4:14 PM EDT Cyndi Almaguer MD LAB BLOOD ORDERABLES Final Resul t Performing Organization Address [facility] Co de Phone Number [facility] [address] [place] [phone] * Hepatitis B surface antigen, EIA (10/31/2023 2:14 PM EDT) Hepatitis B Surface Ag Negative Negative [facility] Blood Venous blood specimen / Unknown 10/31/2023 2:14 PM EDT 10/31/2023 4:14 PM EDT Cyndi Almaguer MD LAB BLOOD ORDERABLES Final Resul t Performing Organization Address [facility] Co de Phone Number [facility] [address] [place] [phone] * HIV-1/2 Antigen and Antibodies, Fourth Generation, with Reflexes (10/31/2023 2:14 PM EDT) HIV AB/AG Nonreactive Nonreactive [facility] Comment:HIV-1 p24 Ag and/or HIV-1/HIV-2 Ab not detected.A test result that is nonreactive does not exclude thepossibility of exposure to or infection with HIV-1 and/orHIV-2. Nonreactive results in this assay for individualswith prior exposure to HIV-1 and/or HIV-2 may be due toantigen and antibody levels that are below the limit ofdetection of this assay.The [employer] HIV Ag/Ab Combo assay result andsupplemental assay results should be interpreted inconjunction with the patient's clinical presentation,history and other laboratory results. If the results areinconsistent with clinical evidence, additional testing issuggested to confirm the result. Blood Venous blood specimen / Unknown 10/31/2023 2:14 PM EDT 10/31/2023 4:14 PM EDT Cyndi Almaguer MD LAB BLOOD ORDERABLES Final Resul t [facility] [address] [place] [phone] * Chlamydia/N. Gonorrhoeae RNA, TMA, Urogenitial (10/31/2023 2:14 PM EDT) [facility] CT PCR NOT DETECTED Not Detect. [facility] Comment:A not detected test result [...] psychologicalconsequences. NG PCR NOT DETECTED Not Detect. [facility] Comment:A not detected test result [...] PM EDT 10/31/2023 4:03 PM EDT Narrative [facility] - 10/31/2023 6:42 PM EDT Urine Cyndi Almaguer MD LAB MICROBIOLOGY - GENERAL ORDER KAROLINA Final Result Performing Organization Address City/[facility]/ZIP Co de Phone Number [facility] [address] [place] [phone] * Hepatitis B Core Antibody, Total (10/31/2023 2:14 PM EDT) Hepatitis B Core Antibody Nonreactive Nonreactive [facility] Blood Venous blood specimen / Unknown 10/31/2023 2:14 PM EDT 10/31/2023 4:14 PM EDT Cyndi Almaguer MD LAB BLOOD ORDERABLES Final Resul t Performing Organization Address City/[facility]/ZIP Co de Phone Number [facility] [address] [place] [phone] * Hepatitis B Surface Antibody, Qualitative (10/31/2023 2:14 PM EDT) ~Hepatitis B Surface Antibody REACTIVE Nonreactive [facility] Comment:REACTIVE: > 11.99 mI U/mL Blood Venous blood specimen / Unknown 10/31/2023 2:14 PM EDT 10/31/2023 4:14 PM EDT Cyndi Almaguer MD LAB BLOOD ORDERABLES Final Resul t Performing Organization Address [facility] Co de Phone Number [facility] [address] [place] [phone] * Hepatitis C Antibody with Reflex to HCV, RNA, Quantitative, Real-Time PCR (10/31/2023 2:14 PM EDT) Hepatitis C Antibody Nonreactive Nonreactive [facility] Comment:Antibodies to HCV no t detected; does not exclude early acuteHCV infection. Blood Venous blood specimen / Unknown 10/31/2023 2:14 PM EDT 10/31/2023 4:14 PM EDT Cyndi Almaguer MD LAB BLOOD ORDERABLES Final Resul t Performing Organization Address [facility] Co de Phone Number [facility] [address] [place] [phone] * Syphilis Screen (10/31/2023 2:14 PM EDT) Syphilis Screen Nonreactive Nonreactive [facility] Blood 10/31/2023 2:14 PM EDT 10/31/2023 4:14 PM EDT Cyndi Almaguer MD LAB BLOOD ORDERABLES Final Resul t Performing Organization Address [facility] Co de Phone Number [facility] [address] [place] [phone] documented in this encounter Visit Diagnoses Diagnosis Immunity status testing- Primary Antibody response examination Routine screening for STI (sexually transmitted infection) Screening examination for venereal disease Vitamin D deficiency Accidental poisoning by drug, initial encounter documented in this encounter Additional Health Concerns Assessment Noted Time PHQ-9 Depression Total Score: 0 09/22/19 9:29 AM EDT documented as of this encounter Care Teams Vp Revenue Cycle Relationship Specialty Start Date End Date Cyndi Almaguer MD [address] [place] [address] PCP - General Family Medicine 09/23/23 Sherry Carranza Salesperson Florist SuppliesCorrespondence Review Clerk 07/28/23 documented as of this encounter
--- OUTSIDE RECORDS SUMMARY | 2025-02-13 17:32 | XMS_ITS | Encounter Summary ---
Author Organization [employer] Address [address] [place] [address] Care Team Providers Care Postpartum Rn Name Role Phone Cyndi Almaguer MD Primary Care Provider [phone] Reason for Referral * Consultation (Routine) - Closed Specialty Diagnoses / Procedures Referred By Svetlana brewster Referred To Contact Orthopaedic Surgery Diagnoses History of lumbosacral spine surgery Chronic low back pain, unspecified back pain laterality, unspecified whether sciatica present Cyndi Almaguer MD [address] [place] [address] Phone: tel: fax: [address] Phone: tel: fax: Referral ID Status Reason Start Date Expiration Date V isits Requested Visits Authorized [id number] Closed Specialty Services Required 12/20/2023 12/19/2024 6 6 Encounter Details Date Type Department Care Team (Late st Contact Info) Description 12/15/2023 Orders Only [facility] MEDICINE [address] [place] [address] Cyndi Almaguer MD [address] [place], [place] [phone] History of lumbosacral spine surgery (Primary Dx); [...] Description 03/05/2025 10:30 AM EST Office Visit [facility] [address] [place] [address] Cyndi Almaguer MD [address] [place] [address] Scheduled Referrals Name Type Priority Associated Diagnoses [...] documented as of this encounter Care Teams Postpartum Rn Relationship Specialty Start Date End Date Cyndi Almaguer MD [address] [place] [phone] PCP - General Family Medicine 09/23/23 Sherry Carranza Inbound Ingredient Logistics SpecialistRn Enterostomal 07/28/23 documented as of this encounter
--- OUTSIDE RECORDS SUMMARY | 2025-02-13 17:32 | XMS_ITS | Encounter Summary ---
Author Organization [employer] Address [address] [place] [address] [place] [address] Care Team Providers Care Material Assistant Name Role Phone Cyndi Almaguer MD Primary Care Provider [phone] Reason for Visit * Reason Onset Date Comments Med Refill 01/01/2024 Encounter Details Date Type Department Care Team (Late st Contact Info) Description 01/01/2024 Refill [facility] MEDICINE [address] [place], [place] [phone] Cyndi Almaguer MD [address] [place], [place] [phone] Social History Tobacco Use Types Packs/Day Years [...] Visit [facility] MEDICINE [address] [place] [address] Cyndi Almaguer MD [address] [place] [address] documented as of this encounter Visit Diagnoses Not on filedocumented in this encounter Additional Health Concerns Assessment Noted Time PHQ-9 Depression Total Score: 0 09/22/19 9:29 AM EDT documented as of this encounter Care Teams Material Assistant Relationship Specialty Start Date End Date Cyndi Almaguer MD [address] [place] [address] PCP - General Family Medicine 09/23/23 Sherry Carranza Utility Tender CardingMeals On Wheels Driver 07/28/23 documented as of this encounter
--- OUTSIDE RECORDS SUMMARY | 2025-02-13 17:32 | XMS_ITS | Clinical Summary ---
Author Organization [facility], Address [address] [place] [address] Phone Care Team Providers Care Dry Cleaner Name Role Phone Cyndi Almaguer MD Primary Care Provider [phone] Allergies Active Allergy Reactions Criticality Noted Date [...] to 49 Years) Completed 09/22/2023 Insurance Medicaid [place] Care Teams Dry Cleaner Relationship Specialty Start Date End Date Cyndi Almaguer MD [address] [place] [phone] PCP - General Family Medicine 10/31/23
--- OUTSIDE RECORDS SUMMARY | 2025-02-13 17:32 | XMS_ITS | Encounter Summary ---
Author Organization [employer] Address [address] [place] [address] 7 [place] [address] Care Team Providers Care Promotional Model Name Role Phone Cyndi Almaguer MD Primary Care Provider [phone] Encounter Details Date Type Department Care Team ([facility] Contact Info) Description 11/30/2023 Orders Only [facility] [address], [place] [phone] Cyndi Almaguer MD [address], [place] [phone] Anxiety (Primary Dx); Chronic low back pain, [...] Description 03/05/2025 10:30 AM EST Office Visit [facility] [address] [place] [address] Cyndi Almaguer MD [address] [place] [address] documented as of this encounter Procedures Procedure Name Priority Date/Time Associated Diagnosis Comments DRUG MONITOR, PANEL 1, SCREEN, URINE Routine 12/02/2023 12:00 AM EDT Anxiety Chronic low back pain, unspecified back pain laterality, unspecified whether sciatica present documented in this encounter Results * Drug Monitoring, Panel 1, Screen, Urine (12/02/2023 12:00 AM EDT) Opiate Screen Urine Not Detected Not Detect [facility] Comment:Opiate cut-off is 30 0 ng/mL.Positive results are unconfirmed and should not be used fornon-medical purposes. Barbiturates, Urine Not Detected Not Detect [facility] Comment:Barbiturate cut-off is 200 ng/mL.Positive results are unconfirmed and should not be used fornon-medical purposes. Phencyclidine Screen Urine Not Detected Not Detect [facility] Comment:Phencyclidine cut-of f is 25 ng/mL.Positive results are unconfirmed and should not be used fornon-medical purposes. Amphetamine Screen Urine Not Detected Not Detect [facility] Comment:Amphetamine cut-off is 1000 ng/mL.Positive results are unconfirmed and should not be used fornon-medical purposes. Benzodiazepines Screen Urine Not Detected Not Detect [facility] Comment:Benzodiazepine cut-o ff is 200 ng/mL.Positive results are unconfirmed and should not be used fornon-medical purposes. Cocaine Screen Urine Not Detected Not Detect [facility] Comment:Cocaine cut-off is 3 00 ng/mL.Positive results are unconfirmed and should not be used fornon-medical purposes. Cannabinoid Screen Urine Not Detected Not Detect [facility] Comment:Cannabinoid cut-off is 50 ng/mL.Positive results are unconfirmed and should not be used fornon-medical purposes. Methadone Screen, Urine Not Detected Not Detect ng/mL [facility] Comment:Methadone cut-off is 300 ng/mL.Positive results are unconfirmed and should not be used fornon-medical purposes. FENTANYL URINE Not Detected Not Detect [facility] Comment:Fentanyl cut-off is 1 ng/mL.Positive results are unconfirmed and should not be used fornon-medical purposes. Oxycodone Urine Screen Not Detected Not Detect ng/mL [facility] Comment:Oxycodone cut-off is 100 ng/mL.Positive results are unconfirmed and should not be used fornon-medical purposes. Buprenorphine Screen Not Detected Not Detect ng/mL [facility] Comment:Buprenorphine cut-of f is 5 ng/mL.Positive results are unconfirmed and should not be used fornon-medical purposes. Urine (Urine, Random) 12/02/2023 12/02/2023 Cyndi Almaguer MD LAB URINE ORDERABLES Final Resul t [facility] [address] [place] [phone] documented in this encounter Visit Diagnoses Diagnosis Anxiety- Primary Anxiety state, unspecified Chronic low back pain, unspecified back pain laterality, unspecified whether sciatica present documented in this encounter Additional Health Concerns Assessment Noted Time PHQ-9 Depression Total Score: 0 09/22/19 24 9:29 AM EDT documented as of this encounter Care Teams Promotional Model Relationship Specialty Start Date End Date Cyndi Almaguer MD [address] [place] [address] PCP - General Family Medicine 09/23/23 Sherry Carranza Physician RecruiterJournal Entry Audit Clerk 07/28/23 documented as of this encounter
--- OUTSIDE RECORDS SUMMARY | 2025-02-13 17:32 | XMS_ITS | Clinical Summary ---
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 (12/04/2024 5:20 PM EDT) Zinc 106 60 - 130 mcg/dL [facility] Comment:This test was develo ped and its analytical performancecharacteristics have been determined by [employer] [place], [place]. It hasnot been cleared or approved by the U.S. Food and DrugAdministration. This assay has been validated pursuantto the CLIA regulations and is used for clinicalpurposes.THIS TEST WAS PERFORMED AT:[id number] [place] [id number] MADDOX MD,PHD Blood Venous blood specimen / Unknown 12/04/2024 5:20 PM EDT 12/04/2024 5:20 PM EDT us Cyndi Almaguer MD LAB BLOOD ORDERABLES Final Resul t [facility] [address] [place] [phone] * (ABNORMAL) Comprehensive Metabolic Panel (12/04/2024 5:20 PM EDT) Sodium 140 135 - 145 mmol/L [facility] Potassium 4.3 3.3 - 5.1 mmol/L [facility] Chloride 106 96 - 108 mmol/L [facility] Carbon Dioxide 26 22 - 29 mmol/L [facility] Anion Gap 12 12 - 20 [facility] Urea Nitrogen (BUN) 11 9 - 16 mg/dL [facility] Creatinine, Serum 0.80 0.5 - 1.4 mg/dL [facility] Estimated Glomerular Filt Rate >60 [facility] Comment:Chronic Kidney Disea se: Estimated GFR < 60 mL/min/1.11i3Fyxvtm Kidney Disease: Estimated GFR < 15 mL/min/1.73m2 Glucose 82 60 - 115 mg/dL [facility] Calcium 9.4 8.4 - 10.2 mg/dL [facility] Bilirubin, Total 1.7(H) 0.0 - 1.0 mg/dL [facility] Comment:Slight Icterus. Aspartate Amino Transferase 41(H) 5 - 37 U/L [facility] Alanine Aminotransferase 34 0 - 40 U/L [facility] Total Protein 7.6 6.5 - 8.0 g/dL [facility] Albumin Level 4.6 3.5 - 5.0 g/dL [facility] Alkaline Phosphatase 74 39 - 117 U/L [facility] Blood Venous blood specimen / Unknown 12/04/2024 5:20 PM EDT 12/04/2024 5:20 PM EDT Cyndi Almaguer MD LAB BLOOD ORDERABLES Final Resul t Performing Organization Address [facility] Co de Phone Number [facility] [address] [place] [address] [phone] * (ABNORMAL) Urinalysis, Complete, with Reflex to Culture (12/04/2024 5:15 PM EDT) Color Urine Yellow [facility] Appearance Urine Clear [facility] PH 5.0 5.0 - 9.0 [facility] Glucose Urine UA Negative Negative mg/dL [facility] Urine Blood Negative Negative [facility] Specific [place] - Urine 1.015 1.005 - 1.025 [facility] Urine Protein Negative Neg-Trace mg/dL [facility] Urine Ketones Negative Negative mg/dL [facility] Nitrite Urine Negative Negative [facility] Leukocyte Esterase Urine Trace(A) Negative [facility] RBC Urine 0-2 0 - 2 /HPF [facility] Urine WBC 0-5 0 - 5 /HPF [facility] Urine Squamous Epithelial Cell 0-2 0 - 2 /HPF [facility] Urine Bacteria None Seen None Seen [facility] Hyaline Casts, Urine 0-2 0 - 2 /LPF [facility] Urine 12/04/2024 5:15 PM EDT 12/04/2024 5:33 PM EDT Narrative [facility] - 12/04/2024 6:20 PM EDT [id number], Clean Catch Cyndi Almaguer MD LAB URINE ORDERABLES Final Resul t Performing Organization Address [facility] Co de Phone Number [facility] [address] [place] [phone] * Hepatitis C Antibody with Reflex to HCV, RNA, Quantitative, Real-Time PCR (09/21/2024 4:38 PM EDT) Hepatitis C Antibody Nonreactive Nonreactive [facility] Comment:Antibodies to HCV no t detected; does not exclude early acuteHCV infection. Blood Venous blood specimen / Unknown 09/21/2024 4:38 PM EDT 09/21/2024 4:38 PM EDT Cyndi Almaguer MD LAB BLOOD ORDERABLES Final Resul t Performing Organization Address City/[facility]/ZIP Co de Phone Number [facility] [address] [place] [phone] * HIV-1/2 Antigen and Antibodies, Fourth Generation, with Reflexes (09/21/2024 4:38 PM EDT) HIV AB/AG Nonreactive Nonreactive [facility] Comment:HIV-1 p24 Ag and/or HIV-1/HIV-2 Ab not detected.A test result that is nonreactive does not exclude thepossibility of exposure to or infection with HIV-1 and/orHIV-2. Nonreactive results in this assay for individualswith prior exposure to HIV-1 and/or HIV-2 may be due toantigen and antibody levels that are below the limit ofdetection of this assay.The [employer] HIV Ag/Ab Combo assay result andsupplemental assay results should be interpreted inconjunction with the patient's clinical presentation,history and other laboratory results. If the results areinconsistent with clinical evidence, additional testing issuggested to confirm the result. Blood Venous blood specimen / Unknown 09/21/2024 4:38 PM EDT 09/21/2024 4:38 PM EDT Cyndi Almaguer MD LAB BLOOD ORDERABLES Final Resul t Performing Organization Address City/[facility]/ZIP Co de Phone Number [facility] [address] [place] [address] [phone] from Last 3 Months or Most Recently Relevant to Health Maintenance Insurance [facility] C3 Care Teams Lining Inserter Relationship Specialty Start Date End Date Cyndi Almaguer MD [address] [place] [address] PCP - General Family Medicine 09/23/23 Sherry Carranza Buildings And Grounds SupervisorRod Buster 07/28/23
--- OUTSIDE RECORDS SUMMARY | 2025-02-13 17:32 | XMS_ITS | Clinical Summary ---
Author Organization [facility] Address [address] [place] [phone] Phone Care Team Providers Care Plant Operator Name Role Phone Shay Carranza MD Primary Care Provider [phone] Allergies Active Allergy Reactions Criticality Noted Date [...] Noted Date Diagnosed Date Depression 04/13/2024 Immunizations Immunization Administration Dates Next Due Tdap [...] Care Team (Late st Contact Info) Description 05/08/2025 1:00 PM EST Office Visit Orthopedic Surgery - [address] [phone] Rafael Mcnally, DPM [address] [place] [phone] Health Maintenance Due Date Last Done Comments [...] (08/31/2013) Pathologist [facility] HIV Screening abstracted [facility] Provider HEALTH MAINTENANCE Final Result * Hepatitis C Screening (08/31/2013) Pathologist [facility] Hepatitis C Screening abstracted [facility] Provider HEALTH MAINTENANCE Final Result * Lipid panel (03/23/2013) Pathologist [facility] LDL/HDL Ratio 2 0 - 4 Triglycerides 54 0 - 150 mg/dL Cholesterol 151 0 - 200 mg/dL HDL 72 >=40 mg/dL LDL Cholesterol 69 0 - 100 mg/dL Blood Venous blood specimen / Unknown [facility] Provider LAB BLOOD ORDERABLES Sayra l Result from Last 3 Months or Most Recently Relevant to Health Maintenance Insurance MEDICAID - [place] Care Teams Plant Operator Relationship Specialty Start Date End Date Shay Carranza MD [address] [place] [phone] PCP - General 06/26/10
--- OUTSIDE RECORDS SUMMARY | 2025-02-13 17:32 | XMS_ITS | Encounter Summary ---
Author Organization [employer] Address [address] [place] [address] [address], [place] [address] Care Team Providers Care Course Developer Name Role Phone Cyndi Almaguer MD Primary Care Provider [phone] Reason for Referral * Consultation (Routine) - Closed Specialty Diagnoses / Procedures Referred By Svetlana brewster Referred To Contact Physical Therapy Diagnoses Chronic back pain, unspecified back location, unspecified back pain laterality Cyndi Almaguer MD [address] [place] [address] Phone: tel: fax: [facility] [address] Phone: tel: fax: Referral ID Status Reason Start Date Expiration Date V isits Requested Visits Authorized [id number] Closed Specialty Services Required 09/30/2023 09/28/2024 20 20 * Consultation (Routine) - Closed Specialty Diagnoses / Procedures Referred By Svetlana t Referred To Contact Orthopaedic Surgery Diagnoses Chronic back pain, unspecified back location, unspecified back pain laterality Cyndi Almaguer MD [address] [place] [address] Phone: tel: fax: [facility] [address] [place] [address] Phone: tel: fax: Referral ID Status Reason Start Date Expiration Date V isits Requested Visits Authorized [id number] Closed Specialty Services Required 08/08/2023 08/07/2024 12 12 Encounter Details Date Type Department Care Team (Late Contact Info) Description 09/16/2023 Orders Only [facility] [address] [place] [phone] Cyndi Almaguer MD [address] [place] [address] [phone] Chronic back pain, unspecified back location, unspecified [...] 03/05/2025 10:30 AM EST Office Visit [facility] [address] [place] [address] [phone] Cyndi Almaguer MD [address] [place], [place] [phone] Scheduled Referrals Name Type Priority Associated Diagnoses [...] Primary documented in this encounter Care Teams Course Developer Relationship Specialty Start Date End Date Cyndi Almaguer MD [address] [place] [phone] PCP - General Family Medicine 09/23/23 Sherry Carranza Idea ManCash Controller 07/28/23 documented as of this encounter
--- OUTSIDE RECORDS SUMMARY | 2025-02-13 17:32 | XMS_ITS | Encounter Summary ---
Author Organization [employer] Address [address] [facility] 7 [place] [address] Care Team Providers Care Hand Umbrella Tipper Name Role Phone Cyndi Almaguer MD Primary Care Provider [phone] Encounter Details Date Type Department Care Team ([facility] st Contact Info) Description 01/19/2024 Orders Only [facility] [address] [place], [place] [phone] Cyndi Almaguer MD [address] [place], [place] [phone] Social History Tobacco Use Types Packs/Day Years [...] Description 03/05/2025 10:30 AM EST Office Visit [facility] [address] [place] [address] Cyndi Almaguer MD [address] [place] [address] documented as of this encounter Visit Diagnoses Not on filedocumented in this encounter Additional Health Concerns Assessment Noted Time PHQ-9 Depression Total Score: 0 09/22/19 24 9:29 AM EDT documented as of this encounter Care Teams Hand Umbrella Tipper Relationship Specialty Start Date End Date Cyndi Almaguer MD [address] [place] [address] PCP - General Family Medicine 09/23/23 Sherry Carranza Beer CoolerStudent Services Counselor 07/28/23 documented as of this encounter
--- OUTSIDE RECORDS SUMMARY | 2025-02-13 17:32 | XMS_ITS | Encounter Summary ---
Author Organization [employer] Address [address] [place] [phone] Care Team Providers Care Agricultural Commodities Inspector Name Role Phone Cyndi Almaguer MD Primary Care Provider [phone] Reason for Referral * Consultation (Urgent) - Closed Specialty Diagnoses / Procedures Referred By Contac t Referred To Contact Dermatology Diagnoses Acne, unspecified acne type Pustular acne Tinea corporis Acne vulgaris Cyndi Almaguer MD [address] [place] [address] Phone: tel: fax: [facility] [address] [place] [phone] Phone: tel: fax: Referral ID Status Reason Start Date Expiration Date V isits Requested Visits Authorized [id number] Closed Specialty Services Required 01/08/2025 01/08/2026 1 1 Encounter Details Date Type Department Care Team ([facility] st Contact Info) Description 01/08/2025 Orders Only [facility] [address] [place] [phone] Cyndi Almaguer MD [address] [place] [address] [phone] Acne, unspecified acne type (Primary Dx); Pustular [...] Description 03/05/2025 10:30 AM EST Office Visit [facility] [address] [place] [address] Cyndi Almaguer MD [address] [place] [address] documented as of this encounter Procedures Procedure Name Priority Date/Time Associated Diagnosis Comments AMB REFERRAL TO DERMATOLOGY Urgent 02/12/2025 Acne, unspecified acne type Pustular acne Tinea corporis Acne vulgaris documented in this encounter Results * Referral to Dermatology (02/12/2025) Cyndi Almaguer MD OUTPATIENT REFERRAL ORDERABLES F inal Result documented in this encounter Visit Diagnoses Diagnosis Acne, unspecified acne type- Primary Pustular acne Other acne Tinea corporis Dermatophytosis of the body Acne vulgaris Other acne documented in this encounter Additional Health Concerns Assessment Noted Time PHQ-9 Depression Total Score: 2 01/31/20 24 9:13 AM EDT documented as of this encounter Care Teams Agricultural Commodities Inspector Relationship Specialty Start Date End Date Cyndi Almaguer MD [address] [place] [phone] PCP - General Family Medicine 09/23/23 Sherry Carranza Metal Bed AssemblerTutor 07/28/23 documented as of this encounter
--- OUTSIDE RECORDS SUMMARY | 2025-02-13 17:32 | XMS_ITS | Encounter Summary ---
Author Organization [employer] Address [address] [facility] 7 [place] [address] Care Team Providers Care Clinical Marketing Manager Name Role Phone Cyndi Almaguer MD Primary Care Provider [phone] Encounter Details Date Type Department Care Team ([facility] st Contact Info) Description 10/01/2023 Orders Only [facility] [address] [place], [place] [phone] Cyndi Almaguer MD [address] [place], [place] [phone] Social History Tobacco Use Types Packs/Day Years [...] Description 03/05/2025 10:30 AM EST Office Visit [facility] [address] [place] [address] Cyndi Almaguer MD [address] [place] [address] documented as of this encounter Visit Diagnoses Not on filedocumented in this encounter Additional Health Concerns Assessment Noted Time PHQ-9 Depression Total Score: 0 09/22/19 24 9:29 AM EDT documented as of this encounter Care Teams Clinical Marketing Manager Relationship Specialty Start Date End Date Cyndi Almaguer MD [address] [place] [address] PCP - General Family Medicine 09/23/23 Sherry Carranza Motion Picture Equipment MachinistAir Bag Curer 07/28/23 documented as of this encounter
--- OUTSIDE RECORDS SUMMARY | 2025-02-13 17:32 | XMS_ITS | Encounter Summary ---
Author Organization [employer] Address [address] [place] [address] 7 [place] [address] Care Team Providers Care Cook Restaurant Name Role Phone Cyndi Almaguer MD Primary Care Provider [phone] Reason for Visit * Reason Comments Med Refill Encounter Details Date Type Department Care Team ([facility] st Contact Info) Description 07/29/2024 Refill [facility] [address] [place] [address] Cindy Denney MD [address] [place] [address] Folliculitis Social History Tobacco Use Types Packs/Day [...] Office Visit [facility] [address] [place] [phone] Cyndi Almaguer MD [address] [place] [address] documented as of this encounter Visit Diagnoses Diagnosis Folliculitis Other specified disease of hair and hair follicles documented in this encounter Additional Health Concerns Assessment Noted Time PHQ-9 Depression Total Score: 2 01/31/20 9:13 AM EDT documented as of this encounter Care Teams Cook Restaurant Relationship Specialty Start Date End Date Cyndi Almaguer MD [address] [place] [phone] PCP - General Family Medicine 09/23/23 Sherry Carranza Medical Claims ProcessorMica Miner 07/28/23 documented as of this encounter
--- OUTSIDE RECORDS SUMMARY | 2025-02-13 17:32 | XMS_ITS | Encounter Summary ---
Author Organization [email or web address] Address [address] [facility] 7t [place] [address] Care Team Providers Care Regional Trainer Name Role Phone Cyndi Almaguer MD Primary Care Provider [phone] Encounter Details Date Type Department Care Team ([facility] st Contact Info) Description 02/03/2024 Orders Only [facility] [address] [place], [place] [phone] Cyndi Almaguer MD [address] [place], [place] [phone] Narrow anion gap (Primary Dx); Serum total [...] Description 03/05/2025 10:30 AM EST Office Visit [facility] [address] [place], [place] [phone] Cyndi Almaguer MD [address] [place] [address] documented as of this encounter Procedures Procedure Name Priority Date/Time Associated Diagnosis Comments BASIC METABOLIC PANEL Routine 2024 9:08 AM EST Narrow anion gap HEPATIC FUNCTION PANEL Routine 04/02/2024 12:12 PM EST Serum total bilirubin elevated documented in this encounter Results * Basic Metabolic Panel (2024 9:08 AM EST) Sodium 141 135 - 145 mmol/L [facility] Potassium 4.0 3.3 - 5.1 mmol/L [facility] Chloride 108 96 - 108 mmol/L [facility] Carbon Dioxide 25 22 - 29 mmol/L [facility] Anion Gap 12 12 - 20 [facility] Urea Nitrogen (BUN) 15 9 - 16 mg/dL [facility] Creatinine, Serum 0.78 0.5 - 1.4 mg/dL [facility] Estimated Glomerular Filt Rate >60 [facility] Comment:Chronic Kidney Disea se: Estimated GFR < 60 mL/min/1.00f4Pyptnw Kidney Disease: Estimated GFR < 15 mL/min/1.73m2 Glucose 84 60 - 115 mg/dL [facility] Calcium 9.3 8.4 - 10.2 mg/dL [facility] Blood Venous blood specimen / Unknown 2024 9:08 AM EST 2024 9:08 AM EST Cyndi Almaguer MD LAB BLOOD ORDERABLES Final Resul t Performing Organization Address [facility] de Phone Number [facility] [address] [place] [phone] * Hepatic Function Panel (04/02/2024 12:12 PM EST) Bilirubin, Total 0.8 0.0 - 1.0 mg/dL [facility] Bilirubin, Direct 0.2 0.0 - 0.5 mg/dL [facility] Aspartate Amino Transferase 24 5 - 37 U/L [facility] Alanine Aminotransferase 19 0 - 40 U/L [facility] Total Protein 7.6 6.5 - 8.0 g/dL [facility] Albumin Level 4.3 3.5 - 5.0 g/dL [facility] Alkaline Phosphatase 53 39 - 117 U/L [facility] Blood Venous blood specimen / Unknown 04/02/2024 12:12 PM EST 04/02/2024 1:23 PM EST Cyndi Almaguer MD LAB BLOOD ORDERABLES Final Resul t Performing Organization Address [facility] de Phone Number [facility] [address] [place] [phone] documented in this encounter Visit Diagnoses Diagnosis Narrow anion gap- Primary Serum total bilirubin elevated Disorders of bilirubin excretion documented in this encounter Additional Health Concerns Assessment Noted Time PHQ-9 Depression Total Score: 2 01/31/20 24 9:13 AM EDT documented as of this encounter Care Teams Regional Trainer Relationship Specialty Start Date End Date Cyndi Almaguer MD [address] [place] [address] PCP - General Family Medicine 09/23/23 Sherry Carranza Pole RiverBoat Joiner Helper 07/28/23 documented as of this encounter
== END 2025-02-13 13:45 | disposition home or self-care (01) ==
LOC: HO.HHCL 13:44
PROVIDERS: PCP Family Medicine; Visit Provider Family Medicine
DX: G89.29 Other chronic pain (principal); M25.561 Pain in right knee; M25.562 Pain in left knee
CPT/HCPCS: 80307

== ENCOUNTER 2025-02-15 10:24 | Outpatient (REF) | payer MEDICAID, SELFPAY ==
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
[2025-02-15 11:43] LABS: Prostate Specific Antigen 2.11 ng/mL (<0.05-4.0)
--- OUTSIDE RECORDS SUMMARY | 2025-02-15 11:48 | XMS_ITS | Encounter Summary ---
Author Organization [employer] Address [address] [facility] 7 [place] [address] Care Team Providers Care Material Loader Name Role Phone Cyndi Almaguer MD Primary Care Provider [phone] Encounter Details Date Type Department Care Team ([facility] st Contact Info) Description 02/14/2025 Results Follow-Up [facility]INE [address] [place] [address] Cyndi Almaguer MD [address] [place] [address] Drug Monitoring, Panel 1, Screen, Urine Social History Tobacco Use Types Packs/Day Years [...] 10:30 AM EST Office Visit [facility] [address] [place] [address] Cyndi Almaguer MD [address] [place] [address] documented as of this encounter Visit Diagnoses Not on filedocumented in this encounter Additional Health Concerns Assessment Noted Time PHQ-9 Depression Total Score: 2 01/31/20 9:13 AM EDT documented as of this encounter Care Teams Material Loader Relationship Specialty Start Date End Date Cyndi Almaguer MD [address] [place] [address] PCP - General Family Medicine 09/23/23 Sherry Carranza Lead Ramp Service ManSpecial Education Preschool Teacher 07/28/23 documented as of this encounter
--- OUTSIDE RECORDS SUMMARY | 2025-02-15 11:48 | XMS_ITS | Encounter Summary ---
Author Organization [employer] Address [address] [place] [address] 7 [place] [address] Care Team Providers Care Sales And Marketing Associate Name Role Phone Cyndi Almaguer MD Primary Care Provider [phone] Encounter Details Date Type Department Care Team (Late st Contact Info) Description 02/15/2025 Orders Only GENERIC EXTERNAL DATA DEPARTMENT Provider, [...] Description 03/05/2025 10:30 AM EST Office Visit [facility] [address] [place] [address] Cyndi Almaguer MD [address] [place] [address] documented as of this encounter Procedures Procedure Name Priority Date/Time Associated Diagnosis Comments PSA, TOTAL Routine 02/15/2025 10:32 AM EDT documented in this encounter Results * PSA,Total (02/15/2025 10:32 AM EDT) Prostate Specific Antigen 2.11 <0.05 - 4.0 ng/mL [facility] Comment:PSA methodology: Nahed Moore i ChemiluminescentMicroparticle Immunoassay (CMIA) 02/15/2025 10:3 2 AM EDT 02/15/2025 10:32 AM EDT us Generic External Data Provider LAB BLOOD ORDERAB LES Final Result [facility] [address] [place] [address] [phone] documented in this encounter Visit Diagnoses Not on filedocumented in this encounter Additional Health Concerns Assessment Noted Time PHQ-9 Depression Total Score: 2 01/31/20 9:13 AM EDT documented as of this encounter Care Teams Sales And Marketing Associate Relationship Specialty Start Date End Date Cyndi Almaguer MD [address] [place] [address] PCP - General Family Medicine 09/23/23 Sherry Carranza Sql Database DeveloperRabbit Breeder 07/28/23 documented as of this encounter
--- OUTSIDE RECORDS SUMMARY | 2025-02-15 11:48 | XMS_ITS | Encounter Summary ---
Author Organization [employer] Address [address] [place] [address] [place] [address] Care Team Providers Care Plate Cleaner Name Role Phone Cyndi Almaguer MD Primary Care Provider Reason for Visit * Reason Onset Date Comments Med Refill 01/01/2024 Encounter Details Date Type Department Care Team (Late st Contact Info) Description 01/01/2024 Refill [facility] [address] [place], [place] [phone] Cyndi Almaguer MD [address] [place], [place] [phone] Social History Tobacco Use Types Packs/Day Years [...] 10:30 AM EST Office Visit [facility] [address] [place] [address] Cyndi lAmaguer MD [address] [place] [address] documented as of this encounter Visit Diagnoses Not on filedocumented in this encounter Additional Health Concerns Assessment Noted Time PHQ-9 Depression Total Score: 0 09/22/19 9:29 AM EDT documented as of this encounter Care Teams Plate Cleaner Relationship Specialty Start Date End Date Cyndi Almaguer MD [address] [place] [address] PCP - General Family Medicine 09/23/23 Sherry Carranza Turntable OperatorDrosophere Operator 07/28/23 documented as of this encounter
--- OUTSIDE RECORDS SUMMARY | 2025-02-15 11:48 | XMS_ITS | Clinical Summary ---
Author Organization [facility] Address [address] [place] [phone] Phone Care Team Providers Care Safety Engineer Pressure Vessels Name Role Phone Shay Carranza MD Primary Care Provider [phone] Allergies Active Allergy Reactions Criticality Noted Date [...] PM EST Office Visit Orthopedic Surgery - [address] [phone] Rafael Mcnally, DPM [address] [place] [phone] Health Maintenance Due Date Last Done [...] (08/31/2013) Pathologist [facility] HIV Screening abstracted [facility] Provider HEALTH MAINTENANCE Final Result * Hepatitis C Screening (08/31/2013) Pathologist [facility] Hepatitis C Screening abstracted [facility] Provider HEALTH MAINTENANCE Final Result * Lipid panel (03/23/2013) Pathologist [facility] LDL/HDL Ratio 2 0 - 4 Triglycerides 54 0 - 150 mg/dL Cholesterol 151 0 - 200 mg/dL HDL 72 >=40 mg/dL LDL Cholesterol 69 0 - 100 mg/dL Blood Venous blood specimen / Unknown [facility] Provider LAB BLOOD ORDERABLES Sayra l Result from Last 3 Months or Most Recently Relevant to Health Maintenance Insurance MEDICAID - [place] Care Teams Safety Engineer Pressure Vessels Relationship Specialty Start Date End Date Shay Carranza MD [address] [place] [phone] PCP - General 06/26/10
--- OUTSIDE RECORDS SUMMARY | 2025-02-15 11:48 | XMS_ITS | Encounter Summary ---
Author Organization [employer] Address [address] [place] [address] Care Team Providers Care Storm Window Installer Name Role Phone Cyndi Almaguer MD Primary Care Provider [phone] Reason for Referral * Consultation (Routine) - Closed Specialty Diagnoses / Procedures Referred By Contkaylin t Referred To Contact Urology Diagnoses Erectile dysfunction, unspecified erectile dysfunction type Cyndi Almaguer MD [address] [place] [address] Phone: tel: fax: [facility] [address] [place], [place] Phone: tel: fax: Referral ID Status Reason Start Date Expiration Date V isits Requested Visits Authorized [id number] Closed Specialty Services Required 10/10/2023 10/09/2024 6 6 Encounter Details Date Type Department Care Team (Late st Contact Info) Description 10/03/2023 Orders Only [facility] [address] [place], [place] [phone] Cyndi Almaguer MD [address] [place], [place] [phone] Erectile dysfunction, unspecified erectile dysfunction type (Primary [...] Description 03/05/2025 10:30 AM EST Office Visit [facility] [address] [place] [address] Cyndi Almaguer MD [address] [place] [address] documented as of this encounter Procedures Procedure [...] documented as of this encounter Care Teams Storm Window Installer Relationship Specialty Start Date End Date Cyndi Almaguer MD [address] [place] [phone] PCP - General Family Medicine 09/23/23 Sherry Carranza Hot Water Heater InstallerHeader Up 07/28/23 documented as of this encounter
--- OUTSIDE RECORDS SUMMARY | 2025-02-15 11:48 | XMS_ITS | Encounter Summary ---
Author Organization [employer] Address [address] [facility] 7 [place] [address] Care Team Providers Care Welding Teacher Name Role Phone Cyndi Almaguer MD Primary Care Provider [phone] Encounter Details Date Type Department Care Team [...] Description 03/05/2025 10:30 AM EST Office Visit [facility] [address] [place] [phone] Cyndi Almaguer MD [address] [place] [address] documented as of this encounter Visit Diagnoses Not on filedocumented in this encounter Additional Health Concerns Assessment Noted Time PHQ-9 Depression Total Score: 2 01/31/20 9:13 AM EDT documented as of this encounter Care Teams Welding Teacher Relationship Specialty Start Date End Date Cyndi Almaguer MD [address] [place] [phone] PCP - General Family Medicine 09/23/23 Sherry Carranza Employment TrainerGas Line Installer 07/28/23 documented as of this encounter
--- OUTSIDE RECORDS SUMMARY | 2025-02-15 11:48 | XMS_ITS | Clinical Summary ---
Author Organization [facility], Address [address] [place] [address] Phone Care Team Providers Care Administrative Judge Name Role Phone Cyndi Almaguer MD Primary Care Provider [phone] Allergies Active Allergy Reactions Criticality Noted Date [...] to 49 Years) Completed 09/22/[address] [place] Care Teams Administrative Judge Relationship Specialty Start Date End Date Cyndi Almaguer MD [address] [place] [phone] PCP - General Family Medicine 10/31/23
--- OUTSIDE RECORDS SUMMARY | 2025-02-15 11:48 | XMS_ITS | Clinical Summary ---
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 Specific [place] - Urine 1.015 1.005 - 1.025 [facility] Urine Protein Negative Neg-Trace mg/dL [facility] Urine Ketones Negative Negative mg/dL [facility] Nitrite Urine Negative Negative [facility] Leukocyte Esterase Urine Trace(A) Negative [facility] RBC Urine 0-2 0 - 2 /HPF [facility] Urine WBC 0-5 0 - 5 /HPF [facility] Urine Squamous Epithelial Cell 0-2 0 - 2 /HPF [facility] Urine Bacteria None Seen None Seen [facility] Hyaline Casts, Urine 0-2 0 - 2 /LPF [facility] Urine 12/04/2024 5:15 PM EDT 12/04/2024 5:33 PM EDT Narrative [facility] - 12/04/2024 6:20 PM EDT [id number], Clean Catch Cyndi Almaguer MD LAB URINE ORDERABLES Final Resul t Performing Organization Address [facility] Co de Phone Number [facility] [address] [place] [phone] * Hepatitis C Antibody with Reflex to HCV, RNA, Quantitative, Real-Time PCR (09/21/2024 4:38 PM EDT) Hepatitis C Antibody Nonreactive Nonreactive [facility] Comment:Antibodies to HCV no t detected; does not exclude early acuteHCV infection. Blood Venous blood specimen / Unknown 09/21/2024 4:38 PM EDT 09/21/2024 4:38 PM EDT Cyndi Almaguer MD LAB BLOOD ORDERABLES Final Resul t Performing Organization Address [facility] Co de Phone Number [facility] [address] [place] [phone] * HIV-1/2 Antigen and Antibodies, Fourth Generation, with Reflexes (09/21/2024 4:38 PM EDT) HIV AB/AG Nonreactive Nonreactive [facility] Comment:HIV-1 p24 Ag and/or HIV-1/HIV-2 Ab not detected.A test result that is nonreactive does not exclude thepossibility of exposure to or infection with HIV-1 and/orHIV-2. Nonreactive results in this assay for individualswith prior exposure to HIV-1 and/or HIV-2 may be due toantigen and antibody levels that are below the limit ofdetection of this assay.The [employer] HIV Ag/Ab Combo assay result andsupplemental assay results should be interpreted inconjunction with the patient's clinical presentation,history and other laboratory results. If the results areinconsistent with clinical evidence, additional testing issuggested to confirm the result. Blood Venous blood specimen / Unknown 09/21/2024 4:38 PM EDT 09/21/2024 4:38 PM EDT us Cyndi Almaguer MD LAB BLOOD ORDERABLES Final Resul t [facility] [address] [place] [phone] from Last 3 Months or Most Recently Relevant to Health Maintenance Insurance [facility] C3 Care Teams Cold Rolling Machine Setter Relationship Specialty Start Date End Date Cyndi Almaguer MD [address] [place] [address] [place] [address] PCP - General Family Medicine 09/23/23 Sherry Carranza Billiard Table AssemblerExpanding Machine Operator 07/28/23
--- OUTSIDE RECORDS SUMMARY | 2025-02-15 11:48 | XMS_ITS | Encounter Summary ---
Author Organization [employer] Address [address] [place] [address] 7 [place] [address] Care Team Providers Care Quality Tech Name Role Phone Cyndi Almaguer MD Primary Care Provider [phone] Reason for Visit * Reason Comments Med Refill Encounter Details Date Type Department Care Team ([facility] st Contact Info) Description 07/29/2024 Refill [facility] [address] [place] [address] Cindy Denney MD [address] [place] [address] Folliculitis Social History Tobacco Use Types Packs/Day [...] Description 03/05/2025 10:30 AM EST Office Visit [facility] [address] [place] [phone] Cyndi Almaguer MD [address] [place] [address] documented as of this encounter Visit Diagnoses Diagnosis Folliculitis Other specified disease of hair and hair follicles documented in this encounter Additional Health Concerns Assessment Noted Time PHQ-9 Depression Total Score: 2 01/31/20 9:13 AM EDT documented as of this encounter Care Teams Quality Tech Relationship Specialty Start Date End Date Cyndi Almaguer MD [address] [place] [phone] PCP - General Family Medicine 09/23/23 Sherry Carranza Events InternInsurance Writer 07/28/23 documented as of this encounter
--- OUTSIDE RECORDS SUMMARY | 2025-02-15 11:48 | XMS_ITS | Encounter Summary ---
Author Organization [employer] Address [address] [facility] 7 [place] [address] Care Team Providers Care Wetlands Conservation Laborer Name Role Phone Cyndi Almaguer MD Primary Care Provider [phone] Encounter Details Date Type Department Care Team ([facility] st Contact Info) Description 09/26/2024 Orders Only [facility] [address] [place], [place] [phone] Cyndi Almaguer MD [address] [place], [place] [phone] Zinc deficiency (Primary Dx) Social History Tobacco [...] Description 03/05/2025 10:30 AM EST Office Visit [facility] [address] [place] [phone] Cyndi Almaguer MD [address] [place] [address] documented as of this encounter Visit Diagnoses Diagnosis Zinc deficiency- Primary Mineral deficiency, not elsewhere classified documented in this encounter Additional Health Concerns Assessment Noted Time PHQ-9 Depression Total Score: 2 01/31/20 9:13 AM EDT documented as of this encounter Care Teams Wetlands Conservation Laborer Relationship Specialty Start Date End Date Cyndi Almaguer MD [address] [place] [address] PCP - General Family Medicine 09/23/23 Sherry Carranza Lining StitcherDrum Sander Offbearer 07/28/23 documented as of this encounter
--- OUTSIDE RECORDS SUMMARY | 2025-02-15 11:48 | XMS_ITS | Encounter Summary ---
Author Organization [employer] Address [address] [facility] 7 [place] [address] Care Team Providers Care Radio Script Writer Name Role Phone Cyndi Almaguer MD Primary Care Provider [phone] Encounter Details Date Type Department Care Team ([facility] st Contact Info) Description 10/26/2023 Orders Only [facility] [address] [place], [place] [phone] Cyndi Almaguer MD [address] [place], [place] [phone] Immunity status testing (Primary Dx); Routine screening [...] 10:30 AM EST Office Visit [facility] [address] [place] [phone] Cyndi Almaguer MD [address] [place] [address] documented as of this encounter [...] Blood Count 6.4 4.8 - 10.8 X10*3/uL [facility] Red Blood Count 4.77 4.60 - 5.80 X10*6/uL [facility] Hemoglobin 15.1 14.0 - 18.0 g/dl [facility] Hematocrit 44.3 42.0 - 52.0 % [facility] Mean Corpuscular Volume 92.9 80.0 - 98.0 fL [facility] Mean Corpuscular Hemoglobin 31.7 27.0 - 33.0 pg [facility] Mean Corpuscular HGB Conc 34.1 31.0 - 36.0 g/dl [facility] Red Cell Distribution Width 12.2 11.0 - 16.0 % [facility] Platelet Count 203 160 - 400 X10*3/uL [facility] Mean Platelet Volume 10.8 9.4 - 12.4 fL [facility] Neutrophils Percent Auto 53.9 45 - 73 % [facility] Imm Gran Pct Auto 0.3 0.0 - 0.4 % [facility] Lymphocytes Percent Auto 36.7 20 - 40 % [facility] Monocytes Percent Auto 6.4 2 - 11 % [facility] Eosinophils Percent Auto 2.2 0 - 4 % [facility] Basophils Percent Auto 0.5 0 - 2 % [facility] NRBC Pct Auto 0.0 0.0 - 0.2 /100WBC [facility] Neutrophils Absolute Auto 3.5 2.0 - 8.3 x10*3/uL [facility] Imm Gran Abs Auto 0.02 0.00 - 0.03 X10*3/uL [facility] Lymphocytes Absolute Auto 2.4 1.2 - 4.9 X10*3/uL [facility] Monocytes Absolute Auto 0.4 0.1 - 1.2 X10*3/uL [facility] Eosinophils Absolute Auto 0.1 0.0 - 0.4 X10*3/uL [facility] Basophils Absolute Auto 0.0 0.0 - 0.2 X10*3/uL [facility] NRBC Abs Auto 0.000 0.0 - 0.012 X10*3/uL [facility] Blood Venous blood specimen / Unknown 10/31/2023 2:14 PM EDT 10/31/2023 4:03 PM EDT us Cyndi Almaguer MD LAB BLOOD ORDERABLES Final Resul t [facility] [address] [place], [place] [phone] * (ABNORMAL) Comprehensive Metabolic Panel (10/31/2023 2:14 PM EDT) Sodium 143 135 - 145 mmol/L [facility] Potassium 4.3 3.3 - 5.1 mmol/L [facility] Chloride 109(H) 96 - 108 mmol/L [facility] Carbon Dioxide 24 22 - 29 mmol/L [facility] Anion Gap 14 12 - 20 [facility] Urea Nitrogen (BUN) 11 9 - 16 mg/dL [facility] Creatinine, Serum 0.85 0.5 - 1.4 mg/dL [facility] Estimated Glomerular Filt Rate >60 [facility] Comment:NOTE: For -Am erican individuals, multiply the result by 1.210.Chronic Kidney Disease: Estimated GFR < 60 mL/min/1.27k5Uxabvo Kidney Disease: Estimated GFR < 15 mL/min/1.73m2 Glucose 94 60 - 115 mg/dL [facility] Calcium 9.9 8.4 - 10.2 mg/dL [facility] Bilirubin, Total 1.3(H) 0.0 - 1.0 mg/dL [facility] Aspartate Amino Transferase 22 5 - 37 U/L [facility] Alanine Aminotransferase 18 0 - 40 U/L [facility] Total Protein 7.5 6.5 - 8.0 g/dL [facility] Albumin Level 4.5 3.5 - 5.0 g/dL [facility] Alkaline Phosphatase 64 39 - 117 U/L [facility] Blood Venous blood specimen / Unknown 10/31/2023 2:14 PM EDT 10/31/2023 4:14 PM EDT us Cyndi Almaguer MD LAB BLOOD ORDERABLES Final Resul t [facility] [address] [place] [phone] * Vitamin D, 25-Hydroxy, Total, Immunoassay (10/31/2023 2:14 PM EDT) Vitamin D 25-OH Total 69.9 >30 ng/mL [facility] Comment:Health Based Referen ce Values*< 20 ng/mL Gopbwfpwn54-37 ng/mL Insufficient> 30 ng/mL Sufficient*Jackie LOMELI. N [...] Address [facility] Co de Phone Number [facility] [address] [place] [phone] * Hepatitis A Antibody, Total (10/31/2023 2:14 PM EDT) Hepatitis A Antibody IgG REACTIVE Nonreactive [facility] Comment:The presence of IgG anti-HAV implies past HAV infection(recent or distant) or vaccination against HAV. Blood Venous blood specimen / Unknown 10/31/2023 2:14 PM EDT 10/31/2023 4:14 PM EDT Cyndi Almaguer MD LAB BLOOD ORDERABLES Final Resul t Performing Organization Address [facility] Co de Phone Number [facility] [address] [place] [phone] * Hepatitis B surface antigen, EIA (10/31/2023 2:14 PM EDT) Hepatitis B Surface Ag Negative Negative [facility] Blood Venous blood specimen / Unknown 10/31/2023 2:14 PM EDT 10/31/2023 4:14 PM EDT Cyndi Almaguer MD LAB BLOOD ORDERABLES Final Resul t Performing Organization Address [facility] Co de Phone Number [facility] [address] [place] [phone] * HIV-1/2 Antigen and Antibodies, Fourth Generation, with Reflexes (10/31/2023 2:14 PM EDT) HIV AB/AG Nonreactive Nonreactive [facility] Comment:HIV-1 p24 Ag and/or HIV-1/HIV-2 Ab not detected.A test result that is nonreactive does not exclude thepossibility of exposure to or infection with HIV-1 and/orHIV-2. Nonreactive results in this assay for individualswith prior exposure to HIV-1 and/or HIV-2 may be due toantigen and antibody levels that are below the limit ofdetection of this assay.The [employer] HIV Ag/Ab Combo assay result andsupplemental assay results should be interpreted inconjunction with the patient's clinical presentation,history and other laboratory results. If the results areinconsistent with clinical evidence, additional testing issuggested to confirm the result. Blood Venous blood specimen / Unknown 10/31/2023 2:14 PM EDT 10/31/2023 4:14 PM EDT Cyndi Almaguer MD LAB BLOOD ORDERABLES Final Resul t [facility] [address] [place] [phone] * Chlamydia/N. Gonorrhoeae RNA, TMA, Urogenitial (10/31/2023 2:14 PM EDT) [facility] CT PCR NOT DETECTED Not Detect. [facility] Comment:A not detected test result does [...] psychologicalconsequences. NG PCR NOT DETECTED Not Detect. [facility] Comment:A not detected test result does [...] PM EDT 10/31/2023 4:03 PM EDT Narrative [facility] - 10/31/2023 6:42 PM EDT Urine Cyndi Almaguer MD LAB MICROBIOLOGY - GENERAL ORDER KAROLINA Final Result Performing Organization Address City/[facility]/ZIP Co de Phone Number [facility] [address] [place] [phone] * Hepatitis B Core Antibody, Total (10/31/2023 2:14 PM EDT) Hepatitis B Core Antibody Nonreactive Nonreactive [facility] Blood Venous blood specimen / Unknown 10/31/2023 2:14 PM EDT 10/31/2023 4:14 PM EDT Cyndi Almaguer MD LAB BLOOD ORDERABLES Final Resul t Performing Organization Address City/[facility]/ZIP Co de Phone Number [facility] [address] [place] [phone] * Hepatitis B Surface Antibody, Qualitative (10/31/2023 2:14 PM EDT) ~Hepatitis B Surface Antibody REACTIVE Nonreactive [facility] Comment:REACTIVE: > 11.99 mI U/mL Blood Venous blood specimen / Unknown 10/31/2023 2:14 PM EDT 10/31/2023 4:14 PM EDT Cyndi Almaguer MD LAB BLOOD ORDERABLES Final Resul t Performing Organization Address [facility] Co de Phone Number [facility] [address] [place] [phone] * Hepatitis C Antibody with Reflex to HCV, RNA, Quantitative, Real-Time PCR (10/31/2023 2:14 PM EDT) Hepatitis C Antibody Nonreactive Nonreactive [facility] Comment:Antibodies to HCV no t detected; does not exclude early acuteHCV infection. Blood Venous blood specimen / Unknown 10/31/2023 2:14 PM EDT 10/31/2023 4:14 PM EDT Cyndi Almaguer MD LAB BLOOD ORDERABLES Final Resul t Performing Organization Address [facility] Co de Phone Number [facility] [address] [place] [phone] * Syphilis Screen (10/31/2023 2:14 PM EDT) Syphilis Screen Nonreactive Nonreactive [facility] Blood 10/31/2023 2:14 PM EDT 10/31/2023 4:14 PM EDT Cyndi Almaguer MD LAB BLOOD ORDERABLES Final Resul t Performing Organization Address [facility] Co de Phone Number [facility] [address] [place] [phone] documented in this encounter Visit Diagnoses Diagnosis Immunity status testing- Primary Antibody response examination Routine screening for STI (sexually transmitted infection) Screening examination for venereal disease Vitamin D deficiency Accidental poisoning by drug, initial encounter documented in this encounter Additional Health Concerns Assessment Noted Time PHQ-9 Depression Total Score: 0 09/22/19 9:29 AM EDT documented as of this encounter Care Teams Radio Script Writer Relationship Specialty Start Date End Date Cyndi Almaguer MD [address] [place] [address] PCP - General Family Medicine 09/23/[address] Justice 07/28/23 documented as of this encounter
--- OUTSIDE RECORDS SUMMARY | 2025-02-15 11:48 | XMS_ITS | Encounter Summary ---
Author Organization [employer] Address [address] [facility] 7 [place] [address] Care Team Providers Care Seasonal Recruiter Name Role Phone Cyndi Almaguer MD Primary Care Provider [phone] Encounter Details Date Type Department Care Team ([facility] st Contact Info) Description 02/12/2025 Orders Only [facility] [address] [place], [place] [phone] Cyndi Almaguer MD [address] [place], [place] [phone] Chronic pain of both knees (Primary Dx) [...] Description 03/05/2025 10:30 AM EST Office Visit [facility] [address] [place] [address] Cyndi Almaguer MD [address] [place] [address] documented as of this encounter Procedures Procedure Name Priority Date/Time Associated Diagnosis Comments DRUG MONITOR, PANEL 1, SCREEN, URINE Routine 02/13/2025 1:48 PM EDT Chronic pain of both knees documented in this encounter Results * Drug Monitoring, Panel 1, Screen, Urine (02/13/2025 1:48 PM EDT) Opiate Screen Urine Not Detected Not Detect [facility] Comment:Opiate cut-off is 30 0 ng/mL.Positive results are unconfirmed and should not be used fornon-medical purposes. Barbiturates, Urine Not Detected Not Detect [facility] Comment:Barbiturate cut-off is 200 ng/mL.Positive results are unconfirmed and should not be used fornon-medical purposes. Phencyclidine Screen Urine Not Detected Not Detect [facility] Comment:Phencyclidine cut-of f is 25 ng/mL.Positive results are unconfirmed and should not be used fornon-medical purposes. Amphetamine Screen Urine Not Detected Not Detect [facility] Comment:Amphetamine cut-off is 1000 ng/mL.Positive results are unconfirmed and should not be used fornon-medical purposes. Benzodiazepines Screen Urine Not Detected Not Detect [facility] Comment:Benzodiazepine cut-o ff is 200 ng/mL.Positive results are unconfirmed and should not be used fornon-medical purposes. Cocaine Screen Urine Not Detected Not Detect [facility] Comment:Cocaine cut-off is 3 00 ng/mL.Positive results are unconfirmed and should not be used fornon-medical purposes. Cannabinoid Screen Urine Not Detected Not Detect [facility] Comment:Cannabinoid cut-off is 50 ng/mL.Positive results are unconfirmed and should not be used fornon-medical purposes. Methadone Screen, Urine Not Detected Not Detect ng/mL [facility] Comment:Methadone cut-off is 300 ng/mL.Positive results are unconfirmed and should not be used fornon-medical purposes. FENTANYL URINE Not Detected Not Detect [facility] Comment:Fentanyl cut-off is 1 ng/mL.Positive results are unconfirmed and should not be used fornon-medical purposes. Oxycodone Urine Screen Not Detected Not Detect ng/mL [facility] Comment:Oxycodone cut-off is 100 ng/mL.Positive results are unconfirmed and should not be used fornon-medical purposes. Buprenorphine Screen Not Detected Not Detect ng/mL [facility] Comment:Buprenorphine cut-of f is 5 ng/mL.Positive results are unconfirmed and should not be used fornon-medical purposes. Urine (Urine, Random) 02/13/2025 1:48 PM EDT 02/13/2025 3:57 PM EDT us Cyndi Almaguer MD LAB URINE ORDERABLES Final Resul t [facility] [address] [place] [address] [phone] documented in this encounter Visit Diagnoses Diagnosis Chronic pain of both knees- Primary documented in this encounter Additional Health Concerns Assessment Noted Time PHQ-9 Depression Total Score: 2 01/31/20 24 9:13 AM EDT documented as of this encounter Care Teams Seasonal Recruiter Relationship Specialty Start Date End Date Cyndi Almaguer MD [address] [place] [address] PCP - General Family Medicine 09/23/23 Sherry Carranza Director Loss PreventionConstruction Scheduler 07/28/23 documented as of this encounter
--- OUTSIDE RECORDS SUMMARY | 2025-02-15 11:48 | XMS_ITS | Encounter Summary ---
Author Organization [employer] Address [address] [place] [address] [address] [address] Care Team Providers Care Leaf Tinner Name Role Phone Cyndi Almaguer MD Primary Care Provider [phone] Reason for Referral * Consultation (Routine) - Closed Specialty Diagnoses / Procedures Referred By Svetlana brewster Referred To Contact Physical Therapy Diagnoses Chronic back pain, unspecified back location, unspecified back pain laterality Cyndi Almaguer MD [address] [place] [address] Phone: tel: fax: [facility] [address] Phone: tel: fax: Referral ID Status Reason Start Date Expiration Date V isits Requested Visits Authorized [id number] Closed Specialty Services Required 09/30/2023 09/28/2024 20 20 * Consultation (Routine) - Closed Specialty Diagnoses / Procedures Referred By Svetlana t Referred To Contact Orthopaedic Surgery Diagnoses Chronic back pain, unspecified back location, unspecified back pain laterality Cyndi Almaguer MD [address] [place] [address] Phone: tel: fax: [facility] [address] [place] [address] Phone: tel: fax: Referral ID Status Reason Start Date Expiration Date V isits Requested Visits Authorized [id number] Closed Specialty Services Required 08/08/2023 08/07/2024 12 12 Encounter Details Date Type Department Care Team (Late Contact Info) Description 09/16/2023 Orders Only [facility] MEDICINE [address] [place] [phone] Cyndi Almaguer MD [address] [place] [address] [phone] Chronic back pain, unspecified back location, unspecified back pain laterality (Primary Dx) Social History Tobacco Use Types Packs/Day Years Used Date Smoking Tobacco: Never Assessed Housing Stability Answer Date Recorded What is your housing situation today? I have marilynluis martinze 09/15/[address] you li [...] Description 03/05/2025 10:30 AM EST Office Visit [facility] [address] [place] [phone] Cyndi Almaguer MD [address] [place], [place] [phone] Scheduled Referrals Name Type Priority Associated Diagnoses [...] Primary documented in this encounter Care Teams Leaf Tinner Relationship Specialty Start Date End Date Cyndi Almaguer MD [address] [place] [phone] PCP - General Family Medicine 09/23/23 Sherry Carranza Aircraft Structure MechanicBreast Trimmer 07/28/23 documented as of this encounter
--- OUTSIDE RECORDS SUMMARY | 2025-02-15 11:48 | XMS_ITS | Encounter Summary ---
Author Organization [employer] Address [address] [place] [address] Care Team Providers Care Seo Associate Name Role Phone Cyndi Almaguer MD Primary Care Provider [phone] Reason for Referral * Consultation (Urgent) - Closed Specialty Diagnoses / Procedures Referred By Contac t Referred To Contact Dermatology Diagnoses Acne, unspecified acne type Pustular acne Tinea corporis Acne vulgaris Cyndi Almaguer MD [address] [place] [address] Phone: tel: fax: [facility] [address] [place] [phone] Phone: tel: fax: Referral ID Status Reason Start Date Expiration Date V isits Requested Visits Authorized [id number] Closed Specialty Services Required 01/08/2025 01/08/2026 1 1 Encounter Details Date Type Department Care Team ([facility] st Contact Info) Description 01/08/2025 Orders Only [facility] MEDICINE [address] [place] [phone] Cyndi Almaguer MD [address] [place] [address] [phone] Acne, unspecified acne type (Primary Dx); Pustular [...] 10:30 AM EST Office Visit [facility]INE [address] [place] [address] Cyndi Almaguer MD [address] [place] [address] documented as of this encounter [...] documented as of this encounter Care Teams Seo Associate Relationship Specialty Start Date End Date Cyndi Almaguer MD [address] [place] [address] PCP - General Family Medicine 09/23/23 Sherry Carranza Telesales Team LeaderTrack Helper 07/28/23 documented as of this encounter
--- OUTSIDE RECORDS SUMMARY | 2025-02-15 11:48 | XMS_ITS | Encounter Summary ---
Author Organization [facility] Address [address] [place] [address] 7 [place] [address] Care Team Providers Care Parking Attendant Name Role Phone Cyndi Almaguer MD Primary Care Provider [phone] Encounter Details Date Type Department Care Team (Latest Contact Info) Description 05/16/2018 Abstract [facility] Dental, Provider, DDS Social History [...] Description 03/05/2025 10:30 AM EST Office Visit [facility] MEDICINE [address] [place] [address] Cyndi Almaguer MD [address] [place] [address] documented as of this encounter Visit Diagnoses Not on filedocumented in this encounter Care Teams Parking Attendant Relationship Specialty Start Date End Date Cyndi Almaguer MD [address] [place] [address] PCP - General Family Medicine 09/23/23 Sherry Carranza ChannelerPotato Inspector 07/28/23 documented as of this encounter
--- OUTSIDE RECORDS SUMMARY | 2025-02-15 11:48 | XMS_ITS | Encounter Summary ---
Author Organization [employer] Address [address] [place] [address] 7 [place] [address] Care Team Providers Care Spindle Sander Name Role Phone Cyndi Almaguer MD Primary Care Provider [phone] Encounter Details Date Type Department Care Team ([facility] st Contact Info) Description 11/30/2023 Orders Only [facility] MEDICINE [address] [place], [place] [phone] Cyndi Almaguer MD [address] [place], [place] [phone] Anxiety (Primary Dx); Chronic low back pain, [...] 03/05/2025 10:30 AM EST Office Visit [facility] MEDICINE [address] [place] [address] Cyndi Almaguer MD [address] [place] [address] documented as of this encounter Procedures Procedure Name Priority Date/Time Associated Diagnosis Comments DRUG MONITOR, PANEL 1, SCREEN, URINE Routine 12/02/2023 12:00 AM EDT Anxiety Chronic low back pain, unspecified back pain laterality, unspecified whether sciatica present documented in this encounter Results * Drug Monitoring, Panel 1, Screen, Urine (12/02/2023 12:00 AM EDT) Opiate Screen Urine Not Detected Not Detect [facility] Comment:Opiate cut-off is 30 0 ng/mL.Positive results are unconfirmed and should not be used fornon-medical purposes. Barbiturates, Urine Not Detected Not Detect [facility] Comment:Barbiturate cut-off is 200 ng/mL.Positive results are unconfirmed and should not be used fornon-medical purposes. Phencyclidine Screen Urine Not Detected Not Detect [facility] Comment:Phencyclidine cut-of f is 25 ng/mL.Positive results are unconfirmed and should not be used fornon-medical purposes. Amphetamine Screen Urine Not Detected Not Detect [facility] Comment:Amphetamine cut-off is 1000 ng/mL.Positive results are unconfirmed and should not be used fornon-medical purposes. Benzodiazepines Screen Urine Not Detected Not Detect [facility] Comment:Benzodiazepine cut-o ff is 200 ng/mL.Positive results are unconfirmed and should not be used fornon-medical purposes. Cocaine Screen Urine Not Detected Not Detect [facility] Comment:Cocaine cut-off is 3 00 ng/mL.Positive results are unconfirmed and should not be used fornon-medical purposes. Cannabinoid Screen Urine Not Detected Not Detect [facility] Comment:Cannabinoid cut-off is 50 ng/mL.Positive results are unconfirmed and should not be used fornon-medical purposes. Methadone Screen, Urine Not Detected Not Detect ng/mL [facility] Comment:Methadone cut-off is 300 ng/mL.Positive results are unconfirmed and should not be used fornon-medical purposes. FENTANYL URINE Not Detected Not Detect [facility] Comment:Fentanyl cut-off is 1 ng/mL.Positive results are unconfirmed and should not be used fornon-medical purposes. Oxycodone Urine Screen Not Detected Not Detect ng/mL [facility] Comment:Oxycodone cut-off is 100 ng/mL.Positive results are unconfirmed and should not be used fornon-medical purposes. Buprenorphine Screen Not Detected Not Detect ng/mL [facility] Comment:Buprenorphine cut-of f is 5 ng/mL.Positive results are unconfirmed and should not be used fornon-medical purposes. Urine (Urine, Random) 12/02/2023 12/02/2023 Cyndi Almaguer MD LAB URINE ORDERABLES Final Resul t [facility] [address] [place] [address] [phone] documented in this encounter Visit Diagnoses Diagnosis Anxiety- Primary Anxiety state, unspecified Chronic low back pain, unspecified back pain laterality, unspecified whether sciatica present documented in this encounter Additional Health Concerns Assessment Noted Time PHQ-9 Depression Total Score: 0 09/22/19 24 9:29 AM EDT documented as of this encounter Care Teams Spindle Sander Relationship Specialty Start Date End Date Cyndi Almaguer MD [address] [place] [address] PCP - General Family Medicine 09/23/23 Sherry Carranza Second StewardInspection Manager 07/28/23 documented as of this encounter
--- OUTSIDE RECORDS SUMMARY | 2025-02-15 11:48 | XMS_ITS | Encounter Summary ---
Author Organization [employer] Address [address] [facility] 7 [place] [address] Care Team Providers Care Child Development Professor Name Role Phone Cyndi Almaguer MD Primary Care Provider [phone] Encounter Details Date Type Department Care Team ([facility] st Contact Info) Description 10/01/2023 Orders Only [facility] MEDICINE [address] [place], [place] [phone] Cyndi Almaguer MD [address] [place], [place] [phone] Social History Tobacco Use Types Packs/Day Years [...] 03/05/2025 10:30 AM EST Office Visit [facility] MEDICINE [address] [place] [address] Cyndi Almaguer MD [address] [place] [address] documented as of this encounter Visit Diagnoses Not on filedocumented in this encounter Additional Health Concerns Assessment Noted Time PHQ-9 Depression Total Score: 0 09/22/19 24 9:29 AM EDT documented as of this encounter Care Teams Child Development Professor Relationship Specialty Start Date End Date Cyndi Almaguer MD [address] [place] [address] PCP - General Family Medicine 09/23/23 Sherry Carranza Core CarrierPerforator Operator 07/28/23 documented as of this encounter
--- OUTSIDE RECORDS SUMMARY | 2025-02-15 11:48 | XMS_ITS | Encounter Summary ---
Author Organization [employer] Address [address] [place] [address] [address] [address] Care Team Providers Care Automotive Technology Instructor Name Role Phone Cyndi Almaguer MD Primary Care Provider [phone] Reason for Visit * Reason Onset Date Comments Lab Orders 10/26/2023 Encounter Details Date Type Department Care Team ([facility] st Contact Info) Description 10/26/[address] [facility] MEDICINE [address] [place] [address] Cyndi Almaguer MD [address] [place], [place] [phone] Lab Orders Social History Tobacco Use Types [...] 10:30 AM EST Office Visit [facility] MEDICINE [address] [place] [address] Cyndi Almaguer MD [address] [place] [address] documented as of this encounter Visit Diagnoses Not on filedocumented in this encounter Additional Health Concerns Assessment Noted Time PHQ-9 Depression Total Score: 0 09/22/19 9:29 AM EDT documented as of this encounter Care Teams Automotive Technology Instructor Relationship Specialty Start Date End Date Cyndi Almaguer MD [address] [place] [address] PCP - General Family Medicine 09/23/23 Sherry Carranza Aviation Support Equipment RepairerCloud Systems Administrator 07/28/23 documented as of this encounter
--- OUTSIDE RECORDS SUMMARY | 2025-02-15 11:48 | XMS_ITS | Encounter Summary ---
Author Organization [employer] Address [address] [facility] 7 [place] [address] Care Team Providers Care Program Coordinator For Residence Life Name Role Phone Cyndi Almaguer MD Primary Care Provider [phone] Encounter Details Date Type Department Care Team ([facility] st Contact Info) Description 01/19/2024 Orders Only [facility] MEDICINE [address] [place], [place] [phone] Cyndi Almaguer MD [address] [place], [place] [phone] Social History Tobacco Use Types Packs/Day Years [...] Description 03/05/2025 10:30 AM EST Office Visit [facility] MEDICINE [address] [place] [address] Cyndi Almaguer MD [address] [place] [address] documented as of this encounter Visit Diagnoses Not on filedocumented in this encounter Additional Health Concerns Assessment Noted Time PHQ-9 Depression Total Score: 0 09/22/19 24 9:29 AM EDT documented as of this encounter Care Teams Program Coordinator For Residence Life Relationship Specialty Start Date End Date Cyndi Almaguer MD [address] [place] [address] PCP - General Family Medicine 09/23/23 Sherry Carranza Hydraulic Pile Hammer OperatorEducation Trainer 07/28/23 documented as of this encounter
--- OUTSIDE RECORDS SUMMARY | 2025-02-15 11:48 | XMS_ITS | Encounter Summary ---
Author Organization [employer] Address [address] [place] [address] Care Team Providers Care Clinical Athletic Instructor Name Role Phone Cyndi Almaguer MD Primary Care Provider [phone] Reason for Referral * Consultation (Routine) - Closed Specialty Diagnoses / Procedures Referred By Svetlana brewster Referred To Contact Orthopaedic Surgery Diagnoses History of lumbosacral spine surgery Chronic low back pain, unspecified back pain laterality, unspecified whether sciatica present Cyndi Almaguer MD [address] [place] [address] Phone: tel: fax: [address] Phone: tel: fax: Referral ID Status Reason Start Date Expiration Date V isits Requested Visits Authorized [id number] Closed Specialty Services Required 12/20/2023 12/19/2024 6 6 Encounter Details Date Type Department Care Team (Late st Contact Info) Description 12/15/2023 Orders Only [facility] MEDICINE [address] [place] [address] Cyndi Almaguer MD [address] [place], [place] [phone] History of lumbosacral spine surgery (Primary Dx); [...] 03/05/2025 10:30 AM EST Office Visit [facility] MEDICINE [address] [place] [address] Cyndi Almaguer MD [address] [place] [address] Scheduled Referrals Name Type Priority Associated Diagnoses [...] as of this encounter Care Teams Clinical Athletic Instructor Relationship Specialty Start Date End Date Cyndi Almaguer MD [address] [place] [address] PCP - General Family Medicine 09/23/23 Sherry Carranza Outside Sales ProfessionalTourist Camp Attendant 07/28/23 documented as of this encounter
--- OUTSIDE RECORDS SUMMARY | 2025-02-15 11:48 | XMS_ITS | Encounter Summary ---
Author Organization [employer] Address [address] [facility] 7t [place] [address] Care Team Providers Care Health Sciences Dean Name Role Phone Cyndi Almaguer MD Primary Care Provider [phone] Encounter Details Date Type Department Care Team ([facility] st Contact Info) Description 02/03/2024 Orders Only [facility] MEDICINE [address] [place], [place] [phone] Cyndi Almaguer MD [address] [place], [place] [phone] Narrow anion gap (Primary Dx); Serum total [...] Description 03/05/2025 10:30 AM EST Office Visit [facility] MEDICINE [address] [place], [place] [phone] Cyndi Almaguer MD [address] [place] [address] documented as of this encounter Procedures Procedure Name Priority Date/Time Associated Diagnosis Comments BASIC METABOLIC PANEL Routine 2024 9:08 AM EST Narrow anion gap HEPATIC FUNCTION PANEL Routine 04/02/2024 12:12 PM EST Serum total bilirubin elevated documented in this encounter Results * Basic Metabolic Panel (2024 9:08 AM EST) Sodium 141 135 - 145 mmol/L [facility] Potassium 4.0 3.3 - 5.1 mmol/L [facility] Chloride 108 96 - 108 mmol/L [facility] Carbon Dioxide 25 22 - 29 mmol/L [facility] Anion Gap 12 12 - 20 [facility] Urea Nitrogen (BUN) 15 9 - 16 mg/dL [facility] Creatinine, Serum 0.78 0.5 - 1.4 mg/dL [facility] Estimated Glomerular Filt Rate >60 [facility] Comment:Chronic Kidney Disea se: Estimated GFR < 60 mL/min/[id number] Kidney Disease: Estimated GFR < 15 mL/min/1.73m2 Glucose 84 60 - 115 mg/dL [facility] Calcium 9.3 8.4 - 10.2 mg/dL [facility] Blood Venous blood specimen / Unknown 2024 9:08 AM EST 2024 9:08 AM EST Cyndi Almaguer MD LAB BLOOD ORDERABLES Final Resul t Performing Organization Address [facility] de Phone Number [facility] [address] [place] [phone] * Hepatic Function Panel (04/02/2024 12:12 PM EST) Bilirubin, Total 0.8 0.0 - 1.0 mg/dL [facility] Bilirubin, Direct 0.2 0.0 - 0.5 mg/dL [facility] Aspartate Amino Transferase 24 5 - 37 U/L [facility] Alanine Aminotransferase 19 0 - 40 U/L [facility] Total Protein 7.6 6.5 - 8.0 g/dL [facility] Albumin Level 4.3 3.5 - 5.0 g/dL [facility] Alkaline Phosphatase 53 39 - 117 U/L [facility] Blood Venous blood specimen / Unknown 04/02/2024 12:12 PM EST 04/02/2024 1:23 PM EST Cyndi Almaguer MD LAB BLOOD ORDERABLES Final Resul t Performing Organization Address [facility] de Phone Number [facility] [address] [place] [phone] documented in this encounter Visit Diagnoses Diagnosis Narrow anion gap- Primary Serum total bilirubin elevated Disorders of bilirubin excretion documented in this encounter Additional Health Concerns Assessment Noted Time PHQ-9 Depression Total Score: 2 01/31/20 24 9:13 AM EDT documented as of this encounter Care Teams Health Sciences Dean Relationship Specialty Start Date End Date Cyndi Almaguer MD [address] [place] [address] PCP - General Family Medicine 09/23/23 Sherry Carranza Transitional Living SpecialistSpice Blender 07/28/23 documented as of this encounter
== END 2025-02-15 10:25 | disposition home or self-care (01) ==
LOC: HO.LAB 10:24
PROVIDERS: PCP Family Medicine; Visit Provider Nurse Practitioner Family
DX: Z12.5 Encounter for screening for malignant neoplasm of prostate (principal)
CPT/HCPCS: 36415; 84153

== ENCOUNTER 2025-02-18 14:45 | Outpatient (AMB) | payer MEDICAID, SELFPAY ==
--- NOTE | 2025-02-18 15:06 | MHC.OFFVIS ---
Intake Visit Reasons: 6m/PSA/Testo Intake Note: Patient is present for Lab results Urology Med: Tadalafil Antibiotic Allergy:None Blood Thinner: None Allergies No Known Allergies (No Known Allergies*) Allergy (Verified 08/22/24 15:27) Medication List - Last Reconciled 02/18/25 by SU Champion albuterol sulfate 90 mcg/actuation (Ventolin HFA) 2 puffs inhalation Q4H PRN cholecalciferol (vitamin D3) 25 mcg PO DAILY diclofenac sodium 1% 1 g topical PRN fexofenadine 180 mg PO DAILY PRN isotretinoin 40 mg PO DAILY lidocaine 5% patches topical omeprazole 20 mg PO DAILY tadalafil 5 mg PO DAILY 90 days zinc sulfate 25 mg PO DAILY HPI Comments Details: Jay is a 44-year-old male patient of Dr. Almaguer. He has a past medical history of acne, bipolar disorder, depression, asthma, acid reflux, lumbar spinal stenosis, degenerative disc disease, and osteoporosis. He presents to the office today for follow-up of his hypogonadism. Of note, patient underwent stimulation testing with Clomid followed by a short course every other day for 3 months at which time labs levels of testosterone as well as LH however patient did not feel symptoms of erectile dysfunction, and generalized fatigued improved and therefore Clomid has since been discontinued. He does however continue with low-dose Cialis daily. Most recent labs were reviewed with the patient today as noted and trended below: Estradiol: 01/09 18 FSH: 01/09 3.0 LH: 01/09 3.4, 02/08 5.4, 05/12 8.1, 08/09 2.6, 02/09 3.5 Prolactin: 01/09 9.6 Total testosterone: 01/09 288, 02/08 505, 05/12 821, 08/10 364, 02/09 300 Free testosterone: 01/09 53.6, 02/08 137.4, 05/12 162.6, 08/10 67.6 02/09 57.0 SHB01/10 24 PSA:02/09 2.1 He does continue to report decreased energy levels and overall mildly fatigue. He reports he had been feeling better with a new adjustment to his diet as well as going to the gym daily however has been having issues with his ongoing chronic back pain. We did discuss further treatment options of borderline low testosterone levels as well as risks and benefits of these treatment options. All questions were answered. He does continue with low-dose Cialis daily. He does discuss feeling a lot of his medical issues were initiated after taking Abilify. He also feels his previous lumbar surgery with an anterior approach has also affected him with other medical issues. He discusses his longstanding history with his urological issues and following up with [facility] in the past however did not find this helpful. He does feel he has been having intermittent episodes of urinary frequency. He denies urinary urgency, incontinence, nocturia, hematuria, dysuria, foul smelling urine, changes to urinary stream, flank pain, fever, and or chills. He is happy with his current voiding parameters. In office urinalysis results reviewed with the patient today. He otherwise offers no other issues or concerns at this time. [facility] Medical History (Updated 02/18/25 @ 22:08 by Catie Argueta [facility]) Normal esophagogastroduodenoscopy (EGD) Bipolar disorder Acne Depression Asthma Acid reflux Lumbar spinal stenosis Degenerative disc disease, lumbar Osteoporosis Surgical History (Updated 12/26/24 @ 10:26 by Nehemias Lang CCM) Hx of hand surgery H/O Spinal surgery Family History (Updated 12/26/24 @ 10:27 by CHEMA Hadley) Father Colon cancer Social History (Updated 12/26/24 @ 10:27 by CHEMA Hadley) Alcohol intake: never Patient Tobacco Use Status: Former Tobacco user Review of Systems Const All systems reviewed & are unremarkable except as noted in HPI and below Reports as per HPI Eyes Reports no additional complaints ENT Reports no additional complaints Card Reports as per HPI Resp Reports no additional complaints GI Denies abdominal pain and Denies nausea Musc Denies no additional complaints Neuro Reports no additional complaints Physical Exam Const General: cooperative, healthy appearing, comfortable, no acute distress, well developed, alert and awake Nutritional Appearance: thin Orientation/consciousness: patient oriented x3 Limitations: no limitations HEENT Head: Yes normal to inspection, Yes normocephalic and Yes atraumatic Ears: hearing grossly normal bilaterally Eyes General: appearance normal, both eyes and all related structures Neck Neck: Yes normal visual inspection and Yes trachea midline Chest Chest palpation & inspection: normal inspection of the chest Resp Effort & Inspection: normal respiratory effort and able to speak in complete sentences Cardio Rate: regular rate GI Inspection: Yes normal to inspection General: Yes no CVA tenderness Back/Spine/Pelvis Back: no CVA tenderness Skin General skin exam: no rashes or lesions noted Neuro General: patient oriented x3 Extrem General: Yes normal to inspection Psych Appearance: grossly normal and well kempt Mental Status: mental status grossly normal Speech and movement: Normal speech and movement present and Clear speech present Affect: normal affect Attitude: cooperative Thought process: Normal thought process present Thought content: Normal thought content present Insight: Fair insight present (Psych) Judgement: Fair judgement present (Psych) Results AMB Urinalysis, Automated UA Leukoctes 0 Mushtaq/uL Last Edit by Tanika Badillo [facility] on 02/18/25 15:22 UA Nitrite Negative Last Edit by Tanika Badillo [facility] on 02/18/25 15:22 UA Urobilinogen 0.2 mg/dL Last Edit by Tanika Badillo [facility] on 02/18/25 15:22 UA Protein 0 mg/dL Last Edit by Tanika Badillo [facility] on 02/18/25 15:22 UA pH 6.0 Last Edit by Tanika Badillo [facility] on 02/18/25 15:22 UA Blood 0 Arsh/uL Last Edit by Tanika Badillo [facility] on 02/18/25 15:22 UA Specific [place] 1.000 Last Edit by Tanika Badillo [facility] on 02/18/25 15:22 UA Ketone Negative Last Edit by Tanika Badillo [facility] on 02/18/25 15:22 UA Bilirubin 0 mg/dL Last Edit by Tanika Badillo [facility] on 02/18/25 15:22 UA Glucose 0 mg/dL Last Edit by Tanika Badillo [facility] on 02/18/25 15:22 Results Reviewed Results Reviewed: Laboratory Last Values Urine pH (Auto) 6.0 02/18/25 15:21 Specific [place] (Auto) 1.000 02/18/25 15:21 Urine Protein (Auto) 0 mg/dL 02/18/25 15:21 Glucose (UA)(Auto) 0 mg/dL 02/18/25 15:21 Urine Ketones (Auto) Negative 02/18/25 15:21 Urine Blood (Auto) 0 Arsh/uL 02/18/25 15:21 Urine Nitrite (Auto) Negative 02/18/25 15:21 Urine Bilirubin (Auto) 0 mg/dL 02/18/25 15:21 Urine Urobilinogen (Auto) 0.2 mg/dL 02/18/25 15:21 Leukocyte Esterase (Auto) 0 Mushtaq/uL 02/18/25 15:21 Assessment & Plan Assessment & Plan (1) Hypogonadism in male: Code(s): E29.1 - Testicular hypofunction Category: Medical (2) Erectile dysfunction: Code(s): N52.9 - Male erectile dysfunction, unspecified Category: Medical (3) Urinary frequency: Code(s): R35.0 - Frequency of micturition Category: Medical Plan In office urinalysis results reviewed with the patient today; as noted above. Recent testosterone, free testosterone, PSA, and LH results reviewed with the patient today; as noted above. Continue 5 mg of Cialis daily as discussed and prescribed. Will obtain retroperitoneal ultrasound for further assessment evaluation. We did discussed bladder triggers and irritants We did discuss further treatment options of borderline low testosterone as well as risks and benefits of these treatment options. All questions were answered. Will obtain testosterone, free testosterone, and LH in 6 months for further assessment evaluation. Follow-up in 4-6 months with labs, imaging, and PVR to be completed prior; or sooner with any issues, concerns, and or questions. Orders: Orders Prostate Specific Antigen 02/15/25 Z12.5 - Encounter for screening for malignant neoplasm of prostate Prostate Specific Antigen 4 Months E29.1 - Testicular hypofunction Lutenizing Hormone 4 Months E29.1 - Testicular hypofunction US retroperitoneal comp Today R35.0 - Frequency of micturition AMB Urinalysis Automated Today Z13.9 - Encounter for screening, unspecified Testosterone, Free/Total 4 Months E29.1 - Testicular hypofunction Medications: Refilled tadalafil BIN PCN Group [facility] DR33 [id number] 5 mg PO DAILY 90 tabs 3RF 90 days Coding Level of Care Code Est Pt Level 3 (44742) Complex EM visit Add On G2211 Diagnoses Hypogonadism in male E29.1 Erectile dysfunction N52.9 Urinary frequency R35.0
== END 2025-02-18 15:59 | disposition home or self-care (01) ==
LOC: HO.HUSH 14:45
PROVIDERS: PCP Family Medicine; Visit Provider Nurse Practitioner Family
DX: E29.1 Testicular hypofunction (principal); N52.9 Male erectile dysfunction, unspecified; R35.0 Frequency of micturition; Z13.9 Encounter for screening, unspecified
CPT/HCPCS: 99213

== ENCOUNTER → 2025-02-18 14:45 | Outpatient (BNVA) | payer MEDICAID, SELFPAY | PROVIDERS: PCP Family Medicine; Visit Provider Nurse Practitioner Family | DX: E29.1 Testicular hypofunction (principal); N52.9 Male erectile dysfunction, unspecified; R35.0 Frequency of micturition; Z12.5 Encounter for screening for malignant neoplasm of prostate; Z13.9 Encounter for screening, unspecified | CPT/HCPCS: 81003; 99212 ==

== ENCOUNTER 2025-03-06 10:24 | Outpatient (REF) | payer MEDICAID, SELFPAY ==
--- OUTSIDE RECORDS SUMMARY | 2025-03-05 10:30 | XMS_ITS | Encounter Summary ---
Author Organization [employer] Address [address] [place] [address] 7 [place] [address] Care Team Providers Care Power Switchboard Operator Name Role Phone Cyndi Almaguer MD Primary Care Provider [phone] Encounter Details Date Type Department Care Team ([facility] st Contact Info) Description 03/05/2025 10:30 AM EST Office Visit [facility] [address] [place] [address] Cyndi Almaguer MD [address] [place], [place] [phone] Dyslipidemia (Primary Dx); Zinc deficiency; Transaminitis; Therapeutic drug monitoring; Screening for diabetes mellitus Social History Tobacco Use Types Packs/Day Years [...] Answer Date Recorded Patient Health Questionnaire-9 Score 3 03/05/2025 Patient Health Questionnaire-9 Score 3 03/05/2025 Last PHQ-9: Questionnaire Data Not on file 1 05/05/2024 Housing Stability Answer Date Recorded What is [...] got money to buy more: Sometimes True 08/19/ 2025 Within the past 12 months,th e food [...] Answer Date Recorded Patient Health Questionnaire-2 Score 1 03/05/2025 Internet Access Answer Date Recorded Internet Access [...] Sign Reading Time Taken Comments Blood Pressure 104/70 03/05/2025 10:20 AM EST Pulse 73 03/05/2025 10:20 AM EST Temperature 36 C (96.8 F) 03/05/2025 10:20 AM EST Respiratory Rate 15 03/05/2025 10:20 AM EST Oxygen Saturation 98% 03/05/2025 10:20 AM EST Inhaled Oxygen Concentration - - Weight 86 kg (189 lb 9.6 oz) 03/05/2025 10:20 AM EST Height 182.9 cm (6') 03/05/2025 10:20 AM EST Body Mass Index 25.71 03/05/2025 10:20 AM EST documented in this encounter Functional Status * Over the past 2 weeks, how often have you been bothered by any of the following problems? Question Answer Date of Assessment Author Patient Health Questionnaire -2 Score 1 03/05/2025 10:55 AM EST Araceli Aj MA * Little interest or pleasure in doing things Answer Date of Assessment Author Several days 03/05/2025 10:55 AM EST Ester Aj MA * Feeling down, depressed, or hopeless Answer Date of Assessment Author Not at all 03/05/2025 10:55 AM Ester Sarabia [place] * Trouble falling or staying asleep, or sleeping too much Answer Date of Assessment Author Several days 03/05/2025 10:55 AM Ester Sarabia [place] * Feeling tired or having little energy Answer Date of Assessment Author Not at all 03/05/2025 10:55 AM Ester Sarabia MA * Poor appetite or overeating Answer Date of Assessment Author Not at all 03/05/2025 10:55 AM Ester Sarabia MA * Feeling bad about yourself - or that you are a failure or have let yourself or your family down Answer Date of Assessment Author Not at all 03/05/2025 10:55 AM Ester Sarabia MA * Trouble concentrating on things, such as reading the newspaper or watching television Answer Date of Assessment Author Several days 03/05/2025 10:55 AM Ester Sarabia MA * Moving or speaking so slowly that other people could have noticed? Or the opposite - being so fidgety or restless that you have been moving around a lot more than usual. Answer Date of Assessment Author Not at all 03/05/2025 10:55 AM Ester Sarabia MA * Thoughts that you would be better off or hurting yourself in some way Answer Date of Assessment Author Not at all 03/05/2025 10:55 AM Ester Sarabia MA * Patient Health Questionnaire-9 Score Answer Date of Assessment Author 3 03/05/2025 10:55 AM Ester Sarabia MA * Over the last 2 weeks, how often have you been bothered by any of the following problems? Question Answer Date of Assessment Author Feeling nervous, anxious, or on edge 0 03/05/2025 10:55 AM Araceli Sarabia MA Not being able to stop or control worrying 0 03/05/2025 10:55 AM Araceli Sarabia MA Worrying too much about different things 0 03/05/2025 10:55 AM Araceli Sarabia MA Trouble relaxing 3 03/05/2025 10:55 AM Ester Sarabia MA Being so restless that it is hard to sit still 0 03/05/2025 10:55 AM EST Araceli Aj MA Becoming easily annoyed or irritable 3 03/05/2025 10:55 AM Araceli Sarabia MA Feeling afraid as if somethi ng awful might happen 0 03/05/2025 10:55 AM Araceli Sarabia MA AVEL-7 Total Score 6 03/05/2025 10:55 AM Ester Sarabia MA * How difficult have these problems made it for you to do your work, take care of things at home, or get along with other people? Answer Date of Assessment Author Not difficult at all 03/05/2025 10:55 AM EST Ester Champion MA documented as of this encounter Plan of Treatment Upcoming Encounters Date Type Department Care Team (Late st Contact Info) Description 03/18/2025 11:00 AM EST Office Visit [facility] [address] [place] [address] Scheduled Orders Name Type Priority Associated Diagnoses Orde r Schedule Zinc Lab Routine Zinc deficiency Expected: 03/05/2025 (Approximate), Expi res: 03/05/2026 documented as of this encounter Procedures Procedure Name Priority Date/Time Associated Diagnosis Comments LIPID PANEL WITH REFLEX TO DIRECT LDL Routine 03/06/2025 10:39 AM EST Dyslipidemia HEMOGLOBIN A1C Routine 03/06/2025 10:39 AM EST Screening for diabetes mellitus COMPREHENSIVE METABOLIC PANEL Routine 03/06/2025 10:39 AM EST Transaminitis documented in this encounter Results * Hemoglobin A1c (03/06/2025 10:39 AM EST) Hemoglobin A1c 5.3 <6.0 % [facility] Comment:Hemoglobin A1C Refer ence Range Adults: 4.8 - 6.0 % Non diabetic: < 6.0 % Goal: < 7.0 %Additional Action Suggested: > 8.0 %Note: Hemoglobin A1c results are invalid for patients with abnormal amounts of HbF. Blood transfusions may impact the HbA1c concentration in the patient sample. Estimated Average Glucose 105 mg/dL [facility] Comment:eAG = Estimated ave rage glucose which is %A1C expressed asaverage glucose, using the formula of the [id number] Glucose study (ADAG), Diabetes Care, Vol.31,#8,Nov. 2007 Blood Venous blood specimen / Unknown 03/06/2025 10:39 AM EST 03/06/2025 10:39 AM EST us Cyndi Almaguer MD LAB BLOOD ORDERABLES Final Resul t Performing Organization Address [facility] Co de Phone Number [facility] [address] [place] [phone] * (ABNORMAL) Lipid Panel with Reflex to Direct LDL (03/06/2025 10:39 AM EST) Triglycerides 51 <150 mg/dL [facility] Comment:Desirable Triglyceri de: less than 150 mg/dLBorderline High Triglyceride 150-199 mg/dLHigh Triglyceride: 200-499 mg/dLVery High Triglyceride: greater than or equal to 5OO mg/dL Cholesterol 198 <200 mg/dL [facility] Comment:Desirable Cholestero l: less than 200 mg/dLBorderline High Cholesterol: 200-239 mg/dLHigh Cholesterol: greater than 239 mg/dL LDL Cholesterol Calculated 135(H) <100 mg/dL [facility] Comment:Desirable LDL: less than 100 mg/dLNear Optimal/Above Optimal LDL: 110- 129 mg/dLBorderline High LDL: 130-159 mg/dLHigh LDL: 160-189 mg/dLVery High LDL: greater than or equal to 190 mg/dL HDL Cholesterol 53 >40 mg/dL [facility] Comment:Desirable HDL: great er than 40 mg/dL Note: This HDL assay may give artificially low results in patients with liver disease. Blood 03/06/2025 10:3 9 AM EST 03/06/2025 10:39 AM EST us Cyndi Almaguer MD LAB BLOOD ORDERABLES Final Resul t Performing Organization Address [facility]/ZIP Co de Phone Number [facility] [address] [place] [phone] * (ABNORMAL) Comprehensive Metabolic Panel (03/06/2025 10:39 AM EST) Sodium 140 135 - 145 mmol/L [facility] Potassium 4.1 3.3 - 5.1 mmol/L [facility] Chloride 108 96 - 108 mmol/L [facility] Carbon Dioxide 25 22 - 29 mmol/L [facility] Anion Gap 11(L) 12 - 20 [facility] Urea Nitrogen (BUN) 13 9 - 16 mg/dL [facility] Creatinine, Serum 0.74 0.5 - 1.4 mg/dL [facility] Estimated Glomerular Filt Rate >60 [facility] Comment:Chronic Kidney Disea se: Estimated GFR < 60 mL/min/[id number] Kidney Disease: Estimated GFR < 15 mL/min/1.73m2 Glucose 87 60 - 115 mg/dL [facility] Calcium 9.5 8.4 - 10.2 mg/dL [facility] Bilirubin, Total 1.3(H) 0.0 - 1.0 mg/dL [facility] Aspartate Amino Transferase 31 5 - 37 U/L [facility] Alanine Aminotransferase 24 0 - 40 U/L [facility] Total Protein 7.5 6.5 - 8.0 g/dL [facility] Albumin Level 4.6 3.5 - 5.0 g/dL [facility] Alkaline Phosphatase 81 39 - 117 U/L [facility] Blood Venous blood specimen / Unknown 03/06/2025 10:39 AM EST 03/06/2025 10:39 AM EST us Cyndi Almaguer MD LAB BLOOD ORDERABLES Final Resul t [facility] [address] [place] [phone] documented in this encounter Visit Diagnoses Diagnosis Dyslipidemia- Primary Other and unspecified hyperlipidemia Zinc deficiency Mineral deficiency, not elsewhere classified Transaminitis Nonspecific elevation of levels of transaminase or lactic acid dehydrogenase (LDH) Therapeutic drug monitoring Encounter for therapeutic drug monitoring Screening for diabetes mellitus documented in this encounter Additional Health Concerns Assessment Noted Time PHQ-9 Depression Total Score: 3 03/05/20 25 10:55 AM EST documented as of this encounter Care Teams Power Switchboard Operator Relationship Specialty Start Date End Date Cyndi Almaguer MD [address] [place] [address] PCP - General Family Medicine 09/23/23 Sherry Carranza Egg ProcessorCemetery Counselor 07/28/23 documented as of this encounter
[2025-03-06 13:53] LABS: Alanine Aminotransferase 24 U/L (0-40); Albumin Level 4.6 g/dL (3.5-5.0); Alkaline Phosphatase 81 U/L (39-117); Anion Gap 11 (12-20); Aspartate Amino Transferase 31 U/L (5-37); Blood Urea Nitrogen 13 mg/dL (9-16); Calcium 9.5 mg/dL (8.4-10.2); Carbon Dioxide 25 mmol/L (22-29); Chloride 108 mmol/L (96-108); Cholesterol 198 mg/dL (<200); Estimated Glomerular Filt Rate > 60; HDL Cholesterol 53 mg/dL (>40); Potassium 4.1 mmol/L (3.3-5.1); Sodium 140 mmol/L (135-145); Total Protein 7.5 g/dL (6.5-8.0); Triglycerides 51 mg/dL (<150)
[2025-03-06 14:35] LABS: Reflex LDLD? No
--- OUTSIDE RECORDS SUMMARY | 2025-03-06 20:02 | XMS_ITS | Encounter Summary ---
Author Organization [employer] Address [address] [facility] 7 [place] [address] Care Team Providers Care Etl Architect Name Role Phone Cyndi Almaguer MD Primary Care Provider [phone] Encounter Details Date Type Department Care Team ([facility] st Contact Info) Description 09/26/2024 Orders Only [facility] [address] [place], [place] [phone] Cyndi Almaguer MD [address] [place], [place] [phone] Zinc deficiency (Primary Dx) Social History Tobacco [...] Description 03/18/2025 11:00 AM EST Office Visit [facility] [address] [place] [address] documented as of this encounter Visit Diagnoses Diagnosis Zinc deficiency- Primary Mineral deficiency, not elsewhere classified documented in this encounter Additional Health Concerns Assessment Noted Time PHQ-9 Depression Total Score: 2 01/31/20 9:13 AM EDT documented as of this encounter Care Teams Etl Architect Relationship Specialty Start Date End Date Cyndi Almaguer MD [address] [place] [address] PCP - General Family Medicine 09/23/23 Sherry Carranza Implementation ManagerReal Time Analyst 07/28/23 documented as of this encounter
--- OUTSIDE RECORDS SUMMARY | 2025-03-06 20:02 | XMS_ITS | Encounter Summary ---
Author Organization [employer] Address [address] [place] [address] [address] [place] [address] Care Team Providers Care Director Peoplesoft Name Role Phone Cyndi Almaguer MD Primary Care Provider [phone] Reason for Visit * Reason Onset Date Comments Med Refill 01/01/2024 Encounter Details Date Type Department Care Team (Late st Contact Info) Description 01/01/2024 Refill [facility] [address] [place], [place] [phone] Cyndi Almaguer MD [address] [place], [place] [phone] Social History Tobacco Use Types Packs/Day Years [...] Description 03/18/2025 11:00 AM EST Office Visit [facility] [address] [place] [address] documented as of this encounter Visit Diagnoses Not on filedocumented in this encounter Additional Health Concerns Assessment Noted Time PHQ-9 Depression Total Score: 0 09/22/19 9:29 AM EDT documented as of this encounter Care Teams Director Peoplesoft Relationship Specialty Start Date End Date Cyndi Almaguer MD [address] [place] [address] PCP - General Family Medicine 09/23/23 Sherry Carranza [place] AldermanRewards Consultant 07/28/23 documented as of this encounter
--- OUTSIDE RECORDS SUMMARY | 2025-03-06 20:02 | XMS_ITS | Encounter Summary ---
Author Organization [employer] Address [address] [place] [address] [address], [place] [address] Care Team Providers Care Principal Systems Engineer Name Role Phone Cyndi Almaguer MD Primary Care Provider [phone] Reason for Referral * Consultation (Routine) - Closed Specialty Diagnoses / Procedures Referred By Svetlana t Referred To Contact Physical Therapy Diagnoses Chronic back pain, unspecified back location, unspecified back pain laterality Cyndi Almaguer MD [address] [place] [address] Phone: tel: fax: [facility] [address] Phone: tel: fax: Referral ID Status Reason Start Date Expiration Date V isits Requested Visits Authorized [id number] Closed Specialty Services Required 09/30/2023 09/28/2024 20 20 * Consultation (Routine) - Closed Specialty Diagnoses / Procedures Referred By Svetlana t Referred To Contact Orthopaedic Surgery Diagnoses Chronic back pain, unspecified back location, unspecified back pain laterality Cyndi Almaguer MD [address] [place] [address] Phone: tel: fax: [facility] [address] [place] [address] Phone: tel: fax: Referral ID Status Reason Start Date Expiration Date V isits Requested Visits Authorized [id number] Closed Specialty Services Required 08/08/2023 08/07/2024 12 12 Encounter Details Date Type Department Care Team (Late st Contact Info) Description 09/16/2023 Orders Only [facility] [address] [place] [phone] Cyndi Almaguer MD [address] [place] [phone] Chronic back pain, unspecified back location, unspecified [...] Department Care Team (Late Contact Info) Description 03/18/2025 11:00 AM EST Office Visit [facility] [address] [place] [phone] Scheduled Referrals Name Type Priority Associated Diagnoses [...] Primary documented in this encounter Care Teams Principal Systems Engineer Relationship Specialty Start Date End Date Cyndi Almaguer MD [address] [place] [phone] PCP - General Family Medicine 09/23/23 Sherry Carranza [employer] General Sales ManagerElectronic Service Technician 07/28/23 documented as of this encounter
--- OUTSIDE RECORDS SUMMARY | 2025-03-06 20:02 | XMS_ITS | Encounter Summary ---
Author Organization [employer] Address [address] [place] [address] [address] [place] [address] Care Team Providers Care Scientific Investigator Name Role Phone Cyndi Almaguer MD Primary Care Provider [phone] Reason for Visit * Reason Onset Date Comments chart prep 03/04/2025 Encounter Details Date Type Department Care Team ([facility] st Contact Info) Description 03/04/2025 Telephone [facility] MEDICINE [address] [place] [address] Cyndi Almaguer MD [address] [place], [place] [phone] chart prep Social History Tobacco Use Types Packs/Day Years [...] encounter Miscellaneous Notes * Telephone Encounter - Ester Aj [place] - 03/04/2025 9:14 AM EST ..Chart Prep Labs: not applicable Images: not applicable Vaccines due: Covid Due Referrals: Not Applicable Screenings: Not Applicable Overdue care gaps: Sbirt, PHQ9, GAD7, and Oral Health documented in this encounter Plan of Treatment Upcoming Encounters Date Type Department Care Team (Late st Contact Info) Description 03/18/2025 11:00 AM EST Office Visit [facility] MEDICINE [address] [place] [address] documented as of this encounter Visit Diagnoses Not on filedocumented in this encounter Additional Health Concerns Assessment Noted Time PHQ-9 Depression Total Score: 2 01/31/20 9:13 AM EDT documented as of this encounter Care Teams Scientific Investigator Relationship Specialty Start Date End Date Cyndi Almaguer MD [address] [place] [address] PCP - General Family Medicine 09/23/23 Sherry Carranza Call Center SpecialistGuard Manager 07/28/23 documented as of this encounter
--- OUTSIDE RECORDS SUMMARY | 2025-03-06 20:02 | XMS_ITS | Encounter Summary ---
Author Organization [employer] Address [address] [facility] 7 [place] [address] Care Team Providers Care Bank Compliance Officer Name Role Phone Cyndi Almaguer MD Primary Care Provider [phone] Encounter Details Date Type Department Care Team ([facility] st Contact Info) Description 01/19/2024 Orders Only [facility] MEDICINE [address] [place], [place] [phone] Cyndi Almaguer MD [address] [place], [place] [phone] Social History Tobacco Use Types Packs/Day Years [...] Description 03/18/2025 11:00 AM EST Office Visit [facility] MEDICINE [address] [place] [address] documented as of this encounter Visit Diagnoses Not on filedocumented in this encounter Additional Health Concerns Assessment Noted Time PHQ-9 Depression Total Score: 0 09/22/19 9:29 AM EDT documented as of this encounter Care Teams Bank Compliance Officer Relationship Specialty Start Date End Date Cyndi Almaguer MD [address] [place] [address] PCP - General Family Medicine 09/23/23 Sherry Carranza Online Merchandising SpecialistControl Systems Technician 07/28/23 documented as of this encounter
--- OUTSIDE RECORDS SUMMARY | 2025-03-06 20:02 | XMS_ITS | Encounter Summary ---
Author Organization [employer] Address [address] [place] [address] [address] [address] Care Team Providers Care Planning Director Name Role Phone Cyndi Almaguer MD Primary Care Provider [phone] Reason for Visit * Reason Onset Date Comments Lab Orders 10/26/2023 Encounter Details Date Type Department Care Team ([facility] st Contact Info) Description 10/26/2023 Telephone [facility] MEDICINE [address] [place] [address] Cyndi Almaguer MD [address] [place], [place] [phone] Lab Orders Social History Tobacco Use Types [...] Description 03/18/2025 11:00 AM EST Office Visit [facility] MEDICINE [address] [place] [address] documented as of this encounter Visit Diagnoses Not on filedocumented in this encounter Additional Health Concerns Assessment Noted Time PHQ-9 Depression Total Score: 0 09/22/19 9:29 AM EDT documented as of this encounter Care Teams Planning Director Relationship Specialty Start Date End Date Cyndi Almaguer MD [address] [place] [address] PCP - General Family Medicine 09/23/23 Sherry Carranza Mattress PackerSolid Waste Analyst 07/28/23 documented as of this encounter
--- OUTSIDE RECORDS SUMMARY | 2025-03-06 20:02 | XMS_ITS | Encounter Summary ---
Author Organization [employer] Address [address] [facility] 7 [place] [address] Care Team Providers Care Moisture Tester Name Role Phone Cyndi Almaguer MD Primary Care Provider [phone] Encounter Details Date Type Department Care Team ([facility] st Contact Info) Description 10/01/2023 Orders Only [facility] MEDICINE [address] [place], [place] [phone] Cyndi Almaguer MD [address] [place], [place] [phone] Social History Tobacco Use Types Packs/Day Years [...] Description 03/18/2025 11:00 AM EST Office Visit [facility] MEDICINE [address] [place] [address] documented as of this encounter Visit Diagnoses Not on filedocumented in this encounter Additional Health Concerns Assessment Noted Time PHQ-9 Depression Total Score: 0 09/22/19 9:29 AM EDT documented as of this encounter Care Teams Moisture Tester Relationship Specialty Start Date End Date Cyndi Almaguer MD [address] [place] [address] PCP - General Family Medicine 09/23/23 Sherry Carranza Applications Engineer ManufacturingPipe Cleaner 07/28/23 documented as of this encounter
--- OUTSIDE RECORDS SUMMARY | 2025-03-06 20:02 | XMS_ITS | Encounter Summary ---
Author Organization [employer] Address [address] [facility] 7 [place] [address] Care Team Providers Care Hazardous Materials Analyst Name Role Phone Cyndi Almaguer MD Primary Care Provider [phone] Encounter Details Date Type Department Care Team ([facility] st Contact Info) Description 10/26/2023 Orders Only [facility] MEDICINE [address] [place], [place] [phone] Cyndi Almaguer MD 230 [place], [place] [phone] Immunity status testing (Primary Dx); Routine screening [...] Description 03/18/2025 11:00 AM EST Office Visit [facility] MEDICINE [address] [place] [address] documented as of this encounter Procedures Procedure [...] Blood Count 6.4 4.8 - 10.8 X10*3/uL [facility] Red Blood Count 4.77 4.60 - 5.80 X10*6/uL [facility] Hemoglobin 15.1 14.0 - 18.0 g/dl [facility] Hematocrit 44.3 42.0 - 52.0 % [facility] Mean Corpuscular Volume 92.9 80.0 - 98.0 fL [facility] Mean Corpuscular Hemoglobin 31.7 27.0 - 33.0 pg [facility] Mean Corpuscular HGB Conc 34.1 31.0 - 36.0 g/dl [facility] Red Cell Distribution Width 12.2 11.0 - 16.0 % [facility] Platelet Count 203 160 - 400 X10*3/uL [facility] Mean Platelet Volume 10.8 9.4 - 12.4 fL [facility] Neutrophils Percent Auto 53.9 45 - 73 % [facility] Imm Gran Pct Auto 0.3 0.0 - 0.4 % [facility] Lymphocytes Percent Auto 36.7 20 - 40 % [facility] Monocytes Percent Auto 6.4 2 - 11 % [facility] Eosinophils Percent Auto 2.2 0 - 4 % [facility] Basophils Percent Auto 0.5 0 - 2 % [facility] NRBC Pct Auto 0.0 0.0 - 0.2 /100WBC [facility] Neutrophils Absolute Auto 3.5 2.0 - 8.3 x10*3/uL [facility] Imm Gran Abs Auto 0.02 0.00 - 0.03 X10*3/uL [facility] Lymphocytes Absolute Auto 2.4 1.2 - 4.9 X10*3/uL [facility] Monocytes Absolute Auto 0.4 0.1 - 1.2 X10*3/uL [facility] Eosinophils Absolute Auto 0.1 0.0 - 0.4 X10*3/uL [facility] Basophils Absolute Auto 0.0 0.0 - 0.2 X10*3/uL [facility] NRBC Abs Auto 0.000 0.0 - 0.012 X10*3/uL [facility] Blood Venous blood specimen / Unknown 10/31/2023 2:14 PM EDT 10/31/2023 4:03 PM EDT us Cyndi Almaguer MD LAB BLOOD ORDERABLES Final Resul t [facility] [address] [place] [phone] * (ABNORMAL) Comprehensive Metabolic Panel (10/31/2023 2:14 PM EDT) Sodium 143 135 - 145 mmol/L [facility] Potassium 4.3 3.3 - 5.1 mmol/L [facility] Chloride 109(H) 96 - 108 mmol/L [facility] Carbon Dioxide 24 22 - 29 mmol/L [facility] Anion Gap 14 12 - 20 [facility] Urea Nitrogen (BUN) 11 9 - 16 mg/dL [facility] Creatinine, Serum 0.85 0.5 - 1.4 mg/dL [facility] Estimated Glomerular Filt Rate >60 [facility] Comment:NOTE: For -Am erican individuals, multiply the result by 1.210.Chronic Kidney Disease: Estimated GFR < 60 mL/min/1.57u7Gutgaf Kidney Disease: Estimated GFR < 15 mL/min/1.73m2 Glucose 94 60 - 115 mg/dL [facility] Calcium 9.9 8.4 - 10.2 mg/dL [facility] Bilirubin, Total 1.3(H) 0.0 - 1.0 mg/dL [facility] Aspartate Amino Transferase 22 5 - 37 U/L [facility] Alanine Aminotransferase 18 0 - 40 U/L [facility] Total Protein 7.5 6.5 - 8.0 g/dL [facility] Albumin Level 4.5 3.5 - 5.0 g/dL [facility] Alkaline Phosphatase 64 39 - 117 U/L [facility] Blood Venous blood specimen / Unknown 10/31/2023 2:14 PM EDT 10/31/2023 4:14 PM EDT us Cyndi Almaguer MD LAB BLOOD ORDERABLES Final Resul t [facility] [address] [place] [address] [phone] * Vitamin D, 25-Hydroxy, Total, Immunoassay (10/31/2023 2:14 PM EDT) Vitamin D 25-OH Total 69.9 >30 ng/mL [facility] Comment:Health Based Referen ce Values*< 20 ng/mL Stwrnvzrc29-81 ng/mL Insufficient> 30 ng/mL Sufficient*Jackie LOMELI. N [...] t Performing Organization Address [facility] Co de Phone Number [facility] [address] [place] [phone] * Hepatitis A Antibody, Total (10/31/2023 2:14 PM EDT) Hepatitis A Antibody IgG REACTIVE Nonreactive [facility] Comment:The presence of IgG anti-HAV implies past HAV infection(recent or distant) or vaccination against HAV. Blood Venous blood specimen / Unknown 10/31/2023 2:14 PM EDT 10/31/2023 4:14 PM EDT Cyndi Almaguer MD LAB BLOOD ORDERABLES Final Resul t Performing Organization Address [facility] Co de Phone Number [facility] [address] [place] [phone] * Hepatitis B surface antigen, EIA (10/31/2023 2:14 PM EDT) Hepatitis B Surface Ag Negative Negative [facility] Blood Venous blood specimen / Unknown 10/31/2023 2:14 PM EDT 10/31/2023 4:14 PM EDT Cyndi Almaguer MD LAB BLOOD ORDERABLES Final Resul t Performing Organization Address [facility] Co de Phone Number [facility] [address] [place] [address] [phone] * HIV-1/2 Antigen and Antibodies, Fourth Generation, with Reflexes (10/31/2023 2:14 PM EDT) HIV AB/AG Nonreactive Nonreactive [facility] Comment:HIV-1 p24 Ag and/or HIV-1/HIV-2 Ab not detected.A test result that is nonreactive does not exclude thepossibility of exposure to or infection with HIV-1 and/orHIV-2. Nonreactive results in this assay for individualswith prior exposure to HIV-1 and/or HIV-2 may be due toantigen and antibody levels that are below the limit ofdetection of this assay.The [employer] HIV Ag/Ab Combo assay result andsupplemental assay results should be interpreted inconjunction with the patient's clinical presentation,history and other laboratory results. If the results areinconsistent with clinical evidence, additional testing issuggested to confirm the result. Blood Venous blood specimen / Unknown 10/31/2023 2:14 PM EDT 10/31/2023 4:14 PM EDT us Cyndi Almaguer MD LAB BLOOD ORDERABLES Final Resul t [facility] [address] [place] [phone] * Chlamydia/N. Gonorrhoeae RNA, TMA, Urogenitial (10/31/2023 2:14 PM EDT) [facility] CT PCR NOT DETECTED Not Detect. [facility] Comment:A not detected test result [...] psychologicalconsequences. NG PCR NOT DETECTED Not Detect. [facility] Comment:A not detected test result [...] PM EDT 10/31/2023 4:03 PM EDT Narrative [facility] - 10/31/2023 6:42 PM EDT Urine Cyndi Almaguer MD LAB MICROBIOLOGY - GENERAL ORDER KAROLINA Final Result Performing Organization Address [facility] Co de Phone Number [facility] [address] [place] [phone] * Hepatitis B Core Antibody, Total (10/31/2023 2:14 PM EDT) Pathologist [facility] Hepatitis B Core Antibody Nonreactive Nonreactive [facility] Blood Venous blood specimen / Unknown 10/31/2023 2:14 PM EDT 10/31/2023 4:14 PM EDT Cyndi Almaguer MD LAB BLOOD ORDERABLES Final Resul t Performing Organization Address [facility] Co de Phone Number [facility] [address] [place] [phone] * Hepatitis B Surface Antibody, Qualitative (10/31/2023 2:14 PM EDT) ~Hepatitis B Surface Antibody REACTIVE Nonreactive [facility] Comment:REACTIVE: > 11.99 mI U/mL Blood Venous blood specimen / Unknown 10/31/2023 2:14 PM EDT 10/31/2023 4:14 PM EDT Cyndi Almaguer MD LAB BLOOD ORDERABLES Final Resul t Performing Organization Address [facility] Co de Phone Number [facility] [address] [place] [phone] * Hepatitis C Antibody with Reflex to HCV, RNA, Quantitative, Real-Time PCR (10/31/2023 2:14 PM EDT) Hepatitis C Antibody Nonreactive Nonreactive [facility] Comment:Antibodies to HCV no t detected; does not exclude early acuteHCV infection. Blood Venous blood specimen / Unknown 10/31/2023 2:14 PM EDT 10/31/2023 4:14 PM EDT Cyndi Almaguer MD LAB BLOOD ORDERABLES Final Resul t Performing Organization Address [facility] de Phone Number [facility] [address] [place] [phone] * Syphilis Screen (10/31/2023 2:14 PM EDT) Syphilis Screen Nonreactive Nonreactive [facility] Blood 10/31/2023 2:14 PM EDT 10/31/2023 4:14 PM EDT Cyndi Almaguer MD LAB BLOOD ORDERABLES Final Resul t Performing Organization Address [facility] de Phone Number [facility] [address] [place] [phone] documented in this encounter Visit Diagnoses Diagnosis Immunity status testing- Primary Antibody response examination Routine screening for STI (sexually transmitted infection) Screening examination for venereal disease Vitamin D deficiency Accidental poisoning by drug, initial encounter documented in this encounter Additional Health Concerns Assessment Noted Time PHQ-9 Depression Total Score: 0 09/22/19 24 9:29 AM EDT documented as of this encounter Care Teams Hazardous Materials Analyst Relationship Specialty Start Date End Date Cyndi Almaguer MD [address] [facility] [place] [address] PCP - General Family Medicine 09/23/23 Sherry Carranza Criminal Investigator CustomsTest Car Driver 07/28/23 documented as of this encounter
--- OUTSIDE RECORDS SUMMARY | 2025-03-06 20:02 | XMS_ITS | Encounter Summary ---
Author Organization [employer] Address [address] [facility] 7 [place] [address] Care Team Providers Care Adult Education Professional Name Role Phone Cyndi Almaguer MD Primary Care Provider [phone] Encounter Details Date Type Department Care Team ([facility] st Contact Info) Description 02/14/2025 Results Follow-Up [facility] MEDICINE [address] [place] [address] Cyndi Almaguer MD [address] [place] [address] Drug Monitoring, Panel 1, Screen, Urine Social [...] Description 03/18/2025 11:00 AM EST Office Visit [facility] MEDICINE [address] [place] [address] documented as of this encounter Visit Diagnoses Not on filedocumented in this encounter Additional Health Concerns Assessment Noted Time PHQ-9 Depression Total Score: 2 01/31/20 9:13 AM EDT documented as of this encounter Care Teams Adult Education Professional Relationship Specialty Start Date End Date Cyndi Almaguer MD [address] [place] [address] PCP - General Family Medicine 09/23/23 Sherry Carranza Base FillerWool Hat Flanger 07/28/23 documented as of this encounter
--- OUTSIDE RECORDS SUMMARY | 2025-03-06 20:02 | XMS_ITS | Encounter Summary ---
Author Organization [employer] Address [address] [facility] 7 [place] [address] Care Team Providers Care Classification Clerk Name Role Phone Cyndi Almaguer MD Primary Care Provider [phone] Encounter Details Date Type Department Care Team ([facility] st Contact Info) Description 02/12/2025 Orders Only [facility] MEDICINE [address] [place], [place] [phone] Cyndi Almaguer MD [address] [place], [place] [phone] Chronic pain of both knees (Primary Dx) [...] Description 03/18/2025 11:00 AM EST Office Visit [facility] MEDICINE [address] [place] [address] documented as of this encounter Procedures Procedure Name Priority Date/Time Associated Diagnosis Comments DRUG MONITOR, PANEL 1, SCREEN, URINE Routine 02/13/2025 1:48 PM EDT Chronic pain of both knees documented in this encounter Results * Drug Monitoring, Panel 1, Screen, Urine (02/13/2025 1:48 PM EDT) Opiate Screen Urine Not Detected Not Detect [facility] Comment:Opiate cut-off is 30 0 ng/mL.Positive results are unconfirmed and should not be used fornon-medical purposes. Barbiturates, Urine Not Detected Not Detect [facility] Comment:Barbiturate cut-off is 200 ng/mL.Positive results are unconfirmed and should not be used fornon-medical purposes. Phencyclidine Screen Urine Not Detected Not Detect [facility] Comment:Phencyclidine cut-of f is 25 ng/mL.Positive results are unconfirmed and should not be used fornon-medical purposes. Amphetamine Screen Urine Not Detected Not Detect [facility] Comment:Amphetamine cut-off is 1000 ng/mL.Positive results are unconfirmed and should not be used fornon-medical purposes. Benzodiazepines Screen Urine Not Detected Not Detect [facility] Comment:Benzodiazepine cut-o ff is 200 ng/mL.Positive results are unconfirmed and should not be used fornon-medical purposes. Cocaine Screen Urine Not Detected Not Detect [facility] Comment:Cocaine cut-off is 3 00 ng/mL.Positive results are unconfirmed and should not be used fornon-medical purposes. Cannabinoid Screen Urine Not Detected Not Detect [facility] Comment:Cannabinoid cut-off is 50 ng/mL.Positive results are unconfirmed and should not be used fornon-medical purposes. Methadone Screen, Urine Not Detected Not Detect ng/mL [facility] Comment:Methadone cut-off is 300 ng/mL.Positive results are unconfirmed and should not be used fornon-medical purposes. FENTANYL URINE Not Detected Not Detect [facility] Comment:Fentanyl cut-off is 1 ng/mL.Positive results are unconfirmed and should not be used fornon-medical purposes. Oxycodone Urine Screen Not Detected Not Detect ng/mL [facility] Comment:Oxycodone cut-off is 100 ng/mL.Positive results are unconfirmed and should not be used fornon-medical purposes. Buprenorphine Screen Not Detected Not Detect ng/mL [facility] Comment:Buprenorphine cut-of f is 5 ng/mL.Positive results are unconfirmed and should not be used fornon-medical purposes. Urine (Urine, Random) 02/13/2025 1:48 PM EDT 02/13/2025 3:57 PM EDT us Cyndi Almaguer MD LAB URINE ORDERABLES Final Resul t [facility] [address] [place] [address] [phone] documented in this encounter Visit Diagnoses Diagnosis Chronic pain of both knees- Primary documented in this encounter Additional Health Concerns Assessment Noted Time PHQ-9 Depression Total Score: 2 01/31/20 24 9:13 AM EDT documented as of this encounter Care Teams Classification Clerk Relationship Specialty Start Date End Date Cyndi Almaguer MD [address] [place] [phone] PCP - General Family Medicine 09/23/23 Sherry Carranza New Car Make Ready WorkerCustoms Appraiser 07/28/23 documented as of this encounter
--- OUTSIDE RECORDS SUMMARY | 2025-03-06 20:02 | XMS_ITS | Encounter Summary ---
Author Organization [facility] Address [address] [place] [address] 7 [place] [address] Care Team Providers Care Political Theory Professor Name Role Phone Cyndi Almaguer MD Primary Care Provider [phone] Encounter Details Date Type Department Care Team (Latest Contact Info) Description 05/16/2018 Abstract [facility] CONVERSIONS Dental, Provider, DDS Social History Tobacco [...] Care Team ( st Contact Info) Description 03/18/2025 11:00 AM EST Office Visit [facility] MEDICINE [address] [place] [address] documented as of this encounter Visit Diagnoses Not on filedocumented in this encounter Care Teams Political Theory Professor Relationship Specialty Start Date End Date Cyndi Almaguer MD [address] [place] [address] PCP - General Family Medicine 09/23/23 Sherry Carranza Powder Coat PainterChamber Magistrate 07/28/23 documented as of this encounter
--- OUTSIDE RECORDS SUMMARY | 2025-03-06 20:02 | XMS_ITS | Encounter Summary ---
Author Organization [employer] Address [address] [facility] 7t [place] [address] Care Team Providers Care Roller Engraver Name Role Phone Cyndi Almaguer MD Primary Care Provider Encounter Details Date Type Department Care Team ([facility] st Contact Info) Description 02/03/2024 Orders Only [facility] [address] [place], [place] [phone] Cyndi Almaguer MD [address] [place], [place] [phone] Narrow anion gap (Primary Dx); Serum total [...] Description 03/18/2025 11:00 AM EST Office Visit [facility] [address] [place] [phone] documented as of this encounter Procedures Procedure Name Priority Date/Time Associated Diagnosis Comments BASIC METABOLIC PANEL Routine 2024 9:08 AM EST Narrow anion gap HEPATIC FUNCTION PANEL Routine 04/02/2024 12:12 PM EST Serum total bilirubin elevated documented in this encounter Results * Basic Metabolic Panel (2024 9:08 AM EST) Sodium 141 135 - 145 mmol/L [facility] Potassium 4.0 3.3 - 5.1 mmol/L [facility] Chloride 108 96 - 108 mmol/L [facility] Carbon Dioxide 25 22 - 29 mmol/L [facility] Anion Gap 12 12 - 20 [facility] Urea Nitrogen (BUN) 15 9 - 16 mg/dL [facility] Creatinine, Serum 0.78 0.5 - 1.4 mg/dL [facility] Estimated Glomerular Filt Rate >60 [facility] Comment:Chronic Kidney Disea se: Estimated GFR < 60 mL/min/[id number] Kidney Disease: Estimated GFR < 15 mL/min/1.73m2 Glucose 84 60 - 115 mg/dL [facility] Calcium 9.3 8.4 - 10.2 mg/dL [facility] Blood Venous blood specimen / Unknown 2024 9:08 AM EST 2024 9:08 AM EST us Cyndi Almaguer MD LAB BLOOD ORDERABLES Final Resul t Performing Organization Address [facility] Co de Phone Number [facility] [address] [place] [phone] * Hepatic Function Panel (04/02/2024 12:12 PM EST) Bilirubin, Total 0.8 0.0 - 1.0 mg/dL [facility] Bilirubin, Direct 0.2 0.0 - 0.5 mg/dL [facility] Aspartate Amino Transferase 24 5 - 37 U/L [facility] Alanine Aminotransferase 19 0 - 40 U/L [facility] Total Protein 7.6 6.5 - 8.0 g/dL [facility] Albumin Level 4.3 3.5 - 5.0 g/dL [facility] Alkaline Phosphatase 53 39 - 117 U/L [facility] Blood Venous blood specimen / Unknown 04/02/2024 12:12 PM EST 04/02/2024 1:23 PM EST us Cyndi Almaguer MD LAB BLOOD ORDERABLES Final Resul t Performing Organization Address [facility] Co de Phone Number [facility] [address] [place] [phone] documented in this encounter Visit Diagnoses Diagnosis Narrow anion gap- Primary Serum total bilirubin elevated Disorders of bilirubin excretion documented in this encounter Additional Health Concerns Assessment Noted Time PHQ-9 Depression Total Score: 2 01/31/20 24 9:13 AM EDT documented as of this encounter Care Teams Roller Engraver Relationship Specialty Start Date End Date Cyndi Almaguer MD [address] [place] [phone] PCP - General Family Medicine 09/23/23 Sherry Carranza Pecan PickerOyster Preparer 07/28/23 documented as of this encounter
--- OUTSIDE RECORDS SUMMARY | 2025-03-06 20:02 | XMS_ITS | Encounter Summary ---
Author Organization [employer] Address [address] [place] [address] Care Team Providers Care Auditing Clerk Name Role Phone Cyndi Almaguer MD Primary Care Provider [phone] Reason for Referral * Consultation (Routine) - Closed Specialty Diagnoses / Procedures Referred By Contkaylin t Referred To Contact Urology Diagnoses Erectile dysfunction, unspecified erectile dysfunction type Cyndi Almaguer MD [address] [place] [address] Phone: tel: fax: [facility] [address] [place], [place] Phone: tel: fax: Referral ID Status Reason Start Date Expiration Date V isits Requested Visits Authorized [id number] Closed Specialty Services Required 10/10/2023 10/09/2024 6 6 Encounter Details Date Type Department Care Team (Late st Contact Info) Description 10/03/2023 Orders Only [facility]INE [address] [place], [place] [phone] Cyndi Almaguer MD [address] [place], [place] [phone] Erectile dysfunction, unspecified erectile dysfunction type (Primary [...] Description 03/18/2025 11:00 AM EST Office Visit [facility] [address] [place] [phone] documented as of this encounter Procedures Procedure [...] documented as of this encounter Care Teams Auditing Clerk Relationship Specialty Start Date End Date Cyndi Almaguer MD [address] [place] [phone] PCP - General Family Medicine 09/23/23 Sherry Carranza Fulling Machine OperatorGeneral Lithographic Worker 07/28/23 documented as of this encounter
--- OUTSIDE RECORDS SUMMARY | 2025-03-06 20:02 | XMS_ITS | Encounter Summary ---
Author Organization [employer] Address [address] [facility] 7 [place] [address] Care Team Providers Care Printer Floor Covering Assistant Name Role Phone Cyndi Almaguer MD Primary Care Provider Encounter Details Date Type Department Care Team (Latest Contact Info) Description 03/05/2025 Travel Social History Tobacco Use Types Packs/Day [...] PM EDT documented as of this encounter Functional Status * Over the past 2 weeks, how often have you been bothered by any of the following problems? Question Answer Date of Assessment Author Patient Health Questionnaire -2 Score 1 03/05/2025 10:55 AM Araceli Sarabia [place] * Little interest or pleasure in doing things Answer Date of Assessment Author Several days 03/05/2025 10:55 AM Ester Sarabia [place] * Feeling down, depressed, or hopeless [...] control worrying 0 03/05/2025 10:55 AM Araceli aSrabia [place] Worrying too much about different things 0 03/05/2025 10:55 AM Araceli Sarabia [place] Trouble relaxing 3 03/05/2025 10:55 AM Ester Sarabia [place] Being so restless that it is hard to sit still 0 03/05/2025 10:55 AM Araceli Sarabia [place] Becoming easily annoyed or irritable 3 [...] Not difficult at all 03/05/2025 10:55 AM Ester Cortez [place] documented as of this encounter Plan of Treatment Upcoming Encounters Date Type Department Care Team (Late st Contact Info) Description 03/18/2025 11:00 AM EST Office Visit [facility] [address] [place] [address] documented as of this encounter Visit Diagnoses Not on filedocumented in this encounter Additional Health Concerns Assessment Noted Time PHQ-9 Depression Total Score: 3 03/05/20 25 10:55 AM EST documented as of this encounter Care Teams Printer Floor Covering Assistant Relationship Specialty Start Date End Date Cyndi Almaguer MD [address] [place] [phone] PCP - General Family Medicine 09/23/23 Sherry Carranza Tombstone SetterCoordinator Mining Products 07/28/23 documented as of this encounter
--- OUTSIDE RECORDS SUMMARY | 2025-03-06 20:03 | XMS_ITS | Clinical Summary ---
Author Organization [facility] Address [address] [place] [phone] Phone Care Team Providers Care In Tube Conversion Technician Name Role Phone Shay Carranza MD Primary Care Provider [phone] Allergies Active Allergy Reactions Criticality Noted Date [...] PM EST Office Visit [facility] [place] [phone] [phone] Rafael Mcnally, DPM [address] [phone] Health Maintenance Due Date Last Done Comments Hepatitis B Vaccines (1 of 3 - 19+ 3-dose series) 2001 HPV Vaccines (1 - 3-dose SCDM series) 2009 Cholesterol Screening (Lipid Panel) 04/14/2024 03/23/2013 Social Influencers of Health Screening 04/14/2024 Depression Screening 04/18/2024 COVID-19 Vaccine ( season) 2024 01/13/2024, 09/22/2023, 04/02/2021, Additional history exists Influenza Vaccine (#1) 2024 , 01/10/2023, 02/10/2022, [...] Patients (6 to 49 Years) Completed 09/22/2023 HIV Screening Completed 09/21/2024, 08/31/2013 Hepatitis C [...] Maintenance Results * HIV Screening (08/31/2013) Pathologist [facility] HIV Screening abstracted Historical Provider HEALTH MAINTENANCE Final Result * Hepatitis C Screening (08/31/2013) Pathologist [facility] Hepatitis C Screening abstracted Historical Provider HEALTH MAINTENANCE Final Result * Lipid panel (03/23/2013) Pathologist [facility] LDL/HDL Ratio 2 0 - 4 Triglycerides 54 0 - 150 mg/dL Cholesterol 151 0 - 200 mg/dL HDL 72 >=40 mg/dL LDL Cholesterol 69 0 - 100 mg/dL Blood Venous blood specimen / Unknown us Historical Provider LAB BLOOD ORDERABLES Sayra l Result from Last 3 Months or Most Recently Relevant to Health Maintenance Insurance MEDICAID - [place] Care Teams In Tube Conversion Technician Relationship Specialty Start Date End Date Shay Carranza MD [address] [place] [phone] PCP - General 06/26/10
--- OUTSIDE RECORDS SUMMARY | 2025-03-06 20:03 | XMS_ITS | Encounter Summary ---
Author Organization [employer] Address [address] [place] [address] 7 [place] [address] Care Team Providers Care Child Support Specialist Name Role Phone Cyndi Almaguer MD Primary Care Provider [phone] Encounter Details Date Type Department Care Team ([facility] st Contact Info) Description 11/30/2023 Orders Only [facility] MEDICINE [address] [place], [place] [phone] Cyndi Almaguer MD [address] [place], [place] [phone] Anxiety (Primary Dx); Chronic low back pain, [...] 03/18/2025 11:00 AM EST Office Visit [facility]INE [address] [place] [address] documented as of this encounter Procedures Procedure Name Priority Date/Time Associated Diagnosis Comments DRUG MONITOR, PANEL 1, SCREEN, URINE Routine 12/02/2023 12:00 AM EDT Anxiety Chronic low back pain, unspecified back pain laterality, unspecified whether sciatica present documented in this encounter Results * Drug Monitoring, Panel 1, Screen, Urine (12/02/2023 12:00 AM EDT) Opiate Screen Urine Not Detected Not Detect [facility] Comment:Opiate cut-off is 30 0 ng/mL.Positive results are unconfirmed and should not be used fornon-medical purposes. Barbiturates, Urine Not Detected Not Detect [facility] Comment:Barbiturate cut-off is 200 ng/mL.Positive results are unconfirmed and should not be used fornon-medical purposes. Phencyclidine Screen Urine Not Detected Not Detect [facility] Comment:Phencyclidine cut-of f is 25 ng/mL.Positive results are unconfirmed and should not be used fornon-medical purposes. Amphetamine Screen Urine Not Detected Not Detect [facility] Comment:Amphetamine cut-off is 1000 ng/mL.Positive results are unconfirmed and should not be used fornon-medical purposes. Benzodiazepines Screen Urine Not Detected Not Detect [facility] Comment:Benzodiazepine cut-o ff is 200 ng/mL.Positive results are unconfirmed and should not be used fornon-medical purposes. Cocaine Screen Urine Not Detected Not Detect [facility] Comment:Cocaine cut-off is 3 00 ng/mL.Positive results are unconfirmed and should not be used fornon-medical purposes. Cannabinoid Screen Urine Not Detected Not Detect [facility] Comment:Cannabinoid cut-off is 50 ng/mL.Positive results are unconfirmed and should not be used fornon-medical purposes. Methadone Screen, Urine Not Detected Not Detect ng/mL [facility] Comment:Methadone cut-off is 300 ng/mL.Positive results are unconfirmed and should not be used fornon-medical purposes. FENTANYL URINE Not Detected Not Detect [facility] Comment:Fentanyl cut-off is 1 ng/mL.Positive results are unconfirmed and should not be used fornon-medical purposes. Oxycodone Urine Screen Not Detected Not Detect ng/mL [facility] Comment:Oxycodone cut-off is 100 ng/mL.Positive results are unconfirmed and should not be used fornon-medical purposes. Buprenorphine Screen Not Detected Not Detect ng/mL [facility] Comment:Buprenorphine cut-of f is 5 ng/mL.Positive results are unconfirmed and should not be used fornon-medical purposes. Urine (Urine, Random) 12/02/2023 12/02/2023 Cyndi Almaguer MD LAB URINE ORDERABLES Final Resul t Performing Organization Address City/State/[facility] Co de Phone Number [facility] [address] [place] [address] [phone] documented in this encounter Visit Diagnoses Diagnosis Anxiety- Primary Anxiety state, unspecified Chronic low back pain, unspecified back pain laterality, unspecified whether sciatica present documented in this encounter Additional Health Concerns Assessment Noted Time PHQ-9 Depression Total Score: 0 09/22/19 24 9:29 AM EDT documented as of this encounter Care Teams Child Support Specialist Relationship Specialty Start Date End Date Cyndi Almaguer MD [address] [place] [phone] PCP - General Family Medicine 09/23/23 Sherry Carranza Intranet SpecialistDe Icer Installer 07/28/23 documented as of this encounter
--- OUTSIDE RECORDS SUMMARY | 2025-03-06 20:03 | XMS_ITS | Clinical Summary ---
Author Organization [facility], Address [address] [address] Phone Care Team Providers Care Mission Assessment Specialist Name Role Phone Cyndi Almaguer MD Primary Care Provider [phone] Allergies Active Allergy Reactions Criticality Noted Date [...] Years Used Date Smoking Tobacco: Former Cigarettes 0 Q uit: 2019 Smokeless Tobacco: Never Tobacco [...] to 51 Years) Completed 09/22/2023 Insurance Medicaid [place] Care Teams Mission Assessment Specialist Relationship Specialty Start Date End Date Cyndi Almaguer MD [address] [place] [phone] PCP - General Family Medicine 10/31/23
--- OUTSIDE RECORDS SUMMARY | 2025-03-06 20:03 | XMS_ITS | Clinical Summary ---
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 Number [facility] [address] [place] [phone] * Helicobacter pylori??Antigen, EIA, Stool (12/19/2024 9:05 AM EDT) H pylori Ag Stool SEE NOTE [facility] Comment:HELICOBACTER PYLORI AG, EIA, STOOL Micro Number: [id number] Test Status: Final Specimen Source: Stool Specimen Quality: Adequate H.pylori Ag: Not Detected Antimicrobials, proton pump inhibitors, and bismuth preparations inhibit H. pylori and ingestion up to two weeks prior to testing may cause false negative results. If clinically indicated the test should be repeated on a new specimen obtained two weeks after discontinuing treatment. Reference Range: Not DetectedTHIS TEST WAS PERFORMED AT:[facility] [place] [id number] CHRISTENSEN MD Stool Rectal contents / Unknown 12/19/2024 9:05 AM EDT 12/19/2024 12:56 PM EDT us Cyndi Almaguer MD LAB BODY FLUIDS AND STOOLS ORDER KAROLINA Final Result [facility] [address] [place] [address] [phone] * Vitamin D, 25-Hydroxy, Total, Immunoassay (12/04/2024 5:20 PM EDT) Vitamin D 25-OH Total 52.7 >30 ng/mL [facility] Comment: Health Based Reference Values*< 20 ng/mL [id number] ng/mL Insufficient> 30 ng/mL Sufficient*Jackie LOMELI. N [...] ORDERABLES Final Resul t Performing Organization Address [facility] de Phone Number [facility] [address] [place] [address] [phone] * Sjogren's Antibodies (SS-A,SS-B) (12/04/2024 5:20 PM EDT) Sjogren's Antibody (SS-A) <1.0 NEG <1.0 NEG [facility] Sjogren's Antibody (SS-B) <1.0 NEG <1.0 NEG [facility] Comment:THIS TEST WAS PERFOR MED AT:[facility] [place] [id number] CHRISTENSEN MD 12/04/2024 5:20 PM EDT 12/04/2024 5:20 PM EDT Cyndi Almaguer MD LAB BLOOD ORDERABLES Final Resul t Performing Organization Address [facility] de Phone Number [facility] [address] [place] [address] [phone] * CBC auto differential (12/04/2024 5:20 PM EDT) White Blood Count 9.1 4.8 - 10.8 X10*3/uL [facility] Red Blood Count 4.75 4.60 - 5.80 X10*6/uL [facility] Hemoglobin 15.1 14.0 - 18.0 g/dl [facility] Hematocrit 44.2 42.0 - 52.0 % [facility] Mean Corpuscular Volume 93.1 80.0 - 98.0 fL [facility] Mean Corpuscular Hemoglobin 31.8 27.0 - 33.0 pg [facility] Mean Corpuscular HGB Conc 34.2 31.0 - 36.0 g/dl [facility] Red Cell Distribution Width 11.9 11.0 - 16.0 % [facility] Platelet Count 181 160 - 400 X10*3/uL [facility] Mean Platelet Volume 10.1 9.4 - 12.4 fL [facility] Neutrophils Percent Auto 62.8 45 - 73 % [facility] Imm Gran Pct Auto 0.3 0.0 - 0.4 % [facility] Lymphocytes Percent Auto 29.7 20 - 40 % [facility] Monocytes Percent Auto 5.7 2 - 11 % [facility] Eosinophils Percent Auto 1.1 0 - 4 % [facility] Basophils Percent Auto 0.4 0 - 2 % [facility] NRBC Pct Auto 0.0 0.0 - 0.2 /100WBC [facility] Neutrophils Absolute Auto 5.7 2.0 - 8.3 x10*3/uL [facility] Imm Gran Abs Auto 0.03 0.00 - 0.03 X10*3/uL [facility] Lymphocytes Absolute Auto 2.7 1.2 - 4.9 X10*3/uL [facility] Monocytes Absolute Auto 0.5 0.1 - 1.2 X10*3/uL [facility] Eosinophils Absolute Auto 0.1 0.0 - 0.4 X10*3/uL [facility] Basophils Absolute Auto 0.0 0.0 - 0.2 X10*3/uL [facility] NRBC Abs Auto 0.000 0.0 - 0.012 X10*3/uL [facility] Blood Venous blood specimen / Unknown 12/04/2024 5:20 PM EDT 12/04/2024 5:20 PM EDT us Cyndi Almaguer MD LAB BLOOD ORDERABLES Final Resul t [facility] [address] [place] [phone] * Zinc (12/04/2024 5:20 PM EDT) Zinc 106 60 - 130 mcg/dL [facility] Comment:This test was develo ped and its analytical performancecharacteristics have been determined by [facility] [place]. It hasnot been cleared or approved by the U.S. Food and DrugAdministration. This assay has been validated pursuantto the CLIA regulations and is used for clinicalpurposes.THIS TEST WAS PERFORMED AT:[employer] [place] [id number] MADDOX MD,PHD Blood Venous blood specimen / Unknown 12/04/2024 5:20 PM EDT 12/04/2024 5:20 PM EDT us Cyndi Almaguer MD LAB BLOOD ORDERABLES Final Resul t [facility] [address] [place] [address] [phone] * (ABNORMAL) Urinalysis, Complete, with Reflex to Culture (12/04/2024 5:15 PM EDT) Color Urine Yellow [facility] Appearance Urine Clear [facility] PH 5.0 5.0 - 9.0 [facility] Glucose Urine UA Negative Negative mg/dL [facility] Urine Blood Negative Negative [facility] Specific [place] - Urine 1.015 1.005 - 1.025 [facility] Urine Protein Negative Neg-Trace mg/dL [facility] Urine Ketones Negative Negative mg/dL [facility] Nitrite Urine Negative Negative [facility] Leukocyte Esterase Urine Trace(A) Negative [facility] RBC Urine 0-2 0 - 2 /HPF [facility] Urine WBC 0-5 0 - 5 /HPF [facility] Urine Squamous Epithelial Cell 0-2 0 - 2 /HPF [facility] Urine Bacteria None Seen None Seen [facility] Hyaline Casts, Urine 0-2 0 - 2 /LPF [facility] Urine 12/04/2024 5:15 PM EDT 12/04/2024 5:33 PM EDT Narrative [facility] - 12/04/2024 6:20 PM EDT [id number], Clean Catch Cyndi Almaguer MD LAB URINE ORDERABLES Final Resul t Performing Organization Address [facility] Co de Phone Number [facility] [address] [place] [address] [phone] * Hepatitis C Antibody with Reflex to HCV, RNA, Quantitative, Real-Time PCR (09/21/2024 4:38 PM EDT) Pathologist [facility] Hepatitis C Antibody Nonreactive Nonreactive [facility] Comment:Antibodies to HCV no t detected; does not exclude early acuteHCV infection. Blood Venous blood specimen / Unknown 09/21/2024 4:38 PM EDT 09/21/2024 4:38 PM EDT Cyndi Almaguer MD LAB BLOOD ORDERABLES Final Resul t Performing Organization Address [facility] Co de Phone Number [facility] [address] [place] [address] [phone] * HIV-1/2 Antigen and Antibodies, Fourth Generation, with Reflexes (09/21/2024 4:38 PM EDT) Pathologist [facility] HIV AB/AG Nonreactive Nonreactive [facility] Comment:HIV-1 p24 Ag and/or HIV-1/HIV-2 Ab not detected.A test result that is nonreactive does not exclude thepossibility of exposure to or infection with HIV-1 and/orHIV-2. Nonreactive results in this assay for individualswith prior exposure to HIV-1 and/or HIV-2 may be due toantigen and antibody levels that are below the limit ofdetection of this assay.The [employer] HIV Ag/Ab Combo assay result andsupplemental assay results should be interpreted inconjunction with the patient's clinical presentation,history and other laboratory results. If the results areinconsistent with clinical evidence, additional testing issuggested to confirm the result. Blood Venous blood specimen / Unknown 09/21/2024 4:38 PM EDT 09/21/2024 4:38 PM EDT Cyndi Almaguer MD LAB BLOOD ORDERABLES Final Resul t [facility] [address] [place] [phone] from Last 3 Months or Most Recently Relevant to Health Maintenance Insurance [facility] C3 Care Teams Account Adjuster Relationship Specialty Start Date End Date Cyndi Almaguer MD [address] [place] [phone] PCP - General Family Medicine 6/7/24 Shrery Carranza Worm FarmerSales Force Administrator 07/28/23
--- OUTSIDE RECORDS SUMMARY | 2025-03-06 20:03 | XMS_ITS | Encounter Summary ---
Author Organization [facility] Address [address] [place] [phone] Care Team Providers Care Materials Supervisor Name Role Phone Cyndi Almaguer MD Primary Care Provider [phone] Reason for Referral * Consultation (Urgent) - Closed Specialty Diagnoses / Procedures Referred By Contac t Referred To Contact Dermatology Diagnoses Acne, unspecified acne type Pustular acne Tinea corporis Acne vulgaris Cyndi Almaguer MD [address] [place] [address] Phone: tel: fax: [facility] [address] [place] [phone] Phone: tel: fax: Referral ID Status Reason Start Date Expiration Date V isits Requested Visits Authorized [id number] Closed Specialty Services Required 01/08/2025 01/08/2026 1 1 Encounter Details Date Type Department Care Team ([facility] st Contact Info) Description 01/08/2025 Orders Only [facility] [address] [place] [phone] Cyndi Almaguer MD [address] [place] [address] [phone] Acne, unspecified acne type (Primary Dx); Pustular [...] Upcoming Encounters Date Type Department Care Team ([facility] st Contact Info) Description 03/18/2025 11:00 AM EST Office Visit [facility] [address] [place] [address] documented as of this encounter Procedures Procedure [...] documented as of this encounter Care Teams Materials Supervisor Relationship Specialty Start Date End Date Cyndi Almaguer MD [address] [place] [phone] PCP - General Family Medicine 09/23/23 Sherry Carranza Computer Applications EngineerComedian 07/28/23 documented as of this encounter
--- OUTSIDE RECORDS SUMMARY | 2025-03-06 20:03 | XMS_ITS | Encounter Summary ---
Author Organization [facility] Address [address] [place] [address] Care Team Providers Care Room Service Attendant Name Role Phone Cyndi Almaguer MD Primary Care Provider [phone] Reason for Referral * Consultation (Routine) - Closed Specialty Diagnoses / Procedures Referred By Svetlana brewster Referred To Contact Orthopaedic Surgery Diagnoses History of lumbosacral spine surgery Chronic low back pain, unspecified back pain laterality, unspecified whether sciatica present Cyndi Almaguer MD [address] [place] [address] Phone: tel: fax: [address] Phone: tel: fax: Referral ID Status Reason Start Date Expiration Date V isits Requested Visits Authorized [id number] Closed Specialty Services Required 12/20/2023 12/19/2024 6 6 Encounter Details Date Type Department Care Team (Late st Contact Info) Description 12/15/2023 Orders Only [facility] [address] [place] [address] Cyndi Almaguer MD [address] [place], [place] [phone] History of lumbosacral spine surgery (Primary Dx); [...] Description 03/18/2025 11:00 AM EST Office Visit [facility] [address] [place] [phone] Scheduled Referrals Name Type Priority Associated Diagnoses [...] documented as of this encounter Care Teams Room Service Attendant Relationship Specialty Start Date End Date yCndi Almaguer MD [address] [place] [phone] PCP - General Family Medicine 09/23/23 Sherry Carranza Car Head Liner InstallerGrounds Supervisor 07/28/23 documented as of this encounter
--- OUTSIDE RECORDS SUMMARY | 2025-03-06 20:03 | XMS_ITS | Encounter Summary ---
Author Organization [facility] Address [address] [place] [address] [address] [place] [address] Care Team Providers Care Network Director Name Role Phone Cyndi Almaguer MD Primary Care Provider [phone] Reason for Visit * Reason Comments Med Refill Encounter Details Date Type Department Care Team ([facility] st Contact Info) Description 07/29/2024 Refill [facility] [address] [place] [phone] Cindy Denney MD [address] [place] [address] Folliculitis Social History Tobacco Use Types Packs/Day [...] Description 03/18/2025 11:00 AM EST Office Visit [facility] [address] [place] [address] documented as of this encounter Visit Diagnoses Diagnosis Folliculitis Other specified disease of hair and hair follicles documented in this encounter Additional Health Concerns Assessment Noted Time PHQ-9 Depression Total Score: 2 01/31/20 9:13 AM EDT documented as of this encounter Care Teams Network Director Relationship Specialty Start Date End Date Cyndi Almaguer MD [address] [place] [address] PCP - General Family Medicine 09/23/23 Sherry Carranza Well Reactivator OperatorNational Accounts Sales 07/28/23 documented as of this encounter
== END 2025-03-06 10:25 | disposition home or self-care (01) ==
LOC: HO.LAB 10:24
PROVIDERS: PCP Family Medicine; Visit Provider Family Medicine
DX: Z13.1 Encounter for screening for diabetes mellitus (principal); E78.5 Hyperlipidemia, unspecified; E60 Dietary zinc deficiency; R74.01 Elevation of levels of liver transaminase levels
CPT/HCPCS: 36415; 80053; 80061; 83036; 84630

== ENCOUNTER 2025-04-01 09:45 | Outpatient (AMB) | payer MEDICAID, SELFPAY ==
--- NOTE | 2025-04-01 10:01 | A.OFFVIS_ITS ---
Vital Signs 04/01/25 10:02 Height 6 ft Weight 185 lb BMI 25.1 BP 116/72 Blood Pressure Location Rt brachial Position Sitting Pulse 62 Pulse Source Pulse Oximeter Pulse Oximetry (%) 99 Oxygen Delivery Method Room Air Intake Visit Reasons: 3m Intake Note: Est pt for mgmt of GERD. CC; C/O worsening reflux at night and into the morning. Pt states that his reflux has improved overall but he does have some persistence 1-2 days / week. N+V has resolved at this time. [employer] Planner Required: No Accompanied by: Self / Same As Patient Allergies No Known Allergies (No Known Allergies*) Allergy (Verified 04/01/25 10:02) HPI HPI 3m: Details: LAST VISIT: Postprandial epigastric pain Dyspepsia Acid reflux Plan Will repeat H pylori breath test. Check transglutaminase, lipase, vitamin B12, folate, vitamin-D and thyroid study. Patient will be sent for upper GI series with barium swallow. He will start omeprazole after his H pylori breath test that was scheduled for tomorrow. Continue avoiding dietary triggers and late night snacking. Staying upright for minimum 3 hours after meals discussed with patient. Patient will follow-up in 3 months. Patient was encouraged to call the office if he will have worsening GI symptoms. Patient is agreeable to current plan of care and verbalizes understanding of instructions. He was given the opportunity to ask questions and all questions answered. ? Thank you for allowing me to participate in his care Orders H Pylori Breath Test Today K21.9 Transglutaminase IgA Today R10.9 TSH reflex Free T4 Today K59.00 Vitamin B12 and Folate Today R19.7 Lipase Today R10.9 Vitamin D 25-OH (D2 and D3) Today E55.9 FL upper GI w air w Ba Swallow Today K21.9 New omeprazole 20 mg PO DAILY 30 caps 3RF K21.9 TODAY'S VISIT Patient is here today for follow-up. Patient had negative H pylori exam, normal labs that included vitamin B12, vitamin-D level, thyroid. Negative celiac. Patient reports since he started taking omeprazole daily his symptoms of acid reflux have subsided. No longer he has metallic taste in the mouth he patient d enies any dyspepsia, dysphagia or odynophagia. However does report that maybe once or twice a week he will wake up with reflux and some phlegm after brushing his teeth. Symptoms subside after he takes pantoprazole. Patient usually snacks around 21:00 and goes to bed around 11 30 p.m.. Patient is unsure if anything that he eats the night before could be causing symptoms. Patient reports that usually light snack nothing heavy. Patient reports that he is moving his bowels without any issues. Patient takes whey protein with fiber with digestive support. Patient usually has anything between 1-3 bowel movements a day. Denies melena, hematochezia, unintentional weight loss or ribbon like stools. [facility] Medical History Normal esophagogastroduodenoscopy (EGD) Bipolar disorder Acne Depression Asthma Acid reflux Lumbar spinal stenosis Degenerative disc disease, lumbar Osteoporosis Surgical History Hx of hand surgery H/O Spinal surgery Family History Father Colon cancer Social History Alcohol intake: never Patient Tobacco Use Status: Former Tobacco user Physical Exam Vital Signs: Last Vital Signs Pulse 62 04/01/25 10:02 BP 116/72 04/01/25 10:02 Pulse Ox 99 04/01/25 10:02 Oxygen Delivery Method Room Air 04/01/25 10:02 BMI result Body Mass Index 25.1 Assessment & Plan Assessment & Plan (1) Acid reflux: Code(s): K21.9 - Gastro-esophageal reflux disease without esophagitis Category: Medical Qualifiers: Esophagitis presence: esophagitis presence not specified Qualified Code(s): K21.9 - Gastro-esophageal reflux disease without esophagitis (2) Postprandial epigastric pain: Code(s): R10.13 - Epigastric pain (3) Dyspepsia: Code(s): R10.13 - Epigastric pain Plan Patient will continue taking pantoprazole daily. Continue avoiding dietary triggers. Patient will monitor if the symptoms of acid reflux in the morning is related to what he eats for snack the night before. Increase fluid intake and activity to promote bowel motility. Patient will follow-up in the office in 6 months. Patient is agreeable to plan of care and verbalizes understanding of instructions. He was given the opportunity to ask questions and all questions answered. Thank you for allowing me to participate in his care Medications: Refilled omeprazole 20 mg PO DAILY 90 caps 3RF K21.9 - Gastro-esophageal reflux disease without esophagitis Coding Level of Care Code Est Pt Level 3 (40505) Diagnoses Gastroesophageal reflux disease, unspecified whether esophagitis present K21.9 Esophagitis presence: esophagitis presence not specified Postprandial epigastric pain R10.13 Dyspepsia R10.13 Time Spent (min) 25 Comment 50 minutes spent with patient and additional 10 minutes reviewing records
[2025-04-01 10:02] VITALS: BP 116/72; PULSE 62; O2SAT 99; BMI 25.1
== END 2025-04-01 10:32 | disposition home or self-care (01) ==
LOC: HO.HGI 09:46
PROVIDERS: PCP Family Medicine; Visit Provider Nurse Practitioner Family
DX: K21.9 Gastro-esophageal reflux disease without esophagitis (principal); R10.13 Epigastric pain
CPT/HCPCS: 99213

== ENCOUNTER → 2025-04-01 09:45 | Outpatient (BNVA) | payer MEDICAID, SELFPAY | PROVIDERS: PCP Family Medicine; Visit Provider Nurse Practitioner Family | DX: K21.9 Gastro-esophageal reflux disease without esophagitis (principal); R10.13 Epigastric pain; Z79.899 Other long term (current) drug therapy | CPT/HCPCS: 99212 ==